=== PATIENT | female | born 1985 | race Caucasian/White ===

== ENCOUNTER 2017-10-10 14:59 | Emergency (ER) | payer MEDICARE, MEDICAID, SELFPAY ==
[2017-10-10 15:00] VITALS: BP 161/121; PULSE 105; RESP 16; TEMP 36.9; O2SAT 93; BMI 62.8
--- NOTE | 2017-10-10 15:32 | RAD_ITS ---
STUDY: X-RAY - UNILATERAL RIBS ( RIGHT ) WITH CHEST REASON FOR EXAM: Female, 32 years old. Right-sided pain TECHNIQUE - RIBS: 2 view(s) of the ribs. TECHNIQUE - CHEST: 1 frontal view COMPARISON: 04/12/2017 FINDINGS - RIBS: There are no displaced rib fractures identified. FINDINGS - CHEST: The lungs are clear. There are no pleural effusions. There is no pneumothorax. The heart is normal in size. RAD/Ribs Uni Min 3V w/PA Chest IMPRESSION: RIBS: No displaced rib fracture identified. CHEST: Clear lungs. Electronically Signed: Travis Valenzuela, at 16:53 EDT Tel , Service support ,
--- NOTE | 2017-10-10 15:32 | RAD_ITS ---
STUDY: X-RAY - RIGHT SHOULDER REASON FOR EXAM: Female, 32 years old. Trauma TECHNIQUE: 4 view(s) of the shoulder. COMPARISON: None. FINDINGS: There is no evidence of fracture or dislocation. There are no significant degenerative changes. There are no radiodense foreign bodies. RAD/Shoulder min 2 Views IMPRESSION: No fracture or dislocation. Electronically Signed: Travis Valenzuela, at 16:39 EDT Tel , Service support ,
--- NOTE | 2017-10-10 16:06 | ED.VISSUMM ---
- ER Visit Summary Date of Service: 10/10/17 Chief Complaint: Right shoulder pain History of Present Illness: The patient is a 32 F presenting with right shoulder pain. Patient states yesterday she was playing ball with her son. She was tackled by another player. She fell to her right side. She did not hit her head or lose consciousness. She complains of right shoulder pain. Denies other complaints. She has tried ibuprofen and Tylenol at home. Physical Examination: Vitals are stable. Patient is afebrile. Alert no acute distress. HEENT exam is unremarkable. Neck is nontender. Lungs are clear and equal bilaterally. Heart is regular rate and rhythm. Abdomen is soft nontender nondistended. Extremities right posterior shoulder tenderness, painful range of motion, neurovascularly intact distally Skin is warm and dry. No focal neurologic deficit. Remainder of exam is unremarkable. Emergency Department Course and Treatment: X-ray of the right shoulder and right ribs show no acute process. Patient is advised to continue ibuprofen at home. She is given a prescription for Flexeril. Advised to return to the ED for worsening complaints. She is advised to follow-up with Dr Salgado industrial organization manager for no doc. Disposition: Discharge home Impression: Right shoulder injury This note was generated with [employer] dictation software. It may contain incorrect words, spelling, and punctuation that were not noted in review of the chart prior to signing ED Disposition - Plan for ED Patient: Chief Complaint: Upper Extremity Injury Referrals: Care Physician,No Primary [Primary Care Provider] -
--- NOTE | 2017-10-10 17:04 | ED.DEP ---
ED Disposition - Plan for ED Patient: Chief Complaint: Upper Extremity Injury Instructions: ED Contusion Upper Ext Prescriptions: Cyclobenzaprine [Flexeril] 10 mg PO TID PRN #20 tablet PRN Reason: Muscle Spasm Referrals: Care Physician,No Primary [Primary Care Provider] - Juana Salgado DO [STAFF PHYSICIAN] -
== END 2017-10-10 17:14 | disposition home or self-care (01) ==
PROVIDERS: Emergency Provider Emergency Medicine
DX: S49.91XA Unspecified injury of right shoulder and upper arm, initial encounter (principal); Z79.899 Other long term (current) drug therapy; W03.XXXA Other fall on same level due to collision with another person, initial encounter; Y93.61 Activity, american tackle football; Y92.89 Other specified places as the place of occurrence of the external cause; Y99.8 Other external cause status
CPT/HCPCS: 71101; 73030; 99282

== ENCOUNTER 2017-12-28 13:29 | Emergency (ER) | payer MEDICARE, MEDICAID, SELFPAY ==
[2017-12-28 13:30] VITALS: BP 173/103; PULSE 94; RESP 16; TEMP 36.6; O2SAT 97; BMI 63.3
[2017-12-28 14:05] VITALS: BP 156/101; PULSE 84; RESP 16; O2SAT 97
--- NOTE | 2017-12-28 15:13 | ED.DEP ---
ED Disposition - Plan for ED Patient: Chief Complaint: Dental Instructions: ED Tooth Pain Prescriptions: Hydrocodone Bitart/Apap 5-325 [[place] 5MG-325MG] 1 tablet PO Q6H PRN PRN 2 Days #10 tablet PRN Reason: Pain Referrals: Care Physician,No Primary [Primary Care Provider] -
--- NOTE | 2017-12-28 15:15 | DCINST.ED_ITS ---
ED Disposition - Plan for ED Patient: Chief Complaint: Dental Instructions: ED Tooth Pain Prescriptions: Hydrocodone Bitart/Apap 5-325 [[place] 5MG-325MG] 1 tablet PO Q6H PRN PRN 2 Days # 10 tablet PRN Reason: Pain Referrals: Care Physician,No Primary [Primary Care Provider] -
--- NOTE | 2017-12-28 15:17 | ED.VISSUMM ---
- ER Visit Summary Date of Service: 12/28/17 Chief Complaint: Dental pain History of Present Illness: The patient is a 32 F presenting with dental pain. Patient states that she broke her tooth last week. She has had pain since that time. She has been taking ibuprofen, naproxen, Motrin at home. She states this is not improving her pain. She has an appointment with her dentist next week. No other complaints. Physical Examination: Vitals are stable. Patient is afebrile. Alert no acute distress. HEENT exam left upper molar tenderness with fracture, no fluctuance Neck is supple. Lungs are clear and equal bilaterally. Heart is regular rate and rhythm. Abdomen is soft nontender nondistended. Extremities are unremarkable. Skin is warm and dry. Remainder of exam is unremarkable. Emergency Department Course and Treatment: She is given one [place] in the emergency department. She is advised to follow up with her dentist. Advised return ED if worsening complaints. Disposition: Discharge home Impression: Odontalgia This note was generated with [employer] dictation software. It may contain incorrect words, spelling, and punctuation that were not noted in review of the chart prior to signing ED Disposition - Plan for ED Patient: Chief Complaint: Dental Instructions: ED Tooth Pain Prescriptions: Hydrocodone Bitart/Apap 5-325 [[place] 5MG-325MG] 1 tablet PO Q6H PRN PRN 2 Days #10 tablet PRN Reason: Pain Referrals: Care Physician,No Primary [Primary Care Provider] -
[2017-12-28] MEDS: HYDROcodone Bitartrate/Apap 5/325 Tablet PO (15:25)
--- NOTE | 2017-12-28 15:25 | ED.DCSUM_ITS ---
- ER Visit Summary Date of Service: 12/28/17 Chief Complaint: Dental pain History of Present Illness: The patient is a 32 F presenting with dental pain. Patient states that she broke her tooth last week. She has had pain since that time. She has been taking ibuprofen, naproxen, Motrin at home. She states this is not improving her pain. She has an appointment with her dentist next week. No other complaints. Physical Examination: Vitals are stable. Patient is afebrile. Alert no acute distress. HEENT exam left upper molar tenderness with fracture, no fluctuance Neck is supple. Lungs are clear and equal bilaterally. Heart is regular rate and rhythm. Abdomen is soft nontender nondistended. Extremities are unremarkable. Skin is warm and dry. Remainder of exam is unremarkable. Emergency Department Course and Treatment: She is given one [place] in the emergency department. She is advised to follow up with her dentist. Advised return ED if worsening complaints. Disposition: Discharge home Impression: Odontalgia This note was generated with [employer] dictation software. It may contain incorrect words, spelling, and punctuation that were not noted in review of the chart prior to signing ED Disposition - Plan for ED Patient: Chief Complaint: Dental Instructions: ED Tooth Pain Prescriptions: Hydrocodone Bitart/Apap 5-325 [[place] 5MG-325MG] 1 tablet PO Q6H PRN PRN 2 Days # 10 tablet PRN Reason: Pain Referrals: Care Physician,No Primary [Primary Care Provider] -
[2017-12-28 15:27] VITALS: BP 142/88; PULSE 85; RESP 18
== END 2017-12-28 15:28 | disposition home or self-care (01) ==
LOC: ED 15:16
PROVIDERS: Emergency Provider Emergency Medicine
DX: K08.89 Other specified disorders of teeth and supporting structures (principal)
CPT/HCPCS: 99283

== ENCOUNTER 2018-01-12 23:12 | Emergency (ER) | payer MEDICARE, MEDICAID, SELFPAY ==
[2018-01-12 23:13] VITALS: BP 166/91; PULSE 96; RESP 18; TEMP 37.1; O2SAT 96; BMI 63.5
--- NOTE | 2018-01-12 23:50 | ED.VISSUMM ---
- ER Visit Summary Date of Service: 01/12/18 Chief Complaint: [Dental pain] History of Present Illness: The patient is a 32 F [presents the emergency department with complaint of dental pain that started 3 weeks ago. Patient states that she had an appointment scheduled with the dentist within they would not take her insurance. Patient spent 3 hours on the phone with her insurance company today as initially she was not offered dental coverage but the apparently now will offer it to her but she will have to wait 72 hours to get in and see a dentist. Patient denies any trauma to her teeth or fever. Patient describes pain in her left upper molars.] Physical Examination: [HEENT-PERRLA, EOMI. Cranial nerves II through XII grossly intact. TMs clear. Mucous membranes moist. No adenopathy. Dentition-patient has tenderness to palpation over the left upper second and third molars. No gingival erythema or abscess noted. No trismus on exam. No facial cellulitis. No adenopathy. Cardiovascular-regular rate and rhythm without murmur or ectopy Lungs-clear to auscultation, chest wall stable without crepitus or subcu emphysema Abdomen-normoactive bowel sounds, soft, nontender, no rebound or rigidity, no peritoneal signs. Extremities-intact ?4, normal range of motion, normal pulses, atraumatic] Test Results: [None indicated] Emergency Department Course and Treatment: [Patient was treated with amoxicillin and will be given a prescription for 10 [place] for pain] Treatment Plan: [Patient advised to follow-up with the dentist.] Disposition: [Discharged home in stable condition] Impression: [Dental pain] This note was generated with [employer] dictation software. It may contain incorrect words, spelling, and punctuation that were not noted in review of the chart prior to signing ED Disposition - Plan for ED Patient: Chief Complaint: Dental Referrals: Care Physician,No Primary [Primary Care Provider] -
--- NOTE | 2018-01-12 23:54 | DCINST.ED_ITS ---
ED Disposition - Plan for ED Patient: Chief Complaint: Dental Instructions: ED Tooth Pain Prescriptions: Hydrocodone Bitart/Apap 5-325 [[place] 5MG-325MG] 1 tab PO Q6H PRN PRN 3 Days #10 tab PRN Reason: Pain Referrals: Care Physician,No Primary [Primary Care Provider] - Additional Instructions: see a dentist
--- NOTE | 2018-01-12 23:55 | DCINST.ED_ITS ---
ED Disposition - Plan for ED Patient: Chief Complaint: Dental Instructions: ED Tooth Pain Prescriptions: Hydrocodone Bitart/Apap 5-325 [[place] 5MG-325MG] 1 tab PO Q6H PRN PRN 3 Days #10 tab PRN Reason: Pain Amoxicillin 500 mg PO TID #30 tab Referrals: Care Physician,No Primary [Primary Care Provider] - Additional Instructions: see a dentist
[2018-01-13] MEDS: AMOXICILLIN 500 MG CAPSULE PO (00:07)
[2018-01-13] MEDS: HYDROcodone Bitartrate/Apap 5/325 Tablet PO (00:07)
[2018-01-13 00:10] VITALS: PULSE 89; RESP 14; O2SAT 98
== END 2018-01-13 00:10 | disposition home or self-care (01) ==
LOC: ED 23:57
PROVIDERS: Emergency Provider Emergency Medicine
DX: K08.89 Other specified disorders of teeth and supporting structures (principal)
CPT/HCPCS: 99283

== ENCOUNTER 2018-03-30 16:29 | Emergency (ER) | payer MEDICARE, MEDICAID, SELFPAY ==
[2018-03-30 16:29] VITALS: BP 183/100; PULSE 92; RESP 16; TEMP 36.6; O2SAT 99; BMI 61.5
--- NOTE | 2018-03-30 16:45 | ED.VISSUMM ---
- ER Visit Summary Date of Service: 03/30/18 Chief Complaint: [Dental pain] History of Present Illness: The patient is a 33 F [presents to the emergency department with complaint of right lower gingival swelling and pain. Patient states that she noticed some discomfort to the gingiva couple days ago and noticed the swelling today. Patient denies any fever. She denies any trauma to the area. Patient states that she has some poor dentition and is having a hard time with her insurance and getting coverage through Medicaid at this time therefore has not seen a dentist.] Physical Examination: [HEENT-PERRLA, EOMI. Cranial nerves II through XII grossly intact. TMs clear. Mucous membranes moist. No adenopathy. Dentition-patient right lower jaw is edentulous from prior extractions. Patient does have a small soft tissue swelling that is slightly erythematous noted to the gingiva. This area is not fluctuant and not typical of an abscess. It measures approximately 8 mm in diameter. Cardiovascular-regular rate and rhythm without murmur or ectopy Lungs-clear to auscultation, chest wall stable without crepitus or subcu emphysema Abdomen-normoactive bowel sounds, soft, nontender, no rebound or rigidity, no peritoneal signs. Extremities-intact ?4, normal range of motion, normal pulses, atraumatic] Test Results: [None indicated] Emergency Department Course and Treatment: Patient will be given clindamycin and 10 [place] for pain] Treatment Plan: [Clindamycin and [place] for discomfort. Patient advised to follow-up with a dentist within the next 3-5 days.] Patient understands that it is unclear the etiology of this soft tissue swelling but may be related to trauma or just inflammation. Patient does not use chewing tobacco. Disposition: [Discharged home in stable condition] Impression: [Dental pain Gingivitis.] This note was generated with [employer] dictation software. It may contain incorrect words, spelling, and punctuation that were not noted in review of the chart prior to signing ED Disposition - Plan for ED Patient: Chief Complaint: Dental Referrals: Care Physician,No Primary [Primary Care Provider] -
--- NOTE | 2018-03-30 16:48 | ED.DCSUM_ITS ---
- ER Visit Summary Date of Service: 03/30/18 Chief Complaint: [Dental pain] History of Present Illness: The patient is a 33 F [presents to the emergency department with complaint of right lower gingival swelling and pain. Patient states that she noticed some discomfort to the gingiva couple days ago and no ticed the swelling today. Patient denies any fever. She denies any trauma to the area. Patient states that she has some poor dentition and is having a hard time with her insurance and getting coverage through Medicaid at this time therefore has not seen a dentist.] Physical Examination: [HEENT-PERRLA, EOMI. Cranial nerves II through XII grossly intact. TMs clear. Mucous membranes moist. No adenopathy. Dentition- patient right lower jaw is edentulous from prior extractions. Patient does have a small soft tissue swelling that is slightly erythematous noted to the gi ngiva. This area is not fluctuant and not typical of an abscess. It measures approximately 8 mm in diameter. Cardiovascular-regular rate and rhythm without murmur or ectopy Lungs-clear to auscultation, chest wall stable without crepitus or subcu emphysema Abdomen-normoactive bowel sounds, soft, nontender, no rebound or rigidity, no peritoneal signs. Extremities-intact ?4, normal range of motion, normal pulses, atraumatic] Test Results: [None indicated] Emergency Department Course and Treatment: Patient will be given clindamycin and 10 [place] for pain] Treatment Plan: [Clindamycin and [place] for discomfort. Patient advised to follow-up with a dentist within the next 3-5 days.] Patient understands that it is unclear the etiology of this soft tissue swelling but may be related to trauma or just inflammation. Patient does not use chewing tobacco. Disposition: [Discharged home in stable condition] Impression: [Dental pain Gingivitis.] This note was generated with [employer] dictation software. It may contain incorrect words, spelling, and punctuation that were not noted in review of the chart prior to signing ED Disposition - Plan for ED Patient: Chief Complaint: Dental Referrals: Care Physician,No Primary [Primary Care Provider] -
--- NOTE | 2018-03-30 16:50 | DCINST.ED_ITS ---
ED Disposition - Plan for ED Patient: Chief Complaint: Dental Instructions: ED Tooth Pain, Understanding Gingivitis Prescriptions: Hydrocodone Bitart/Apap 5-325 [[place] 5MG-325MG] 1 tab PO Q4H PRN PRN 2 Days #10 tab PRN Reason: Pain Clindamycin HCl [Cleocin] 300 mg PO Q6H #40 cap Referrals: Care Physician,No Primary [Primary Care Provider] - Additional Instructions: see a dentist in 3-5 days
== END 2018-03-30 17:01 | disposition home or self-care (01) ==
LOC: ED 16:54
PROVIDERS: Emergency Provider Emergency Medicine
DX: K08.89 Other specified disorders of teeth and supporting structures (principal); K05.10 Chronic gingivitis, plaque induced
CPT/HCPCS: 99282

== ENCOUNTER 2018-05-02 13:46 | Emergency (ER) | payer MEDICARE, SELFPAY ==
[2018-05-02 13:47] VITALS: BP 191/101; PULSE 111; RESP 18; TEMP 36.1; O2SAT 99; BMI 41.6
--- NOTE | 2018-05-02 14:18 | ED.DCSUM_ITS ---
- ER Visit Summary Date of Service: 05/02/18 Chief Complaint: Back pain History of Present Illness: The patient is a 33 F with prior back pain is complaining of worsening pain for 3 days after she sat up the wrong way. Pain is not radiating into her legs, she has no bowel or bladder compromise no urinary retention. No fever or chills no other trauma and no other pain. Physical Examination: Otherwise normal exam she has lumbosacral spine tenderness no abdominal tenderness or fullness. She has normal plantar flexion of both feet normal dorsiflexion of both great toes. 1+ reflexes throughout the legs and equal. And she has LS-spine tenderness both spinal and paraspinal region. Emergency Department Course and Treatment: Patient will be treated with muscle relaxants and analgesia she has no red flags no reason for any further imaging emergency. Disposition: Discharge stable condition Impression: Lumbar strain This note was generated with [employer] dictation software. It may contain incorrect words, spelling, and punctuation that were not noted in review of the chart prior to signing ED Disposition - Plan for ED Patient: Disposition: Home or Assisted Living Chief Complaint: Back Instructions: ED Low Back Pain Injury Prescriptions: Naproxen [Naprosyn] 500 mg PO BID PRN #20 tab Tizanidine HCl 4 mg PO TID PRN #20 tab PRN Reason: Muscle Spasm Referrals: Care Physician,No Primary [Primary Care Provider] - 3-5 Days
[2018-05-02] MEDS: HYDROcodone Bitartrate/Apap 5/325 Tablet PO (14:27)
[2018-05-02] MEDS: Triamcinolone Acetonide 40 MG/ML Vial IM (14:27)
[2018-05-02] MEDS: diazePAM 2 MG Tablet 4 MG PO (14:27)
== END 2018-05-02 15:20 | disposition home or self-care (01) ==
PROVIDERS: Emergency Provider Emergency Medicine
DX: S39.012A Strain of muscle, fascia and tendon of lower back, initial encounter (principal); M54.5 Low back pain; G89.29 Other chronic pain; Z87.891 Personal history of nicotine dependence; Z79.899 Other long term (current) drug therapy; X50.0XXA Overexertion from strenuous movement or load, initial encounter; Y93.89 Activity, other specified; Y92.89 Other specified places as the place of occurrence of the external cause; Y99.8 Other external cause status
CPT/HCPCS: 96372; 99283

== ENCOUNTER 2018-07-14 20:28 | Emergency (ER) | payer MEDICARE, SELFPAY ==
[2018-07-14 20:29] VITALS: BP 161/102; PULSE 104; RESP 18; TEMP 36.7; O2SAT 96; BMI 56.7
--- NOTE | 2018-07-14 20:48 | EKG12_ITS ---
Test Reason : CP Blood Pressure : / mmHG Vent. Rate : 082 BPM Atrial Rate : 082 BPM P-R Int : 160 ms QRS Dur : 092 ms QT Int : 368 ms P-R-T Axes : 048 002 024 degrees QTc Int : 429 ms Normal sinus rhythm Minimal voltage criteria for LVH, may be normal variant Borderline ECG Confirmed by CAROLANN PRADHAN, DINESH ([id number]), graphic editor BARBER CAMPUZANO ([id number]) on 07/19/2018 10:05:45 AM Referred By: GORDON CABRAL Confirmed By:DINESH VUONG MD
--- NOTE | 2018-07-14 20:55 | RAD_ITS ---
STUDY: X-RAY CHEST REASON FOR EXAM: Female, 33 years old. Chest pain TECHNIQUE: 1 view COMPARISON: Prior chest radiograph from April 12, 2017 FINDINGS: Limited chest expansion with crowding of normal vascular structures. Negative for new consolidation, focal atelectasis or a substantial pleural effusion. Normal size heart. Normal mediastinum and myles. Normal visualized pulmonary arteries. Normal visualized aortic arch and descending thoracic aorta. Normal visualized thoracic spine. Normal visualized ribs, clavicles, and shoulders. There is no demonstrated abnormality of the visualized soft tissue structures of the upper abdomen. RAD/Chest 1 View (Portable) IMPRESSION: Shallow inspiration without other acute cardiopulmonary findings. Electronically Signed: Christina Magana MD at 21:19 EST , Service support ,
[2018-07-14 21:07] VITALS: BP 143/108; PULSE 88; RESP 16; O2SAT 94
[2018-07-14] MEDS: Aspirin 81 MG TAB.CHEW 324 MG PO (21:11)
[2018-07-14] MEDS: 0.9% Normal Saline 1,000 ML 150 ML IV (21:19)
[2018-07-14] MEDS: Ondansetron 4 MG/2 ML Vial IV (21:19)
[2018-07-14] MEDS: fentaNYL 100 MCG/2 ML Ampul 50 MCG IV (21:19)
[2018-07-14 21:44] LABS: Absolute Lymphocyte Count 1.14 X10^3/ul (0.83-4.51); Absolute Neutrophil Count 5.3 X10^3/uL (2.0-7.7); Basophil# 0.03 X10^3/uL; Basophil% 0.4 % (0-1); Eosinophil# 0.05 X10^3/uL; Eosinophils% 0.7 % (0-5); Hematocrit 46.8 % (37-47); Hemoglobin 15.1 g/dl (12.0-15.0); Lymphocyte # 1.14 X10^3/ul (4.0); Lymphocyte % 16.5 % (19-41); Mean Corp Hgb Conc 32.3 g/gl (32-36); Mean Corpuscular Hgb 28.5 pg (27.0-32.0); Mean Corpuscular Volume 88.3 fL (81-99); Mean Platelet Vol. 11.8 fl (6.2-12.0); Monocyte# 0.43 X10^3/uL; Monocyte% 6.2 % (0-10); Neutrophil # 5.26 X10^3/uL (2.7-7.7); Neutrophil % 75.9 % (47-70); Platelet Count 234 K/mm3 (150-450); RBC Distribution Width CV 14.6 % (11.6-14.6); RBC Distribution Width SD 46.1 fl (35.1-43.9); White Blood Count 6.9 K/mm3 (4.4-11.0)
[2018-07-14 21:51] LABS: POSITIVE COUNT NO; POSITIVE DIFFERENTIAL NO; POSITIVE MORPHOLOGY NO
[2018-07-14 22:00] VITALS: BP 133/90; PULSE 86; RESP 24; O2SAT 95
[2018-07-14 22:46] LABS: Anion Gap 9 (5-15); BUN 7 mg/dL (7-18); Calcium,Total 9.4 mg/dL (8.5-10.1); Chloride 106 mmol/L (98-107); EST Glomerular Filtration Rate 101 mL/min (>60); Est Glom Filt Rate - Afr Amer 123 mL/min (>60); Estimated Creatinine Clearance 92.79 ml/min; Glucose 125 mg/dL (74-106); Potassium 4.4 mmol/L (3.5-5.1); Sodium Level 140 mmol/L (136-145)
[2018-07-14] MEDS: HYDROmorphone 1 MG/ML Syringe IV (22:52)
[2018-07-14 22:54] LABS: D-Dimer Quantitative (DVT/PE) < 0.27 FEU/ug/m (0.27-0.49)
--- NOTE | 2018-07-14 23:16 | ED.VISSUMM ---
- ER Visit Summary Date of Service: 07/14/18 Chief Complaint: Chest pain History of Present Illness: The patient is a 33 F who complains of left upper chest pain for the past several days. Pain worsened over the last couple of hours. Nothing really makes the pain better or worse. She has had mild shortness of breath. No cough or URI symptoms. Patient denies any known injury. History significant for borderline diabetes, hypertension, anxiety, depression. Physical Examination: Vital signs significant for blood pressure 161/102, heart rate 104. Patient sitting upright in bed. She is in no acute distress. Head and neck examination unremarkable. Heart is regular rate and rhythm. Lung sounds are clear. She does have tenderness in the left upper sternal border that re-creates her pain. There is no crepitus. Abdomen is soft and nontender. Lower extreme examination is unremarkable. Test Results: EKG is sinus 82 with no sign of acute ischemia. Portable chest x-ray shows shallow Inspra Tory effort, but no other acute findings. CBC was a hemoglobin of 15.1. Chemistry studies significant for glucose of 125. Troponin and d-dimer are both negative. Emergency Department Course and Treatment: Patient was given aspirin along with initial dose of fentanyl and Zofran. Due to continued pain she did receive Dilaudid. On repeat examination patient states the pain meds helps for a short period, then the pain will spike again. She continues to have significant tenderness along the chest wall. She will be given a dose of Solu-Medrol and discharged with [place] and prednisone. She was advised that this will make her blood sugars increase for the next several days. Treatment Plan: [] Disposition: Discharge Impression: Chest wall pain This note was generated with [employer] dictation software. It may contain incorrect words, spelling, and punctuation that were not noted in review of the chart prior to signing ED Disposition - Plan for ED Patient: Chief Complaint: Chest Pain Referrals: Care Physician,No Primary [Primary Care Provider] -
--- NOTE | 2018-07-14 23:19 | ED.DCSUM_ITS ---
- ER Visit Summary Date of Service: 07/14/18 Chief Complaint: Chest pain History of Present Illness: The patient is a 33 F who complains of left upper chest pain for the past several days. Pain worsened over the last couple of hours. Nothing really makes the pain better or worse. She has had mild shortne ss of breath. No cough or URI symptoms. Patient denies any known injury. History significant for borderline diabetes, hypertension, anxiety, depression. Physical Examination: Vital signs significant for blood pressure 161/102, heart rate 104. Patient sitting upright in bed. She is in no acute distress. Head and neck examination unremarkable. Heart is regular rate and rhythm. Lung sounds are clear. She does have tenderness in the left upper sternal border that re-creates her pain. There is no crepitus. Abdomen is soft and nontender. Lower extreme examination is unremarkable. Test Results: EKG is sinus 82 with no sign of acute ischemia. Portable chest x- ray shows shallow Inspra Tory effort, but no other acute findings. CBC was a hemoglobin of 15.1. Chemistry studies significant for glucose of 125. Troponin and d-dimer are both negative. Emergency Department Course and Treatment: Patient was given aspirin along with initial dose of fentanyl and Zofran. Due to continued pain she did receive Dilaudid. On repeat examination patient states the pain meds helps for a short period, then the pain will spike again. She continues to have significant tenderness along the chest wall. She will be given a dose of Solu-Medrol and discharged with [place] and prednisone. She was advised that this will make her blood sugars increase for the next several days. Treatment Plan: [] Disposition: Discharge Impression: Chest wall pain This note was generated with [employer] dictation software. It may contain incorrect words, spelling, and punctuation that were not noted in review of the chart prior to signing ED Disposition - Plan for ED Patient: Chief Complaint: Chest Pain Referrals: Care Physician,No Primary [Primary Care Provider] -
--- NOTE | 2018-07-14 23:20 | DCINST.ED_ITS ---
ED Disposition - Plan for ED Patient: Disposition: Home or Assisted Living Chief Complaint: Chest Pain Instructions: ED Strain Chest Wall Prescriptions: Hydrocodone Bitart/Apap 5-325 [[place] 5MG-325MG] 1 tablet PO Q4H PRN PRN 2 Days #10 tablet PRN Reason: Pain Prednisone 10 mg PO UD #33 tablet Referrals: Saw Turner MD [STAFF PHYSICIAN] - As soon as possible
[2018-07-14] MEDS: HYDROcodone Bitartrate/Apap 5/325 Tablet PO (23:28)
[2018-07-14] MEDS: MethylPREDNISolone 125 MG/2 ML Vial IV (23:28)
[2018-07-14 23:33] VITALS: BP 143/98; PULSE 87; RESP 16; O2SAT 95
--- NOTE | 2018-07-14 23:34 | ED.RN ---
REVIEWED D/C INSTRUCTIONS, FOLLOW UP CARE, PRESCRIPTIONS, AND S/S THAT WOULD WARRANT A RETURN TO THE ED WITH PT. PT VERBALIZED AN UNDERSTANDING AND DENIES FURTHER QUESTIONS FOR THIS RN. PT SKIN P/W/D, RESP EVEN AND UNLABORED, PT A&O X 3, NO DISTRESS NOTED. PT AMBULATED OUT OF ED, GAIT STEADY.
== END 2018-07-14 23:35 | disposition home or self-care (01) ==
PROVIDERS: Emergency Provider Emergency Medicine
DX: R07.89 Other chest pain (principal); F41.9 Anxiety disorder, unspecified; F32.9 Major depressive disorder, single episode, unspecified; Z79.899 Other long term (current) drug therapy; Z87.891 Personal history of nicotine dependence
CPT/HCPCS: 71045; 80048; 84484; 85025; 85379; 93005; 96361; 96374; 96375; 99285; J7030; A4216; J2405

== ENCOUNTER 2018-08-17 23:14 | Emergency (ER) | payer MEDICARE, SELFPAY ==
[2018-08-17 23:16] VITALS: BP 154/99; PULSE 113; RESP 18; TEMP 36.6; O2SAT 94; BMI 126.9
[2018-08-17 23:24] VITALS: BP 150/100; PULSE 106; RESP 27; O2SAT 96
--- NOTE | 2018-08-17 23:40 | EKG12_ITS ---
Test Reason : CP Blood Pressure : / mmHG Vent. Rate : 103 BPM Atrial Rate : 103 BPM P-R Int : 168 ms QRS Dur : 086 ms QT Int : 334 ms P-R-T Axes : 039 001 010 degrees QTc Int : 437 ms Sinus tachycardia Possible Left atrial enlargement Left ventricular hypertrophy Abnormal ECG Confirmed by CAROLANN PRADHAN, DINESH ([id number]), telegraph editor BARBER CAMPUZANO ([id number]) on 08/20/2018 8:22:55 AM Referred By: SAHIL Confirmed By:DINESH VUONG MD
--- NOTE | 2018-08-17 23:40 | RAD_ITS ---
STUDY: X-RAY CHEST REASON FOR EXAM: Female, 33 years old. Chest pain TECHNIQUE: PA and lateral views of the chest. COMPARISON: 07/14/2018 FINDINGS: The lungs are clear and expanded. There is no demonstrated pleural abnormality. Normal size heart. Normal mediastinum and myles. Normal visualized pulmonary arteries. Normal visualized aortic arch and descending thoracic aorta. Normal visualized thoracic spine. Normal visualized ribs, clavicles, and shoulders. There is no demonstrated abnormality of the visualized soft tissue structures of the upper abdomen. RAD/Chest PA and Lateral IMPRESSION: Normal x-ray examination of the chest. Electronically Signed: Emilio Ruffin MD at 1:47 EST Tel , Service support ,
[2018-08-17 23:54] LABS: Absolute Neutrophil Count 3.1 X10^3/uL (2.0-7.7); Basophil# 0.03 X10^3/uL; Basophil% 0.7 % (0-1); Eosinophil# 0.05 X10^3/uL; Eosinophils% 1.2 % (0-5); Hematocrit 45.8 % (37-47); Lymphocyte % 16.4 % (19-41); Mean Corp Hgb Conc 32.8 g/gl (32-36); Mean Corpuscular Hgb 29.4 pg (27.0-32.0); Mean Corpuscular Volume 89.8 fL (81-99); Mean Platelet Vol. 11.9 fl (6.2-12.0); Monocyte# 0.34 X10^3/uL; Neutrophil # 3.12 X10^3/uL (2.7-7.7); Neutrophil % 73.2 % (47-70); POSITIVE COUNT NO; POSITIVE DIFFERENTIAL NO; POSITIVE MORPHOLOGY NO; Platelet Count 200 K/mm3 (150-450); RBC Distribution Width CV 14.8 % (11.6-14.6); RBC Distribution Width SD 47.9 fl (35.1-43.9); White Blood Count 4.3 K/mm3 (4.4-11.0)
[2018-08-18 00:15] VITALS: BP 129/99; PULSE 99; RESP 28; O2SAT 96
[2018-08-18 00:23] LABS: Anion Gap 7 (5-15); BUN 8 mg/dL (7-18); Calcium,Total 9.1 mg/dL (8.5-10.1); Chloride 103 mmol/L (98-107); Creatinine, Serum 0.89 mg/dL (0.55-1.02); EST Glomerular Filtration Rate 77 mL/min (>60); Est Glom Filt Rate - Afr Amer 93 mL/min (>60); Estimated Creatinine Clearance 72.98 ml/min; Glucose 155 mg/dL (74-106); Potassium 3.7 mmol/L (3.5-5.1); Sodium Level 137 mmol/L (136-145)
[2018-08-18 01:15] VITALS: BP 135/94; PULSE 100; RESP 25; O2SAT 97
--- NOTE | 2018-08-18 02:26 | ED.DEP ---
ED Disposition - Plan for ED Patient: Instructions: ED Chest Pain NonCardiac Referrals: Care Physician,No Primary [Primary Care Provider] - Becky Boyle MD [COURTESY STAFF PHYSICIAN] -
[2018-08-18 02:35] VITALS: BP 143/92; PULSE 92; RESP 15; O2SAT 98
--- NOTE | 2018-08-18 07:12 | ED.DCSUM_ITS ---
- ER Visit Summary Date of Service: 08/18/18 Chief Complaint: Chest pain History of Present Illness: The patient is a 33 F who presents with chest pain. It is been present intermittently for 2 months. She describes a sharp and stabbing. She currently rates it as 9 out of 10. The current episode is been present for greater than 12 hours. She denies recent travel recent surgery prior DVT or pulmonary embolism or known coagulopathies. She was seen 3 weeks ago for similar symptoms. She has not followed up as an outpatient. No shortness of breath. No cough. No vomiting or diarrhea. No fever. Physical Examination: Blood pressure 150/100 heart rate 106 respiratory rate 27 pulse ox 96% Resting comfortably no distress Moist mucous membranes Heart regular rhythm slightly tachycardic Lungs are clear Abdomen soft Extremities nontender Alert Test Results: EKG shows sinus rhythm rate of 103. Labs notable for white count 4.3. Troponin negative. D-dimer negative. Chest x-ray normal. Emergency Department Course and Treatment: Workup as above is normal. Patient has had symptoms for months with negative workup here. I do not believe any further emergent workup or intervention necessary and advised that she follow-up as an outpatient. Treatment Plan: [] Disposition: Discharge Impression: Chronic chest pain This note was generated with [employer] dictation software. It may contain incorrect words, spelling, and punctuation that were not noted in review of the chart prior to signing ED Disposition - Plan for ED Patient: Disposition: Home or Assisted Living Instructions: ED Chest Pain NonCardiac Referrals: Becky Boyle MD [COURTESY STAFF PHYSICIAN] - Care Physician,No Primary [Primary Care Provider] -
== END 2018-08-18 02:36 | disposition home or self-care (01) ==
PROVIDERS: Emergency Provider Emergency Medicine
DX: R07.9 Chest pain, unspecified (principal); G89.29 Other chronic pain
CPT/HCPCS: 71046; 80048; 84484; 85025; 85379; 93005; 99284; A4216

== ENCOUNTER 2018-12-07 08:57 | Emergency (ER) | payer MEDICARE, SELFPAY ==
[2018-12-07 08:58] VITALS: BP 161/111; PULSE 131; RESP 18; TEMP 36.3; O2SAT 95; BMI 56.7
--- NOTE | 2018-12-07 09:13 | ED.VISSUMM ---
- ER Visit Summary Date of Service: 12/07/18 Chief Complaint: [Sore throat] History of Present Illness: The patient is a 33 F [presents to the emergency department with a sore throat that she noticed this morning when she awoke. Patient states that when she sat up she felt like there was something hanging in the back of her throat and she could not breathe. Patient states that she then had her anxiety go way up. Patient states she was fine before going to bed. She denies any new medications. She denies any fever or cough. She denies any sick contacts.] Physical Examination: [HEENT-PERRLA, EOMI. Cranial nerves II through XII grossly intact. TMs clear. Mucous membranes moist. No adenopathy. Patient has some faint pharyngeal erythema noted. Patient does have edema and erythema of the uvula. There are no tonsillar exudates. No trismus on exam. Cardiovascular-regular rate and rhythm without murmur or ectopy Lungs-clear to auscultation, chest wall stable without crepitus or subcu emphysema Abdomen-normoactive bowel sounds, soft, nontender, no rebound or rigidity, no peritoneal signs. Extremities-intact ?4, normal range of motion, normal pulses, atraumatic] Test Results: [Rapid strep screen was negative] Emergency Department Course and Treatment: [Patient was given 10 mg of Decadron and 500 mg of amoxicillin] Treatment Plan: [We will treat with amoxicillin for to treat other possible bacterial causes. Patient will also be given prednisone for 3 more days. Patient understands that this may be allergic versus trauma versus bacterial versus viral etiology. Patient advised to return if difficulty swallowing on secretions, high fevers, or condition should worsen anyway.] Disposition: [Discharged home in stable condition.] Impression: [Uvulitis] This note was generated with [employer] dictation software. It may contain incorrect words, spelling, and punctuation that were not noted in review of the chart prior to signing ED Disposition - Plan for ED Patient: Referrals: Care Physician,No Primary [Primary Care Provider] -
[2018-12-07] MEDS: AMOXICILLIN 500 MG CAPSULE PO (09:14)
[2018-12-07] MEDS: dexAMETHasone 4 MG Tablet 10 MG PO (09:14)
--- NOTE | 2018-12-07 09:39 | ED.DEP ---
ED Disposition - Plan for ED Patient: Instructions: ED Uvulitis Prescriptions: Prednisone [Deltasone] 20 mg PO BID #10 tab Amoxicillin 500 mg PO TID #30 tab Referrals: Care Physician,No Primary [Primary Care Provider] - Chet Davis MD [STAFF PHYSICIAN] - 5-7 Days
[2018-12-07 09:49] VITALS: BP 152/108; PULSE 121; RESP 20; O2SAT 100
== END 2018-12-07 09:50 | disposition home or self-care (01) ==
PROVIDERS: Emergency Provider Emergency Medicine
DX: K12.2 Cellulitis and abscess of mouth (principal)
CPT/HCPCS: 87880; 99283

== ENCOUNTER 2019-01-15 05:15 | Emergency (ER) | payer MEDICARE, SELFPAY ==
[2019-01-15 05:16] VITALS: BP 175/116; PULSE 84; RESP 20; TEMP 36.5; O2SAT 97; BMI 40.7
--- NOTE | 2019-01-15 05:27 | ED.VISSUMM ---
- ER Visit Summary Date of Service: 01/15/19 Chief Complaint: Toothache History of Present Illness: The patient is a 33 F who presents with dental pain. She states that she had a chipped tooth which broke more about a week ago. She complains of increased pain particularly over the last few days. No fevers or facial swelling. Physical Examination: Afebrile blood pressure 175/116 vitals otherwise normal Patient does have focal decay of the left maxillary first molar no dental abscess amenable to incision and drainage No trismus Heart regular Test Results: Not indicated Emergency Department Course and Treatment: Patient was given prescriptions for naproxen and penicillin and first doses of each here. She does have an appointment with a dentist on February 17 and she was also given a list of other local dental clinics to see if she can get in any sooner. Treatment Plan: [] Disposition: Discharge Impression: Odontalgia This note was generated with [employer] dictation software. It may contain incorrect words, spelling, and punctuation that were not noted in review of the chart prior to signing ED Disposition - Plan for ED Patient: Referrals: Care Physician,No Primary [Primary Care Provider] -
--- NOTE | 2019-01-15 05:28 | ED.DEP ---
ED Disposition - Plan for ED Patient: Instructions: Dental Pain Prescriptions: Naproxen [Naprosyn] 500 mg PO BID #14 tab Prescription Printed Penicillin V Potassium 500 mg PO 4X/DAY #40 tab Prescription Printed Referrals: Care Physician,No Primary [Primary Care Provider] -
[2019-01-15] MEDS: Penicillin Vk 250 MG Tablet 500 MG PO (05:32)
[2019-01-15] MEDS: Naproxen 500 MG Tablet PO (05:32)
[2019-01-15 05:33] VITALS: BP 168/99; PULSE 80; RESP 15; O2SAT 97
== END 2019-01-15 05:36 | disposition home or self-care (01) ==
LOC: ED 05:33
PROVIDERS: Emergency Provider Emergency Medicine
DX: K08.89 Other specified disorders of teeth and supporting structures (principal)
CPT/HCPCS: 99283

== ENCOUNTER 2019-02-16 18:12 | Emergency (ER) | payer MEDICARE, SELFPAY ==
[2019-02-16 18:13] VITALS: BP 172/107; PULSE 103; RESP 16; TEMP 36.5; O2SAT 95; BMI 53.1
--- NOTE | 2019-02-16 19:31 | ED.VIS.BACK ---
History of Present Illness Chief Complaint: Back Informant: Patient Onset: Weeks - 1 Context: Gradual Onset - woke up w/ this pain Timing: Continuous Quality: Aching Location: Lumbar - right. no radiation. Current Severity: Severe Maximum Severity: Severe Worsened by: improves with: Movement Relieved by: Remaining Still Associated Symptoms: - - No radiation to lower extremities, abdominal pain, numbness, tingling, weakness, fevers, bowel or bladder dysfunction. Narrative: Patient denies any obvious injury or overuse. She woke up with this pain and it has been relatively persistent, today when she got up from lying down she felt spasms and like her back suddenly locked up on her with significant exacerbation of the pain she has been having for the past week without any new symptoms otherwise. Past Medical History - Allergies and Home Meds Allergies/Adverse Reactions: Allergies sulfamethoxazole [From Bactrim] Allergy (Verified 02/16/19 18:15) Hives trimethoprim [From Bactrim] Allergy (Verified 02/16/19 18:15) Hives ketorolac tromethamine [From Toradol] Adverse Reaction (Verified 02/16/19 18:15) Other I GET REALLY SICK ON THOSE morphine Adverse Reaction (Verified 02/16/19 18:15) Upset Stomach I GET SEVERE ABDOMINAL CRAMPAGE tramadol Adverse Reaction (Verified 02/16/19 18:15) Other I GET REALLY SICK ON THOSE Primary Care Physician: Care Physician,No Primary [Primary Care Provider] - Past Medical History: None Lives: Spouse/ Significant Other Smoking Status: Former smoker Drugs: None - no IVDU Review of Systems General: Denies: Chills, Fever Gastrointestinal: Denies: Abdominal pain, Nausea, Vomiting Genitourinary: Reports: - - No bowel or bladder dysfunction. See HPI. Musculoskeletal: Reports: Back pain. Denies: Swelling, Extremity Pain Skin: Denies: Rash, Wounds Neurological: Denies: Headache, Weakness, Parasthesia, Numbness Physical Exam Vital Signs/Narrative: Vital Signs Temp Pulse Resp BP Pulse Ox 02/16/19 18:13 97.7 F L 103 H 16 172/107 H 95 Inital Vital Signs reviewed: Yes General: Well nourished, Well developed, Obese, - - No acute distress Head: Normocephalic, Atraumatic Abdomen: Soft, Nontender, Nondistended, Normal bowel sounds Back: Normal Inspection, Paraspinal Tenderness - Mild, pain is at right SI joint, the area is mildly tender. No tenderness at sciatic notch., Negative SLR - Right, Negative SLR - Left. Negative for: Spinal tenderness, CVA tenderness Extremeties: Nontender, No edema, Strong Pulses Skin: Normal color, No rash Neuro: Alert, Oriented, Normal Strength, Normal Sensation, Normal DTR, Normal Gait, Normal Reflexes Psychological: Normal affect, Normal Mood Diagnostic/Tx/Re-eval - Medical Decision Making No radiography indicated. Straight leg raises are negative and reflexes are normal. Likely musculoskeletal etiology, I suspect sacroiliac dysfunction. She has allergies to multiple analgesics. She states Tylenol and ibuprofen were helping earlier in week so I advised she continue those, gave her a shot of Norflex here and a prescription for some Flexeril to use as needed, I advised follow-up with chiropractic or her PCP for physical therapy referral for persistent symptoms. ED Disposition - Plan for ED Patient: Disposition: Home or Assisted Living Diagnosis: Sacroiliac joint dysfunction of right side, Spasm of muscle of lower back Instructions: BACK SPASM, No Trauma, Sacroiliitis Prescriptions: cycloBENZAPRine HCl [Flexeril] 10 mg PO TID PRN PRN #15 tab PRN Reason: Muscle Spasm Transmission Status: Pending to [facility] Referrals: Care Physician,No Primary [Primary Care Provider] - Kamryn Cordova [NON-STAFF] - 1 Week if not improving (or your PCP listed on insurance card)
[2019-02-16] MEDS: Orphenadrine 60 MG/2 ML Ampul IM (19:36)
== END 2019-02-16 20:40 | disposition home or self-care (01) ==
LOC: ED 19:56
PROVIDERS: Emergency Provider Emergency Medicine
DX: M62.830 Muscle spasm of back (principal); M53.3 Sacrococcygeal disorders, not elsewhere classified; Z87.891 Personal history of nicotine dependence; E66.9 Obesity, unspecified
CPT/HCPCS: 96372; 99282

== ENCOUNTER 2019-09-17 11:17 | Emergency (ER) | payer MEDICARE, MEDICAID, SELFPAY ==
[2019-09-17 11:20] VITALS: BP 161/80; PULSE 87; RESP 17; TEMP 36.8; O2SAT 96; BMI 55.2
--- NOTE | 2019-09-17 11:58 | ED.VIS.DENTA ---
History of Present Illness Informant: Patient Onset: Month(s) Context: Gradual Onset Timing: Continuous Quality: sharp Location: left mouth Current Severity: Severe Maximum Severity: Severe Worsened by: food Relieved by: NSAIDs Associated Symptoms: Facial Swellling, Hot, Cold, Sensitivity Narrative: 34-year-old female presents with dental pain. Worsening over the last 1 month. Mostly left lower. History of poor dentition. Has not seen a dentist. No fevers or difficulty breathing or difficulty swallowing or difficulty opening and closing mouth Prior similar symptoms: Yes Recent Illness/Hospitalization: No <Jese La - Last Filed: 09/17/19 11:58> <Ruby Good - Last Filed: 09/17/19 12:07> Chief Complaint: Dental Past Medical History Prior records reviewed: Yes Past Medical History: None Surgical History: no surgical history Lives: With Family Smoking Status: Never smoker Alcohol: Occasional Drugs: None <Jese La - Last Filed: 09/17/19 11:58> <Ruby Good - Last Filed: 09/17/19 12:07> - Allergies and Home Meds Allergies/Adverse Reactions: Allergies sulfamethoxazole [From Bactrim] Allergy (Verified 09/17/19 11:19) Hives trimethoprim [From Bactrim] Allergy (Verified 09/17/19 11:19) Hives ketorolac tromethamine [From Toradol] Adverse Reaction (Verified 09/17/19 11:19) Upset Stomach I GET REALLY SICK ON THOSE morphine Adverse Reaction (Verified 09/17/19 11:19) Upset Stomach I GET SEVERE ABDOMINAL CRAMPAGE tramadol Adverse Reaction (Verified 09/17/19 11:19) Upset Stomach I GET REALLY SICK ON THOSE Primary Care Physician: Care Physician,No Primary [Primary Care Provider] - Dentist,Your [STAFF PHYSICIAN] - Review of Systems All systems negative except as indicated General: Denies: Chills, Fever Eyes: Denies: Visual changes - bilaterally, Blurred Vision - bilaterally, Diplopia ENT: Denies: Rhinorrhea, Sore throat Cardiovascular: Denies: Chest pain, Palpitations Respiratory: Denies: Dyspnea, Cough Gastrointestinal: Denies: Abdominal pain, Nausea, Vomiting, Diarrhea Genitourinary: Denies: Dysuria, Hematuria, Frequency Musculoskeletal: Denies: Myalgias, Neck pain, Back pain Skin: Denies: Rash, Abscess, Abrasions, Wounds Neurological: Denies: Headache, Weakness, Parasthesia, Numbness <Jese La - Last Filed: 09/17/19 11:58> Physical Exam Vital Signs/Narrative: Vital Signs Temp Pulse Resp BP Pulse Ox 09/17/19 11:20 98.2 F 87 17 161/80 H 96 Inital Vital Signs reviewed: Yes General: Well nourished, Well developed, Obese Head: Normocephalic, Atraumatic ENT: Moist mucous membranes, No nasal trauma, No rhinorrhea Mouth/Throat: No focal abscess, Normal posterior oropharynx, No sublingual edema, Normal Stensen's duct, Focal dental decay, Focal gum swelling, Widespread dental decay. Negative for: Apthous ulcer, Dental trauma, Dental abscess, Dental avulsion, Dentral fracture, Gingivitis, Tenderness on tooth percussion, Trismus Neck: Supple, No lymphadenopathy, Nontender, No JVD Cardiovascular: Regular rate, Regular rhythm, No murmurs Respiratory: No distress, CTA bilaterally, Chest nontender Abdomen: Soft, Nontender, Nondistended, Normal bowel sounds, No masses Back: Nontender, Normal Inspection Extremities: Nontender, No edema Skin: Normal color, No rash Neurological: Alert, Oriented x3 Psychological: Normal affect, Normal Mood <Jese La - Last Filed: 09/17/19 11:58> Vital Signs/Narrative: Vital Signs Temp Pulse Resp BP Pulse Ox 09/17/19 11:20 98.2 F 87 17 161/80 H 96 <Ruby Good - Last Filed: 09/17/19 12:07> Diagnostic/Tx/Re-eval - Medical Decision Making Patient has no focal abscess. No sublingual edema or trismus. Voice normal. Will prescribe Naprosyn, penicillin will give referral to dental. Return precautions given. Discharged home. <Jese La - Last Filed: 09/17/19 11:58> - Medical Decision Making Patient was seen with Jese guerra PA agree with the above, complaint is dental pain, there is some vague discomfort to the left lower mandibular area the airways intact for the mouth is unremarkable discussed with the patient the potential infection pain management antibiotics and follow-up with dental services see chart for full details <Ruby Good - Last Filed: 09/17/19 12:07> ED Disposition <Jese La - Last Filed: 09/17/19 11:58> <Ruby Good - Last Filed: 09/17/19 12:07> - Plan for ED Patient: Disposition: Home or Assisted Living Diagnosis: Odontalgia, Dental caries Instructions: Dental Pain Prescriptions: Naproxen [Naprosyn] 500 mg PO BID PRN #20 tab Prescription Printed Penicillin V Potassium 500 mg PO 4X/DAY #40 tab Prescription Printed Referrals: Care Physician,No Primary [Primary Care Provider] - Dentist,Your [STAFF PHYSICIAN] -
[2019-09-17] MEDS: Penicillin Vk 250 MG Tablet 500 MG PO (12:10)
[2019-09-17] MEDS: Naproxen 500 MG Tablet PO (12:10)
== END 2019-09-17 12:11 | disposition home or self-care (01) ==
PROVIDERS: Emergency Provider Physician Assistant Medical
DX: K02.9 Dental caries, unspecified (principal)
CPT/HCPCS: 99283

== ENCOUNTER 2019-10-28 10:42 | Emergency (ER) | payer MEDICARE, MEDICAID, SELFPAY ==
[2019-10-28 10:44] VITALS: BP 156/105; PULSE 86; RESP 15; RESP 17; TEMP 36.1; O2SAT 97; BMI 56.2
[2019-10-28] MEDS: Penicillin Vk 250 MG Tablet 500 MG PO (11:25)
[2019-10-28] MEDS: oxyCODONE 5 MG Tablet PO (11:25)
[2019-10-28] MEDS: Naproxen 250 MG Tablet 500 MG PO (11:25)
--- NOTE | 2019-10-28 11:49 | ED.DCSUM_ITS ---
- ER Visit Summary Date of Service: 10/28/19 Chief Complaint: Dental pain History of Present Illness: The patient is a 34 F with no primary care physician or dentist. She reports she has pain in her left mandibular first molar that began 2 days ago. States is 10 of 10 at worst 9-10 currently. Is worsened by talking or eating. Has not taken anything for pain. She does report that is sensitive hot and cold temperatures. She also had facial swelling. Patient reports nausea without vomiting. No fever, chills, or other constitutional symptoms. Physical Examination: Vitals: Stable. Afebrile. Mouth: No trismus. No edema of the floor of the mouth. Pain with percussion of left mandibular second premolar and first molar. There is an abscess on the lateral portion of the gum at the level of the first molar. This area is severely tender to palpation. She does have mild facial swelling. General: A&O x 3. NAD. Cardiovascular exam: Regular rate and rhythm, no murmur, rub or gallop. Respiratory exam: Clear to auscultation bilaterally. No wheezes or stridor. Abdominal exam: Soft, nontender, nondistended, normal bowel sounds. No peritoneal signs. Extremity: No clubbing, cyanosis, or edema. Emergency Department Course and Treatment: Patient had the area anesthetized with Cetacaine. A stab incision was made with drainage of a significant amount of purulent material. She was given penicillin, naproxen, and Percocet here. She is resting more comfortably. Treatment Plan: Patient be discharged instructed to follow-up the dentist soon as possible. Return to the emergency department for any worsening symptoms. Disposition: To home in improved and stable condition. Impression: 1. Dental abscess. 2. Incision and drainage. Procedure Note: Anesthetized with cetacaine. An incision was made with an 11 scalpel blade. A moderate amount of pus was drained. The patient tolerated it well. This note was generated with [employer] dictation software. It may contain incorrect words, spelling, and punctuation that were not noted in review of the chart prior to signing ED Disposition - Plan for ED Patient: Disposition: Home or Assisted Living Instructions: ED ABSCESS DENTAL Prescriptions: Naproxen [Naprosyn] 500 mg PO BID #14 tab Prescription Printed Penicillin V Potassium 500 mg PO 4X/DAY #40 tab Prescription Printed Oxycodone HCl/Acetaminophen [Percocet 5/325] 1 tab PO Q6H PRN PRN 3 Days #12 tab PRN Reason: Pain Prescription Printed Referrals: Dentist,Your [STAFF PHYSICIAN] - As soon as possible
[2019-10-28 12:08] VITALS: BP 154/95; RESP 18
== END 2019-10-28 12:08 | disposition home or self-care (01) ==
LOC: ED 11:14
PROVIDERS: Emergency Provider Emergency Medicine
DX: K04.7 Periapical abscess without sinus (principal)
CPT/HCPCS: 41800; 99283

== ENCOUNTER 2019-11-14 08:28 | Emergency (ER) | payer MEDICARE, MEDICAID, SELFPAY ==
[2019-11-14 08:29] VITALS: BP 160/103; PULSE 95; RESP 17; TEMP 36.4; O2SAT 96; BMI 41.8
--- NOTE | 2019-11-14 08:39 | RAD_ITS ---
STUDY: X-RAY - LEFT ANKLE REASON FOR EXAM: Female, 34 years old. Fell down stairs last night -- medial pain TECHNIQUE: 3 view(s) of the ankle. COMPARISON: None. FINDINGS: Normal visualized distal tibia and fibula. Normal medial and lateral malleoli. Normal tibiotalar articulation and ankle mortise. Normal visualized talus and calcaneus. The visualized subtalar, talonavicular, calcaneocuboid and tarsal articulations are normal. Soft tissue swelling. RAD/Ankle min 3 Views IMPRESSION: Soft tissue swelling. Electronically Signed: Jewel Victor, at 9:22 EDT , Service support ,
--- NOTE | 2019-11-14 08:39 | ED.VIS.GEN ---
History of Present Illness Chief Complaint: Lower Extremity Injury Informant: Patient Onset: Yesterday Narrative: Patient states that last night at approximately 2200 hrs. she was going down and external flight of stairs when she slipped due to the rain. She states that as she went down the stairs her left foot got stuck in between 2 pieces of concrete. She notes some abrasions. She reports that she went home put some ice on it but when she woke today she is having pain when she bears weight. She denies any other injuries. Past Medical History - Allergies and Home Meds Allergies/Adverse Reactions: Allergies sulfamethoxazole [From Bactrim] Allergy (Verified 11/14/19 08:29) Hives trimethoprim [From Bactrim] Allergy (Verified 11/14/19 08:29) Hives ketorolac tromethamine [From Toradol] Adverse Reaction (Verified 11/14/19 08:29) Upset Stomach I GET REALLY SICK ON THOSE morphine Adverse Reaction (Verified 11/14/19 08:29) Upset Stomach I GET SEVERE ABDOMINAL CRAMPAGE tramadol Adverse Reaction (Verified 11/14/19 08:29) Upset Stomach I GET REALLY SICK ON THOSE Primary Care Physician: Care Physician,No Primary [Primary Care Provider] - Surgical History: no surgical history Smoking Status: Unknown if ever smoked Review of Systems General: Denies: Chills, Fever, Sweats Eyes: Denies: Visual changes - bilaterally, Diplopia ENT: Denies: Rhinorrhea, Sore throat Cardiovascular: Denies: Chest pain, Palpitations Respiratory: Denies: Dyspnea, Cough, Dyspnea on exertion Gastrointestinal: Denies: Abdominal pain, Nausea, Vomiting, Diarrhea, Melena, Hematochezia Genitourinary: Denies: Dysuria, Hematuria, Frequency Musculoskeletal: Reports: Extremity Pain. Denies: Back pain Skin: Denies: Rash, Wounds Neurological: Denies: Headache, Weakness, Numbness Physical Exam Vital Signs/Narrative: Vital Signs Temp Pulse Resp BP Pulse Ox 11/14/19 08:29 97.5 F L 95 17 160/103 H 96 Inital Vital Signs reviewed: Yes General: Well nourished, Well developed, No Acute Distress Head: Normocephalic, Atraumatic Eyes: Perrl, EOMI ENT: Moist mucous membranes, No rhinorrhea Neck: Supple, Nontender Cardiovascular: Regular rate, Regular rhythm, No murmurs Respiratory: No distress, CTA bilaterally, Chest nontender Abdomen: Soft, Nontender, Nondistended, Normal bowel sounds Back: Nontender, Normal Inspection Extremities: No edema, - - She reports tenderness over the medial malleolus distal medial leg. Laterally there are some superficial abrasions without blood. Skin: Normal color, No rash Neurological: Alert, Oriented x3, Cranial nerves II-XII grossly intact, Normal Strength, Normal Sensation Psychological: Normal affect, Normal Mood Diagnostic/Tx/Re-eval - Medical Decision Making X-rays were obtained and were negative for fracture. Patiently placed in Marc wrap. Would recommend Tylenol Motrin and icing. Follow-up with podiatry in 10 to 14 days if not improved. ED Disposition - Plan for ED Patient: Disposition: Home or Assisted Living Diagnosis: Fall down stairs, Left ankle sprain Instructions: ED Sprain Ankle Referrals: Hollis Davis DPM [STAFF PHYSICIAN] - 10-14 Days if not better (i)
== END 2019-11-14 09:03 | disposition home or self-care (01) ==
LOC: ED 08:55
PROVIDERS: Emergency Provider Emergency Medicine
DX: S93.402A Sprain of unspecified ligament of left ankle, initial encounter (principal); W10.9XXA Fall (on) (from) unspecified stairs and steps, initial encounter
CPT/HCPCS: 73610; 99282

== ENCOUNTER 2020-01-17 12:18 | Emergency (ER) | payer MEDICARE, MEDICAID, SELFPAY ==
[2020-01-17 12:19] VITALS: BP 140/90; PULSE 95; RESP 16; TEMP 37; BMI 56.8
--- NOTE | 2020-01-17 14:47 | ED.VISSUMM ---
- ER Visit Summary Date of Service: 01/17/20 Chief Complaint: Dental pain History of Present Illness: The patient is a 34 F who presents with dental pain that has been getting worse over the past 2 weeks. Patient states she was supposed to have a dentist appointment yesterday but her insurance was not taken by her dentist. Patient states she rescheduled with a different dentist for 2 weeks from now. Patient describes the pain as aching and stabbing. Patient states the pain is over the left upper and lower molars. Patient states the pain is worse with eating and drinking. Patient admits to hot and cold sensitivity. Patient denies any fevers or chills. Patient denies any facial or jaw swelling. Physical Examination: Vital signs are stable. Patient is afebrile. Patient is in no acute distress. Oral mucosa is pink and moist. There are large dental caries noted over the left upper first molar and left lower third molar. There is some mild gingival edema around these teeth. There is no discharge or drainage. There is no fluctuance. There is no evidence of any abscess. There is no sublingual edema or evidence of Dalton angina. Neck is supple. Trachea is midline. There is no JVD or lymphadenopathy. Heart was regular rate and rhythm. Lungs are clear and equal bilaterally. Emergency Department Course and Treatment: Patient was given a dose of Pen-Vee K and was given a prescription for the same. Patient was instructed to take Tylenol or ibuprofen as needed for pain. Patient was instructed to follow-up with her dentist as scheduled. Patient understood and was agreeable with the plan. All questions were answered. Disposition: Discharge home Impression: Infected dental caries This note was generated with [employer] dictation software. It may contain incorrect words, spelling, and punctuation that were not noted in review of the chart prior to signing ED Disposition - Plan for ED Patient: Disposition: Home or Assisted Living Diagnosis: Infected dental caries Instructions: ED [facility] Dental, ED Tooth Pain Prescriptions: Penicillin V Potassium 500 mg PO 4X/DAY #40 tab Prescription Printed Referrals: Care Physician,No Primary [Primary Care Provider] - Dentist,Your [STAFF PHYSICIAN] - Keep [facility] appointment
== END 2020-01-17 15:22 | disposition home or self-care (01) ==
PROVIDERS: Emergency Provider Emergency Medicine
DX: K02.9 Dental caries, unspecified (principal); F32.9 Major depressive disorder, single episode, unspecified
CPT/HCPCS: 99281

== ENCOUNTER 2020-03-21 22:14 | Emergency (ER) | payer MEDICARE, MEDICAID, SELFPAY ==
[2020-03-21 22:14] VITALS: BP 153/95; PULSE 104; RESP 26; TEMP 36.3; O2SAT 97; BMI 59.4
--- NOTE | 2020-03-21 22:51 | RAD_ITS ---
STUDY: X-RAY CHEST REASON FOR EXAM: Female, 35 years old. COUGH, SOB, AND CONGESTION. TECHNIQUE: 2 views COMPARISON: Prior chest radiograph of 08/18/2018 FINDINGS: The lungs are clear and expanded. There is no demonstrated pleural abnormality. Normal size heart. Normal mediastinum and myles. Normal visualized pulmonary arteries. Normal visualized aortic arch and descending thoracic aorta. Normal visualized thoracic spine. Normal visualized ribs, clavicles, and shoulders. There is no demonstrated abnormality of the visualized soft tissue structures of the upper abdomen. RAD/Chest PA and Lateral IMPRESSION: Normal x-ray examination of the chest. Electronically Signed: Christina Magana MD at 23:35 EDT , Service support ,
--- NOTE | 2020-03-21 22:52 | ED.DCSUM_ITS ---
History of Present Illness Chief Complaint: Shortness of Breath Narrative: Patient is a 35-year-old female who presents with sore throat and cough. She states she woke up not feeling well this morning she had sore throat generalized malaise and cough. She complains of shortness of breath with exertion. No fevers. No nausea vomiting or diarrhea. No sick contacts. She denies history of underlying lung disease. Past Medical History - Allergies and Home Meds Allergies/Adverse Reactions: Allergies sulfamethoxazole [From Bactrim] Allergy (Verified 01/17/20 12:22) Hives trimethoprim [From Bactrim] Allergy (Verified 01/17/20 12:22) Hives ketorolac tromethamine [From Toradol] Adverse Reaction (Verified 01/17/20 12:22) Upset Stomach I GET REALLY SICK ON THOSE morphine Adverse Reaction (Verified 01/17/20 12:22) Upset Stomach I GET SEVERE ABDOMINAL CRAMPAGE tramadol Adverse Reaction (Verified 01/17/20 12:22) Upset Stomach I GET REALLY SICK ON THOSE Primary Care Physician: Care Physician,No Primary [Primary Care Provider] - Past Medical History: - - Bipolar Surgical History: no surgical history Smoking Status: Current every day smoker Review of Systems All systems negative except as indicated General: Reports: Malaise. Denies: Fever Eyes: Denies: Visual changes - bilaterally ENT: Reports: Sore throat Cardiovascular: Denies: Chest pain Respiratory: Reports: Dyspnea, Cough Gastrointestinal: Denies: Abdominal pain, Nausea, Vomiting, Diarrhea Musculoskeletal: Denies: Myalgias Skin: Denies: Rash Neurological: Denies: Headache Physical Exam Vital Signs/Narrative: Vital Signs Temp Pulse Resp BP Pulse Ox 03/21/20 22:14 97.4 F L 104 H 26 H 153/95 H 97 Inital Vital Signs reviewed: Yes General: Well nourished Head: Normocephalic Eyes: EOMI ENT: Moist mucous membranes Neck: Supple Cardiovascular: Regular rhythm, Tachycardia Respiratory: CTA bilaterally, - - Tachypnea but no distress able speak in full sentences. Negative for: Rales, Rhonchi, Wheezing Abdomen: Soft, Nontender Skin: Normal color Neurological: Alert Psychological: Normal affect Diagnostic/Tx/Re-eval Impressions Chest X-Ray 03/21/20 22:51 IMPRESSION: Normal x-ray examination of the chest. Electronically Signed: Christina Magana MD at 23:35 EDT , Service support , 03/21/20 22:51 Chest PA and Lateral [RAD] Stat Laboratory Results 03/21/20 03/21/20 03/21/20 23:06 23:06 23:06 WBC 8.4 RBC 4.57 Hgb 12.4 Hct 38.8 MCV 84.9 MCH 27.1 MCHC 32.0 RDW Std Deviation 39.3 RDW Coeff of Nirmala 12.8 Plt Count 245 MPV 10.7 Immature Gran % (Auto) 0.600 Neut % (Auto) 71.9 H Lymph % (Auto) 21.4 [place] % (Auto) 5.0 Eos % (Auto) 0.7 Baso % (Auto) 0.4 Absolute Neuts (auto) 6.0 Absolute Lymphs (auto) 1.79 Nucleated RBC % 0 Sodium 137 Potassium 4.3 Chloride 104 Carbon Dioxide 27.0 Anion Gap 6 BUN 8 Creatinine 0.76 Estim Creat Clear Calc 83.84 Est GFR (MDRD) Af Amer 110 Est GFR (MDRD) Non-Af 91 BUN/Creatinine Ratio 10.5 Glucose 287 H Lactic Acid 2.1 H* Calcium 8.8 - Medical Decision Making Patient was treated with IV fluids. Chest x-ray is unremarkable. Labs notable for lactic acid minimally elevated at 2.1. Given the remainder of her normal work-up I do not believe this to be clinically significant. Patient was advised that this is most likely related to a viral syndrome. A COVID swab was sent. She was advised on quarantining as well as supportive care. She understands return for new or worsening symptoms. The patient was discharged. ED Disposition - Plan for ED Patient: Disposition: Home or Assisted Living Diagnosis: Viral syndrome Instructions: ED Viral Syndrome Referrals: Care Physician,No Primary [Primary Care Provider] -
[2020-03-21] MEDS: 0.9% Normal Saline 1,000 ML 999 ML IV (23:14)
[2020-03-21 23:18] LABS: Absolute Lymphocyte Count 1.79 X10^3/uL (0.83-4.51); Basophil# 0.03 X10^3/uL; Basophil% 0.4 % (0-1); Eosinophil# 0.06 X10^3/uL; Eosinophils% 0.7 % (0-5); Hematocrit 38.8 % (37-47); Hemoglobin 12.4 g/dL (12.0-15.0); Lymphocyte # 1.79 X10^3/ul (4.0); Lymphocyte % 21.4 % (19-41); Mean Corpuscular Hgb 27.1 pg (27.0-32.0); Mean Corpuscular Volume 84.9 fL (81-99); Mean Platelet Vol. 10.7 fl (6.2-12.0); Monocyte# 0.42 X10^3/uL; NRBC Flagged by Analyzer 0 % (0-5); Neutrophil # 6.03 X10^3/uL (2.7-7.7); Neutrophil % 71.9 % (47-70); Platelet Count 245 K/mm3 (150-450); RBC Distribution Width CV 12.8 % (11.6-14.6); RBC Distribution Width SD 39.3 fl (35.1-43.9); Red Blood Count 4.57 M/mm3 (4.2-5.4); White Blood Count 8.4 K/mm3 (4.4-11.0)
[2020-03-21 23:32] LABS: Anion Gap 6 (5-15); BUN 8 mg/dL (7-18); BUN/Creat Ratio 10.5 RATIO (10-20); Calcium,Total 8.8 mg/dL (8.5-10.1); Chloride 104 mmol/L (98-107); Creatinine, Serum 0.76 mg/dL (0.55-1.02); EST Glomerular Filtration Rate 91 mL/min (>60); Est Glom Filt Rate - Afr Amer 110 mL/min (>60); Estimated Creatinine Clearance 83.84 ml/min; Glucose 287 mg/dL (74-106); Potassium 4.3 mmol/L (3.5-5.1); Sodium Level 137 mmol/L (136-145)
[2020-03-21 23:49] LABS: Lactic Acid 2.1 mmol/L (0.4-1.9)
[2020-03-21 23:54] VITALS: BP 109/82; PULSE 90; RESP 18; TEMP 36.9; O2SAT 96
[2020-03-22 03:20] LABS: Reflex Lactate? Y
== END 2020-03-22 00:04 | disposition home or self-care (01) ==
PROVIDERS: Emergency Provider Emergency Medicine
DX: B34.9 Viral infection, unspecified (principal); F17.200 Nicotine dependence, unspecified, uncomplicated; F31.9 Bipolar disorder, unspecified
CPT/HCPCS: 71046; 80048; 83605; 85025; 87635; 99283; C9803; J7030; U0003

== ENCOUNTER → 2020-04-13 11:42 | Outpatient (CLI) | payer MEDICARE, MEDICAID, SELFPAY ==
[2020-03-21 22:14] VITALS: BMI 59.4
== END ==
PROVIDERS: PCP Family Medicine; Referring Provider Family Medicine; Visit Provider Family Medicine
DX: R60.0 Localized edema (principal); R06.00 Dyspnea, unspecified

== ENCOUNTER 2020-09-17 17:58 | Emergency (ER) | payer MEDICARE, MEDICAID, SELFPAY ==
[2020-06-11 15:29] VITALS: BMI 59.4
[2020-09-17 17:58] VITALS: BP 146/86; PULSE 95; RESP 15; TEMP 36.6; O2SAT 98; BMI 64.1
--- NOTE | 2020-09-17 18:12 | EKG12_ITS ---
Test Reason : DYSRHYTHMIA Blood Pressure : / mmHG Vent. Rate : 084 BPM Atrial Rate : 084 BPM P-R Int : 182 ms QRS Dur : 104 ms QT Int : 376 ms P-R-T Axes : 024 003 030 degrees QTc Int : 444 ms Normal sinus rhythm Minimal voltage criteria for LVH, may be normal variant Borderline ECG Confirmed by CAROLANN PRADHAN, DINESH ([id number]), film or videotape editor GIAN ALICEA ([id number]) on 09/19/2020 9:33:56 AM Referred By: MARIE Confirmed By:DINESH VUONG MD
--- NOTE | 2020-09-17 18:25 | RAD_ITS ---
STUDY: X-RAY CHEST REASON FOR EXAM: Female, 35 years old. chest pain TECHNIQUE: Single AP portable view of the chest. COMPARISON: 03/21/2020 FINDINGS: The lungs are clear and expanded. There is no demonstrated pleural abnormality. Normal size heart. Normal mediastinum and myles. Normal visualized pulmonary arteries. Normal visualized aortic arch and descending thoracic aorta. Normal visualized thoracic spine. Normal visualized ribs, clavicles, and shoulders. There is no demonstrated abnormality of the visualized soft tissue structures of the upper abdomen. RAD/Chest 1 View (Portable) IMPRESSION: Normal x-ray examination of the chest. Electronically Signed: Jules Ribeiro MD at 18:44 EDT Tel , Service support ,
--- NOTE | 2020-09-17 18:28 | ED.DCSUM_ITS ---
History of Present Illness Chief Complaint: General Illness Informant: Patient Narrative: Patient is a 35-year-old female with a past medical history of anxiety who presents to the emergency department for generally not feeling well. She states she feels like there is a pressure on her chest. She believes that this is related to stress. She denies any palpitations or shortness of breath related to this. She is never felt like this before in the past. She denies any history of DVT/PE. No leg swelling. She does have a lot of stressors going on right now that she does not want to delve into. She denies any recent illness including any cough, fever/chills. No nausea/vomiting or diarrhea. No urinary symptoms. She has not tried anything for her chest pressure. No known aggravating factors. It is not related to exertion. It is not pleuritic. Past Medical History - Allergies and Home Meds Allergies/Adverse Reactions: Allergies sulfamethoxazole [From Bactrim] Allergy (Verified 09/17/20 18:03) Hives trimethoprim [From Bactrim] Allergy (Verified 09/17/20 18:03) Hives ketorolac tromethamine [From Toradol] Adverse Reaction (Verified 09/17/20 18:03) Upset Stomach I GET REALLY SICK ON THOSE morphine Adverse Reaction (Verified 09/17/20 18:03) Upset Stomach I GET SEVERE ABDOMINAL CRAMPAGE tramadol Adverse Reaction (Verified 09/17/20 18:03) Upset Stomach I GET REALLY SICK ON THOSE Primary Care Physician: Hollis Pierson MD [NON-STAFF] - 2 Days Prior records reviewed: Yes Surgical History: no surgical history Smoking Status: Former smoker Review of Systems All systems negative except as indicated General: Denies: Chills, Fever, Sweats Eyes: Denies: Visual changes - bilaterally, Diplopia ENT: Denies: Rhinorrhea, Sore throat Cardiovascular: Reports: Chest pain - Pressure. Denies: Palpitations Respiratory: Denies: Dyspnea, Cough, Dyspnea on exertion Gastrointestinal: Denies: Abdominal pain, Nausea, Vomiting, Diarrhea Genitourinary: Denies: Dysuria, Hematuria, Frequency Musculoskeletal: Denies: Back pain, Extremity Pain Skin: Denies: Rash, Wounds Neurological: Denies: Headache, Weakness, Numbness Physical Exam Vital Signs/Narrative: Vital Signs Temp Pulse Resp BP Pulse Ox 09/17/20 17:58 97.8 F 95 15 146/86 H 98 Inital Vital Signs reviewed: Yes General: Well nourished, Well developed, No Acute Distress Head: Normocephalic, Atraumatic Eyes: Perrl, EOMI ENT: Moist mucous membranes, No rhinorrhea Neck: Supple, Nontender Cardiovascular: Regular rate, Regular rhythm, No murmurs Respiratory: No distress, CTA bilaterally, Chest nontender Abdomen: Soft, Nontender, Nondistended, Normal bowel sounds Back: Nontender, Normal Inspection Extremities: Nontender, No edema. Negative for: Calf Tenderness Skin: Normal color, No rash Neurological: Alert, Oriented x3, Cranial nerves II-XII grossly intact, Normal Strength, Normal Sensation Psychological: Normal affect, Normal Mood Diagnostic/Tx/Re-eval Chest X-Ray - ED: 1 View - Single view portable x-ray interpreted by myself. Clear lung powell bilaterally. No pleural effusions. Normal cardiac silhouette. - EKG Initial EKG Interpretation: - - Rate of 84 bpm and normal sinus rhythm. Normal intervals. Normal axis. No significant ST elevations or depressions. No T wave abnormalities. - Medical Decision Making Patient presents to the emergency department for chest pressure and generally not feeling well. She believes that this is all anxiety related. Upon arrival to the emergency department her vital signs are within normal limits. She is satting 98% on room air and nontachycardic. Physical exam is benign. Will check EKG, basic lab work and chest x-ray. Patient's troponin within normal limits. EKG did not show any signs of ischemia or arrhythmia. Chest x-ray did not show any acute cardiopulmonary abnormality. She is PERC negative. Low concern for PE. I feel patient is stable for d ischarge at this time. She is going to follow-up with her PCP. If she develops any worsening chest pressure or develop shortness of breath with this she needs to return to the emergency department to be reevaluated. The patient and her mother who was at bedside are agreeable with this plan. Discharged home in stable condition. All questions answered. ED Disposition - Plan for ED Patient: Disposition: Home or Assisted Living Diagnosis: Chest pressure Instructions: ED Chest Pain, Noncardiac Referrals: Hollis Pierson MD [NON-STAFF] - 2 Days
[2020-09-17 18:29] VITALS: PULSE 90; RESP 20; O2SAT 96
[2020-09-17 18:48] LABS: Absolute Lymphocyte Count 1.71 X10^3/uL (0.83-4.51); Absolute Neutrophil Count 6.5 X10^3/uL (2.0-7.7); Basophil# 0.04 X10^3/uL; Basophil% 0.5 % (0-1); Eosinophil# 0.08 X10^3/uL; Eosinophils% 0.9 % (0-5); Hematocrit 44.6 % (37-47); Hemoglobin 14.2 g/dL (12.0-15.0); Lymphocyte # 1.71 X10^3/ul (4.0); Lymphocyte % 19.3 % (19-41); Mean Corp Hgb Conc 31.8 g/dL (32-36); Mean Corpuscular Hgb 27.7 pg (27.0-32.0); Mean Corpuscular Volume 86.9 fL (81-99); Mean Platelet Vol. 11.1 fl (6.2-12.0); Monocyte% 5.6 % (0-10); NRBC Flagged by Analyzer 0 % (0-5); Neutrophil # 6.51 X10^3/uL (2.7-7.7); Neutrophil % 73.2 % (47-70); Platelet Count 243 K/mm3 (150-450); RBC Distribution Width CV 12.5 % (11.6-14.6); RBC Distribution Width SD 39.8 fl (35.1-43.9); Red Blood Count 5.13 M/mm3 (4.2-5.4); White Blood Count 8.9 K/mm3 (4.4-11.0)
[2020-09-17 18:59] LABS: Internal QC Validated? YES +Cl - CLEAR BKGD; Pregnancy, Serum, hCG Quali. NEGATIVE Negative
[2020-09-17 19:05] LABS: Anion Gap 4 (5-15); BUN 12 mg/dL (7-18); BUN/Creat Ratio 16.4 RATIO (10-20); Calcium,Total 9.2 mg/dL (8.5-10.1); Chloride 104 mmol/L (98-107); Creatinine, Serum 0.73 mg/dL (0.55-1.02); EST Glomerular Filtration Rate 95 mL/min (>60); Est Glom Filt Rate - Afr Amer 115 mL/min (>60); Estimated Creatinine Clearance 75.79 ml/min; Glucose 196 mg/dL (74-106); Sodium Level 136 mmol/L (136-145)
[2020-09-17 19:13] VITALS: BP 111/74; PULSE 87; RESP 20; O2SAT 96
== END 2020-09-17 19:16 | disposition home or self-care (01) ==
PROVIDERS: Emergency Provider Emergency Medicine
DX: R07.89 Other chest pain (principal); Z87.891 Personal history of nicotine dependence
CPT/HCPCS: 71045; 80048; 84484; 84703; 85025; 93005; 99284; A4216

== ENCOUNTER 2020-10-05 06:59 | Emergency (ER) | payer MEDICARE, MEDICAID, SELFPAY ==
[2020-10-05 07:00] VITALS: BP 133/63; PULSE 105; RESP 22; TEMP 35.5; O2SAT 97; BMI 58.3
--- NOTE | 2020-10-05 07:16 | EKG12_ITS ---
Test Reason : Blood Pressure : / mmHG Vent. Rate : 098 BPM Atrial Rate : 098 BPM P-R Int : 192 ms QRS Dur : 094 ms QT Int : 360 ms P-R-T Axes : 016 -04 036 degrees QTc Int : 459 ms Normal sinus rhythm Minimal voltage criteria for LVH, may be normal variant Cannot rule out Anterior infarct , age undetermined Abnormal ECG Confirmed by THOMAS PRADHAN, JUANY ([id number]), news editor BARBER CAMPUZANO ([id number]) on 10/10/2020 8:08:25 AM Referred By: NIKI Confirmed By:JUANY GUZMAN MD
--- NOTE | 2020-10-05 07:16 | CT_ITS ---
STUDY: CTA CHEST REASON FOR EXAM: Female, 35 years old. Pulmonary embolism. One week history of chest pain with congestion and cough. RADIATION DOSAGE (If Supplied By Facility): CTDIvol = ( 18.05 ) mGy, DLP = ( 648.79 ) mGycm TECHNIQUE: The examination was performed with the intravenous administration of IV 100mL Isovue-370. Post-processing of the angiographic images was performed, with multiplanar reformation and 3D reconstruction. Individualized dose optimization techniques were used for this CT. COMPARISON: None. FINDINGS: There are multiple scattered intraluminal filling defects in branches of the right and left upper lobe pulmonary arteries in keeping with a pulmonary embolism. Normal thoracic aorta and visualized great vessels. There is no demonstrated aortic dissection. Normal heart and pericardium. Normal mediastinum. Normal hilar regions. Normal visualized trachea and bronchi. The lungs are well expanded. Normal pulmonary parenchyma. Normal pleura. Normal chest wall structures. Normal osseous structures. Normal visualized upper abdomen. CT/CTA Chest W/WO Contrast IMPRESSION: Pulmonary emboli are seen in branches of the right upper and left upper lobe pulmonary arterial branches. Electronically Signed: Jewel Victor MD at 9:06 EDT , Service support ,
[2020-10-05 07:22] VITALS: O2SAT 100
[2020-10-05] MEDS: LORazepam 0.5 MG Tablet PO (07:25)
[2020-10-05] MEDS: Aspirin 81 MG TAB.CHEW 324 MG PO (07:25)
[2020-10-05 07:32] LABS: Absolute Lymphocyte Count 1.77 X10^3/uL (0.83-4.51); Absolute Neutrophil Count 5.2 X10^3/uL (2.0-7.7); Basophil# 0.06 X10^3/uL; Basophil% 0.8 % (0-1); Eosinophil# 0.08 X10^3/uL; Eosinophils% 1.1 % (0-5); Lymphocyte # 1.77 X10^3/ul (4.0); Lymphocyte % 23.4 % (19-41); Mean Corp Hgb Conc 31.3 g/dL (32-36); Mean Corpuscular Hgb 27.4 pg (27.0-32.0); Mean Corpuscular Volume 87.8 fL (81-99); Mean Platelet Vol. 11.3 fl (6.2-12.0); Monocyte# 0.47 X10^3/uL; Monocyte% 6.2 % (0-10); NRBC Flagged by Analyzer 0 % (0-5); Neutrophil # 5.16 X10^3/uL (2.7-7.7); Platelet Count 251 K/mm3 (150-450); RBC Distribution Width CV 12.4 % (11.6-14.6); RBC Distribution Width SD 40.1 fl (35.1-43.9); Red Blood Count 5.47 M/mm3 (4.2-5.4); White Blood Count 7.6 K/mm3 (4.4-11.0)
[2020-10-05 07:35] LABS: Prothrombin Time (Protime)PT. 12.8 SECONDS (11.7-14.9)
[2020-10-05 07:36] LABS: Partial Thromboplast Time 25.9 Seconds (24.1-36.2)
--- NOTE | 2020-10-05 07:39 | ED.DCSUM_ITS ---
- ER Visit Summary Date of Service: 10/05/20 Chief Complaint: Chest pain History of Present Illness: The patient is a 35 F who presents with chest pain that has been waxing and waning over the past week. Patient states it began gradually. Patient states pain is localized to the left upper chest towards the left axilla. Patient states nothing makes it better and nothing makes it worse. Patient denies any nausea or vomiting. Patient states he feels lightheaded and like she might pass out. Patient states that her pain feels sharp at times, dull at times, tight at times, and aching at times. Patient admits to a cough but denies any sputum production. Patient denies any fevers or chills. Patient denies any shortness of breath. Patient denies any diaphoresis. Patient does admit to some palpitations. Physical Examination: Vital signs are stable except for mild tachycardia of 105 and a mild tachypnea of 22. Patient is afebrile. Patient is in no acute distress. Oral mucosa is pink and moist. Neck is supple. Trachea is midline. There is no JVD. Heart was regular and slightly tachycardic. Lungs are clear and equal bilaterally. There is reproducible tenderness over the left upper chest wall. There is no bony crepitance or step-off. Abdomen is soft. Bowel sounds are normal. There is no tenderness. Extremities are intact. There is no calf tenderness or edema. Cranial nerves II through XII are intact. There are no focal motor or sensory deficits. Test Results: EKG was obtained. On my interpretation, it showed a normal sinus rhythm with a rate of 98. WA interval, QRS interval, and QTc intervals were all normal. Vista was normal. There are no acute ST or T wave changes. CBC and basic metabolic profile were obtained and were essentially within normal limits with the exception of an elevated glucose of 209. Troponin was normal. COVID- 19 rapid antigen was obtained and was negative. CTA of the chest was obtained. There are multiple scattered filling defect in the branches of the left and right upper lobes. These were interpreted by the radiologist and reviewed by myself. Emergency Department Course and Treatment: Patient was given a dose of aspirin initially. Patient was also given a dose of Ativan orally. Patient was unable to lay still for the CT scan initially. Patient was given a repeat dose of Ativan. Patient felt better after this and was able to get the CTA done. Patient was advised of her findings. Patient was given her first dose of Eliquis here. Patient was given a prescription for Eliquis. Patient was instructed to follow-up with her primary care physician in 3 to 5 days. Patient understood and was agreeable with the plan. All questions were answered. Disposition: Discharge home Impression: 1. Bilateral pulmonary emboli This note was generated with [employer] dictation software. It may contain incorrect words, spelling, and punctuation that were not noted in review of the chart prior to signing ED Disposition - Plan for ED Patient: Disposition: Home or Assisted Living Diagnosis: Pulmonary embolism Instructions: Pulmonary Embolism Prescriptions: Apixaban [Eliquis] 5 mg PO BID #74 tablet Transmission Status: Pending to [facility] #30 Referrals: Becky Boyle MD [STAFF PHYSICIAN] - 3-5 Days
[2020-10-05 07:40] LABS: Anion Gap 7 (5-15); BUN 17 mg/dL (7-18); BUN/Creat Ratio 24.7 RATIO (10-20); Calcium,Total 9.3 mg/dL (8.5-10.1); Chloride 104 mmol/L (98-107); Creatinine, Serum 0.69 mg/dL (0.55-1.02); EST Glomerular Filtration Rate 102 mL/min (>60); Est Glom Filt Rate - Afr Amer 123 mL/min (>60); Estimated Creatinine Clearance 92.34 ml/min; Glucose 209 mg/dL (74-106); Potassium 3.9 mmol/L (3.5-5.1); Sodium Level 139 mmol/L (136-145)
[2020-10-05] MEDS: LORazepam 2 MG/ML Syringe 0.5 MG IV (08:06)
[2020-10-05 09:12] VITALS: BP 142/83; PULSE 79; RESP 20; O2SAT 93
[2020-10-05] MEDS: APIXABAN 5 MG TABLET PO (09:25)
[2020-10-05 09:43] VITALS: BP 136/64; PULSE 97; RESP 18; O2SAT 100
== END 2020-10-05 09:44 | disposition home or self-care (01) ==
PROVIDERS: Emergency Provider Emergency Medicine; PCP Family Medicine
DX: I26.99 Other pulmonary embolism without acute cor pulmonale (principal); R05 Cough; Z79.02 Long term (current) use of antithrombotics/antiplatelets
CPT/HCPCS: 71275; 80048; 84484; 85025; 85610; 85730; 87426; 93005; 96374; 99285; Q9967; A4216

== ENCOUNTER 2020-10-08 14:09 | Emergency (ER) | payer MEDICARE, MEDICAID, SELFPAY ==
[2020-10-08 14:10] VITALS: BP 141/96; PULSE 109; RESP 15; TEMP 37; O2SAT 96; BMI 53.0
--- NOTE | 2020-10-08 14:32 | ED.DCSUM_ITS ---
History of Present Illness Chief Complaint: Anxiety Informant: Patient Narrative: 5-year-old female with history of anxiety and recently diagnosed with bilateral pulmonary emboli presents with anxiety. She states she has an appoint with her primary care doctor and her psychiatric doctor tomorrow but feels like her anxiety is worsened since she has been diagnosed with bilateral pulmonary emboli. She does not complain of shortness of breath. She states that when her diagnosis was made she was given Ativan which eased her symptoms. She is not on Ativan chronically. She states she is not taking her anxiety medication because it gives her the jitters. She states she will take this up with her physician tomorrow. She does not know why she has pulmonary emboli. She has no history of blood clots, she is not on estrogens, she has no recent travel. She states that she was told it was because she was obese. Past Medical History - Allergies and Home Meds Allergies/Adverse Reactions: Allergies sulfamethoxazole [From Bactrim] Allergy (Verified 10/08/20 14:10) Hives trimethoprim [From Bactrim] Allergy (Verified 10/08/20 14:10) Hives ketorolac tromethamine [From Toradol] Adverse Reaction (Verified 10/08/20 14:10) Upset Stomach I GET REALLY SICK ON THOSE morphine Adverse Reaction (Verified 10/08/20 14:10) Upset Stomach I GET SEVERE ABDOMINAL CRAMPAGE tramadol Adverse Reaction (Verified 10/08/20 14:10) Upset Stomach I GET REALLY SICK ON THOSE Primary Care Physician: Hollis Pierson MD [Primary Care Provider] - Prior records reviewed: Yes Past Medical History: - - Anxiety, depression, pulmonary emboli Surgical History: no surgical history Lives: Spouse/ Significant Other Smoking Status: Former smoker Alcohol: None Drugs: None Review of Systems General: Denies: Chills, Fever, Sweats Eyes: Denies: Visual changes - bilaterally, Diplopia ENT: Denies: Rhinorrhea, Sore throat Cardiovascular: Reports: Palpitations, Heart racing Respiratory: Denies: Dyspnea, Cough, Dyspnea on exertion Gastrointestinal: Denies: Abdominal pain, Nausea, Vomiting, Diarrhea, Melena, Hematochezia Genitourinary: Denies: Dysuria, Hematuria, Frequency Musculoskeletal: Denies: Back pain, Extremity Pain Skin: Denies: Rash, Wounds Neurological: Denies: Headache, Weakness, Numbness Psych: Reports: Anxiety. Denies: Depression, Suicidal thoughts, Suicidal ideations Physical Exam Vital Signs/Narrative: Vital Signs Temp Pulse Resp BP Pulse Ox 10/08/20 14:10 98.6 F 109 H 15 141/96 H 96 Inital Vital Signs reviewed: Yes General: Well nourished, Obese Head: Normocephalic, Atraumatic Eyes: Perrl, EOMI ENT: Moist mucous membranes, No rhinorrhea. Negative for: Nasal congestion Cardiovascular: Regular rhythm, Tachycardia Respiratory: No distress, CTA bilaterally, Chest nontender Extremities: Nontender, No edema Skin: Normal color, No rash. Negative for: Cyanosis, Diaphoresis Neurological: Alert, Oriented x3, Cranial nerves II-XII grossly intact Psychological: Normal affect, Normal Mood Diagnostic/Tx/Re-eval - Medical Decision Making Patient recently diagnosed with bilateral pulmonary on 10/05/2020. Patient states that she has had worsening anxiety since that time. She has appointments to see both her primary care physician her psychiatric doctor tomorrow. She feels like she needs something to help her anxiety. She states that Ativan helped her. She was given 0.5 mg in the ED. She was given 4 0.5 mg tablets to get her to appointments tomorrow. Patient was counseled that I could not give her a long- term prescription for this. She acknowledges understanding. Patient will get her anxiety medication adjusted at her psychiatric visit. Patient stable for discharge at this time and I do not believe she needs more blood work and imaging. Impression: 1. Anxiety ED Disposition - Plan for ED Patient: Disposition: Home or Assisted Living Instructions: ED Anxiety Reaction Prescriptions: Lorazepam [Ativan] 0.5 mg PO TID 2 Days #4 tablet Prescription Printed Referrals: Hollis Pierson MD [Primary Care Provider] -
[2020-10-08] MEDS: LORazepam 0.5 MG Tablet PO (14:41)
[2020-10-08 14:44] VITALS: RESP 16
== END 2020-10-08 14:45 | disposition home or self-care (01) ==
LOC: ED 14:41
PROVIDERS: Emergency Provider Student in an Organized Health Care Education/Training Program; PCP Family Medicine
DX: F41.9 Anxiety disorder, unspecified (principal); E66.9 Obesity, unspecified; Z87.891 Personal history of nicotine dependence
CPT/HCPCS: 99283; A4216

== ENCOUNTER 2020-10-13 09:27 | Emergency (ER) | payer MEDICARE, MEDICAID, SELFPAY ==
[2020-10-13 09:27] VITALS: BP 159/105; PULSE 107; RESP 18; TEMP 35.9; O2SAT 96; BMI 57.5
--- NOTE | 2020-10-13 10:01 | ED.DCSUM_ITS ---
History of Present Illness Chief Complaint: General Illness Informant: Patient Narrative: 35-year-old female presenting with feeling of generally feeling rundown. Patient does not have a cough or cold symptoms. No stuffy or runny nose. No fever or chills. Patient does not have chest pain or shortness of breath. Her only real complaint is some mild nausea but she is able to eat and drink normally. She is making normal urine and stool. Patient recently diagnosed with PEs and is on Eliquis. She is also been started on Ativan 0.5 mg by her psychiatrist for anxiety. Past Medical History - Allergies and Home Meds Allergies/Adverse Reactions: Allergies sulfamethoxazole [From Bactrim] Allergy (Verified 10/13/20 09:27) Hives trimethoprim [From Bactrim] Allergy (Verified 10/13/20 09:27) Hives ketorolac tromethamine [From Toradol] Adverse Reaction (Verified 10/13/20 09:27) Upset Stomach I GET REALLY SICK ON THOSE morphine Adverse Reaction (Verified 10/13/20 09:27) Upset Stomach I GET SEVERE ABDOMINAL CRAMPAGE tramadol Adverse Reaction (Verified 10/13/20 09:27) Upset Stomach I GET REALLY SICK ON THOSE Primary Care Physician: Hollis Pierson MD [Primary Care Provider] - Past Medical History: - - Anxiety, depression, pulmonary emboli Surgical History: no surgical history Lives: Spouse/ Significant Other Smoking Status: Current every day smoker Alcohol: None Drugs: None Review of Systems General: Denies: Chills, Fever, Sweats ENT: Denies: Rhinorrhea, Sore throat Cardiovascular: Denies: Chest pain, Palpitations Respiratory: Denies: Dyspnea, Cough, Dyspnea on exertion Gastrointestinal: Reports: Nausea. Denies: Abdominal pain, Vomiting, Diarrhea, Constipation Genitourinary: Denies: Dysuria, Hematuria, Frequency Musculoskeletal: Denies: Back pain, Extremity Pain Skin: Denies: Rash, Wounds Neurological: Denies: Headache, Weakness, Numbness Psych: Reports: Anxiety. Denies: Depression Endocrine: Denies: Polyuria, Polydipsia, Heat intolerance, Cold intolerance, -, - Physical Exam Vital Signs/Narrative: Vital Signs Temp Pulse Resp BP Pulse Ox 10/13/20 09:27 96.7 F L 107 H 18 159/105 H 96 General: Well nourished, No Acute Distress Head: Normocephalic, Atraumatic Eyes: Perrl, EOMI ENT: Moist mucous membranes, No rhinorrhea Cardiovascular: Regular rate, Regular rhythm Respiratory: No distress, CTA bilaterally Abdomen: Soft, Nontender, Nondistended Extremities: Nontender, No edema Skin: Normal color, No rash. Negative for: Cyanosis, Diaphoresis Neurological: Alert, Oriented x3, Cranial nerves II-XII grossly intact Psychological: Normal affect, Normal Mood Diagnostic/Tx/Re-eval - Medical Decision Making 35-year-old female presenting with feeling of generally being run down. She states she has been started on Ativan for her anxiety and she is not sure if this is causing her symptoms. She is also been started on Eliquis and is not sure if this is a side effect. She has no signs of allergic reaction or kavita phylaxis. Patient was offered blood work and testing of her urine and a chest x-ray to make sure that she does not have an organic reason to be ill. She declines this work-up. She states she just wants something for nausea. This was provided to her in the ED and she was given a short-term supply for home. She is going to follow-up with her psychiatrist as well as her primary care provider. She is given return precautions. States stable discharge at this time. Impression: 1. Nausea ED Disposition - Plan for ED Patient: Disposition: Home or Assisted Living Instructions: ED Vomiting (Adult) Prescriptions: Ondansetron [Zofran Odt] 4 mg PO Q8H PRN PRN #14 tablet PRN Reason: Nausea Transmission Status: Received by [facility] #30 Referrals: Hollis Pierson MD [Primary Care Provider] -
[2020-10-13] MEDS: Ondansetron ODT 4 MG Tablet PO (10:19)
== END 2020-10-13 10:24 | disposition home or self-care (01) ==
LOC: ED 10:11
PROVIDERS: Emergency Provider Student in an Organized Health Care Education/Training Program; PCP Family Medicine
DX: R11.0 Nausea (principal); F17.200 Nicotine dependence, unspecified, uncomplicated; F41.9 Anxiety disorder, unspecified; Z79.02 Long term (current) use of antithrombotics/antiplatelets; Z86.711 Personal history of pulmonary embolism
CPT/HCPCS: 99281; 99283

== ENCOUNTER 2020-12-16 12:47 | Emergency (ER) | payer MEDICARE, MEDICAID, SELFPAY ==
[2020-12-16 12:49] VITALS: BP 160/118; PULSE 111; RESP 18; TEMP 36.9; O2SAT 96; BMI 56.9
--- NOTE | 2020-12-16 13:14 | EX.ED.DYSGE1 ---
HPI History of Present Illness Chief Complaint: Hyperglycemia Detail of Chief Complaint: Blood sugar greater than 400 Informant: patient Onset/Context/Timing Onset: Today Context: Sudden Onset Quality: Blood sugar greater than 400, blurred vision, polydipsia and polyuria Current Severity: Moderate Maximum Severity: Moderate Worsened by: Unknown Relieved by: Nothing Associated Symptoms Associated Symptoms: Previously documented Narrative Narrative: Patient is a 35-year-old woman with history of type 2 diabetes. She states her blood sugar was greater than 400. She just went camping. She was not compliant with diet. She states she did take her medicine. She does report mild blurred vision, polyuria, polydipsia. She states she is also on a water pill. She denies fever, chills night sweats. She denies auditory symptoms. She denies sore throat. She denies rhinorrhea, congestion postnasal drainage. She denies cough or sputum production. She denies chest pain. She denies vomiting or diarrhea. She denies dysuria or hematuria. She denies rash. She denies neurologic symptoms. Prior similar symptoms: No Recent Illness/Hospitalization: No [facility] Medical History (Updated 12/16/20 @ 16:[address] Vishal Israel MD) Diabetes Home Medications aripiprazole 10 mg PO DAILY 09/17/20 [History Last Taken Unknown] dapagliflozin 5 mg PO DAILY 09/17/20 [History Last Taken Unknown] furosemide 40 mg PO DAILY 09/17/20 [History Last Taken Unknown] hydroxyzine pamoate 25 mg PO DAILY PRN 09/17/20 [History Last Taken Unknown] apixaban 5 mg PO BID #74 tablet 10/05/20 [Rx Last Taken Unknown] ondansetron 4 mg PO Q8H PRN PRN #14 tablet 10/13/20 [Rx Last Taken Unknown] Allergy/AdvReac Type Severity Reaction Status Date / Time sulfamethoxazole Allergy Hives Verified 12/16/20 12:48 [From Bactrim] trimethoprim [From Bactrim] Allergy Hives Verified 12/16/20 12:48 ketorolac tromethamine AdvReac Upset Verified 12/16/20 12:48 [From Toradol] Stomach morphine AdvReac Upset Verified 12/16/20 12:48 Stomach tramadol AdvReac Upset Verified 12/16/20 12:48 Stomach Social History Smoking Status: Never smoker ROS ROS ED Constitutional Constitutional ED: Denies chills, fever(s), subjective, sweats or weight loss Eyes Eyes: Reports blurry vision; Denies change in vision or diplopia ENT ENT ED: Denies ear pain, rhinorrhea or sore throat Cardiovascular Cardiovascular: Denies chest pain, orthopnea, palpitations, paroxysmal nocturnal dyspnea or racing heartbeat Respiratory/Chest Respiratory/Chest: Denies cough, dyspnea, dyspnea on exertion, orthopnea or paroxysmal nocturnal dyspnea Gastrointestinal Gastrointestinal: Denies abdominal pain, constipation, diarrhea, nausea or vomiting Genitourinary Genitourinary ED: Denies dysuria, hematuria or urinary frequency Musculoskeletal Musculoskeletal: Denies arthralgias, back pain, myalgias or neck pain Integumentary Denies Abrasions or rash Neurologic Neurologic: Denies headache(s), paresthesias or weakness Psychiatric Psychiatric: Denies depression Endocrine Endocrinology: Reports polydipsia and polyuria; Denies polyphagia Allergic/Immunologic Allergic/Immunologic ED: Denies urticaria EXAM Physical Exam Const Vital Signs: 12/16/20 12:49 12/16/20 13:31 Temperature 98.4 F Temperature Source Temporal Pulse Rate 111 H 105 H Respiratory Rate 18 14 Blood Pressure 160/118 H Blood Pressure Mean 132 Pulse Ox 96 99 Oxygen Delivery Method Room Air Room Air Positive well nourished, well developed and obese General Appearance ED: well developed Nutritional Appearance: obese HEENT Reports TM's clear and dry mucous membranes HEENT Narrative: Posterior pharynx erythema or exudate. Nares patent. Ears normal. Tympanic Membrane ED: Yes TM's clear Mouth ED: Yes dry mucous membranes Mouth: dry mucous membranes Eyes PERRL and EOMs intact bilaterally General Eye ED: Negative for pale conjunctiva or scleral icterus Neck no lymphadenopathy, supple and no JVD Chest Wall inspection of chest normal and palpation of chest normal Resp normal respiratory effort and clear to auscultation bilaterally Cardio regular rate, regular rhythm, S1 normal heart sound, S2 normal heart sound and no murmurs GI normal to inspection, nondistended, normoactive bowel sounds and non-tender Palpation: soft Back/Spine no CVA tenderness Extremity normal to inspection General Extremety ED: Negative for edema or tenderness General Extremity: Negative for edema Neuro oriented x3, CN's II-XII intact bilaterally and no sensory deficits noted Sensorium / Orientation: alert Motor Exam: strength 5/5 throughout Psych mental status grossly normal Skin no rashes or lesions noted, no wounds and skin turgor normal MDM MDM MDM Narrative Medical decision making narrative: Since patient reports blood sugar greater than 400. 1 L of normal saline was ordered. GGT was ordered. Basic metabolic panel was ordered to assess renal function, CO2 anion gap and glucose. UA was ordered to evaluate for ketones and rule out infection. CBC to rule out leukocytosis which may indicate occult infection. Lab Data Attestation: I reviewed the patient's lab results. Lab results narrative: Blood sugar is less than 200. No treatment was initiated. She was discharged to home. Labs: Laboratory Results - last 24 hr 12/16/20 12/16/20 12/16/20 13:24 13:24 13:36 WBC 9.8 RBC 5.37 Hgb 14.5 Hct 44.8 MCV 83.4 MCH 27.0 MCHC 32.4 RDW Std Deviation 40.6 RDW Coeff of Nirmala 13.5 Plt Count 274 MPV 11.2 Immature Gran % (Auto) 0.400 Neut % (Auto) 76.8 H Lymph % (Auto) 16.6 L [place] % (Auto) 5.0 Eos % (Auto) 0.7 Baso % (Auto) 0.5 Absolute Neuts (auto) 7.5 Absolute Lymphs (auto) 1.63 Nucleated RBC % 0 Sodium 136 Potassium 4.0 Chloride 104 Carbon Dioxide 25.0 Anion Gap 7 BUN 11 Creatinine 0.66 Estim Creat Clear Calc 96.54 Est GFR (MDRD) Af Amer 129 Est GFR (MDRD) Non-Af 107 BUN/Creatinine Ratio 16.7 Glucose 183 H Calcium 9.2 Urine Color Urine Clarity Urine pH Ur Specific [place] Urine Protein Urine Glucose (UA) Urine Ketones Urine Occult Blood Urine Nitrite Urine Bilirubin Urine Urobilinogen Ur Leukocyte Esterase Urine RBC Urine WBC Ur Squamous Epith Cells Urine Bacteria Urine Mucus POC Glucose 176 H 12/16/20 14:51 WBC RBC Hgb Hct MCV MCH MCHC RDW Std Deviation RDW Coeff of Nirmala Plt Count MPV Immature Gran % (Auto) Neut % (Auto) Lymph % (Auto) [place] % (Auto) Eos % (Auto) Baso % (Auto) Absolute Neuts (auto) Absolute Lymphs (auto) Nucleated RBC % Sodium Potassium Chloride Carbon Dioxide Anion Gap BUN Creatinine Estim Creat Clear Calc Est GFR (MDRD) Af Amer Est GFR (MDRD) Non-Af BUN/Creatinine Ratio Glucose Calcium Urine Color Yellow Urine Clarity Clear Urine pH 6.0 Ur Specific [place] 1.010 Urine Protein Negative Urine Glucose (UA) 1000 H Urine Ketones Negative Urine Occult Blood Negative Urine Nitrite Negative Urine Bilirubin Negative Urine Urobilinogen Normal Ur Leukocyte Esterase Negative Urine RBC 0 SEEN Urine WBC 0 SEEN Ur Squamous Epith Cells 0-5 SEEN Urine Bacteria 0 SEEN Urine Mucus 0 SEEN POC Glucose Discharge Plan Triage Chief Complaint: Hyperglycemia ED Provider: Vishal Israel Dx/Rx/DC Orders Clinical Impression: Controlled type 2 diabetes mellitus with hyperglycemia Prescriptions: No Action furosemide 40 MG tablet 40 mg PO DAILY RF: 0 hydroxyzine pamoate 25 MG capsule 25 mg PO DAILY PRN (Reason: Anxiety) RF: 0 aripiprazole 5 MG tablet 10 mg PO DAILY RF: 0 dapagliflozin 5 MG tablet 5 mg PO DAILY RF: 0 apixaban 5 MG tablet 5 mg PO BID Qty: 74 RF: 0 ondansetron 4 MG tablet 4 mg PO Q8H PRN PRN (Reason: Nausea) Qty: 14 RF: 0 Primary Care Provider: Marivel Matute NP Referrals: Marivel Matute [employer] ERECTOR, [employer] [Primary Care Provider] - As Needed Disposition Disposition: Home, self care
[2020-12-16 13:31] VITALS: PULSE 105; RESP 14; O2SAT 99
[2020-12-16] MEDS: 0.9% Normal Saline 1,000 ML 1000 ML IV (13:37)
[2020-12-16 13:39] LABS: Absolute Lymphocyte Count 1.63 X10^3/uL (0.83-4.51); Absolute Neutrophil Count 7.5 X10^3/uL (2.0-7.7); Basophil# 0.05 X10^3/uL; Basophil% 0.5 % (0-1); Eosinophil# 0.07 X10^3/uL; Eosinophils% 0.7 % (0-5); Hematocrit 44.8 % (37-47); Hemoglobin 14.5 g/dL (12.0-15.0); Lymphocyte # 1.63 X10^3/ul (0.83-4.51); Lymphocyte % 16.6 % (19-41); Mean Corp Hgb Conc 32.4 g/dL (32-36); Mean Corpuscular Volume 83.4 fL (81-99); Mean Platelet Vol. 11.2 fl (6.2-12.0); Monocyte# 0.49 X10^3/uL; NRBC Flagged by Analyzer 0 % (0-5); Neutrophil # 7.54 X10^3/uL (2.7-7.7); Neutrophil % 76.8 % (47-70); Platelet Count 274 K/mm3 (150-450); RBC Distribution Width CV 13.5 % (11.6-14.6); RBC Distribution Width SD 40.6 fl (35.1-43.9); Red Blood Count 5.37 M/mm3 (4.2-5.4); White Blood Count 9.8 K/mm3 (4.4-11.0)
[2020-12-16 13:44] LABS: Anion Gap 7 (5-15); BUN 11 mg/dL (7-18); BUN/Creat Ratio 16.7 RATIO (10-20); Calcium,Total 9.2 mg/dL (8.5-10.1); Chloride 104 mmol/L (98-107); Creatinine, Serum 0.66 mg/dL (0.55-1.02); EST Glomerular Filtration Rate 107 mL/min (>60); Est Glom Filt Rate - Afr Amer 129 mL/min (>60); Estimated Creatinine Clearance 96.54 ml/min; Glucose 183 mg/dL (74-106); Sodium Level 136 mmol/L (136-145)
[2020-12-16 13:46] LABS: Bedside Glucose 176 mg/dL (70-110)
[2020-12-16 14:58] LABS: Bacteria 0 SEEN /hpf (None Seen); Mucous, Urine 0 SEEN /hpf (<or=2+); Red Blood Cells-Urine 0 SEEN /hpf (0-5); White Blood Cells 0 SEEN /hpf (0-5)
[2020-12-16 14:59] LABS: Color, Urine Yellow (Yellow); Glucose, Dipstick 1000 mg/dl (Normal); Ketone-Dipstick Negative (Negative); Leukocyte Esterase-Dipstick Negative /ul (Negative); Nitrite-Dipstick Negative (Negative); Occult Blood-Urine Negative /ul (Negative); Protein-Dipstick Negative (Negative); Urine Bilirubin Dipstick Negative (Negative); Urine Clarity Clear (Clear); Urine Urobilinogen Normal (Normal)
[2020-12-16 15:04] LABS: Squamous Epithelial Cells - UA 0-5 SEEN /hpf (5-10)
== END 2020-12-16 16:16 | disposition home or self-care (01) ==
PROVIDERS: Emergency Provider Emergency Medicine; PCP Nurse Practitioner
DX: E11.65 Type 2 diabetes mellitus with hyperglycemia (principal); E66.9 Obesity, unspecified
CPT/HCPCS: 80048; 81001; 82962; 85025; 96360; 96361; 99284; A4216

== ENCOUNTER → 2021-04-29 15:30 | Outpatient (CLI) | payer MEDICARE, MEDICAID, SELFPAY ==
[2021-04-29 17:56] LABS: D-Dimer Quantitative (DVT/PE) <= 0.27 FEU/ug/m (0.27-0.49)
[2021-04-29 18:19] LABS: Troponin-I HS 5 pg/mL (3.0-54.0)
== END ==
PROVIDERS: PCP Nurse Practitioner; Referring Provider Nurse Practitioner; Visit Provider Nurse Practitioner
DX: R07.9 Chest pain, unspecified (principal); R11.0 Nausea; Z86.711 Personal history of pulmonary embolism
CPT/HCPCS: 36415; 84484; 85379

== ENCOUNTER 2021-05-16 12:31 | Emergency (ER) | payer MEDICARE, MEDICAID, SELFPAY ==
[2021-05-16 12:31] VITALS: BP 165/108; PULSE 109; RESP 16; TEMP 36.9; O2SAT 98; BMI 54.0
--- NOTE | 2021-05-16 14:00 | EKG12_ITS ---
Test Reason : Blood Pressure : / mmHG Vent. Rate : 091 BPM Atrial Rate : 091 BPM P-R Int : 184 ms QRS Dur : 090 ms QT Int : 358 ms P-R-T Axes : 029 -02 012 degrees QTc Int : 440 ms Normal sinus rhythm Poor R wave progression Confirmed by THOMAS PRADHAN, JUANY ([id number]), health editor GIAN ALICEA ([id number]) on 05/20/2021 10:24:32 AM Referred By: SURINDER Confirmed By:JUANY GUZMAN MD
--- NOTE | 2021-05-16 14:01 | EDS_ITS ---
HPI History of Present Illness Chief Complaint: Shortness of Breath Narrative Narrative: Patient presenting for evaluation secondary to concerns for shortness of breath. Patient reports that in the spring she was diagnosed as having pulmonary emboli. That was associated with feelings of shortness of breath and chills. She completed a course of Eliquis, has been off of that for about 1 week. Patient states that today she started to develop symptoms once again associated with feelings of chills shortness of breath and chest pain. States currently the symptoms have resolved. She denies any preceding episodes, she denies any recent infectious signs or symptoms such as fever cough nausea vomiting or diarrhea. Patient states that she may just be anxious because she is off of her blood thinners. She denies any hemoptysis. Patient is on medications for diabetes. Review of systems otherwise negative. [facility] Medical History Diabetes History of pulmonary embolism Home Medications dapagliflozin 5 mg PO DAILY 09/17/20 [History Last Taken Unknown] furosemide 40 mg PO DAILY 09/17/20 [History Last Taken Unknown] gabapentin 300 mg PO BID 05/16/21 [History Last Taken Unknown] semaglutide [Ozempic] mg SUBCUT QWEEK 05/16/21 [History Last Taken Unknown] Allergy/AdvReac Type Severity Reaction Status Date / Time sulfamethoxazole Allergy Hives Verified 05/16/21 12:33 [From Bactrim] trimethoprim [From Bactrim] Allergy Hives Verified 05/16/21 12:33 ketorolac tromethamine AdvReac Upset Verified 05/16/21 12:33 [From Toradol] Stomach morphine AdvReac Upset Verified 05/16/21 12:33 Stomach tramadol AdvReac Upset Verified 05/16/21 12:33 Stomach Social History Smoking Status: Never smoker ROS ROS ED Constitutional Constitutional ED: Reports chills ENT ENT ED: Denies rhinorrhea Cardiovascular Cardiovascular: Reports chest pain Respiratory/Chest Respiratory/Chest: Reports dyspnea Gastrointestinal Gastrointestinal: Denies abdominal pain, diarrhea, nausea or vomiting Genitourinary Genitourinary ED: Denies dysuria or hematuria Musculoskeletal Musculoskeletal: Denies back pain Integumentary Denies rash Neurologic Neurologic: Denies paresthesias or weakness Psychiatric Psychiatric: Denies depression Endocrine Endocrinology: Denies fatigue Allergic/Immunologic Allergic/Immunologic ED: Denies urticaria EXAM Physical Exam Const Vital Signs: 05/16/21 12:31 05/16/21 13:58 05/16/21 14:13 Temperature 98.5 F Temperature Source Temporal Pulse Rate 109 H Respiratory Rate 16 Respiratory Effort Normal Non-Labored Respiratory Depth Normal Respiratory Pattern Normal Blood Pressure 165/108 H Blood Pressure Mean 127 Pulse Ox 98 Oxygen Delivery Method Room Air Room Air Room Air Positive well nourished and well developed General Appearance ED: well developed and NAD HEENT Reports moist mucous membranes Negative for trauma or tenderness Eyes EOMs intact bilaterally Neck no lymphadenopathy, supple and no JVD Chest Wall inspection of chest normal Resp normal respiratory effort and clear to auscultation bilaterally Cardio regular rate, regular rhythm, no murmurs and peripheral pulses 2+ throughout GI normal to inspection, nondistended, normoactive bowel sounds, non-tender and no masses Palpation: soft Back/Spine normal to inspection Extremity normal to inspection General Extremety ED: Negative for tenderness Neuro oriented x3 and no sensory deficits noted Sensorium / Orientation: alert Motor Exam: strength 5/5 throughout Psych mental status grossly normal Skin no rashes or lesions noted MDM MDM MDM Narrative Medical decision making narrative: Patient presented with shortness of breath in the setting of a history of pulmonary embolism recently off of anticoagulation. Patient was modestly tachycardic but did not have any hypoxia. Had normal lung sounds I do not believe that imaging is indicated. CBC chemistry troponin and D-dimer were obtained were found to be unremarkable. EKG was also found to be unremarkable. This point I believe that the patient likely had element of same anxiety given her otherwise normal physical exam and normal vital signs. Patient was given reassurance and the patient will be discharged in stable condition. Lab Data Labs: Laboratory Results - last 24 hr 05/16/21 05/16/21 05/16/21 14:10 14:10 14:10 WBC 8.7 RBC 5.38 Hgb 14.6 Hct 45.6 MCV 84.8 MCH 27.1 MCHC 32.0 RDW Std Deviation 39.9 RDW Coeff of Nirmala 13.0 Plt Count 153 MPV 12.3 H Immature Gran % (Auto) 0.500 Neut % (Auto) 80.2 H Lymph % (Auto) 12.6 L [place] % (Auto) 5.4 Eos % (Auto) 0.7 Baso % (Auto) 0.6 Absolute Neuts (auto) 6.9 Absolute Lymphs (auto) 1.09 Nucleated RBC % 0 D-Dimer Quant (PE/DVT) <= 0.27 Sodium 136 Potassium 3.9 Chloride 105 Carbon Dioxide 25.0 Anion Gap 6 BUN 14 Creatinine 0.62 Estim Creat Clear Calc 101.77 Est GFR (MDRD) Af Amer 137 Est GFR (MDRD) Non-Af 113 BUN/Creatinine Ratio 22.4 H Glucose 147 H Calcium 9.7 Troponin I High Sens 6 EKG Initial EKG: Attestation: I personally reviewed and interpreted this EKG as follows: (Normal sinus rhythm [address] segments normal T waves normal OR and QTC intervals no evidence of acute ischemia or arrhythmia.) Discharge Plan Triage Chief Complaint: Shortness of Breath ED Provider: Wade Glez Dx/Rx/DC Orders Clinical Impression: Feared condition not demonstrated Instructions: ED Dyspnea Prescriptions: No Action furosemide 40 MG tablet 40 mg PO DAILY RF: 0 dapagliflozin 5 MG tablet 5 mg PO DAILY RF: 0 gabapentin 300 mg capsule 300 mg PO BID RF: 0 Ozempic 0.25 mg or 0.5 mg(2 mg/1.5 mL) pen injector SUBCUT QWEEK RF: 0 Primary Care Provider: Marivel Matute NP Referrals: Marivel Matute FRAME COVERER, FRAME COVERER-C [Primary Care Provider] - As Needed Disposition Disposition: Home, Self Care
[2021-05-16 14:19] LABS: Absolute Lymphocyte Count 1.09 X10^3/uL (0.83-4.51); Absolute Neutrophil Count 6.9 X10^3/uL (2.0-7.7); Basophil# 0.05 X10^3/uL; Basophil% 0.6 % (0-1); Eosinophil# 0.06 X10^3/uL; Eosinophils% 0.7 % (0-5); Hematocrit 45.6 % (37-47); Hemoglobin 14.6 g/dL (12.0-15.0); Lymphocyte # 1.09 X10^3/ul (0.83-4.51); Lymphocyte % 12.6 % (19-41); Mean Corpuscular Hgb 27.1 pg (27.0-32.0); Mean Corpuscular Volume 84.8 fL (81-99); Mean Platelet Vol. 12.3 fl (6.2-12.0); Monocyte# 0.47 X10^3/uL; Monocyte% 5.4 % (0-10); NRBC Flagged by Analyzer 0 % (0-5); Neutrophil # 6.94 X10^3/uL (2.7-7.7); Neutrophil % 80.2 % (47-70); POSITIVE COUNT YES; Platelet Count 153 K/mm3 (150-450); RBC Distribution Width SD 39.9 fl (35.1-43.9); Red Blood Count 5.38 M/mm3 (4.2-5.4); White Blood Count 8.7 K/mm3 (4.4-11.0)
[2021-05-16 14:34] LABS: Anion Gap 6 (5-15); BUN 14 mg/dL (7-18); BUN/Creat Ratio 22.4 RATIO (10-20); Calcium,Total 9.7 mg/dL (8.5-10.1); Chloride 105 mmol/L (98-107); Creatinine, Serum 0.62 mg/dL (0.55-1.02); EST Glomerular Filtration Rate 113 mL/min (>60); Est Glom Filt Rate - Afr Amer 137 mL/min (>60); Estimated Creatinine Clearance 101.77 ml/min; Glucose 147 mg/dL (74-106); Potassium 3.9 mmol/L (3.5-5.1); Sodium Level 136 mmol/L (136-145); Troponin-I HS 6 pg/mL (3.0-54.0)
[2021-05-16 14:35] LABS: D-Dimer Quantitative (DVT/PE) <= 0.27 FEU/ug/m (0.27-0.49)
[2021-05-16 14:37] LABS: Differential Indicated SCAN CRITERIA MET
[2021-05-16 15:00] VITALS: O2SAT 97
== END 2021-05-16 15:00 | disposition home or self-care (01) ==
PROVIDERS: Emergency Provider Emergency Medicine; PCP Nurse Practitioner
DX: Z71.1 Person with feared health complaint in whom no diagnosis is made (principal); E11.9 Type 2 diabetes mellitus without complications; Z79.84 Long term (current) use of oral hypoglycemic drugs; Z79.899 Other long term (current) drug therapy; Z86.711 Personal history of pulmonary embolism
CPT/HCPCS: 80048; 84484; 85025; 85379; 93005; 99284; A4216

== ENCOUNTER 2021-05-28 14:09 | Outpatient (RCR) | payer MEDICARE, MEDICAID, SELFPAY | END 2021-06-04 23:59 | LOC: DC 14:09 | PROVIDERS: PCP Nurse Practitioner; Visit Provider Nurse Practitioner | DX: E11.9 Type 2 diabetes mellitus without complications (principal); E66.9 Obesity, unspecified; Z68.43 Body mass index [BMI] 50.0-59.9, adult ==

== ENCOUNTER 2022-02-12 14:49 | Emergency (ER) | payer MEDICARE, MEDICAID, SELFPAY ==
[2022-02-12 14:50] VITALS: BP 154/100; PULSE 95; RESP 16; TEMP 36.7; O2SAT 100; BMI 51.3
--- NOTE | 2022-02-12 15:07 | EDS_ITS ---
HPI History of Present Illness Chief Complaint: Abscess Detail of Chief Complaint: Left facial abscess Informant: patient Onset/Context/Timing Onset: Days Context: Gradual Onset Timing: Continuous Current Severity: Mild Maximum Severity: Mild Narrative Narrative: 37-year-old diabetic female history of prior pulmonary emboli no longer on any further anticoagulation. 1 week ago developed a pimple on the left side of her face along her cheek. She tried aches breast pus from it and just made it swell up more and cause her more pain. She comes in today to have it evaluated. She denies any fever. No drainage. No prior history. Prior similar symptoms: No Recent Illness/Hospitalization: No [facility] Medical History Diabetes History of pulmonary embolism Home Medications dapagliflozin 5 mg tablet 5 mg PO DAILY 09/17/20 [History Last Taken Unknown] furosemide 40 mg tablet 40 mg PO DAILY 09/17/20 [History Last Taken Unknown] gabapentin 300 mg capsule 300 mg PO BID 05/16/21 [History Last Taken Unknown] semaglutide 0.25 mg or 0.5 mg (2 mg/1.5 mL) subcutaneous pen injector (Ozempic) mg subcut QWEEK 05/16/21 [History Last Taken Unknown] cephalexin 500 mg capsule 500 mg PO Q6 #40 caps 02/12/22 [Rx Last Taken Unknown] Allergy/AdvReac Type Severity Reaction Status Date / Time sulfamethoxazole Allergy Hives Verified 02/12/22 14:51 [From Bactrim] trimethoprim [From Bactrim] Allergy Hives Verified 02/12/22 14:51 ketorolac tromethamine AdvReac Upset Verified 02/12/22 14:51 [From Toradol] Stomach morphine AdvReac Upset Verified 02/12/22 14:51 Stomach tramadol AdvReac Upset Verified 02/12/22 14:51 Stomach Social History Smoking Status: Never smoker ROS ROS ED ROS Narrative Denies recent illness. States her blood sugars have been running well. Review of Systems ROS Unobtainable: Denies due to encephalopathy Constitutional Constitutional ED: Denies chills or fever(s) Eyes Eyes: Denies blurry vision ENT ENT ED: Denies ear pain Cardiovascular Cardiovascular: Denies chest pain Respiratory/Chest Respiratory/Chest: Denies cough or dyspnea Gastrointestinal Gastrointestinal: Denies abdominal pain Genitourinary Genitourinary ED: Denies dysuria Integumentary Reports abscess Neurologic Neurologic: Denies headache(s) Psychiatric Psychiatric: Denies anxiety Endocrine Endocrinology: Denies cold intolerance Hematologic/Lymphatic Hematologic/Lymphatic: Reports none Allergic/Immunologic Allergic/Immunologic ED: Denies mouth swelling EXAM Physical Exam Narrative Exam Narrative: 37-year-old female. Vital signs are stable afebrile. H EENT exam she small abscess about the size of a dime left cheekbone. No surrounding cellulitis. Tender to touch. No real fluctuance. Firm. Eye is not involved. Neck nontender no lymphadenopathy. Lungs are clear. Heart regular rhythm no murmur. Abdomen soft nontender. Moving all 4 extremities. Const Vital Signs: 02/12/22 14:50 Temperature 98.1 F Temperature Source Temporal Pulse Rate 95 Respiratory Rate 16 Blood Pressure 154/100 H Blood Pressure Mean 118 Pulse Ox 100 Oxygen Delivery Method Room Air Positive well nourished, well developed and obese; Negative for cachectic, contractures or unkempt General Appearance ED: well developed and NAD; Negative for unkempt, cachectic, contractures, cyanotic or diaphoretic Nutritional Appearance: obese; Negative for cachectic HEENT Reports moist mucous membranes Negative for trauma Eyes PERRL and EOMs intact bilaterally General Eye ED: Negative for pale conjunctiva or scleral icterus Neck no lymphadenopathy, supple and no JVD General: Negative for tenderness Lymph Lymphatic: Negative for other Chest Wall inspection of chest normal and palpation of chest normal Resp normal respiratory effort and clear to auscultation bilaterally Effort and Inspection: Negative for retractions Auscultation: Negative for rales, rhonchi or wheezes Cardio regular rate, regular rhythm, S1 normal heart sound and S2 normal heart sound GI normal to inspection, nondistended, normoactive bowel sounds, non-tender, non- distended and no masses Auscultation: normoactive bowel sounds Palpation: soft; Negative for tender or guarding Back/Spine no CVA tenderness Extremity normal to inspection General Extremety ED: Negative for edema or tenderness General Extremity: Negative for edema Neuro oriented x3 and CN's II-XII intact bilaterally Sensorium / Orientation: alert; Negative for orientation impaired, lethargic or stuporous Motor Exam: strength 5/5 throughout Psych mental status grossly normal Appearance: Negative for unkempt Attitude: No agitated Mood & Affect: Negative for depressed, anxious or tearful Skin no rashes or lesions noted Skin Narrative: Left facial abscess along the left lateral cheekbone. No cellulitis. Tender and firm to touch no fluctuance. Rashes: No rashes noted Trauma: Negative for abrasion MDM MDM MDM Narrative Medical decision making narrative: 37 abetting female with a small left facial abscess. She and I discussed options. She really wants me to attempt to drain this. I told her I am happy to do so but it is really not fluctuant we may not get any significant pus out of it. She still wants me to attempt incision and drainage. Procedures Other Procedures Procedure(s): Left facial abscess. No cellulitis. Local anesthetized initially with LAT and then with subcu lidocaine. Small less than a centimeter incision was made. Express blood. No pus. Discussed with patient. Discharged home. On Keflex. Warm compresses. Follow-up if not improving. Return if worse. Discharge Plan Triage Chief Complaint: Abscess ED Provider: Dwain Lunsford Dx/Rx/DC Orders Clinical Impression: Abscess of face, History of diabetes mellitus Instructions: ED Abscess Incision And Drainage Prescriptions: New cephalexin 500 mg capsule 500 mg PO Q6 Qty: 40 0RF No Action furosemide 40 MG tablet 40 mg PO DAILY dapagliflozin 5 MG tablet 5 mg PO DAILY Label Comments: Take 1 tablet by mouth daily with breakfast. gabapentin 300 mg capsule 300 mg PO BID Label Comments: TAKE 1 CAPSULE BY MOUTH TWICE DAILY Ozempic 0.25 mg or 0.5 mg(2 mg/1.5 mL) pen injector SUBCUT QWEEK Label Comments: inject 1 (ONE) (one) Solution Pen-injector EVERY week Primary Care Provider: Joanne Brown Referrals: Joanne Brown, KELLI-C [Primary Care Provider] - 1 Week if not improving Activity Restrictions/Additional Instructions: Motrin and Tylenol for pain. Warm compresses to the abscess on your face. The antibiotic Keflex 1 pill 4 times a day till gone. Follow-up with your primary care provider if not improving return to the emergency department if worse. Disposition Disposition: Home, Self Care
[2022-02-12] MEDS: Lidocaine/Epi/Tetracaine 50 ML 1 APPLIC TOPICAL (15:13)
[2022-02-12] MEDS: Cephalexin 250 MG Capsule 500 MG PO (15:13)
[2022-02-12] MEDS: Lidocaine 1% (20 ml mdv) 20 ML Vial 6 ML INFILT (15:13)
[2022-02-12] MEDS: HYDROcodone Bitartrate/Apap 5/325 Tablet PO (15:53)
== END 2022-02-12 15:59 | disposition home or self-care (01) ==
LOC: ED 15:15
PROVIDERS: Emergency Provider Emergency Medicine; PCP Nurse Practitioner Family; Visit Provider Emergency Medicine
DX: L02.01 Cutaneous abscess of face (principal); E66.9 Obesity, unspecified; Z86.711 Personal history of pulmonary embolism
CPT/HCPCS: 99283

== ENCOUNTER 2022-07-25 19:07 | Emergency (ER) | payer MEDICARE, MEDICAID, SELFPAY ==
[2022-07-25 19:08] VITALS: BP 168/91; PULSE 86; RESP 16; TEMP 35.9; O2SAT 98; BMI 53.4
[2022-07-25 19:10] VITALS: BP 168/91; PULSE 86; RESP 16; TEMP 35.9; O2SAT 98
--- NOTE | 2022-07-25 19:33 | EDS_ITS ---
HPI <KRISTOPHER Franco - Last Filed: 07/25/22 20:48> History of Present Illness Chief Complaint: Bite Narrative Narrative: Patient presents today with what she thinks is a bug bite to her right anterior thigh and on her abdomen. Patient first noticed these 2 days ago while she was taking a shower. She states the wound on her thigh is painful and the redness around it has spread. She denies fever, chills, abdominal pain, nausea, vomiting, and diarrhea. ROS <KRISTOPHER Franco - Last Filed: 07/25/22 20:48> ROS ED Constitutional Constitutional ED: Denies chills, fever(s) or sweats Eyes Eyes: Denies blurry vision or change in vision ENT ENT ED: Denies rhinorrhea or sore throat Cardiovascular Cardiovascular: Denies chest pain, palpitations or racing heartbeat Respiratory/Chest Respiratory/Chest: Denies cough, dyspnea or dyspnea on exertion Gastrointestinal Gastrointestinal: Denies abdominal pain, nausea or vomiting Genitourinary Genitourinary ED: Denies dysuria, hematuria or urinary frequency Musculoskeletal Musculoskeletal: Denies back pain or neck pain Integumentary Reports changing lesions; Denies abscess or rash Neurologic Neurologic: Denies headache(s), paresthesias or weakness Psychiatric Psychiatric: Denies anxiety, depression or suicidal ideation [facility] <KRISTOPHER Franco - Last Filed: 07/25/22 20:48> [facility] Medical History Diabetes History of pulmonary embolism Home Medications dapagliflozin 5 mg tablet 5 mg PO DAILY 09/17/20 [History Last Taken Unknown] furosemide 40 mg tablet 40 mg PO DAILY 09/17/20 [History Last Taken Unknown] gabapentin 300 mg capsule 300 mg PO BID 05/16/21 [History Last Taken Unknown] semaglutide 0.25 mg or 0.5 mg (2 mg/1.5 mL) subcutaneous pen injector (Ozempic) mg subcut QWEEK 05/16/21 [History Last Taken Unknown] cephalexin 500 mg capsule 500 mg PO Q6 #40 caps 02/12/22 [Rx Last Taken Unknown] doxycycline hyclate 100 mg capsule 100 mg PO BID 5 days #10 caps 07/25/22 [Rx Last Taken Unknown] Allergy/AdvReac Type Severity Reaction Status Date / Time sulfamethoxazole Allergy Hives Verified 02/12/22 14:51 [From Bactrim] trimethoprim [From Bactrim] Allergy Hives Verified 02/12/22 14:51 ketorolac tromethamine AdvReac Upset Verified 02/12/22 14:51 [From Toradol] Stomach morphine AdvReac Upset Verified 02/12/22 14:51 Stomach tramadol AdvReac Upset Verified 02/12/22 14:51 Stomach Social History Smoking Status: Never smoker EXAM <KRISTOPHER Franco - Last Filed: 07/25/22 20:48> Physical Exam Const Vital Signs: 07/25/22 19:08 07/25/22 19:10 Temperature 96.6 F L 96.6 F L Temperature Source Temporal Temporal Pulse Rate 86 86 Respiratory Rate 16 16 Blood Pressure 168/91 H 168/91 H Blood Pressure Mean 116 116 Pulse Ox 98 98 Oxygen Delivery Method Room Air Room Air Positive obese General Appearance ED: NAD Nutritional Appearance: obese HEENT Reports moist mucous membranes normocephalic and atraumatic Eyes PERRL and EOMs intact bilaterally Neck full ROM and no lymphadenopathy Resp normal respiratory effort and clear to auscultation bilaterally Cardio regular rate, regular rhythm and no murmurs GI non-tender, non-distended and no masses Palpation: soft Extremity full ROM Neuro oriented x3, CN's II-XII intact bilaterally and no sensory deficits noted Sensorium / Orientation: alert Motor Exam: strength 5/5 throughout Psych mental status grossly normal and thought process normal Skin skin turgor normal Skin Narrative: Small round erythemic lesion to the right anterior thigh and right lower abdomen. Lesion on her thigh does have a small tender area of swelling beneath it along with erythema that is spreading around the lesion. No purulent discharge. <Dr. Costa Sanderson MD - Last Filed: 07/25/22 22:44> Physical Exam Const Vital Signs: 07/25/22 19:08 07/25/22 19:10 Temperature 96.6 F L 96.6 F L Temperature Source Temporal Temporal Pulse Rate 86 86 Respiratory Rate 16 16 Blood Pressure 168/91 H 168/91 H Blood Pressure Mean 116 116 Pulse Ox 98 98 Oxygen Delivery Method Room Air Room Air MDM <KRISTOPHER Franco - Last Filed: 07/25/22 20:48> [facility] Narrative Medical decision making narrative: Patient presenting today with what she thinks is a spider bite to her right anterior thigh and right lower abdomen. She is in no acute distress and nontoxic-appearing. I have talked to patient's friend in the room who states that she first noticed this on the patient yesterday and she david a cheesh-na around the redness and states that it has since spread. The scab on the punctum of the wound on the thigh was removed using an 18-gauge needle and a small amount of purulent discharge was expelled from the wound. There is no fluctuance. There is nothing to expel from the wound on the abdomen. Patient has been put on doxycycline and was given a dose here in the ED. She has been given return instructions and she will be discharged home in stable condition. Patient is comfortable with plan. <Dr. Costa Sanderson MD - Last Filed: 07/25/22 22:44> [facility] Narrative Medical decision making narrative: Patient presenting today with what she thinks is a spider bite to her right anterior thigh and right lower abdomen. She is in no acute distress and nontoxic-appearing. I have talked to patient's friend in the room who states that she first noticed this on the patient yesterday and she david a cheesh-na around the redness and states that it has since spread. The scab on the punctum of the wound on the thigh was removed using an 18-gauge needle and a small amount of purulent discharge was expelled from the wound. There is no fluctuance. There is nothing to expel from the wound on the abdomen. Patient has been put on doxycycline and was given a dose here in the ED. She has been given return instructions and she will be discharged home in stable condition. Patient is comfortable with plan. Treatment and Re-Evaluation Narrative: I have personally performed a face to face assessment of the patient and have reviewed the LEBRON Note. I performed a substantive portion of the visit including all aspects of the following. My leung findings include: Patient is here with a postural on her thigh. There is a small pustule that is scabbed. This was uncapped and pus was released. Patient will be placed on antibiotics and have prompt follow-up. She also has slight cellulitis. <Dr. Costa Sanderson MD - Last Filed: 07/25/22 22:44> Other Procedures Procedure(s): Incision and drainage Verbal consent An 18-gauge needle was used to and The pustule small amount of pus was expectorated. No lidocaine Patient tolerated procedure well. Discharge Plan Triage Chief Complaint: Bite ED Midlevel Provider: Mary Daniels ED Provider: Costa Sanderson Dx/Rx/DC Orders Clinical Impression: Bug bite, Cellulitis, Pustule Instructions: Cellulitis Dc Prescriptions: New doxycycline hyclate 100 mg capsule 100 mg PO BID 5 Days Qty: 10 0RF No Action furosemide 40 MG tablet 40 mg PO DAILY dapagliflozin 5 MG tablet 5 mg PO DAILY Label Comments: Take 1 tablet by mouth daily with breakfast. gabapentin 300 mg capsule 300 mg PO BID Label Comments: TAKE 1 CAPSULE BY MOUTH TWICE DAILY Ozempic 0.25 mg or 0.5 mg(2 mg/1.5 mL) pen injector SUBCUT QWEEK Label Comments: inject 1 (ONE) (one) Solution Pen-injector EVERY week cephalexin 500 mg capsule 500 mg PO Q6 Qty: 40 0RF Primary Care Provider: Joanne Brown Referrals: Joanne Brown, DIRECTOR PERIOPERATIVE-C [Primary Care Provider] - 3-5 Days Activity Restrictions/Additional Instructions: Take antibiotics as directed. Please follow-up with PCP and return if symptoms worsen. Disposition Disposition: Home, Self Care Discharge Date/Time: 07/25/22 19:40
[2022-07-25] MEDS: Doxycycline 100 MG CAPSULE PO (19:38)
== END 2022-07-25 19:40 | disposition home or self-care (01) ==
LOC: ED 19:32
PROVIDERS: Emergency Provider Emergency Medicine; PCP Nurse Practitioner Family; Visit Provider Emergency Medicine
DX: L03.115 Cellulitis of right lower limb (principal)
CPT/HCPCS: 99282

== ENCOUNTER 2023-02-19 11:11 | Emergency (ER) | payer MEDICARE, MEDICAID, SELFPAY ==
[2023-02-19 11:13] VITALS: BP 173/100; PULSE 89; RESP 16; TEMP 36.1; O2SAT 98; BMI 55.8
--- NOTE | 2023-02-19 11:47 | ED.VIS.DENTA ---
HPI History of Present Illness Chief Complaint: Dental Informant: patient and friend Narrative Narrative: 38-year-old female presenting to the emergency room with left lower molar pain. Patient states that she believes she fractured her tooth several weeks ago. She does not recall the actual event. She has developed increasing pain and air sensitivity. She states she has had poor sleep resulting in irritability because of pain. She has not been able to secure a dental appointment until March 05. She has tried Tylenol and Motrin with no pain. Friend notes facial swelling. She denies smoking. She has tried some temporary fillings but they do not adhere. She denies any trismus. No known heart issues. No breathing or swallowing difficulties [facility] Medical History Diabetes History of pulmonary embolism Pain, dental Home Medications dapagliflozin propanediol 5 mg tablet 5 mg PO DAILY 09/17/20 [History Last Taken Unknown] furosemide 40 mg tablet 40 mg PO DAILY 09/17/20 [History Last Taken Unknown] gabapentin 300 mg capsule 300 mg PO BID 05/16/21 [History Last Taken Unknown] semaglutide 0.25 mg or 0.5 mg (2 mg/1.5 mL) subcutaneous pen injector (Ozempic) mg subcut QWEEK 05/16/21 [History Last Taken Unknown] cephalexin 500 mg capsule 500 mg PO Q6 #40 caps 02/12/22 [Rx Last Taken Unknown] doxycycline hyclate 100 mg capsule 100 mg PO BID 5 days #10 caps 07/25/22 [Rx Last Taken Unknown] hydrocodone-acetaminophen 5-325mg 5mg-325mg 1 tab PO Q6H PRN PRN Pain 3 days #12 TABLETS 02/19/23 [Rx Last Taken Unknown] penicillin V potassium 500 mg tablet 500 mg PO 4X/DAY #40 tabs 02/19/23 [Rx Last Taken Unknown] Allergy/AdvReac Type Severity Reaction Status Date / Time sulfamethoxazole Allergy Hives Verified 02/12/22 14:51 [From Bactrim] trimethoprim [From Bactrim] Allergy Hives Verified 02/12/22 14:51 ketorolac tromethamine AdvReac Upset Verified 02/12/22 14:51 [From Toradol] Stomach morphine AdvReac Upset Verified 02/12/22 14:51 Stomach tramadol AdvReac Upset Verified 02/12/22 14:51 Stomach Social History (Updated 02/19/23 @ 11:[address] Rocky Barrera, DO) Smoking Status: Never smoker substance use type: does not use ROS ROS ED Constitutional Constitutional ED: Denies chills, fever(s) or weight loss Eyes Eyes: Denies change in vision or diplopia ENT ENT ED: Reports other Details: Dental pain ; Denies ear pain, rhinorrhea or sore throat Cardiovascular Cardiovascular: Denies chest pain, orthopnea, palpitations or racing heartbeat Respiratory/Chest Respiratory/Chest: Denies cough, dyspnea or orthopnea Gastrointestinal Gastrointestinal: Denies abdominal pain, diarrhea, nausea or vomiting Genitourinary Genitourinary ED: Denies dysuria, hematuria or urinary frequency Musculoskeletal Musculoskeletal: Denies arthralgias or myalgias Integumentary Denies abscess or rash Neurologic Neurologic: Denies headache(s) or weakness Psychiatric Psychiatric: Denies anxiety, depression, suicidal ideation or suicidal thoughts Endocrine Endocrinology: Denies polydipsia, polyphagia or polyuria Allergic/Immunologic Allergic/Immunologic ED: Denies mouth swelling, tongue swelling or urticaria EXAM Physical Exam Const Vital Signs: 02/19/23 11:13 Temperature 97 F L Temperature Source Temporal Pulse Rate 89 Respiratory Rate 16 Blood Pressure 173/100 H Blood Pressure Mean 124 Pulse Ox 98 Oxygen Delivery Method Room Air Positive well nourished, well developed and obese General Appearance ED: well developed Nutritional Appearance: obese HEENT Reports normocephalic, head/scalp atraumatic and moist mucous membranes HEENT Narrative: The posterior aspect of the second lower left molar demonstrates decay and missing the posterior 1/8 of the tooth. There is no focal gum swelling. Floor the mouth is soft. There is no trismus. There is no significant overlying swelling or erythema. Voice is normal. Handling secretions normal. No lymphadenopathy. Mouth ED: Yes tongue normal and Yes salivary gland normal Mouth: tongue normal and salivary gland normal Eyes PERRL and EOMs intact bilaterally Neck no lymphadenopathy, supple and no JVD Resp normal respiratory effort and clear to auscultation bilaterally Cardio regular rate, regular rhythm and no murmurs GI normal to inspection, nondistended, normoactive bowel sounds and non-tender Palpation: soft Back/Spine no CVA tenderness and normal ROM Extremity normal to inspection General Extremety ED: Negative for edema General Extremity: Negative for edema Neuro oriented x3 and CN's II-XII intact bilaterally Sensorium / Orientation: alert Motor Exam: strength 5/5 throughout Psych mental status grossly normal Mood & Affect: Negative for depressed or tearful Skin no rashes or lesions noted and no wounds MDM MDM MDM Narrative Medical decision making narrative: Patient most likely has pain due to dental caries/dental decay. I do not see any evidence of abscess or airway issues. No evidence of gingivitis. Patient was started on penicillin as well as a few [place]. She was given dental resources. We discussed ways to try to make the temporary filling at here. Patient and friend note understanding. Discharge Plan Triage Chief Complaint: Dental ED Provider: Rocky Barrera Dx/Rx/DC Orders Clinical Impression: Dental caries, Pain, dental Instructions: ED Dental Pain Prescriptions: New hydrocodone-acetaminophen [hydrocodone-acetaminophen] 5-325 mg tablet 1 tab PO Q6H PRN PRN (Reason: Pain) 3 Days Qty: 12 0RF penicillin V potassium 500 mg tablet 500 mg PO 4X/DAY Qty: 40 0RF No Action furosemide 40 MG tablet 40 mg PO DAILY dapagliflozin propanediol 5 MG tablet 5 mg PO DAILY Patient Comments: Take 1 tablet by mouth daily with breakfast. gabapentin 300 mg capsule 300 mg PO BID Patient Comments: TAKE 1 CAPSULE BY MOUTH TWICE DAILY Ozempic 0.25 mg or 0.5 mg(2 mg/1.5 mL) pen injector SUBCUT QWEEK Patient Comments: inject 1 (ONE) (one) Solution Pen-injector EVERY week cephalexin 500 mg capsule 500 mg PO Q6 Qty: 40 0RF doxycycline hyclate 100 mg capsule 100 mg PO BID 5 Days Qty: 10 0RF Primary Care Provider: Joanne Brown Referrals: Joanne Brown, PRODUCT DEVELOPMENT ASSISTANT-C [Primary Care Provider] - As Needed Activity Restrictions/Additional Instructions: Please see dentistry as soon as possible. As discussed you may try [facility] dental clinic. Immediate dents are also available. Disposition Disposition: Home, Self Care
== END 2023-02-19 11:58 | disposition home or self-care (01) ==
PROVIDERS: Emergency Provider Emergency Medicine; PCP Nurse Practitioner Family; Visit Provider Emergency Medicine
DX: K02.9 Dental caries, unspecified (principal); K08.89 Other specified disorders of teeth and supporting structures; E66.9 Obesity, unspecified; Z86.711 Personal history of pulmonary embolism
CPT/HCPCS: 99282

== ENCOUNTER 2023-02-24 15:47 | Emergency (ER) | payer MEDICARE, MEDICAID, SELFPAY ==
[2023-02-24 15:48] VITALS: BP 153/108; PULSE 83; RESP 18; TEMP 36.6; O2SAT 98; BMI 55.7
--- NOTE | 2023-02-24 16:12 | EDS_ITS ---
HPI History of Present Illness Chief Complaint: Dental Narrative Narrative: Patient presents with left lower dental pain, she was recently seen in placed on antibiotics. She is try to get an appointment with dentistry has not been able to yet. No fevers or chills. No difficulty swallowing. PFSH [facility] Medical History Diabetes History of pulmonary embolism Pain, dental Home Medications dapagliflozin propanediol 5 mg tablet 5 mg PO DAILY 09/17/20 [History Last Taken Unknown] furosemide 40 mg tablet 40 mg PO DAILY 09/17/20 [History Last Taken Unknown] gabapentin 300 mg capsule 300 mg PO BID 05/16/21 [History Last Taken Unknown] semaglutide 0.25 mg or 0.5 mg (2 mg/1.5 mL) subcutaneous pen injector (Ozempic) mg subcut QWEEK 05/16/21 [History Last Taken Unknown] cephalexin 500 mg capsule 500 mg PO Q6 #40 caps 02/12/22 [Rx Last Taken Unknown] doxycycline hyclate 100 mg capsule 100 mg PO BID 5 days #10 caps 07/25/22 [Rx Last Taken Unknown] hydrocodone-acetaminophen 5-325mg 5mg-325mg 1 tab PO Q6H PRN PRN Pain 3 days #12 TABLETS 02/19/23 [Rx Last Taken Unknown] penicillin V potassium 500 mg tablet 500 mg PO 4X/DAY #40 tabs 02/19/23 [Rx Last Taken Unknown] clindamycin HCl 300 mg capsule 300 mg PO TID #15 caps 02/24/23 [Rx Last Taken Unknown] naproxen 500 mg tablet (Naprosyn) 500 mg PO BID PRN pain #20 tabs 02/24/23 [Rx Last Taken Unknown] Allergy/AdvReac Type Severity Reaction Status Date / Time sulfamethoxazole Allergy Hives Verified 02/24/23 15:49 [From Bactrim] trimethoprim [From Bactrim] Allergy Hives Verified 02/24/23 15:49 ketorolac tromethamine AdvReac Upset Verified 02/24/23 15:49 [From Toradol] Stomach morphine AdvReac Upset Verified 02/24/23 15:49 Stomach tramadol AdvReac Upset Verified 02/24/23 15:49 Stomach Social History (Updated 02/19/23 @ 11:[address] Rocky Barrera, DO) Smoking Status: Never smoker substance use type: does not use ROS ROS ED ROS Narrative Past medical history: Reviewed Medications: Reviewed Social history: Noncontributory Review of systems: All systems negative except as indicated General: No fever Eyes: No visual changes ENT: Dental pain as in HPI Neck: No neck pain EXAM Physical Exam Narrative Exam Narrative: Physical exam General: Well nourished, Well developed, No Acute Distress Head: Normocephalic, Atraumatic Eyes: Conjunctiva not pale ENT: Moist mucous membranes. Slight tenderness over the second molar distally. No periapical abscess normal soft palate. Normal uvula Neck: Supple, Nontender, No lymphadenopathy Const Vital Signs: 02/24/23 15:48 Temperature 97.8 F Temperature Source Temporal Pulse Rate 83 Respiratory Rate 18 Blood Pressure 153/108 H Blood Pressure Mean 123 Pulse Ox 98 Oxygen Delivery Method Room Air MDM MDM MDM Narrative Medical decision making narrative: I do not believe emergent imaging is needed at the jaw. Patient does not have any fever chills or any kind of abscess. No blood work is needed. She continues to have pain and I gave her analgesia. Her friend will try to get her into a dentist. Otherwise I believe it is reasonable to change antibiotics. If anything changes she is to return. I will give her Naprosyn for home. Discharge Plan Triage Chief Complaint: Dental ED Provider: Costa Sanderson Dx/Rx/DC Orders Clinical Impression: Dental caries, Pain, dental Instructions: ED Dental Pain Prescriptions: New naproxen [Naprosyn] 500 mg tablet 500 mg PO BID PRN (Reason: pain) Qty: 20 0RF clindamycin HCl 300 mg capsule 300 mg PO TID Qty: 15 0RF No Action furosemide 40 MG tablet 40 mg PO DAILY dapagliflozin propanediol 5 MG tablet 5 mg PO DAILY Patient Comments: Take 1 tablet by mouth daily with breakfast. gabapentin 300 mg capsule 300 mg PO BID Patient Comments: TAKE 1 CAPSULE BY MOUTH TWICE DAILY Ozempic 0.25 mg or 0.5 mg(2 mg/1.5 mL) pen injector SUBCUT QWEEK Patient Comments: inject 1 (ONE) (one) Solution Pen-injector EVERY week cephalexin 500 mg capsule 500 mg PO Q6 Qty: 40 0RF doxycycline hyclate 100 mg capsule 100 mg PO BID 5 Days Qty: 10 0RF hydrocodone-acetaminophen [hydrocodone-acetaminophen] 5-325 mg tablet 1 tab PO Q6H PRN PRN (Reason: Pain) 3 Days Qty: 12 0RF penicillin V potassium 500 mg tablet 500 mg PO 4X/DAY Qty: 40 0RF Primary Care Provider: Joanne Brown Referrals: Joanne Brown, [employer] MIXER-C [Primary Care Provider] - 3-5 Days
[2023-02-24] MEDS: Oxycodone/Apap 5/325 Tablet PO (16:20)
[2023-02-24] MEDS: Ketorolac 30 MG/ML Syringe IM (16:20)
== END 2023-02-24 16:44 | disposition home or self-care (01) ==
PROVIDERS: Emergency Provider Emergency Medicine; PCP Nurse Practitioner Family; Visit Provider Emergency Medicine
DX: K02.9 Dental caries, unspecified (principal); K08.89 Other specified disorders of teeth and supporting structures; Z86.711 Personal history of pulmonary embolism
CPT/HCPCS: 96372; 99283

== ENCOUNTER 2023-05-29 10:33 | Emergency (ER) | payer MEDICARE, MEDICAID, SELFPAY ==
[2023-05-29 10:33] VITALS: BP 182/94; PULSE 101; RESP 18; TEMP 35.5; O2SAT 98; BMI 56.5
--- NOTE | 2023-05-29 10:45 | EX.ED.DYSGE1 ---
HPI History of Present Illness Chief Complaint: Abscess Detail of Chief Complaint: Pain and swelling entrance of left naris with facial swelling Informant: patient Onset/Context/Timing Onset: Yesterday Context: Sudden Onset Timing: Continuous Quality: Pain Location: Left side of nose and maxillary region Current Severity: Mild Maximum Severity: Severe Worsened by: Touch Relieved by: Nothing Associated Symptoms Associated Symptoms: No fever or chills. Narrative Narrative: Patient is a 38-year-old woman with history of type 2 diabetes who presents with lesion that is painful and swollen entrance of the left nose. The area is warm. She states she put ointment on. She did not attempt to squeeze it because it is painful. She states this morning when she awoke the left side of the face was swollen. She denies fever or chills. She denies history medic fever, heart murmur or mitral valve prolapse. She denies history of cellulitis or MRSA. She denies polyuria, polydipsia or nocturia. Prior similar symptoms: No Recent Illness/Hospitalization: No PFSH PFSH Medical History Diabetes History of pulmonary embolism Pain, dental Home Medications dapagliflozin propanediol 5 mg tablet 5 mg PO DAILY 09/17/20 [History Last Taken Unknown] furosemide 40 mg tablet 40 mg PO DAILY 09/17/20 [History Last Taken Unknown] gabapentin 300 mg capsule 300 mg PO BID 05/16/21 [History Last Taken Unknown] semaglutide 0.25 mg or 0.5 mg (2 mg/1.5 mL) subcutaneous pen injector (Ozempic) mg subcut QWEEK 05/16/21 [History Last Taken Unknown] cephalexin 500 mg capsule 500 mg PO Q6 #40 caps 02/12/22 [Rx Last Taken Unknown] doxycycline hyclate 100 mg capsule 100 mg PO BID 5 days #10 caps 07/25/22 [Rx Last Taken Unknown] hydrocodone-acetaminophen 5-325mg 5mg-325mg 1 tab PO Q6H PRN PRN Pain 3 days #12 TABLETS 02/19/23 [Rx Last Taken Unknown] penicillin V potassium 500 mg tablet 500 mg PO 4X/DAY #40 tabs 02/19/23 [Rx Last Taken Unknown] clindamycin HCl 300 mg capsule 300 mg PO TID #15 caps 02/24/23 [Rx Last Taken Unknown] naproxen 500 mg tablet (Naprosyn) 500 mg PO BID PRN pain #20 tabs 02/24/23 [Rx Last Taken Unknown] doxycycline monohydrate 100 mg capsule 100 mg PO BID #14 CAPSULES 05/29/23 [Rx Last Taken Unknown] hydrocodone-acetaminophen 5-325mg 5mg-325mg 1 tab PO Q6H PRN PRN Pain 2 days #6 TABLETS 05/29/23 [Rx Last Taken Unknown] Allergy/AdvReac Type Severity Reaction Status Date / Time sulfamethoxazole Allergy Hives Verified 05/29/23 10:35 [From Bactrim] trimethoprim [From Bactrim] Allergy Hives Verified 05/29/23 10:35 ketorolac tromethamine AdvReac Upset Verified 05/29/23 10:35 [From Toradol] Stomach morphine AdvReac Upset Verified 05/29/23 10:35 Stomach tramadol AdvReac Upset Verified 05/29/23 10:35 Stomach Social History Smoking Status: Never smoker substance use type: does not use ROS ROS ED Constitutional Constitutional ED: Denies chills, fever(s), subjective, sweats or weight loss Eyes Eyes: Denies blurry vision, change in vision or diplopia ENT ENT ED: Denies ear pain, rhinorrhea or sore throat Cardiovascular Cardiovascular: Denies chest pain or palpitations Respiratory/Chest Respiratory/Chest: Denies cough or dyspnea Gastrointestinal Gastrointestinal: Denies nausea or vomiting Integumentary Reports rash Hematologic/Lymphatic Hematologic/Lymphatic: Reports systems reviewed and no addt'l complaints, except as documented EXAM Physical Exam Const Vital Signs: 05/29/23 10:33 Temperature 96 F L Temperature Source Temporal Pulse Rate 101 H Respiratory Rate 18 Blood Pressure 182/94 H Blood Pressure Mean 123 Pulse Ox 98 Oxygen Delivery Method Room Air Positive well nourished, well developed and obese Constitutional Narrative: Appears uncomfortable. Vital signs are noted. General Appearance ED: well developed; Negative for pallor Nutritional Appearance: obese HEENT Reports moist mucous membranes HEENT Narrative: Patient has poor dentition with numerous caries. There is no evidence of periodontal abscess or fistula formation. There is no tenderness over the maxillary sinuses. There is erythema and fluctuance entrance of the left naris. Eyes PERRL and EOMs intact bilaterally Eyes Narrative: There is no hyperesthesia the febrile nerve. General Eye ED: Negative for pale conjunctiva or scleral icterus Neck no lymphadenopathy, supple and no JVD Neck Narrative: There is no preauricular lymphadenopathy. Resp normal respiratory effort and clear to auscultation bilaterally Cardio regular rhythm, S1 normal heart sound, S2 normal heart sound and no murmurs Rate: tachycardic Neuro oriented x3 and CN's II-XII intact bilaterally Sensorium / Orientation: alert Psych mental status grossly normal Skin skin turgor normal Skin Narrative: Has what appears to be a small subcutaneous abscess and cellulitis involving the left side of the face and nose. General Skin Exam: Negative for jaundice or pallor MDM MDM MDM Narrative Medical decision making narrative: Abscess with cellulitis. Patient was consented for I&D. Since she is diabetic we will obtain BGT. If markedly elevated will obtain appropriate blood work. She was treated with doxycycline for both streptococcal and staphylococcal coverage. Procedures Other Procedures Procedure(s): 1. Patient was consented for I&D. She gave verbal consent after explaining risk benefits. 2. Infraorbital nerve block was placed. Patient reported no discomfort prior to making incision. 3. Incision was made with 11 blade. Length of incision is 4 mm. There was purulent drainage noted. Blunt dissection was undertaken with more purulent drainage. Total amount of purulent drainage was 0.5 to 1 cc. Discharge Plan Triage Chief Complaint: Abscess ED Provider: Vishal Israel Dx/Rx/DC Orders Clinical Impression: Dental caries extending into dentine, Cellulitis and abscess of face, Controlled type 2 diabetes mellitus with hyperglycemia, Gingivitis due to dental plaque, Periodontal disease Instructions: Cellulitis Dc, ED Abscess Incision And Drainage Prescriptions: New hydrocodone-acetaminophen [hydrocodone-acetaminophen] 5-325 mg tablet 1 tab PO Q6H PRN PRN (Reason: Pain) 2 Days Qty: 6 0RF doxycycline monohydrate 100 mg capsule 100 mg PO BID Qty: 14 0RF No Action furosemide 40 MG tablet 40 mg PO DAILY dapagliflozin propanediol 5 MG tablet 5 mg PO DAILY Patient Comments: Take 1 tablet by mouth daily with breakfast. gabapentin 300 mg capsule 300 mg PO BID Patient Comments: TAKE 1 CAPSULE BY MOUTH TWICE DAILY Ozempic 0.25 mg or 0.5 mg(2 mg/1.5 mL) pen injector SUBCUT QWEEK Patient Comments: inject 1 (ONE) (one) Solution Pen-injector EVERY week cephalexin 500 mg capsule 500 mg PO Q6 Qty: 40 0RF doxycycline hyclate 100 mg capsule 100 mg PO BID 5 Days Qty: 10 0RF hydrocodone-acetaminophen [hydrocodone-acetaminophen] 5-325 mg tablet 1 tab PO Q6H PRN PRN (Reason: Pain) 3 Days Qty: 12 0RF penicillin V potassium 500 mg tablet 500 mg PO 4X/DAY Qty: 40 0RF naproxen [Naprosyn] 500 mg tablet 500 mg PO BID PRN (Reason: pain) Qty: 20 0RF clindamycin HCl 300 mg capsule 300 mg PO TID Qty: 15 0RF Primary Care Provider: Joanne Brown Referrals: Joanne Brown, AUTOMOBILE LEASING SUPERVISOR-C [Primary Care Provider] - Disposition Disposition: Home, Self Care
[2023-05-29] MEDS: Doxycycline 100 MG CAPSULE PO (10:50)
== END 2023-05-29 11:30 | disposition home or self-care (01) ==
PROVIDERS: Emergency Provider Emergency Medicine; PCP Nurse Practitioner Family; Visit Provider Emergency Medicine
DX: E11.638 Type 2 diabetes mellitus with other oral complications (principal); E11.65 Type 2 diabetes mellitus with hyperglycemia; L02.01 Cutaneous abscess of face; L03.211 Cellulitis of face; E66.9 Obesity, unspecified; Z86.711 Personal history of pulmonary embolism
CPT/HCPCS: 99282

== ENCOUNTER 2023-06-28 12:49 | Emergency (ER) | payer MEDICARE, MEDICAID, SELFPAY ==
[2023-06-28 12:50] VITALS: BP 175/98; PULSE 87; RESP 18; TEMP 36.1; O2SAT 97; BMI 57.4
--- NOTE | 2023-06-28 13:49 | EX.ED.DYSGE1 ---
HPI History of Present Illness Chief Complaint: Other, Pain/Inj Informant: patient Narrative Narrative: 38-year-old female presenting to the emergency room with right upper lip swelling. Patient states that 2 days ago she had a pimple near the right upper lip that she popped. Today the upper lip is swollen and red. She recently had an incision and drainage of it. Cutaneous abscess near the left nare. She was on doxycycline for that. She is previously been on Keflex for facial abscess. Patient denies any fevers. She notes a sulfa allergy. She went to urgent care but states they were busy so she came here. [facility] Medical History Diabetes History of pulmonary embolism Pain, dental Home Medications dapagliflozin propanediol 5 mg tablet 5 mg PO DAILY 09/17/20 [History Last Taken Unknown] furosemide 40 mg tablet 40 mg PO DAILY 09/17/20 [History Last Taken Unknown] gabapentin 300 mg capsule 300 mg PO BID 05/16/21 [History Last Taken Unknown] semaglutide 0.25 mg or 0.5 mg (2 mg/1.5 mL) subcutaneous pen injector (Ozempic) mg subcut QWEEK 05/16/21 [History Last Taken Unknown] cephalexin 500 mg capsule 500 mg PO Q6 #40 caps 02/12/22 [Rx Last Taken Unknown] doxycycline hyclate 100 mg capsule 100 mg PO BID 5 days #10 caps 07/25/22 [Rx Last Taken Unknown] hydrocodone-acetaminophen 5-325mg 5mg-325mg 1 tab PO Q6H PRN PRN Pain 3 days #12 TABLETS 02/19/23 [Rx Last Taken Unknown] penicillin V potassium 500 mg tablet 500 mg PO 4X/DAY #40 tabs 02/19/23 [Rx Last Taken Unknown] clindamycin HCl 300 mg capsule 300 mg PO TID #15 caps 02/24/23 [Rx Last Taken Unknown] naproxen 500 mg tablet (Naprosyn) 500 mg PO BID PRN pain #20 tabs 02/24/23 [Rx Last Taken Unknown] doxycycline monohydrate 100 mg capsule 100 mg PO BID #14 CAPSULES 05/29/23 [Rx Last Taken Unknown] hydrocodone-acetaminophen 5-325mg 5mg-325mg 1 tab PO Q6H PRN PRN Pain 2 days #6 TABLETS 05/29/23 [Rx Last Taken Unknown] clindamycin HCl 300 mg capsule (Cleocin HCl) 300 mg PO Q6H #28 CAPSULES 06/28/23 [Rx Last Taken Unknown] Allergy/AdvReac Type Severity Reaction Status Date / Time sulfamethoxazole Allergy Hives Verified 06/28/23 12:52 [From Bactrim] trimethoprim [From Bactrim] Allergy Hives Verified 06/28/23 12:52 ketorolac tromethamine AdvReac Upset Verified 06/28/23 12:52 [From Toradol] Stomach morphine AdvReac Upset Verified 06/28/23 12:52 Stomach tramadol AdvReac Upset Verified 06/28/23 12:52 Stomach Social History Smoking Status: Never smoker substance use type: does not use ROS ROS ED Constitutional Constitutional ED: Denies chills, fever(s) or weight loss Eyes Eyes: Denies change in vision or diplopia ENT ENT ED: Reports other Details: See history of present illness ; Denies ear pain, rhinorrhea or sore throat Cardiovascular Cardiovascular: Denies chest pain, orthopnea, palpitations or racing heartbeat Respiratory/Chest Respiratory/Chest: Denies cough, dyspnea or orthopnea Gastrointestinal Gastrointestinal: Denies abdominal pain, diarrhea, nausea or vomiting Genitourinary Genitourinary ED: Denies dysuria, hematuria or urinary frequency Musculoskeletal Musculoskeletal: Denies arthralgias or myalgias Integumentary Reports abscess; Denies rash Neurologic Neurologic: Denies headache(s) or weakness Psychiatric Psychiatric: Denies anxiety, depression, suicidal ideation or suicidal thoughts Endocrine Endocrinology: Denies polydipsia, polyphagia or polyuria Allergic/Immunologic Allergic/Immunologic ED: Denies mouth swelling, tongue swelling or urticaria EXAM Physical Exam Const Vital Signs: 06/28/23 12:50 06/28/23 13:01 Temperature 97 F L Temperature Source Temporal Pulse Rate 87 Respiratory Rate 18 Respiratory Effort Normal Non-Labored Respiratory Pattern Normal Blood Pressure 175/98 H Blood Pressure Mean 123 Pulse Ox 97 Oxygen Delivery Method Room Air Positive well nourished, well developed and obese General Appearance ED: well developed Nutritional Appearance: obese HEENT Reports normocephalic, head/scalp atraumatic and moist mucous membranes HEENT Narrative: Left upper philtrum is erythematous indurated with swelling. There is no intraoral extension. No fluctuance. There is a scabbed over area that appears to be the source of where the patient squeezed and Expressed pus. X Eyes PERRL and EOMs intact bilaterally Neck no lymphadenopathy, supple and no JVD Resp normal respiratory effort and clear to auscultation bilaterally Cardio regular rate, regular rhythm and no murmurs GI normal to inspection, nondistended, normoactive bowel sounds and non-tender Palpation: soft Back/Spine no CVA tenderness and normal ROM Extremity normal to inspection General Extremety ED: Negative for edema General Extremity: Negative for edema Neuro oriented x3 and CN's II-XII intact bilaterally Sensorium / Orientation: alert Motor Exam: strength 5/5 throughout Psych mental status grossly normal Mood & Affect: Negative for depressed or tearful Skin no rashes or lesions noted and no wounds MDM MDM MDM Narrative Medical decision making narrative: Patient has no history of MRSA. She was recently on doxycycline. With a sulfa allergy him and write for clindamycin. I did a bedside ultrasound does not demonstrate any obvious fluid collection. Patient wishes to refrain from any incision and drainage if possible. Based on the ultrasound and the physical exam of induration and no fluctuance I do not feel strongly that we need to perform an I&D. She will use warm compresses complete the clindamycin course return if worsening or concerns Discharge Plan Triage Chief Complaint: Other, Pain/Inj ED Provider: Rocky Barrera Dx/Rx/DC Orders Clinical Impression: Abscess of face, Cellulitis of face Instructions: ED Cellulitis, Facial Prescriptions: New clindamycin HCl [Cleocin HCl] 300 mg capsule 300 mg PO Q6H Qty: 28 0RF No Action furosemide 40 MG tablet 40 mg PO DAILY dapagliflozin propanediol 5 MG tablet 5 mg PO DAILY Patient Comments: Take 1 tablet by mouth daily with breakfast. gabapentin 300 mg capsule 300 mg PO BID Patient Comments: TAKE 1 CAPSULE BY MOUTH TWICE DAILY Ozempic 0.25 mg or 0.5 mg(2 mg/1.5 mL) pen injector SUBCUT QWEEK Patient Comments: inject 1 (ONE) (one) Solution Pen-injector EVERY week cephalexin 500 mg capsule 500 mg PO Q6 Qty: 40 0RF doxycycline hyclate 100 mg capsule 100 mg PO BID 5 Days Qty: 10 0RF hydrocodone-acetaminophen [hydrocodone-acetaminophen] 5-325 mg tablet 1 tab PO Q6H PRN PRN (Reason: Pain) 3 Days Qty: 12 0RF penicillin V potassium 500 mg tablet 500 mg PO 4X/DAY Qty: 40 0RF naproxen [Naprosyn] 500 mg tablet 500 mg PO BID PRN (Reason: pain) Qty: 20 0RF clindamycin HCl 300 mg capsule 300 mg PO TID Qty: 15 0RF hydrocodone-acetaminophen [hydrocodone-acetaminophen] 5-325 mg tablet 1 tab PO Q6H PRN PRN (Reason: Pain) 2 Days Qty: 6 0RF doxycycline monohydrate 100 mg capsule 100 mg PO BID Qty: 14 0RF Primary Care Provider: Joanne Brown Referrals: Joanne Brown, OFFAL SEPARATOR-C [Primary Care Provider] - 3-5 Days if not improving Disposition Disposition: Home, Self Care Discharge Date/Time: 06/28/23 13:27
== END 2023-06-28 13:27 | disposition home or self-care (01) ==
LOC: ED 13:24
PROVIDERS: Emergency Provider Emergency Medicine; PCP Nurse Practitioner Family; Visit Provider Emergency Medicine
DX: L02.01 Cutaneous abscess of face (principal); E11.9 Type 2 diabetes mellitus without complications; L03.211 Cellulitis of face; E66.9 Obesity, unspecified; Z86.711 Personal history of pulmonary embolism
CPT/HCPCS: 99283

== ENCOUNTER 2023-09-08 10:57 | Emergency (ER) | payer MEDICARE, MEDICAID, SELFPAY ==
[2023-09-08 10:58] VITALS: BP 171/109; PULSE 109; RESP 16; TEMP 36.8; O2SAT 99; BMI 57.2
--- NOTE | 2023-09-08 11:55 | EX.ED.DYSGE1 ---
HPI History of Present Illness Chief Complaint: Abscess Informant: patient Onset/Context/Timing Onset: Days (5 days) Context: Gradual Onset Narrative Narrative: Patient presents with 5-day history of boil to the left buttock. She has not noted any drainage from the area. No fever or chills. Patient was on antibiotics in June for a facial abscess. [facility] Medical History Diabetes History of pulmonary embolism Pain, dental Home Medications dapagliflozin propanediol 5 mg tablet 5 mg PO DAILY 09/17/20 [History Last Taken Unknown] furosemide 40 mg tablet 40 mg PO DAILY 09/17/20 [History Last Taken Unknown] gabapentin 300 mg capsule 300 mg PO BID 05/16/21 [History Last Taken Unknown] semaglutide 0.25 mg or 0.5 mg (2 mg/1.5 mL) subcutaneous pen injector (Ozempic) mg subcut QWEEK 05/16/21 [History Last Taken Unknown] cephalexin 500 mg capsule 500 mg PO Q6 #40 caps 02/12/22 [Rx Last Taken Unknown] doxycycline hyclate 100 mg capsule 100 mg PO BID 5 days #10 caps 07/25/22 [Rx Last Taken Unknown] hydrocodone-acetaminophen 5-325mg 5mg-325mg 1 tab PO Q6H PRN PRN Pain 3 days #12 TABLETS 02/19/23 [Rx Last Taken Unknown] penicillin V potassium 500 mg tablet 500 mg PO 4X/DAY #40 tabs 02/19/23 [Rx Last Taken Unknown] clindamycin HCl 300 mg capsule 300 mg PO TID #15 caps 02/24/23 [Rx Last Taken Unknown] naproxen 500 mg tablet (Naprosyn) 500 mg PO BID PRN pain #20 tabs 02/24/23 [Rx Last Taken Unknown] doxycycline monohydrate 100 mg capsule 100 mg PO BID #14 CAPSULES 05/29/23 [Rx Last Taken Unknown] hydrocodone-acetaminophen 5-325mg 5mg-325mg 1 tab PO Q6H PRN PRN Pain 2 days #6 TABLETS 05/29/23 [Rx Last Taken Unknown] clindamycin HCl 300 mg capsule (Cleocin HCl) 300 mg PO Q6H #28 CAPSULES 06/28/23 [Rx Last Taken Unknown] doxycycline monohydrate 100 mg capsule 100 mg PO BID #20 CAPSULES 09/08/23 [Rx Last Taken Unknown] hydrocodone-acetaminophen 5-325mg 5mg-325mg 1 tab PO Q6H PRN PRN Pain 3 days #10 TABLETS 09/08/23 [Rx Last Taken Unknown] Allergy/AdvReac Type Severity Reaction Status Date / Time sulfamethoxazole Allergy Hives Verified 09/08/23 10:58 [From Bactrim] trimethoprim [From Bactrim] Allergy Hives Verified 09/08/23 10:58 ketorolac tromethamine AdvReac Upset Verified 09/08/23 10:58 [From Toradol] Stomach morphine AdvReac Upset Verified 09/08/23 10:58 Stomach tramadol AdvReac Upset Verified 09/08/23 10:58 Stomach Social History Smoking Status: Never smoker substance use type: does not use ROS ROS ED Constitutional Constitutional ED: Denies chills or fever(s) Eyes Eyes: Denies discharge from eye(s) ENT ENT ED: Denies discharge from eye(s), rhinorrhea or sore throat Cardiovascular Cardiovascular: Denies chest pain or palpitations Respiratory/Chest Respiratory/Chest: Denies cough or dyspnea Gastrointestinal Gastrointestinal: Denies abdominal pain, nausea or vomiting Genitourinary Genitourinary ED: Reports other Details: Left buttock pain ; Denies dysuria Musculoskeletal Musculoskeletal: Denies back pain or extremity pain Integumentary Reports abscess and rash; Denies Abrasions Neurologic Neurologic: Denies headache(s) or weakness Psychiatric Psychiatric: Denies anxiety or depression Allergic/Immunologic Allergic/Immunologic ED: Denies lip swelling or urticaria EXAM Physical Exam Const Vital Signs: 09/08/23 10:58 Temperature 98.3 F Temperature Source Temporal Pulse Rate 109 H Respiratory Rate 16 Blood Pressure 171/109 H Blood Pressure Mean 129 Pulse Ox 99 Oxygen Delivery Method Room Air Positive well nourished and well developed General Appearance ED: well developed HEENT Reports moist mucous membranes Eyes EOMs intact bilaterally Chest Wall inspection of chest normal and palpation of chest normal Resp normal respiratory effort and clear to auscultation bilaterally Cardio regular rate and regular rhythm GI non-tender Narrative: 3 cm round cutaneous abscess in the left buttock with surrounding area of cellulitis measuring 14 cm in diameter. No spontaneous drainage at this time. Extremity normal to inspection Neuro oriented x3 and no sensory deficits noted Motor Exam: strength 5/5 throughout Psych mental status grossly normal Skin Skin Narrative: Cutaneous abscess as noted above. MDM MDM MDM Narrative Medical decision making narrative: Patient is given doxycycline as well as hydrocodone. Let will be applied to the wound and we will plan for I&D. Treatment and Re-Evaluation :: Let is applied to the wound. 20 minutes later 1 cc 1% lidocaine is infused locally. Stab incision is made with a #11 blade. Loculations were broken up with curved hemostats. Some blood and pus were drained. Patient still has a lot of induration. Wound is cleansed and dressing applied. She will be given a prescription for doxycycline as well as [place]. She is referred to surgery for follow-up if not improving. Discharge Plan Triage Chief Complaint: Abscess ED Provider: Grace Rooney Dx/Rx/DC Orders Clinical Impression: Cutaneous abscess Instructions: ED Abscess Incision And Drainage Prescriptions: New doxycycline monohydrate 100 mg capsule 100 mg PO BID Qty: 20 0RF hydrocodone-acetaminophen 5-325 mg tablet 1 tab PO Q6H PRN PRN (Reason: Pain) 3 Days Qty: 10 0RF No Action furosemide 40 MG tablet 40 mg PO DAILY dapagliflozin propanediol 5 MG tablet 5 mg PO DAILY Patient Comments: Take 1 tablet by mouth daily with breakfast. gabapentin 300 mg capsule 300 mg PO BID Patient Comments: TAKE 1 CAPSULE BY MOUTH TWICE DAILY Ozempic 0.25 mg or 0.5 mg(2 mg/1.5 mL) pen injector SUBCUT QWEEK Patient Comments: inject 1 (ONE) (one) Solution Pen-injector EVERY week cephalexin 500 mg capsule 500 mg PO Q6 Qty: 40 0RF doxycycline hyclate 100 mg capsule 100 mg PO BID 5 Days Qty: 10 0RF hydrocodone-acetaminophen [hydrocodone-acetaminophen] 5-325 mg tablet 1 tab PO Q6H PRN PRN (Reason: Pain) 3 Days Qty: 12 0RF penicillin V potassium 500 mg tablet 500 mg PO 4X/DAY Qty: 40 0RF naproxen [Naprosyn] 500 mg tablet 500 mg PO BID PRN (Reason: pain) Qty: 20 0RF clindamycin HCl 300 mg capsule 300 mg PO TID Qty: 15 0RF hydrocodone-acetaminophen [hydrocodone-acetaminophen] 5-325 mg tablet 1 tab PO Q6H PRN PRN (Reason: Pain) 2 Days Qty: 6 0RF doxycycline monohydrate 100 mg capsule 100 mg PO BID Qty: 14 0RF clindamycin HCl [Cleocin HCl] 300 mg capsule 300 mg PO Q6H Qty: 28 0RF Primary Care Provider: Joanne Brown Referrals: Wade Mancilla MD [Med Staff - Active Staff] - As Needed Joanne Brown, TILTING SAW OPERATOR-C [Primary Care Provider] - Disposition Disposition: Home, Self Care
[2023-09-08] MEDS: Lidocaine 1% (20 ml mdv) 20 ML Vial INFILT (12:06)
[2023-09-08] MEDS: Lidocaine/Epi/Tetracaine 50 ML 1 APPLIC TOPICAL (12:06)
[2023-09-08] MEDS: HYDROcodone Bitartrate/Apap 5/325 Tablet PO (12:06)
[2023-09-08] MEDS: Doxycycline 100 MG CAPSULE PO (12:06)
[2023-09-08 12:59] VITALS: BP 137/79; PULSE 81; RESP 18; TEMP 36.8; O2SAT 98
== END 2023-09-08 13:00 | disposition home or self-care (01) ==
LOC: ED 12:55
PROVIDERS: Emergency Provider Emergency Medicine; PCP Nurse Practitioner Family; Visit Provider Emergency Medicine
DX: L02.31 Cutaneous abscess of buttock (principal)
CPT/HCPCS: 10060; 99283

== ENCOUNTER 2023-09-14 00:03 | Emergency (ER) | payer MEDICARE, MEDICAID, SELFPAY ==
--- NOTE | 2023-09-14 00:04 | EDS_ITS ---
HPI History of Present Illness Chief Complaint: ETOH Intox [facility] Medical History Diabetes History of pulmonary embolism Pain, dental Home Medications dapagliflozin propanediol 5 mg tablet 5 mg PO DAILY 09/17/20 [History Last Taken Unknown] furosemide 40 mg tablet 40 mg PO DAILY 09/17/20 [History Last Taken Unknown] gabapentin 300 mg capsule 300 mg PO BID 05/16/21 [History Last Taken Unknown] semaglutide 0.25 mg or 0.5 mg (2 mg/1.5 mL) subcutaneous pen injector (Ozempic) mg subcut QWEEK 05/16/21 [History Last Taken Unknown] cephalexin 500 mg capsule 500 mg PO Q6 #40 caps 02/12/22 [Rx Last Taken Unknown] doxycycline hyclate 100 mg capsule 100 mg PO BID 5 days #10 caps 07/25/22 [Rx Last Taken Unknown] hydrocodone-acetaminophen 5-325mg 5mg-325mg 1 tab PO Q6H PRN PRN Pain 3 days #12 TABLETS 02/19/23 [Rx Last Taken Unknown] penicillin V potassium 500 mg tablet 500 mg PO 4X/DAY #40 tabs 02/19/23 [Rx Last Taken Unknown] clindamycin HCl 300 mg capsule 300 mg PO TID #15 caps 02/24/23 [Rx Last Taken Unknown] naproxen 500 mg tablet (Naprosyn) 500 mg PO BID PRN pain #20 tabs 02/24/23 [Rx Last Taken Unknown] doxycycline monohydrate 100 mg capsule 100 mg PO BID #14 CAPSULES 05/29/23 [Rx Last Taken Unknown] hydrocodone-acetaminophen 5-325mg 5mg-325mg 1 tab PO Q6H PRN PRN Pain 2 days #6 TABLETS 05/29/23 [Rx Last Taken Unknown] clindamycin HCl 300 mg capsule (Cleocin HCl) 300 mg PO Q6H #28 CAPSULES 06/28/23 [Rx Last Taken Unknown] doxycycline monohydrate 100 mg capsule 100 mg PO BID #20 CAPSULES 09/08/23 [Rx Last Taken Unknown] hydrocodone-acetaminophen 5-325mg 5mg-325mg 1 tab PO Q6H PRN PRN Pain 3 days #10 TABLETS 09/08/23 [Rx Last Taken Unknown] Allergy/AdvReac Type Severity Reaction Status Date / Time sulfamethoxazole Allergy Hives Verified 09/14/23 00:04 [From Bactrim] trimethoprim [From Bactrim] Allergy Hives Verified 09/14/23 00:04 ketorolac tromethamine AdvReac Upset Verified 09/14/23 00:04 [From Toradol] Stomach morphine AdvReac Upset Verified 09/14/23 00:04 Stomach tramadol AdvReac Upset Verified 09/14/23 00:04 Stomach Social History Smoking Status: Never smoker substance use type: does not use MDM MDM MDM Narrative Medical decision making narrative: HISTORY OF PRESENT ILLNESS: 38-year-old female presents with concern for abdominal pain. Patient is companied by her nephew. The patient states she drank alcohol today and noted abdominal pain. She does have she said her drinking should have nausea and vomited x 1. No hematemesis. No melena or hematochezia noted. No history abdominal surgeries. REVIEW OF SYSTEMS: Pertinent positives: abdominal pain, nausea vomiting Pertinent negatives: Diarrhea, constipation, urinary complaints PHYSICAL EXAM: Nursing triage notes reviewed, Vital signs reviewed Constitutional: please see mdm HENT: MMM Eyes: Pupils equal round and reactive to light, Extraocular muscles intact Neck: No stridor, no JVD, full neck ROM Lungs: Clear to auscultation, No wheezing or rales. No increased work of breathing, no conversational dyspnea, no accessory muscle use, no nasal flaring. No respiratory distress noted Heart: Regular rate and rhythm, No murmurs, No rubs and No gallops, 2+ distal pulses (radial, femoral, posterior tibial) in all extremities Abdomen: Obese but soft, there is no tenderness, rigidity, rebound or guarding, no obvious peritoneal signs, no palpable pulsatile abdominal masses, no auscultated abdominal bruit : No CVAT Extremities: No edema Neuro: No focal neurological deficits, cranial nerves II through XII intact, 5/5 strength in all extremities. Intact sensation to light touch in all extremities, 2+ reflexes bilateral patella tendons. Normal gait. No ataxia. Skin: No rash or lesions noted MEDICAL DECISION MAKING: Chief Complaint: Alcohol abuse External records reviewed: No recent advanced imaging of the abdomen pelvis noted in the chart. Factors affecting care: Type 2 diabetes, PE Social determinants of health: alcohol abuse History obtained from others: EMS, nephew Consults: none MDM Narrative: Patient was hemodynamically stable, afebrile and nontoxic-appearing. Abdominal exam is benign. I considered the following differential diagnosis: Alcohol induced gastritis, pancreatitis, gallbladder etiology, acute appendicitis, perforation or obstruction Patient's abdominal exam was not consistent with an acute surgical process. She had no right lower quadrant tenderness, no Johnson sign, she had no peritoneal signs to suggest a more concerning etiology. Her vitals are stable. Her history and physical exam is most consistent with likely get alcohol-induced gastritis. Provided p.o. medicine. Patient able to tolerate p.o. No indication for labs or imaging at this time. Patient has a sober ride home. Prior to reassessment, p.o. challenge, repeat abdominal exam patient eloped from the emergency department with her sober ride. The patient and/or family, caregivers express understanding. The patient and/or family, caregivers agrees with the plan. Shared decision making: I will have a discussion with the patient and or visitors regarding risk/benefits of further testing or admission. They will be made aware of of the risk/benefits inherent in this decision they will be given the opportunity to voice understanding. Total critical care time today provided was at least 0 minutes. This excludes separately billable procedures. Critical care time (if documented) is secondary to the patient having high probability of clinically significant/life threatening deterioration in the patient's condition which required my urgent intervention. Impression: 1. Abdominal pain 2. Alcohol use gastritis 3. Nausea vomiting 4. Eloped from the emergency department Dispo: Discharge home This note was generated with [employer] dictation software. It may contain incorrect words, spelling, and punctuation that were not noted in review of the chart prior to signing. Discharge Plan Triage Chief Complaint: ETOH Intox ED Provider: Yosvany Clark Dx/Rx/DC Orders Prescriptions: No Action furosemide 40 MG tablet 40 mg PO DAILY dapagliflozin propanediol 5 MG tablet 5 mg PO DAILY Patient Comments: Take 1 tablet by mouth daily with breakfast. gabapentin 300 mg capsule 300 mg PO BID Patient Comments: TAKE 1 CAPSULE BY MOUTH TWICE DAILY Ozempic 0.25 mg or 0.5 mg(2 mg/1.5 mL) pen injector SUBCUT QWEEK Patient Comments: inject 1 (ONE) (one) Solution Pen-injector EVERY week cephalexin 500 mg capsule 500 mg PO Q6 Qty: 40 0RF doxycycline hyclate 100 mg capsule 100 mg PO BID 5 Days Qty: 10 0RF hydrocodone-acetaminophen [hydrocodone-acetaminophen] 5-325 mg tablet 1 tab PO Q6H PRN PRN (Reason: Pain) 3 Days Qty: 12 0RF penicillin V potassium 500 mg tablet 500 mg PO 4X/DAY Qty: 40 0RF naproxen [Naprosyn] 500 mg tablet 500 mg PO BID PRN (Reason: pain) Qty: 20 0RF clindamycin HCl 300 mg capsule 300 mg PO TID Qty: 15 0RF hydrocodone-acetaminophen [hydrocodone-acetaminophen] 5-325 mg tablet 1 tab PO Q6H PRN PRN (Reason: Pain) 2 Days Qty: 6 0RF doxycycline monohydrate 100 mg capsule 100 mg PO BID Qty: 14 0RF clindamycin HCl [Cleocin HCl] 300 mg capsule 300 mg PO Q6H Qty: 28 0RF doxycycline monohydrate 100 mg capsule 100 mg PO BID Qty: 20 0RF hydrocodone-acetaminophen 5-325 mg tablet 1 tab PO Q6H PRN PRN (Reason: Pain) 3 Days Qty: 10 0RF Primary Care Provider: Joanne Brown Referrals: Joanne Brown, TOILET ATTENDANT-C [Primary Care Provider] - Disposition Disposition: Home, Self Care Discharge Date/Time: 09/14/23 00:42
[2023-09-14 00:05] VITALS: BP 128/97; PULSE 86; RESP 18; TEMP 35.9; O2SAT 97; BMI 56.2
--- OUTSIDE RECORDS SUMMARY | 2023-09-14 00:29 | XMS RPT_ITS | CCD ---
Author Name Unknown Address [address] [place] [address] Organization [facility] Care Team Providers Care Contracting Manager Name Role Phone Kailey Doherty Unavailable Unavailable Ortega MODULAR SET CREW MEMBER, Deirdre Ovalle Unavailable Cihardik Loida Unavailable Johnnie Juárez Unavailable Unavailable Unavailable Unavailable Cidonaldoa MARTHA Loida Unavailable Johnnie Juárez LPN Unavailable Unavailable Unavailable Unavailable Melanie Castro LPN Unavailable Unavailable Claudia Johnson MA Unavailable Unavailable Juana Salgado DO Unavailable Juju Marivel Unavailable Naomi DO, Juana Unavailable Juju Marivel Unavailable Unavailable Joanne Brown CNP Unavailable Joanne Brown CNP Unavailable Janina Pride MD Primary Care Provider [phone] Colby Jc RPh Unavailable Chase TOMAS, Kayela Unavailable Unavailable Joanne Brown CNP Attending Unavailable Joanne Brown CNP Referring Unavailable Joanne Brown CNP Consulting Unavailable Jojo Azevedo MA Unavailable Unavailable JANINA PRIDE Primary Care Unavailable Allergies Allergy Classification Reported Allergen(s) Allergy Type Date of Onset Reaction(s) Facility Opioid Agonists (5 sources) Morphine; Translations: [Morphine Sulfate (Concentrate) *ANALGESICS - OPIOID*] Drug Allergy [facility] Work Phone: Sulfamethoxazole / Trimethoprim (5 sources) Sulfamethoxazole / Trimethoprim; Translations: [Bactrim DS *ANTI-INFECTIVE AGENTS - MISC.*] Drug Allergy [facility] Work Phone: (2 sources) ketorolac Drug Allergy 05-20-20 17 [facility] (2 sources) morphine Drug Allergy 05-20-20 17 [facility] (2 sources) traMADol Drug Allergy 05-20-20 17 [facility] (4 sources) NKDA drug allergy 04-17-20 15 [facility] (20 sources) Morphine; Translations: [Morphine Sulfate (Concentrate) *ANALGESICS - OPIOID*] Drug Allergy 09-04-19 16 GI Upset [facility] Work Phone: (20 sources) Sulfamethoxazole / Trimethoprim; Translations: [Bactrim DS *ANTI-INFECTIVE AGENTS - MISC.*] Drug Allergy [facility] Work Phone: (3 sources) Ketorolac; Translations: [KETOROLAC] Drug Allergy 10-26-19 21 GI Ups[address] [facility] Work Phone: (3 sources) metFORMIN; Translations: [METFORMIN] Drug Allergy 07-04-20 20 Diarrhea, GI Upset [facility] Work Phone: (3 sources) Sulfamethoxazole; Translations: [SULFAMETHOXAZOLE] Drug Allergy 12-11-[address] [facility] (3 sources) traMADol; Translations: [TRAMADOL] Drug Allergy 10-26-19 [address] [facility] Work Phone: (1 source) Morphine; Translations: [MORPHINE] Drug Allergy 09-04-19 16 [facility] Repository Medications Current Medications Medication Drug Class(es) Dates Sig (Normalized) Sig (Original) amoxicillin 500 mg oral capsule (1 source) Penicillin-class Antibacterial Start: 06-17-2022 End: 06-27-2022 take 1 capsule by mouth twice daily amoxicillin (POLYMOX, AMOXIL) 500 mg capsule Take 1 capsule by mouth twice daily for 10 days. 20 capsule 0 06/17/2022 06/27/2022 Active Completed/Discontinued Medications Medication Drug Class(es) Dates Sig (Normalized) Sig (Original) acetaminophen 325 mg / oxyCODONE hydrochloride 10 mg oral tablet (12 sources) Opioid Agonist Start: 03-13-2015 PERCOCET 10-325 MG TABS one every six hours as needed for pain OXYCODONE-ACETAMINO PHEN [id number] Patrick Bedoya DO Problems Active Problems Problem Classification Problem Date Documented Da te Episodic/Chronic Administrative/social admission (20 sources) Patient encounter status; Translations: [Nutritional counseling] 07-11-2021 Episodic Anxiety disorders (20 sources) Mixed anxiety and depressive disorder; Translations: [Anxiety and depression] Onset: 10-25-2020 10-09-2020 Chronic Past or Other Problems Problem Classification Problem Date Documented Da te Episodic/Chronic Abdominal pain (2 sources) Pain in female pelvis; Translations: [Pelvic and perineal pain] Onset: 05-20-2017 05-20-2017 Episodic Gastritis and duodenitis (2 sources) Gastritis; Translations: [Other specified gastritis] Onset: 07-24-2006 07-24-2006 Episodic Other circulatory disease (2 sources) Elevated blood-pressure reading without diagnosis of hypertension; Translations: [Elevated blood-pressure reading, without diagnosis of hypertension] Onset: 02-28-2015 02-28-2015 Episodic Other non-traumatic joint disorders (6 sources) Knee pain; Translations: [Pain in left knee] Onset: 07-21-2014 07-21-2014 Episodic Other screening for suspected conditions (not mental disorders or infectious disease) (2 sources) Screening due; Translations: [Encounter for screening for lipoid disorders] Onset: 09-04-2015 09-04-2015 Episodic Residual codes; unclassified (2 sources) Bilateral lower limb edema; Translations: [Localized edema] Onset: 09-04-2015 04-06-2020 Episodic Spondylosis; intervertebral disc disorders; other back problems (8 sources) Neck pain; Translations: [Thoracic back pain] Onset: 07-21-2014 07-21-2014 Episodic Unclassified (2 sources) Edema; Translations: [Localized edema] Onset: 07-21-2014 07-21-2014 Episodic Unclassified (19 sources) Numbness of left hand Unclassified (18 sources) DDD (degenerative disc disease), lumbar Unclassified (20 sources) Nutritional counseling Unclassified (16 sources) Therapeutic drug monitoring NEGATED: Highlighted row has been ruled out!Unclassified (20 sources) Problem Onset: 10-09-2020 10-09-2020 Results Test Name Value Interpretation Reference Range Facil ity Vital Signs Date Time Vital Sign Value Performing Clinician Facility 01-20-2023 08:40-0400 Body height 160.66 cm Jojo Azevedo MA [facility] Work Phone: 01-20-2023 08:40-0400 Body mass index (BMI) [Ratio] 52.9 kg/m2 Jojo Azevedo MA [facility] Work Phone: 01-20-2023 08:40-0400 Body surface area Derived from formula 2.31 m2 Jojo Azevedo MA [facility] Work Phone: 01-20-2023 08:40-0400 Body temperature 95.9 [degF] Jojo Azevedo MA [facility] Work Phone: 01-20-2023 08:40-0400 Body weight 136.53 kg Jojo Azevedo MA [facility] Work Phone: 01-20-2023 08:40-0400 Diastolic blood pressure 70 mm[Hg] Jojo Azevedo MA [facility] Work Phone: Encounters Encounter Date Encounter Type Care Provider Facility Start: 03-26-2023 End: [facility] Start: 01-20-2023 End: 01-20-2023 Office outpatient visit 15 minutes Joanne Brown CNP Work Phone: [facility] Start: 12-11-2022 End: 12-11-2022 ambulatory JANINA PRIDE Facility:[facility] Start: 11-05-2022 End: 11-07-2022 Patient encounter procedure Joanne Brown CNP Work Phone: [facility] Start: 10-20-2022 ambulatory Joanne Brown CNP [facility] Start: 10-20-2022 End: 10-20-2022 Office outpatient visit 15 minutes Joanne Brown CNP Work Phone: [facility] Start: 08-06-2022 Telephone encounter Janina Prdie MD Work Phone: [facility] Procedures Date Procedure Procedure Detail Performing Clinician Start: 02-19-2023 End: 02-19-2023 Emergency Department Summary Procedure Note: See Note; NOTES: [facility] Medical Records Department [address] [place] [address] Emergency Department Summary 02/19/23 MR#: [id number] Acct: [id number] Name: GRACE AUSTIN Rep #: [id number] : 1985 38 From: Rocky Barrera DO PCP: Joanne Brown MODULAR [employer] CREW MEMBER-C Status:DEP ER Location: ED HPI History of Present Illness Chief Complaint: Dental Informant: patient and friend Narrative Narrative: 38-year-old female presenting to the emergency room with left lower molar pain. Patient states that she believes she fractured her tooth several weeks ago. She does not recall the actual event. She has developed increasing pain and air sensitivity. She states she has had poor sleep resulting in irritability because of pain. She has not been able to secure a dental appointment until March 05. She has tried Tylenol and Motrin with no pain. Friend notes facial swelling. She denies smoking. She has tried some temporary fillings but they do not adhere. She denies any trismus. No known heart issues. No breathing or swallowing difficulties [facility] Medical History Diabetes History of pulmonary embolism Pain, dental Home Medications dapagliflozin propanediol 5 mg tablet 5 mg PO DAILY 09/17/20 [History Last Taken Unknown] furosemide 40 mg tablet 40 mg PO DAILY 09/17/20 [History Last Taken Unknown] gabapentin 300 mg capsule 300 mg PO BID 05/16/21 [History Last Taken Unknown] semaglutide 0.25 mg or 0.5 mg (2 mg/1.5 mL) subcutaneous pen injector (Ozempic) mg subcut QWEEK 05/16/21 [History Last Taken Unknown] cephalexin 500 mg capsule 500 mg PO Q6 #40 caps 02/12/22 [Rx Last Taken Unknown] doxycycline hyclate 100 mg capsule 100 mg PO BID 5 days #10 caps 07/25/22 [Rx Last Taken Unknown] hydrocodone-acetaminophen 5-325mg 5mg-325mg 1 tab PO Q6H PRN PRN Pain 3 days #12 TABLETS 02/19/23 [Rx Last Taken Unknown] penicillin V potassium 500 mg tablet 500 mg PO 4X/DAY #40 tabs 02/19/23 [Rx Last Taken Unknown] Allergy/AdvReac Type Severity Reaction Status Date / Time sulfamethoxazole Allergy Hives Verified 02/12/22 14:51 [From Bactrim] trimethoprim [From Bactrim] Allergy Hives Verified 02/12/22 14:51 ketorolac tromethamine AdvReac Upset Verified 02/12/22 14:51 [From Toradol] Stomach morphine AdvReac Upset Verified 02/12/22 14:51 Stomach tramadol AdvReac Upset Verified 02/12/22 14:51 Stomach Social History (Updated 02/19/23 @ 11:[address] Rocky Barrera, DO) Smoking Status: Never smoker substance use type: does not use ROS ROS ED Constitutional Constitutional ED: Denies chills, fever(s) or weight loss Eyes Eyes: Denies change in vision or diplopia ENT ENT ED: Reports other Details: Dental pain ; Denies ear pain, rhinorrhea or sore throat Cardiovascular Cardiovascular: Denies chest pain, orthopnea, palpitations or racing heartbeat Respiratory/Chest Respiratory/Chest: Denies cough, dyspnea or orthopnea Gastrointestinal Gastrointestinal: Denies abdominal pain, diarrhea, nausea or vomiting Genitourinary Genitourinary ED: Denies dysuria, hematuria or urinary frequency Musculoskeletal Musculoskeletal: Denies arthralgias or myalgias Integumentary Denies abscess or rash Neurologic Neurologic: Denies headache(s) or weakness Psychiatric Psychiatric: Denies anxiety, depression, suicidal ideation or suicidal thoughts Endocrine Endocrinology: Denies polydipsia, polyphagia or polyuria Allergic/Immunologic Allergic/Immunologic ED: Denies mouth swelling, tongue swelling or urticaria EXAM Physical Exam Const Vital Signs: 02/19/23 11:13 Temperature 97 F L Temperature Source Temporal Pulse Rate 89 Respiratory Rate 16 Blood Pressure 173/100 H Blood Pressure Mean 124 Pulse Ox 98 Oxygen Delivery Method Room Air Positive well nourished, well developed and obese General Appearance ED: well developed Nutritional Appearance: obese HEENT Reports normocephalic, head/scalp atraumatic and moist mucous membranes HEENT Narrative: The posterior aspect of the second lower left molar demonstrates decay and missing the posterior 1/8 of the tooth. There is no focal gum swelling. Floor the mouth is soft. There is no trismus. There is no significant overlying swelling or erythema. Voice is normal. Handling secretions normal. No lymphadenopathy. Mouth ED: Yes tongue normal and Yes salivary gland normal Mouth: tongue normal and salivary gland normal Eyes PERRL and EOMs intact bilaterally Neck no lymphadenopathy, supple and no JVD Resp normal respiratory effort and clear to auscultation bilaterally Cardio regular rate, regular rhythm and no murmurs GI normal to inspection, nondistended, normoactive bowel sounds and non-tender Palpation: soft Back/Spine no CVA tenderness and normal ROM Extremity normal to inspection General Extremety ED: Negative for edema General Extremity: Negative for edema Neuro oriented x3 and CN's II-XII intact bilaterally Sensorium / Orientation: alert Motor Exam: strength 5/5 throughout Psych mental status grossly normal Mood Affect: Negative for depressed or tearful Skin no rashes or lesions noted and no wounds MDM MDM MDM Narrative Medical decision making narrative: Patient most likely has pain due to dental caries/dental decay. I do not see any evidence of abscess or airway issues. No evidence of gingivitis. Patient was started on penicillin as well as a few Harrold. She was given dental resources. We discussed ways to try to make the temporary filling at here. Patient and friend note understanding. Discharge Plan Triage Chief Complaint: Dental ED Provider: Rocky Barrera Dx/Rx/DC Orders Clinical Impression: Dental caries, Pain, dental Instructions: ED Dental Pain Prescriptions: New hydrocodone-acetaminophen [hydrocodone-acetaminophen ] 5-325 mg tablet 1 tab PO Q6H PRN PRN (Reason: Pain) 3 Days Qty: 12 0RF penicillin V potassium 500 mg tablet 500 mg PO 4X/DAY Qty: 40 0RF No Action furosemide 40 MG tablet 40 mg PO DAILY dapagliflozin propanediol 5 MG tablet 5 mg PO DAILY Patient Comments: Take 1 tablet by mouth daily with breakfast. gabapentin 300 mg capsule 300 mg PO BID Patient Comments: TAKE 1 CAPSULE BY MOUTH TWICE DAILY Ozempic 0.25 mg or 0.5 mg(2 mg/1.5 mL) pen injector SUBCUT QWEEK Patient Comments: inject 1 (ONE) (one) Solution Pen-injector EVERY week cephalexin 500 mg capsule 500 mg PO Q6 Qty: 40 0RF doxycycline hyclate 100 mg capsule 100 mg PO BID 5 Days Qty: 10 0RF Primary Care Provider: Joanne Brown Referrals: Joanne Brown NP-C [Primary Care Provider] - As Needed Activity Restrictions/Additional Instructions: Please see dentistry as soon as possible. As discussed you may try [facility]. Immediate dents are also available. Disposition Disposition: Home, Self Care What to do if you have Problems For any increased pain, shortness of breath, bleeding, nausea or vomiting, chest pain, or any unexpected problems, contact your Primary Care Provider. Call [facility] ([phone]) or report to the closest Emergency Room. Call 911 if necessary. 02/19/232236 <Electronically signed by Rocky Barrera DO> Cosigner Signature (if applicable): CC: EVELINA Brown Signed Joanne Brown [facility] Work Phone: Start: 07-25-2022 End: 07-25-2022 Emergency Department Summary Procedure Note: See Note; NOTES: [facility] Medical Records Department [address] [place] [address] Emergency Department Summary 07/25/22 MR#: [id number] Acct: [id number] Name: GRACE AUSTIN Rep #: [id number] : 1985 37 From: Mary SUMMERS PCP: EVELINA Ac Status:DEP ER Location: ED HPI <KRISTOPHER Franco - Last Filed: 07/25/22 20:48> History of Present Illness Chief Complaint: Bite Narrative Narrative: Patient presents today with what she thinks is a bug bite to her right anterior thigh and on her abdomen. Patient first noticed these 2 days ago while she was taking a shower. She states the wound on her thigh is painful and the redness around it has spread. She denies fever, chills, abdominal pain, nausea, vomiting, and diarrhea. ROS <KRISTOPHER Franco - Last Filed: 07/25/22 20:48> ROS ED Constitutional Constitutional ED: Denies chills, fever(s) or sweats Eyes Eyes: Denies blurry vision or change in vision ENT ENT ED: Denies rhinorrhea or sore throat Cardiovascular Cardiovascular: Denies chest pain, palpitations or racing heartbeat Respiratory/Chest Respiratory/Chest: Denies cough, dyspnea or dyspnea on exertion Gastrointestinal Gastrointestinal: Denies abdominal pain, nausea or vomiting Genitourinary Genitourinary ED: Denies dysuria, hematuria or urinary frequency Musculoskeletal Musculoskeletal: Denies back pain or neck pain Integumentary Reports changing lesions; Denies abscess or rash Neurologic Neurologic: Denies headache(s), paresthesias or weakness Psychiatric Psychiatric: Denies anxiety, depression or suicidal ideation [facility] <KRISTOPHER Franco - Last Filed: 07/25/22 20:48> [facility] Medical History Diabetes History of pulmonary embolism Home Medications dapagliflozin 5 mg tablet 5 mg PO DAILY 09/17/20 [History Last Taken Unknown] furosemide 40 mg tablet 40 mg PO DAILY 09/17/20 [History Last Taken Unknown] gabapentin 300 mg capsule 300 mg PO BID 05/16/21 [History Last Taken Unknown] semaglutide 0.25 mg or 0.5 mg (2 mg/1.5 mL) subcutaneous pen injector (Ozempic) mg subcut QWEEK 05/16/21 [History Last Taken Unknown] cephalexin 500 mg capsule 500 mg PO Q6 #40 caps 02/12/22 [Rx Last Taken Unknown] doxycycline hyclate 100 mg capsule 100 mg PO BID 5 days #10 caps 07/25/22 [Rx Last Taken Unknown] Allergy/AdvReac Type Severity Reaction Status Date / Time sulfamethoxazole Allergy Hives Verified 02/12/22 14:51 [From Bactrim] trimethoprim [From Bactrim] Allergy Hives Verified 02/12/22 14:51 ketorolac tromethamine AdvReac Upset Verified 02/12/22 14:51 [From Toradol] Stomach morphine AdvReac Upset Verified 02/12/22 14:51 Stomach tramadol AdvReac Upset Verified 02/12/22 14:51 Stomach Social History Smoking Status: Never smoker EXAM <KRISTOPHER Franco - Last Filed: 07/25/22 20:48> Physical Exam Const Vital Signs: 07/25/22 19:08 07/25/22 19:10 Temperature 96.6 F L 96.6 F L Temperature Source Temporal Temporal Pulse Rate 86 86 Respiratory Rate 16 16 Blood Pressure 168/91 H 168/91 H Blood Pressure Mean 116 116 Pulse Ox 98 98 Oxygen Delivery Method Room Air Room Air Positive obese General Appearance ED: NAD Nutritional Appearance: obese HEENT Reports moist mucous membranes normocephalic and atraumatic Eyes PERRL and EOMs intact bilaterally Neck full ROM and no lymphadenopathy Resp normal respiratory effort and clear to auscultation bilaterally Cardio regular rate, regular rhythm and no murmurs GI non-tender, non-distended and no masses Palpation: soft Extremity full ROM Neuro oriented x3, CN's II-XII intact bilaterally and no sensory deficits noted Sensorium / Orientation: alert Motor Exam: strength 5/5 throughout Psych mental status grossly normal and thought process normal Skin skin turgor normal Skin Narrative: Small round erythemic lesion to the right anterior thigh and right lower abdomen. Lesion on her thigh does have a small tender area of swelling beneath it along with erythema that is spreading around the lesion. No purulent discharge. <Dr. Costa Sanderson MD - Last Filed: 07/25/22 22:44> Physical Exam Const Vital Signs: 07/25/22 19:08 07/25/22 19:10 Temperature 96.6 F L 96.6 F L Temperature Source Temporal Temporal Pulse Rate 86 86 Respiratory Rate 16 16 Blood Pressure 168/91 H 168/91 H Blood Pressure Mean 116 116 Pulse Ox 98 98 Oxygen Delivery Method Room Air Room Air MDM <KRISTOPHER Franco - Last Filed: 07/25/22 20:48> [facility] MDM Narrative Medical decision making narrative: Patient presenting today with what she thinks is a spider bite to her right anterior thigh and right lower abdomen. She is in no acute distress and nontoxic-appearing. I have talked to patient's friend in the room who states that she first noticed this on the patient yesterday and she david a port lions around the redness and states that it has since spread. The scab on the punctum of the wound on the thigh was removed using an 18-gauge needle and a small amount of purulent discharge was expelled from the wound. There is no fluctuance. There is nothing to expel from the wound on the abdomen. Patient has been put on doxycycline and was given a dose here in the ED. She has been given return instructions and she will be discharged home in stable condition. Patient is comfortable with plan. <Dr. Costa Sanderson MD - Last Filed: 07/25/22 22:44> [facility] MDM Narrative Medical decision making narrative: Patient presenting today with what she thinks is a spider bite to her right anterior thigh and right lower abdomen. She is in no acute distress and nontoxic-appearing. I have talked to patient's friend in the room who states that she first noticed this on the patient yesterday and she david a port lions around the redness and states that it has since spread. The scab on the punctum of the wound on the thigh was removed using an 18-gauge needle and a small amount of purulent discharge was expelled from the wound. There is no fluctuance. There is nothing to expel from the wound on the abdomen. Patient has been put on doxycycline and was given a dose here in the ED. She has been given return instructions and she will be discharged home in stable condition. Patient is comfortable with plan. Treatment and Re-Evaluation Narrative: I have personally performed a face to face assessment of the patient and have reviewed the LEBRON Note. I performed a substantive portion of the visit including all aspects of the following. My leung findings include: Patient is here with a postural on her thigh. There is a small pustule that is scabbed. This was uncapped and pus was released. Patient will be placed on antibiotics and have prompt follow-up. She also has slight cellulitis. <Dr. Costa Sanderson MD - Last Filed: 07/25/22 22:44> Other Procedures Procedure(s): Incision and drainage Verbal consent An 18-gauge needle was used to and The pustule small amount of pus was expectorated. No lidocaine Patient tolerated procedure well. Discharge Plan Triage Chief Complaint: Bite ED Midlevel Provider: Mary Daniels ED Provider: Costa Sanderson Dx/Rx/DC Orders Clinical Impression: Bug bite, Cellulitis, Pustule Instructions: Cellulitis Dc Prescriptions: New doxycycline hyclate 100 mg capsule 100 mg PO BID 5 Days Qty: 10 0RF No Action furosemide 40 MG tablet 40 mg PO DAILY dapagliflozin 5 MG tablet 5 mg PO DAILY Label Comments: Take 1 tablet by mouth daily with breakfast. gabapentin 300 mg capsule 300 mg PO BID Label Comments: TAKE 1 CAPSULE BY MOUTH TWICE DAILY Ozempic 0.25 mg or 0.5 mg(2 mg/1.5 mL) pen injector SUBCUT QWEEK Label Comments: inject 1 (ONE) (one) Solution Pen-injector EVERY week cephalexin 500 mg capsule 500 mg PO Q6 Qty: 40 0RF Primary Care Provider: Joanne Brown Referrals: Joanne Brown NP-C [Primary Care Provider] - 3-5 Days Activity Restrictions/Additional Instructions: Take antibiotics as directed. Please follow-up with PCP and return if symptoms worsen. Disposition Disposition: Home, Self Care Discharge Date/Time: 07/25/22 19:40 What to do if you have Problems For any increased pain, shortness of breath, bleeding, nausea or vomiting, chest pain, or any unexpected problems, contact your Primary Care Provider. Call [facility] ([phone]) or report to the closest Emergency Room. Call 911 if necessary. 07/25/222047 <Electronically signed by Mary SUMMERS> Cosigner Signature (if applicable): 07/25/22 2244 <Electronically signed by Costa Sanderson MD> CC: EVELINA Brown Signed Joanne Brown SVP GROUP DIRECTOR Work Phone: Start: 06-17-2022 STREP A MOLECULAR (POC) Jessica Zuleta APRN.SVP GROUP DIRECTOR Work Phone: Start: 02-12-2022 End: 02-12-2022 Emergency Department Summary Procedure Note: See Note; NOTES: [facility] Medical Records Department [address] [place] [address] Emergency Department Summary 02/12/22 MR#: [id number] Acct: [id number] Name: GRACE AUSTIN Rep #: [id number] : 1985 37 From: Dwain Lunsford MD PCP: Joanne Brown NP-C Status:REG ER Location: ED HPI History of Present Illness Chief Complaint: Abscess Detail of Chief Complaint: Left facial abscess Informant: patient Onset/Context/Timing Onset: Days Context: Gradual Onset Timing: Continuous Current Severity: Mild Maximum Severity: Mild Narrative Narrative: 37-year-old diabetic female history of prior pulmonary emboli no longer on any further anticoagulation. 1 week ago developed a pimple on the left side of her face along her cheek. She tried aches breast pus from it and just made it swell up more and cause her more pain. She comes in today to have it evaluated. She denies any fever. No drainage. No prior history. Prior similar symptoms: No Recent Illness/Hospitalization: No PFSH PFSH Medical History Diabetes History of pulmonary embolism Home Medications dapagliflozin 5 mg tablet 5 mg PO DAILY 09/17/20 [History Last Taken Unknown] furosemide 40 mg tablet 40 mg PO DAILY 09/17/20 [History Last Taken Unknown] gabapentin 300 mg capsule 300 mg PO BID 05/16/21 [History Last Taken Unknown] semaglutide 0.25 mg or 0.5 mg (2 mg/1.5 mL) subcutaneous pen injector (Ozempic) mg subcut QWEEK 05/16/21 [History Last Taken Unknown] cephalexin 500 mg capsule 500 mg PO Q6 #40 caps 02/12/22 [Rx Last Taken Unknown] Allergy/AdvReac Type Severity Reaction Status Date / Time sulfamethoxazole Allergy Hives Verified 02/12/22 14:51 [From Bactrim] trimethoprim [From Bactrim] Allergy Hives Verified 02/12/22 14:51 ketorolac tromethamine AdvReac Upset Verified 02/12/22 14:51 [From Toradol] Stomach morphine AdvReac Upset Verified 02/12/22 14:51 Stomach tramadol AdvReac Upset Verified 02/12/22 14:51 Stomach Social History Smoking Status: Never smoker ROS ROS ED ROS Narrative Denies recent illness. States her blood sugars have been running well. Review of Systems ROS Unobtainable: Denies due to encephalopathy Constitutional Constitutional ED: Denies chills or fever(s) Eyes Eyes: Denies blurry vision ENT ENT ED: Denies ear pain Cardiovascular Cardiovascular: Denies chest pain Respiratory/Chest Respiratory/Chest: Denies cough or dyspnea Gastrointestinal Gastrointestinal: Denies abdominal pain Genitourinary Genitourinary ED: Denies dysuria Integumentary Reports abscess Neurologic Neurologic: Denies headache(s) Psychiatric Psychiatric: Denies anxiety Endocrine Endocrinology: Denies cold intolerance Hematologic/Lymphatic Hematologic/Lymphatic: Reports none Allergic/Immunologic Allergic/Immunologic ED: Denies mouth swelling EXAM Physical Exam Narrative Exam Narrative: 37-year-old female. Vital signs are stable afebrile. H EENT exam she small abscess about the size of a dime left cheekbone. No surrounding cellulitis. Tender to touch. No real fluctuance. Firm. Eye is not involved. Neck nontender no lymphadenopathy. Lungs are clear. Heart regular rhythm no murmur. Abdomen soft nontender. Moving all 4 extremities. Const Vital Signs: 02/12/22 14:50 Temperature 98.1 F Temperature Source Temporal Pulse Rate 95 Respiratory Rate 16 Blood Pressure 154/100 H Blood Pressure Mean 118 Pulse Ox 100 Oxygen Delivery Method Room Air Positive well nourished, well developed and obese; Negative for cachectic, contractures or unkempt General Appearance ED: well developed and NAD; Negative for unkempt, cachectic, contractures, cyanotic or diaphoretic Nutritional Appearance: obese; Negative for cachectic HEENT Reports moist mucous membranes Negative for trauma Eyes PERRL and EOMs intact bilaterally General Eye ED: Negative for pale conjunctiva or scleral icterus Neck no lymphadenopathy, supple and no JVD General: Negative for tenderness Lymph Lymphatic: Negative for other Chest Wall inspection of chest normal and palpation of chest normal Resp normal respiratory effort and clear to auscultation bilaterally Effort and Inspection: Negative for retractions Auscultation: Negative for rales, rhonchi or wheezes Cardio regular rate, regular rhythm, S1 normal heart sound and S2 normal heart sound GI normal to inspection, nondistended, normoactive bowel sounds, non-tender, non-distended and no masses Auscultation: normoactive bowel sounds Palpation: soft; Negative for tender or guarding Back/Spine no CVA tenderness Extremity normal to inspection General Extremety ED: Negative for edema or tenderness General Extremity: Negative for edema Neuro oriented x3 and CN's II-XII intact bilaterally Sensorium / Orientation: alert; Negative for orientation impaired, lethargic or stuporous Motor Exam: strength 5/5 throughout Psych mental status grossly normal Appearance: Negative for unkempt Attitude: No agitated Mood Affect: Negative for depressed, anxious or tearful Skin no rashes or lesions noted Skin Narrative: Left facial abscess along the left lateral cheekbone. No cellulitis. Tender and firm to touch no fluctuance. Rashes: No rashes noted Trauma: Negative for abrasion MDM MDM MDM Narrative Medical decision making narrative: 37 abetting female with a small left facial abscess. She and I discussed options. She really wants me to attempt to drain this. I told her I am happy to do so but it is really not fluctuant we may not get any significant pus out of it. She still wants me to attempt incision and drainage. Procedures Other Procedures Procedure(s): Left facial abscess. No cellulitis. Local anesthetized initially with LAT and then with subcu lidocaine. Small less than a centimeter incision was made. Express blood. No pus. Discussed with patient. Discharged home. On Keflex. Warm compresses. Follow-up if not improving. Return if worse. Discharge Plan Triage Chief Complaint: Abscess ED Provider: Dwain Lunsford Dx/Rx/DC Orders Clinical Impression: Abscess of face, History of diabetes mellitus Instructions: ED Abscess Incision And Drainage Prescriptions: New cephalexin 500 mg capsule 500 mg PO Q6 Qty: 40 0RF No Action furosemide 40 MG tablet 40 mg PO DAILY dapagliflozin 5 MG tablet 5 mg PO DAILY Label Comments: Take 1 tablet by mouth daily with breakfast. gabapentin 300 mg capsule 300 mg PO BID Label Comments: TAKE 1 CAPSULE BY MOUTH TWICE DAILY Ozempic 0.25 mg or 0.5 mg(2 mg/1.5 mL) pen injector SUBCUT QWEEK Label Comments: inject 1 (ONE) (one) Solution Pen-injector EVERY week Primary Care Provider: Joanne Brown Referrals: Joanne Brown, KELLI-C [Primary Care Provider] - 1 Week if not improving Activity Restrictions/Additional Instructions: Motrin and Tylenol for pain. Warm compresses to the abscess on your face. The antibiotic Keflex 1 pill 4 times a day till gone. Follow-up with your primary care provider if not improving return to the emergency department if worse. Disposition Disposition: Home, Self Care What to do if you have Problems For any increased pain, shortness of breath, bleeding, nausea or vomiting, chest pain, or any unexpected problems, contact your Primary Care Provider. Call [facility] ([phone]) or report to the closest Emergency Room. Call 911 if necessary. 02/12/22 1539 <Electronically signed by Dwain Lunsford MD> Cosigner Signature (if applicable): CC: [employer] Joanne Brown Signed Joanne Brown [employer]P [employer] DIRECT[employer] Work Phone: Start: 05-16-2021 End: 05-16-2021 Emergency Department Summary Comments: See Note; NOTES: [facility] Medical Records Department [address] [place] [address] Emergency Department Summary 05/16/21 MR#: [id number] Acct: [id number] Name: GRACE AUSTIN Rep #: [id number] : 1985 36 From: Wade Glez MD PCP: EVELINA Mayers Status:REG ER Location: ED HPI History of Present Illness Chief Complaint: Shortness of Breath Narrative Narrative: Patient presenting for evaluation secondary to concerns for shortness of breath. Patient reports that in the spring she was diagnosed as having pulmonary emboli. That was associated with feelings of shortness of breath and chills. She completed a course of Eliquis, has been off of that for about 1 week. Patient states that today she started to develop symptoms once again associated with feelings of chills shortness of breath and chest pain. States currently the symptoms have resolved. She denies any preceding episodes, she denies any recent infectious signs or symptoms such as fever cough nausea vomiting or diarrhea. Patient states that she may just be anxious because she is off of her blood thinners. She denies any hemoptysis. Patient is on medications for diabetes. Review of systems otherwise negative. [facility] Medical History Diabetes History of pulmonary embolism Home Medications dapagliflozin 5 mg PO DAILY 09/17/20 [History Last Taken Unknown] furosemide 40 mg PO DAILY 09/17/20 [History Last Taken Unknown] gabapentin 300 mg PO BID 05/16/21 [History Last Taken Unknown] semaglutide [Ozempic] mg SUBCUT QWEEK 05/16/21 [History Last Taken Unknown] Allergy/AdvReac Type Severity Reaction Status Date / Time sulfamethoxazole Allergy Hives Verified 05/16/21 12:33 [From Bactrim] trimethoprim [From Bactrim] Allergy Hives Verified 05/16/21 12:33 ketorolac tromethamine AdvReac Upset Verified 05/16/21 12:33 [From Toradol] Stomach morphine AdvReac Upset Verified 05/16/21 12:33 Stomach tramadol AdvReac Upset Verified 05/16/21 12:33 Stomach Social History Smoking Status: Never smoker ROS ROS ED Constitutional Constitutional ED: Reports chills ENT ENT ED: Denies rhinorrhea Cardiovascular Cardiovascular: Reports chest pain Respiratory/Chest Respiratory/Chest: Reports dyspnea Gastrointestinal Gastrointestinal: Denies abdominal pain, diarrhea, nausea or vomiting Genitourinary Genitourinary ED: Denies dysuria or hematuria Musculoskeletal Musculoskeletal: Denies back pain Integumentary Denies rash Neurologic Neurologic: Denies paresthesias or weakness Psychiatric Psychiatric: Denies depression Endocrine Endocrinology: Denies fatigue Allergic/Immunologic Allergic/Immunologic ED: Denies urticaria EXAM Physical Exam Const Vital Signs: 05/16/21 12:31 05/16/21 13:58 05/16/21 14:13 Temperature 98.5 F Temperature Source Temporal Pulse Rate 109 H Respiratory Rate 16 Respiratory Effort Normal Non-Labored Respiratory Depth Normal Respiratory Pattern Normal Blood Pressure 165/108 H Blood Pressure Mean 127 Pulse Ox 98 Oxygen Delivery Method Room Air Room Air Room Air Positive well nourished and well developed General Appearance ED: well developed and NAD HEENT Reports moist mucous membranes Negative for trauma or tenderness Eyes EOMs intact bilaterally Neck no lymphadenopathy, supple and no JVD Chest Wall inspection of chest normal Resp normal respiratory effort and clear to auscultation bilaterally Cardio regular rate, regular rhythm, no murmurs and peripheral pulses 2+ throughout GI normal to inspection, nondistended, normoactive bowel sounds, non-tender and no masses Palpation: soft Back/Spine normal to inspection Extremity normal to inspection General Extremety ED: Negative for tenderness Neuro oriented x3 and no sensory deficits noted Sensorium / Orientation: alert Motor Exam: strength 5/5 throughout Psych mental status grossly normal Skin no rashes or lesions noted MDM MDM MDM Narrative Medical decision making narrative: Patient presented with shortness of breath in the setting of a history of pulmonary embolism recently off of anticoagulation. Patient was modestly tachycardic but did not have any hypoxia. Had normal lung sounds I do not believe that imaging is indicated. CBC chemistry troponin and D-dimer were obtained were found to be unremarkable. EKG was also found to be unremarkable. This point I believe that the patient likely had element of same anxiety given her otherwise normal physical exam and normal vital signs. Patient was given reassurance and the patient will be discharged in stable condition. Lab Data Labs: Laboratory Results - last 24 hr 05/16/21 05/16/21 05/16/21 14:10 14:10 14:10 WBC 8.7 RBC 5.38 Hgb 14.6 Hct 45.6 MCV 84.8 MCH 27.1 MCHC 32.0 RDW Std Deviation 39.9 RDW Coeff of Nirmala 13.0 Plt Count 153 MPV 12.3 H Immature Gran % (Auto) 0.500 Neut % (Auto) 80.2 H Lymph % (Auto) 12.6 L [place] % (Auto) 5.4 Eos % (Auto) 0.7 Baso % (Auto) 0.6 Absolute Neuts (auto) 6.9 Absolute Lymphs (auto) 1.09 Nucleated RBC % 0 D-Dimer Quant (PE/DVT) <= 0.27 Sodium 136 Potassium 3.9 Chloride 105 Carbon Dioxide 25.0 Anion Gap 6 BUN 14 Creatinine 0.62 Estim Creat Clear Calc 101.77 Est GFR (MDRD) Af Amer 137 Est GFR (MDRD) Non-Af 113 BUN/Creatinine Ratio 22.4 H Glucose 147 H Calcium 9.7 Troponin I High Sens 6 EKG Initial EKG: Attestation: I personally reviewed and interpreted this EKG as follows: (Normal sinus rhythm [address] segments normal T waves normal AR and QTC intervals no evidence of acute ischemia or arrhythmia.) Discharge Plan Triage Chief Complaint: Shortness of Breath ED Provider: Wade Glez Dx/Rx/DC Orders Clinical Impression: Feared condition not demonstrated Instructions: ED Dyspnea Prescriptions: No Action furosemide 40 MG tablet 40 mg PO DAILY RF: 0 dapagliflozin 5 MG tablet 5 mg PO DAILY RF: 0 gabapentin 300 mg capsule 300 mg PO BID RF: 0 Ozempic 0.25 mg or 0.5 mg(2 mg/1.5 mL) pen injector SUBCUT QWEEK RF: 0 Primary Care Provider: Marivel Matute NP Referrals: Marivel Matute NP, [employer] [Primary Care Provider] - As Needed Disposition Disposition: Home, Self Care What to do if you have Problems For any increased pain, shortness of breath, bleeding, nausea or vomiting, chest pain, or any unexpected problems, contact your Primary Care Provider. Call [facility] ([phone]) or report to the closest Emergency Room. Call 911 if necessary. 05/16/21 1445 <Electronically signed by Wade Glez MD> Cosigner Signature (if applicable): CC: [employer] Marivel Matute Signed Marivel Matute [employer] Work Phone: Start: 05-16-2021 End: 05-20-2021 12 Lead EKG Comments: See Note; NOTES: [facility] Cardiovascular Services [address] [place] [address] 12 Lead EKG 05/16/21 1415 MR#: [id number] Acct: [id number] Name: GRACE AUSTIN Rep #: [id number] : 1985 36 From: Costa Guzman MD Attending Dr: Status: DEP ER Ordering Dr: Wade Glez MD Date: 05/16/21 Location: ED Sex: F C Admitted: Test Reason : Blood Pressure : / mmHG Vent. Rate : 091 BPM Atrial Rate : 091 BPM P-R Int : 184 ms QRS Dur : 090 ms QT Int : 358 ms P-R-T Axes : 029 -02 012 degrees QTc Int : 440 ms Normal sinus rhythm Poor R wave progression Confirmed by THOMAS PRADHAN, COSTA ([id number]), script editor GIAN ALICEA ([id number]) on 05/20/2021 10:24:32 AM Referred By: SURINDER Confirmed By:COSTA GUZMAN MD 05/20/21 1024 Date Costa Guzman MD CC: [employer] Marivel Matute; Dr. Wade Glez MD Signed Marivel Matute [employer] Work Phone: Start: 12-16-2020 End: 12-17-2020 Emergency Department Summary Comments: See Note; NOTES: [facility] Medical Records Department [address] [facility] [place] [address] Emergency Department Summary 12/16/20 MR#: [id number] Acct: [id number] Name: GRACE AUSTIN Rep #: [id number] : 1985 35 From: Vishal Israel MD PCP: EVELINA Mayers Status:REG ER Location: ED HPI History of Present Illness Chief Complaint: Hyperglycemia Detail of Chief Complaint: Blood sugar greater than 400 Informant: patient Onset/Context/Timing Onset: Today Context: Sudden Onset Quality: Blood sugar greater than 400, blurred vision, polydipsia and polyuria Current Severity: Moderate Maximum Severity: Moderate Worsened by: Unknown Relieved by: Nothing Associated Symptoms Associated Symptoms: Previously documented Narrative Narrative: Patient is a 35-year-old woman with history of type 2 diabetes. She states her blood sugar was greater than 400. She just went camping. She was not compliant with diet. She states she did take her medicine. She does report mild blurred vision, polyuria, polydipsia. She states she is also on a water pill. She denies fever, chills night sweats. She denies auditory symptoms. She denies sore throat. She denies rhinorrhea, congestion postnasal drainage. She denies cough or sputum production. She denies chest pain. She denies vomiting or diarrhea. She denies dysuria or hematuria. She denies rash. She denies neurologic symptoms. Prior similar symptoms: No Recent Illness/Hospitalization: No PFSH PFSH Medical History (Updated 12/16/20 @ 16:[address] Vishal Israel MD) Diabetes Home Medications aripiprazole 10 mg PO DAILY 09/17/20 [History Last Taken Unknown] dapagliflozin 5 mg PO DAILY 09/17/20 [History Last Taken Unknown] furosemide 40 mg PO DAILY 09/17/20 [History Last Taken Unknown] hydroxyzine pamoate 25 mg PO DAILY PRN 09/17/20 [History Last Taken Unknown] apixaban 5 mg PO BID #74 tablet 10/05/20 [Rx Last Taken Unknown] ondansetron 4 mg PO Q8H PRN PRN #14 tablet 10/13/20 [Rx Last Taken Unknown] Allergy/AdvReac Type Severity Reaction Status Date / Time sulfamethoxazole Allergy Hives Verified 12/16/20 12:48 [From Bactrim] trimethoprim [From Bactrim] Allergy Hives Verified 12/16/20 12:48 ketorolac tromethamine AdvReac Upset Verified 12/16/20 12:48 [From Toradol] Stomach morphine AdvReac Upset Verified 12/16/20 12:48 Stomach tramadol AdvReac Upset Verified 12/16/20 12:48 Stomach Social History Smoking Status: Never smoker ROS ROS ED Constitutional Constitutional ED: Denies chills, fever(s), subjective, sweats or weight loss Eyes Eyes: Reports blurry vision; Denies change in vision or diplopia ENT ENT ED: Denies ear pain, rhinorrhea or sore throat Cardiovascular Cardiovascular: Denies chest pain, orthopnea, palpitations, paroxysmal nocturnal dyspnea or racing heartbeat Respiratory/Chest Respiratory/Chest: Denies cough, dyspnea, dyspnea on exertion, orthopnea or paroxysmal nocturnal dyspnea Gastrointestinal Gastrointestinal: Denies abdominal pain, constipation, diarrhea, nausea or vomiting Genitourinary Genitourinary ED: Denies dysuria, hematuria or urinary frequency Musculoskeletal Musculoskeletal: Denies arthralgias, back pain, myalgias or neck pain Integumentary Denies Abrasions or rash Neurologic Neurologic: Denies headache(s), paresthesias or weakness Psychiatric Psychiatric: Denies depression Endocrine Endocrinology: Reports polydipsia and polyuria; Denies polyphagia Allergic/Immunologic Allergic/Immunologic ED: Denies urticaria EXAM Physical Exam Const Vital Signs: 12/16/20 12:49 12/16/20 13:31 Temperature 98.4 F Temperature Source Temporal Pulse Rate 111 H 105 H Respiratory Rate 18 14 Blood Pressure 160/118 H Blood Pressure Mean 132 Pulse Ox 96 99 Oxygen Delivery Method Room Air Room Air Positive well nourished, well developed and obese General Appearance ED: well developed Nutritional Appearance: obese HEENT Reports TM's clear and dry mucous membranes HEENT Narrative: Posterior pharynx erythema or exudate. Nares patent. Ears normal. Tympanic Membrane ED: Yes TM's clear Mouth ED: Yes dry mucous membranes Mouth: dry mucous membranes Eyes PERRL and EOMs intact bilaterally General Eye ED: Negative for pale conjunctiva or scleral icterus Neck no lymphadenopathy, supple and no JVD Chest Wall inspection of chest normal and palpation of chest normal Resp normal respiratory effort and clear to auscultation bilaterally Cardio regular rate, regular rhythm, S1 normal heart sound, S2 normal heart sound and no murmurs GI normal to inspection, nondistended, normoactive bowel sounds and non-tender Palpation: soft Back/Spine no CVA tenderness Extremity normal to inspection General Extremety ED: Negative for edema or tenderness General Extremity: Negative for edema Neuro oriented x3, CN's II-XII intact bilaterally and no sensory deficits noted Sensorium / Orientation: alert Motor Exam: strength 5/5 throughout Psych mental status grossly normal Skin no rashes or lesions noted, no wounds and skin turgor normal MDM MDM MDM Narrative Medical decision making narrative: Since patient reports blood sugar greater than 400. 1 L of normal saline was ordered. GGT was ordered. Basic metabolic panel was ordered to assess renal function, CO2 anion gap and glucose. UA was ordered to evaluate for ketones and rule out infection. CBC to rule out leukocytosis which may indicate occult infection. Lab Data Attestation: I reviewed the patient's lab results. Lab results narrative: Blood sugar is less than 200. No treatment was initiated. She was discharged to home. Labs: Laboratory Results - last 24 hr 12/16/20 12/16/20 12/16/20 13:24 13:24 13:36 WBC 9.8 RBC 5.37 Hgb 14.5 Hct 44.8 MCV 83.4 MCH 27.0 MCHC 32.4 RDW Std Deviation 40.6 RDW Coeff of Nirmala 13.5 Plt Count 274 MPV 11.2 Immature Gran % (Auto) 0.400 Neut % (Auto) 76.8 H Lymph % (Auto) 16.6 L [place] % (Auto) 5.0 Eos % (Auto) 0.7 Baso % (Auto) 0.5 Absolute Neuts (auto) 7.5 Absolute Lymphs (auto) 1.63 Nucleated RBC % 0 Sodium 136 Potassium 4.0 Chloride 104 Carbon Dioxide 25.0 Anion Gap 7 BUN 11 Creatinine 0.66 Estim Creat Clear Calc 96.54 Est GFR (MDRD) Af Amer 129 Est GFR (MDRD) Non-Af 107 BUN/Creatinine Ratio 16.7 Glucose 183 H Calcium 9.2 Urine Color Urine Clarity Urine pH Ur Specific Ida Urine Protein Urine Glucose (UA) Urine Ketones Urine Occult Blood Urine Nitrite Urine Bilirubin Urine Urobilinogen Ur Leukocyte Esterase Urine RBC Urine WBC Ur Squamous Epith Cells Urine Bacteria Urine Mucus POC Glucose 176 H 12/16/20 14:51 WBC RBC Hgb Hct MCV MCH MCHC RDW Std Deviation RDW Coeff of Nirmala Plt Count MPV Immature Gran % (Auto) Neut % (Auto) Lymph % (Auto) [place] % (Auto) Eos % (Auto) Baso % (Auto) Absolute Neuts (auto) Absolute Lymphs (auto) Nucleated RBC % Sodium Potassium Chloride Carbon Dioxide Anion Gap BUN Creatinine Estim Creat Clear Calc Est GFR (MDRD) Af Amer Est GFR (MDRD) Non-Af BUN/Creatinine Ratio Glucose Calcium Urine Color Yellow Urine Clarity Clear Urine pH 6.0 Ur Specific Ida 1.010 Urine Protein Negative Urine Glucose (UA) 1000 H Urine Ketones Negative Urine Occult Blood Negative Urine Nitrite Negative Urine Bilirubin Negative Urine Urobilinogen Normal Ur Leukocyte Esterase Negative Urine RBC 0 SEEN Urine WBC 0 SEEN Ur Squamous Epith Cells 0-5 SEEN Urine Bacteria 0 SEEN Urine Mucus 0 SEEN POC Glucose Discharge Plan Triage Chief Complaint: Hyperglycemia ED Provider: Vishal Israel Dx/Rx/DC Orders Clinical Impression: Controlled type 2 diabetes mellitus with hyperglycemia Prescriptions: No Action furosemide 40 MG tablet 40 mg PO DAILY RF: 0 hydroxyzine pamoate 25 MG capsule 25 mg PO DAILY PRN (Reason: Anxiety) RF: 0 aripiprazole 5 MG tablet 10 mg PO DAILY RF: 0 dapagliflozin 5 MG tablet 5 mg PO DAILY RF: 0 apixaban 5 MG tablet 5 mg PO BID Qty: 74 RF: 0 ondansetron 4 MG tablet 4 mg PO Q8H PRN PRN (Reason: Nausea) Qty: 14 RF: 0 Primary Care Provider: Marivel Matute NP Referrals: Marivel Matute [employer], [employer] [Primary Care Provider] - As Needed Disposition Disposition: Home, self care What to do if you have Problems For any increased pain, shortness of breath, bleeding, nausea or vomiting, chest pain, or any unexpected problems, contact your Primary Care Provider. Call [facility] ([phone]) or report to the closest Emergency Room. Call 911 if necessary. 12/16/20 1604 <Electronically signed by Vishal Israel MD> Cosigner Signature (if applicable): CC: EVELINA Marivel Matute Signed Marivel Matute [employer] DIRECT[employer] Work Phone: Start: 10-09-2020 End: 10-09-2020 No Known Past Surgical History Johnnie Juárez Start: 05-16-2015 End: 05-16-2015 Documentation of current medications Arslan Coelho Start: 05-16-2015 End: 05-16-2015 Smoking cessation education Arslan Coelho Plan of Treatment Date Care Activity Detail Author Start: 04-06-2030 Urine microalbumin profile DTAP,TDAP,TD (3 - Td or Tdap) [facility] Start: 06-17-2023 BP CONTROLLED (<130/80) BP CONTROLLED (<130/80) [facility] in Start: 01-20-2023 25 hydroxy includes fractions if performed CALCIFEDIOL (21603) [facility]; [facility] Work Phone: Start: 01-20-2023 Assay of thyroid stimulating hormone tsh TSH (THYROID STIMULATING HORMONE) (88222) [facility]; [facility] Work Phone: Start: 01-20-2023 Blood count complete auto&auto difrntl wbc CBC, PLATELETS & AUT DIFF ([id number]) [facility]; [facility] Work Phone: Start: 01-20-2023 Comprehensive metabolic panel METABOLIC PANEL, COMPREHENSIVE ([id number]) [facility]; [facility] Work Phone: Start: 01-20-2023 Creatinine other source MICROALB;CREAT RATION, RAND UR ([id number]) [facility] Work Phone: Start: 01-20-2023 Cyanocobalamin vitamin b-12 VITAMIN B12 AND FOLATES ([id number]) [facility] Work Phone: Start: 01-20-2023 Hemoglobin glycosylated a1c HGB A1C ([id number]) [facility] Work Phone: Start: 01-20-2023 Lipid panel LIPID PANEL ([id number]) [facility]; [facility] Work Phone: Start: 01-20-2023 Procedure Education Eprescribed prescriptions ([id number]) [facility] Work Phone: Start: 01-20-2023 Provider Instructions for Treatment Follow up after lab work completed [facility] Work Phone: Start: 01-20-2023 Urinalysis qual/semiquant except immunoassays URINALYSIS ([id number]) [facility]; [facility] Work Phone: Start: 11-05-2022 Provider Instructions for Treatment Diet, Exercise, and Wt loss [facility]; [facility] Work Phone: Start: 10-20-2022 Provider Instructions for Treatment Follow up in 2 weeks [facility]; [facility] Work Phone: Start: 06-17-2022 End: 07-01-2022 Influenza virus A and B RNA and SARS-CoV-2 (COVID-19) N gene panel - Respiratory specimen by MINA with probe detection COVID WITH FLUA+B, ROUTINE Microbiology Routine Sore throat Strep throat Flu-like symptoms Exposure to the flu Expected: 06/17/2022, Expires: 07/01/2022 [facility] Work Phone: Immunizations Immunization Date Immunization Notes Care Provider Sheryl padron 04-06-2020 tetanus toxoid, redu bryan diphtheria toxoid, and acellular pertussis vaccine, adsorbed Sushma Deja [employer]MONIA REFRIGERATION WORKER.SVP GROUP DIRECTOR Work Phone: [facility] 09-04-2015 tetanus toxoid, redu bryan diphtheria toxoid, and acellular pertussis vaccine, adsorbed Sushma Deja AMMONIA REFRIGERATION WORKER.SVP GROUP DIRECTOR Work Phone: 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 Work Phone: Payers Date Payer Category Payer Medicaid [employer] [id number] 2019-Present [phone] [address] [place] [address] Medicaid [id number] 2019 Medicare [employer] [id number] 2019-Present [phone] [address] [place] [address] Medicare [id number] 2019 Unknown [id number] 1983 Unknown [id number] Unknown [employer] Date Type Detail Facility Caffeine Use Caffeine Use [facility]; [facility] Work Phone: Medical Equipment Procedure Code Equipment Code Equipment Origin al Text Equipment Identifier Dates Start: 05-23-2020 Clinical Notes 09-04-2015 to 03-26-2023 Telephone Encounter - Janina Pride MD - 08/06/2022 11:37 AM ESTTelephone Encounter - Arpita Mondragon RN - 08/06/2022 10:19 AM ESTAddendum Note - Sushma Short APRN.CNP - 06/17/2022 11:44 AM EST Note Date & Type Note Facility 03-26-2023 Note HNO ID: [id number] Author: Daniel Becker APRN.MARTHA Service: ? Author Type: Nurse Practitioner Type: Progress Notes Filed: 03/26/2023 12:45 PM Note Text: Subjective HPI HPI Grace Austin is a 38 year old female who presents today for CC of infection. This started 4 days ago. Has tried popping the area, pus came out. Symptoms are worsened by nothing. Denies fever. Denies possibility of being . .Patient presents with: Derm Problem: Spot on Left side of stomach x 4 days PAST MEDICAL HISTORY Diagnosis Date Bilateral leg edema 09/04/2015 Claustrophobia 10/25/2020 DDD (degenerative disc disease), lumbar 10/25/2020 Essential hypertension 10/25/2020 Per ol records Midline low back pain without sciatica 09/04/2015 Morbid obesity due to excess calories ([facility]) 09/04/2015 Multiple subsegmental pulmonary emboli without acute cor pulmonale (HCC) 10/05/2020 Started Eliquis by ER10/05/2020 PCOS (polycystic ovarian syndrome) 11/28/2015 Recurrent major depression in partial remission (HCC) 10/26/2015 Smoker Quit 10-19-15 Type 2 diabetes mellitus without complication, without long-term current use of insulin ([facility]) 05/23/2020 Well adult exam 09/04/2015 last done: 09/04/2015 PAST SURGICAL HISTORY Procedure Laterality Date HYSTEROSCOPY BX W/WO DANDC DANDC, hysteroscopy, IUD insertion UNSPECIFIED ORAL SURGERY PROCEDURE, BY REPORT ALLERGIES Tramadol, Sulfamethoxazole, Metformin, Morphine, and Toradol [Ketorolac] MEDICATIONS OZEMPIC 0.25 mg or 0.5 mg (2 mg/3 mL) pen Inject 0.5 mg subcutaneously one time a week. LORazepam (ATIVAN) 1 mg tablet Take 1 mg by mouth as needed. gabapentin (NEURONTIN) 800 mg tablet Take 600 mg by mouth. furosemide (LASIX) 20 mg tablet Take 1 tablet by mouth once daily. blood sugar diagnostic (BLOOD GLUCOSE TEST) test strip Test blood sugar(s) 1 times daily. Dx: Type 2 DM - Controlled E11.9 Insulin: No doxycycline monohydrate 100 mg tablet Take 1 tablet by mouth twice daily for 7 days. May transfer to [facility] if less expensive. mupirocin (BACTROBAN) 2 % ointment Apply to affected area three times daily for 10 days. ARIPiprazole (ABILIFY) 10 mg tablet Take 1 Tablet By Oral Route 1 time per day (Patient not taking: Reported on 06/17/2022) DULoxetine (CYMBALTA) 30 mg capsule Take 1 Capsule By Oral Route 1 time per day (Patient not taking: Reported on 06/17/2022) Lancets lancets Test blood sugar(s) 1 times daily. Dx: Type 2 DM - Controlled E11.9 Insulin: No (Patient taking differently: Test blood sugar(s) 1 times daily. Dx: Type 2 DM - Controlled E11.9 Insulin: No) dapagliflozin (FARXIGA) 5 mg tablet Take 1 tablet by mouth daily with breakfast. (Patient not taking: Reported on 06/17/2022) risperiDONE (RISPERDAL) 1 mg tablet Take 1 mg by mouth once daily. (Patient not taking: Reported on 06/17/2022) OXcarbazepine (TRILEPTAL) 150 mg tablet Take 150 mg by mouth twice daily. (Patient not taking: Reported on 06/17/2022) FAMILY HISTORY Problem Relation Age of Onset Hypertension Mother Thyroid Mother Alcohol abuse Mother Anxiety disorder Mother Alcohol/Drug Father Alcohol/Drug Sister Depression Sister Anxiety disorder Sister Thyroid Sister Hypertension Maternal Grandmother Diabetes Maternal Grandfather Hypertension Maternal Grandfather Diabetes Maternal Uncle Social History Tobacco Use Smoking status: Former Smokeless tobacco: Former Types: Chew Tobacco comments: Occasionally Substance Use Topics Alcohol use: Yes Comment: Occasionally Drug use: No ROS Objective Blood pressure 130/86, pulse 93, temperature 36.9 ?C (98.5 ?F), resp. rate 18, weight (!) 145.4 kg (320 lb 9.6 oz), SpO2 96 %. Physical Exam Constitutional: General: She is not in acute distress. Appearance: She is not toxic-appearing or diaphoretic. HENT: Head: Normocephalic and atraumatic. Pulmonary: Effort: Pulmonary effort is normal. No accessory muscle usage or respiratory distress. Abdominal: Neurological: Mental Status: She is alert and oriented to person, place, and time. ASSESSMENT/PLAN: 1. Skin infection - ICD9: 686.9, ICD10: L08.9 - Begin treatment with bactrim - No lymphangetic streaking, this was defined for patient to watch for and to seek medical care immediately if appears - Follow up for recheck in three days with pcp if s/s persist Urgent f/u for worsening s/s. - DOXYCYCLINE MONOHYDRATE 100 MG TABLET - MUPIROCIN 2 % TOPICAL OINTMENT Daniel Becker APRN.[facility] 12-11-2022 Note HNO ID: [id number] Author: America Quioñnes LPN Service: ? Author Type: ? Type: Progress Notes Filed: 12/11/2022 4:33 PM Note Text: Phone call placed to Alexandra at [facility] 4:00 PM, patient scheduled follow up 12/12/2022 at 1:10 PM. Patient's visit records faxed to [facility] [phone] at 4:15 PM on 12/11/2022. America Quiñones LPN [facility] 12-11-2022 Note HNO ID: [id number] Author: Janina Ro APRN.SVP GROUP DIRECTOR Service: ? Author Type: Nurse Practitioner Type: Progress Notes Filed: 12/11/2022 3:52 PM Note Text: Subjective HPI Nontoxic-appearing female presents urgent care chief complaint left eye irritation. Duration of symptoms 4 days. Associated symptoms left eye irritation and drainage. Patient states this started after she was swimming over the weekend. Was in contact with somebody with pinkeye. Next day she realized that she did have some eye irritation and drainage. Most bothersome symptom today is eye discharge and redness. Has not used any OTC medication. No eye trauma. No visual acuity changes. No flashes light floaters. Does not wear contacts. Denies any fever body aches chills productive cough chest pain shortness of breath pleuritic pain hemoptysis nausea vomiting abdominal pain change in bowel or bladder habits. Past medical history prescription medication use and allergies reviewed. .Patient presents with: Eye Problem: Pt reported (LT) eye irritation, x4 days, denied injury. PAST MEDICAL HISTORY Diagnosis Date Bilateral leg edema 09/04/2015 Claustrophobia 10/25/2020 DDD (degenerative disc disease), lumbar 10/25/2020 Essential hypertension 10/25/2020 Per ol records Midline low back pain without sciatica 09/04/2015 Morbid obesity due to excess calories (HCC) 09/04/2015 Multiple subsegmental pulmonary emboli without acute cor pulmonale (HCC) 10/05/2020 Started Eliquis by ER10/05/2020 PCOS (polycystic ovarian syndrome) 11/28/2015 Recurrent major depression in partial remission (HCC) 10/26/2015 Smoker Quit 10-19-15 Type 2 diabetes mellitus without complication, without long-term current use of insulin (HCC) 05/23/2020 Well adult exam 09/04/2015 last done: 09/04/2015 PAST SURGICAL HISTORY Procedure Laterality Date HYSTEROSCOPY BX W/WO DANDC DANDC, hysteroscopy, IUD insertion UNSPECIFIED ORAL SURGERY PROCEDURE, BY REPORT ALLERGIES Tramadol, Sulfamethoxazole, Metformin, Morphine, and Toradol [Ketorolac] MEDICATIONS Lancets lancets Test blood sugar(s) 1 times daily. Dx: Type 2 DM - Controlled E11.9 Insulin: No (Patient taking differently: Test blood sugar(s) 1 times daily. Dx: Type 2 DM - Controlled E11.9 Insulin: No) furosemide (LASIX) 20 mg tablet Take 1 tablet by mouth once daily. blood sugar diagnostic (BLOOD GLUCOSE TEST) test strip Test blood sugar(s) 1 times daily. Dx: Type 2 DM - Controlled E11.9 Insulin: No gabapentin (NEURONTIN) 800 mg tablet Take 600 mg by mouth. ARIPiprazole (ABILIFY) 10 mg tablet Take 1 Tablet By Oral Route 1 time per day (Patient not taking: Reported on 06/17/2022) DULoxetine (CYMBALTA) 30 mg capsule Take 1 Capsule By Oral Route 1 time per day (Patient not taking: Reported on 06/17/2022) dapagliflozin (FARXIGA) 5 mg tablet Take 1 tablet by mouth daily with breakfast. (Patient not taking: Reported on 06/17/2022) risperiDONE (RISPERDAL) 1 mg tablet Take 1 mg by mouth once daily. (Patient not taking: Reported on 06/17/2022) OXcarbazepine (TRILEPTAL) 150 mg tablet Take 150 mg by mouth twice daily. (Patient not taking: Reported on 06/17/2022) FAMILY HISTORY Problem Relation Age of Onset Hypertension Mother Thyroid Mother Alcohol abuse Mother Anxiety disorder Mother Alcohol/Drug Father Alcohol/Drug Sister Depression Sister Anxiety disorder Sister Thyroid Sister Hypertension Maternal Grandmother Diabetes Maternal Grandfather Hypertension Maternal Grandfather Diabetes Maternal Uncle Social History Tobacco Use Smoking status: Former Smokeless tobacco: Former Types: Chew Tobacco comments: Occasionally Substance Use Topics Alcohol use: Yes Comment: Occasionally Drug use: No BP 118/70 Pulse 87 Temp 36.1 ?C (97 ?F) (Tympanic) Resp 18 Wt (!) 137.4 kg (303 lb) LMP (LMP Unknown) SpO2 97% BMI 53.67 kg/m? Review of Systems Constitutional: Negative for chills, fever and malaise/fatigue. HENT: Negative for congestion, ear discharge, ear pain, sinus pain and sore throat. Eyes: Positive for discharge and redness. Negative for blurred vision, double vision, photophobia and pain. Respiratory: Negative for cough, hemoptysis, sputum production, shortness of breath, wheezing and stridor. Cardiovascular: Negative for chest pain. Gastrointestinal: Negative for abdominal pain, diarrhea, nausea and vomiting. Musculoskeletal: Negative for myalgias. Skin: Negative for itching and rash. Neurological: Negative for dizziness and headaches. Objective Physical Exam Constitutional: General: She is not in acute distress. Appearance: She is not diaphoretic. HENT: Head: Normocephalic. Mouth/Throat: Mouth: Mucous membranes are moist. Pharynx: Oropharynx is clear. No oropharyngeal exudate or posterior oropharyngeal erythema. Eyes: General: Lids are everted, no foreign bodies appreciated. Vision grossly intact. Right eye: No foreign (more content not included)... [facility] 08-06-2022 Miscellaneous Notes Noted and chart updated. Spoke to pt for DM outreach. States she is no longer a patient of Dr. Pride, she is following with [facility]. States she is currently on Ozempic and has lost 40lbs. Arpita Mondragon RN documented in this encounter [facility] 06-17-2022 Influenza virus A and B RNA and SARS-CoV-2 (COVID-19) N gene panel MINA+probe (Resp) COVID 19 RESULT: SARS-CoV-2 (Agent of COVID-19) Not Detected by RT-PCR or equivalent method. jose angel [id number] (MARGO)_EUA This test was developed and its performance characteristics determined by [facility] [place]. This test has been authorized by FDA under an Emergency Use Authorization (EUA). This test has been validated in accordance with the FDA's Guidance Document Policy for Diagnostics Testing in Laboratories Certified to Perform High Complexity Testing under CLIA prior to Emergency use Authorization for Coronavirus Disease 2019 during the Public Health Emergency issued on September 03, 2019. Test performed by [facility], [facility] [place], [address], [place] [address]. INFLUENZA A PCR: Negative for Influenza A by RT-PCR INFLUENZA B PCR: Negative for Influenza B by RT-PCR [facility] documented as of this encounter (statuses as of 06/17/2022) [facility] History of Past illness Narrative* Problem Noted Date Resolved Date Screening for diabetes mellitus (DM) 09/04/2015 05/23/2020 documented as of this encounter (statuses as of 08/06/2022) [facility] Diagnosis Sore throat- Primary Acute pharyngitis Strep throat Streptococcal sore throat Flu-like symptoms Other general symptoms Exposure to the flu Contact with or exposure to other viral diseases [facility] Name Dates Details Patient Instructions Indication:Patient uses snuff Start:30-Oct-2020 Instruction Type:Provider Instructions for Treatment How to Access Health Informa tion Online using Patient Portal and [employer] Apps Indication:Patient uses snuff Start:30-Oct-2020 Instruction Type:Patient Education Patient Instructions Indication:Diabetes type 2, uncontrolled Start:09-Oct-2020 Instruction Type:Provider Instructions for Treatment How to Access Health Informa tion Online using Patient Portal and [employer] Apps Indication:Diabetes type 2, uncontrolled Start:09-Oct-2020 Instruction Type:Patient Education [facility]; [facility] Work Phone: Instructions* Name Dates Details Patient Instructions Indication:Patient uses snuff Start:30-Oct-2020 Instruction Type:Provider Instructions for Treatment How to Access Health Informa tion Online using Patient Portal and [employer] Apps Indication:Patient uses snuff Start:30-Oct-2020 Instruction Type:Patient Education Patient Instructions Indication:Diabetes type 2, uncontrolled Start:09-Oct-2020 Instruction Type:Provider Instructions for Treatment How to Access Health Informa tion Online using Patient Portal and [employer] Apps Indication:Diabetes type 2, uncontrolled Start:09-Oct-2020 Instruction Type:Patient Education [facility]; [facility] Work Phone: instructions* Name Dates Details Patient Instructions Indication:BMI 50.0-59.9, adult Start:11-Dec-2020 Instruction Type:Provider Instructions for Treatment How to Access Health Informa tion Online using Patient Portal and [employer] Apps Indication:BMI 50.0-59.9, adult Start:11-Dec-2020 Instruction Type:Patient Education Patient Instructions Indication:Patient uses snuff Start:30-Oct-2020 Instruction Type:Provider Instructions for Treatment How to Access Health Informa tion Online using Patient Portal and [employer] Apps Indication:Patient uses snuff Start:30-Oct-2020 Instruction Type:Patient Education Patient Instructions Indication:Diabetes type 2, uncontrolled Start:09-Oct-2020 Instruction Type:Provider Instructions for Treatment How to Access Health Informa tion Online using Patient Portal and [employer] Apps Indication:Diabetes type 2, uncontrolled Start:09-Oct-2020 Instruction Type:Patient Education [facility]; [facility] Work Phone: [email or web address]* Name Dates Details Patient Instructions Indication:BMI 50.0-59.9, adult Start:11-Dec-2020 Instruction Type:Provider Instructions for Treatment How to Access Health Informa tion Online using Patient Portal and [employer] Apps Indication:BMI 50.0-59.9, adult Start:11-Dec-2020 Instruction Type:Patient Education Patient Instructions Indication:Patient uses snuff Start:30-Oct-2020 Instruction Type:Provider Instructions for Treatment How to Access Health Informa tion Online using Patient Portal and [employer] Apps Indication:Patient uses snuff Start:30-Oct-2020 Instruction Type:Patient Education Patient Instructions Indication:Diabetes type 2, uncontrolled Start:09-Oct-2020 Instruction Type:Provider Instructions for Treatment How to Access Health Informa tion Online using Patient Portal and [employer] Apps Indication:Diabetes type 2, uncontrolled Start:09-Oct-2020 Instruction Type:Patient Education [facility]; [facility] Work Phone: instructions* Name Dates Details Patient Instructions Indication:BMI 50.0-59.9, adult Start:11-Dec-2020 Instruction Type:Provider Instructions for Treatment How to Access Health Informa tion Online using Patient Portal and [employer] Apps Indication:BMI 50.0-59.9, adult Start:11-Dec-2020 Instruction Type:Patient Education Patient Instructions Indication:Patient uses snuff Start:30-Oct-2020 Instruction Type:Provider Instructions for Treatment How to Access Health Informa tion Online using Patient Portal and [employer] Apps Indication:Patient uses snuff Start:30-Oct-2020 Instruction Type:Patient Education Patient Instructions Indication:Diabetes type 2, uncontrolled Start:09-Oct-2020 Instruction Type:Provider Instructions for Treatment How to Access Health Informa tion Online using Patient Portal and [employer] Apps Indication:Diabetes type 2, uncontrolled Start:09-Oct-2020 Instruction Type:Patient Education [facility]; [facility] Work Phone: Instructions* Name Dates Details Patient Instructions Indication:BMI 50.0-59.9, adult Start:01-Jul-2021 Instruction Type:Provider Instructions for Treatment How to Access Health Informa tion Online using Patient Portal and [employer] Apps Indication:BMI 50.0-59.9, adult Start:01-Jul-2021 Instruction Type:Patient Education Patient Instructions Indication:BMI 50.0-59.9, adult Start:13-May-2021 Instruction Type:Provider Instructions for Treatment How to Access Health Informa tion Online using Patient Portal and [employer] Apps Indication:BMI 50.0-59.9, adult Start:13-May-2021 Instruction Type:Patient Education Patient Instructions Indication:BMI 50.0-59.9, adult Start:29-Apr-2021 Instruction Type:Provider Instructions for Treatment How to Access Health Informa tion Online using Patient Portal and [employer] Apps Indication:Diabetes type 2, uncontrolled Start:29-Apr-2021 Instruction Type:Patient Education Patient Instructions Indication:Patient uses snuff Start:25-Jan-2021 Instruction Type:Provider Instructions for Treatment How to Access Health Informa tion Online using Patient Portal and [employer] Apps Indication:Patient uses snuff Start:25-Jan-2021 Instruction Type:Patient Education Patient Instructions Indication:BMI 50.0-59.9, adult Start:11-Dec-2020 Instruction Type:Provider Instructions for Treatment How to Access Health Informa tion Online using Patient Portal and [employer] Apps Indication:BMI 50.0-59.9, adult Start:11-Dec-2020 Instruction Type:Patient Education Patient Instructions Indication:Patient uses snuff Start:30-Oct-2020 Instruction Type:Provider Instructions for Treatment How to Access Health Informa tion Online using Patient Portal and [employer] Apps Indication:Patient uses snuff Start:30-Oct-2020 Instruction Type:Patient Education Patient Instructions Indication:Diabetes type 2, uncontrolled Start:09-Oct-2020 Instruction Type:Provider Instructions for Treatment How to Access Health Informa tion Online using Patient Portal and [employer] Apps Indication:Diabetes type 2, uncontrolled Start:09-Oct-2020 Instruction Type:Patient Education [facility]; [facility] Work Phone: Instructions* Name Dates Details Patient Instructions Indication:Nonsmoker Start:11-Jul-2021 Instruction Type:Provider Instructions for Treatment How to Access Health Informa tion Online using Patient Portal and [employer] Apps Indication:Nonsmoker Start:11-Jul-2021 Instruction Type:Patient Education Patient Instructions Indication:BMI 50.0-59.9, adult Start:01-Jul-2021 Instruction Type:Provider Instructions for Treatment How to Access Health Informa tion Online using Patient Portal and [employer] Apps Indication:BMI 50.0-59.9, adult Start:01-Jul-2021 Instruction Type:Patient Education Patient Instructions Indication:BMI 50.0-59.9, adult Start:13-May-2021 Instruction Type:Provider Instructions for Treatment How to Access Health Informa tion Online using Patient Portal and [employer] Apps Indication:BMI 50.0-59.9, adult Start:13-May-2021 Instruction Type:Patient Education Patient Instructions Indication:BMI 50.0-59.9, adult Start:29-Apr-2021 Instruction Type:Provider Instructions for Treatment How to Access Health Informa tion Online using Patient Portal and [employer] Apps Indication:Diabetes type 2, uncontrolled Start:29-Apr-2021 Instruction Type:Patient Education Patient Instructions Indication:Patient uses snuff Start:25-Jan-2021 Instruction Type:Provider Instructions for Treatment How to Access Health Informa tion Online using Patient Portal and [employer] Apps Indication:Patient uses snuff Start:25-Jan-2021 Instruction Type:Patient Education Patient Instructions Indication:BMI 50.0-59.9, adult Start:11-Dec-2020 Instruction Type:Provider Instructions for Treatment How to Access Health Informa tion Online using Patient Portal and [employer] Apps Indication:BMI 50.0-59.9, adult Start:11-Dec-2020 Instruction Type:Patient Education Patient Instructions Indication:Patient uses snuff Start:30-Oct-2020 Instruction Type:Provider Instructions for Treatment How to Access Health Informa tion Online using Patient Portal and [employer] Apps Indication:Patient uses snuff Start:30-Oct-2020 Instruction Type:Patient Education Patient Instructions Indication:Diabetes type 2, uncontrolled Start:09-Oct-2020 Instruction Type:Provider Instructions for Treatment How to Access Health Informa tion Online using Patient Portal and [employer]rd [employer] Indication:Diabetes type 2, uncontrolled Start:09-Oct-2020 Instruction Type:Patient Education [facility]; [facility] Work Phone: Instructions* Name Dates Details Patient Instructions Indication:Nonsmoker Start:11-Jul-2021 Instruction Type:Provider Instructions for Treatment How to Access Health Informa tion Online using Patient Portal and [employer]rd [employer] Apps Indication:Nonsmoker Start:11-Jul-2021 Instruction Type:Patient Education Patient Instructions Indication:BMI 50.0-59.9, adult Start:01-Jul-2021 Instruction Type:Provider Instructions for Treatment How to Access Health Informa tion Online using Patient Portal and [employer]rd [employer] Apps Indication:BMI 50.0-59.9, adult Start:01-Jul-2021 Instruction Type:Patient Education Patient Instructions Indication:BMI 50.0-59.9, adult Start:13-May-2021 Instruction Type:Provider Instructions for Treatment How to Access Health Informa tion Online using Patient Portal and [employer]rd [employer] Apps Indication:BMI 50.0-59.9, adult Start:13-May-2021 Instruction Type:Patient Education Patient Instructions Indication:BMI 50.0-59.9, adult Start:29-Apr-2021 Instruction Type:Provider Instructions for Treatment How to Access Health Informa tion Online using Patient Portal and [employer]rd [employer] Apps Indication:Diabetes type 2, uncontrolled Start:29-Apr-2021 Instruction Type:Patient Education Patient Instructions Indication:Patient uses snuff Start:25-Jan-2021 Instruction Type:Provider Instructions for Treatment How to Access Health Informa tion Online using Patient Portal and [employer]rd [employer] Apps Indication:Patient uses snuff Start:25-Jan-2021 Instruction Type:Patient Education Patient Instructions Indication:BMI 50.0-59.9, adult Start:11-Dec-2020 Instruction Type:Provider Instructions for Treatment How to Access Health Informa tion Online using Patient Portal and [employer]rd [employer] Apps Indication:BMI 50.0-59.9, adult Start:11-Dec-2020 Instruction Type:Patient Education Patient Instructions Indication:Patient uses snuff Start:30-Oct-2020 Instruction Type:Provider Instructions for Treatment How to Access Health Informa tion Online using Patient Portal and [employer]rd [employer] Apps Indication:Patient uses snuff Start:30-Oct-2020 Instruction Type:Patient Education Patient Instructions Indication:Diabetes type 2, uncontrolled Start:09-Oct-2020 Instruction Type:Provider Instructions for Treatment How to Access Health Informa tion Online using Patient Portal and [employer]rd [employer] Apps Indication:Diabetes type 2, uncontrolled Start:09-Oct-2020 Instruction Type:Patient Education [facility]; [facility] Work Phone: Instructions* Name Dates Details Patient Instructions Indication:BMI 50.0-59.9, adult Start:25-Jul-2021 Instruction Type:Provider Instructions for Treatment How to Access Health Informa tion Online using Patient Portal and [employer]rd [employer] Apps Indication:BMI 50.0-59.9, adult Start:25-Jul-2021 Instruction Type:Patient Education Patient Instructions Indication:Nonsmoker Start:11-Jul-2021 Instruction Type:Provider Instructions for Treatment How to Access Health Informa tion Online using Patient Portal and [employer]rd [employer] Apps Indication:Nonsmoker Start:11-Jul-2021 Instruction Type:Patient Education Patient Instructions Indication:BMI 50.0-59.9, adult Start:01-Jul-2021 Instruction Type:Provider Instructions for Treatment How to Access Health Informa tion Online using Patient Portal and [employer]rd [employer] Apps Indication:BMI 50.0-59.9, adult Start:01-Jul-2021 Instruction Type:Patient Education Patient Instructions Indication:BMI 50.0-59.9, adult Start:13-May-2021 Instruction Type:Provider Instructions for Treatment How to Access Health Informa tion Online using Patient Portal and [employer]rd [employer] Apps Indication:BMI 50.0-59.9, adult Start:13-May-2021 Instruction Type:Patient Education Patient Instructions Indication:BMI 50.0-59.9, adult Start:29-Apr-2021 Instruction Type:Provider Instructions for Treatment How to Access Health Informa tion Online using Patient Portal and [employer]rd [employer] Apps Indication:Diabetes type 2, uncontrolled Start:29-Apr-2021 Instruction Type:Patient Education Patient Instructions Indication:Patient uses snuff Start:25-Jan-2021 Instruction Type:Provider Instructions for Treatment How to Access Health Informa tion Online using Patient Portal and [employer]rd [employer] Apps Indication:Patient uses snuff Start:25-Jan-2021 Instruction Type:Patient Education Patient Instructions Indication:BMI 50.0-59.9, adult Start:11-Dec-2020 Instruction Type:Provider Instructions for Treatment How to Access Health Informa tion Online using Patient Portal and [employer]rd [employer] Apps Indication:BMI 50.0-59.9, adult Start:11-Dec-2020 Instruction Type:Patient Education Patient Instructions Indication:Patient uses snuff Start:30-Oct-2020 Instruction Type:Provider Instructions for Treatment How to Access Health Informa tion Online using Patient Portal and [employer]rd [employer] Apps Indication:Patient uses snuff Start:30-Oct-2020 Instruction Type:Patient Education Patient Instructions Indication:Diabetes type 2, uncontrolled Start:09-Oct-2020 Instruction Type:Provider Instructions for Treatment How to Access Health Informa tion Online using Patient Portal and [employer]rd [employer] Apps Indication:Diabetes type 2, uncontrolled Start:09-Oct-2020 Instruction Type:Patient Education [facility]; [facility] Work Phone: Instructions* Name Dates Details Patient Instructions Indication:BMI 50.0-59.9, adult Start:25-Jul-2021 Instruction Type:Provider Instructions for Treatment How to Access Health Informa tion Online using Patient Portal and [employer]rd [employer] Apps Indication:BMI 50.0-59.9, adult Start:25-Jul-2021 Instruction Type:Patient Education Patient Instructions Indication:Nonsmoker Start:11-Jul-2021 Instruction Type:Provider Instructions for Treatment How to Access Health Informa tion Online using Patient Portal and [employer]rd [employer] Apps Indication:Nonsmoker Start:11-Jul-2021 Instruction Type:Patient Education Patient Instructions Indication:BMI 50.0-59.9, adult Start:01-Jul-2021 Instruction Type:Provider Instructions for Treatment How to Access Health Informa tion Online using Patient Portal and [employer]rd [employer] Apps Indication:BMI 50.0-59.9, adult Start:01-Jul-2021 Instruction Type:Patient Education Patient Instructions Indication:BMI 50.0-59.9, adult Start:13-May-2021 Instruction Type:Provider Instructions for Treatment How to Access Health Informa tion Online using Patient Portal and [employer]rd [employer] Apps Indication:BMI 50.0-59.9, adult Start:13-May-2021 Instruction Type:Patient Education Patient Instructions Indication:BMI 50.0-59.9, adult Start:29-Apr-2021 Instruction Type:Provider Instructions for Treatment How to Access Health Informa tion Online using Patient Portal and [employer]rd [employer] Apps Indication:Diabetes type 2, uncontrolled Start:29-Apr-2021 Instruction Type:Patient Education Patient Instructions Indication:Patient uses snuff Start:25-Jan-2021 Instruction Type:Provider Instructions for Treatment How to Access Health Informa tion Online using Patient Portal and [employer]rd [employer] Apps Indication:Patient uses snuff Start:25-Jan-2021 Instruction Type:Patient Education Patient Instructions Indication:BMI 50.0-59.9, adult Start:11-Dec-2020 Instruction Type:Provider Instructions for Treatment How to Access Health Informa tion Online using Patient Portal and [employer]rd [employer] Apps Indication:BMI 50.0-59.9, adult Start:11-Dec-2020 Instruction Type:Patient Education Patient Instructions Indication:Patient uses snuff Start:30-Oct-2020 Instruction Type:Provider Instructions for Treatment How to Access Health Informa tion Online using Patient Portal and [employer]rd [employer] Apps Indication:Patient uses snuff Start:30-Oct-2020 Instruction Type:Patient Education Patient Instructions Indication:Diabetes type 2, uncontrolled Start:09-Oct-2020 Instruction Type:Provider Instructions for Treatment How to Access Health Informa tion Online using Patient Portal and [employer] Apps Indication:Diabetes type 2, uncontrolled Start:09-Oct-2020 Instruction Type:Patient Education [facility]; [facility] Work Phone: Instructions* Name Dates Details Patient Instructions Indication:Type II diabetes mellitus, well controlled Start:07-Aug-2021 Instruction Type:Provider Instructions for Treatment How to Access Health Informa tion Online using Patient Portal and [employer]rd [employer] Apps Indication:Type II diabetes mellitus, well controlled Start:07-Aug-2021 Instruction Type:Patient Education Patient Instructions Indication:BMI 50.0-59.9, adult Start:25-Jul-2021 Instruction Type:Provider Instructions for Treatment How to Access Health Informa tion Online using Patient Portal and [employer]rd [employer] Apps Indication:BMI 50.0-59.9, adult Start:25-Jul-2021 Instruction Type:Patient Education Patient Instructions Indication:Nonsmoker Start:11-Jul-2021 Instruction Type:Provider Instructions for Treatment How to Access Health Informa tion Online using Patient Portal and [employer]rd [employer] Apps Indication:Nonsmoker Start:11-Jul-2021 Instruction Type:Patient Education Patient Instructions Indication:BMI 50.0-59.9, adult Start:01-Jul-2021 Instruction Type:Provider Instructions for Treatment How to Access Health Informa tion Online using Patient Portal and [employer]rd [employer] Apps Indication:BMI 50.0-59.9, adult Start:01-Jul-2021 Instruction Type:Patient Education Patient Instructions Indication:BMI 50.0-59.9, adult Start:13-May-2021 Instruction Type:Provider Instructions for Treatment How to Access Health Informa tion Online using Patient Portal and [employer]rd [employer] Apps Indication:BMI 50.0-59.9, adult Start:13-May-2021 Instruction Type:Patient Education Patient Instructions Indication:BMI 50.0-59.9, adult Start:29-Apr-2021 Instruction Type:Provider Instructions for Treatment How to Access Health Informa tion Online using Patient Portal and [employer] Apps Indication:Diabetes type 2, uncontrolled Start:29-Apr-2021 Instruction Type:Patient Education Patient Instructions Indication:Patient uses snuff Start:25-Jan-2021 Instruction Type:Provider Instructions for Treatment How to Access Health Informa tion Online using Patient Portal and [employer]rd [employer] Apps Indication:Patient uses snuff Start:25-Jan-2021 Instruction Type:Patient Education Patient Instructions Indication:BMI 50.0-59.9, adult Start:11-Dec-2020 Instruction Type:Provider Instructions for Treatment How to Access Health Informa tion Online using Patient Portal and [employer]rd [employer] Apps Indication:BMI 50.0-59.9, adult Start:11-Dec-2020 Instruction Type:Patient Education Patient Instructions Indication:Patient uses snuff Start:30-Oct-2020 Instruction Type:Provider Instructions for Treatment How to Access Health Informa tion Online using Patient Portal and [employer]rd [employer] Apps Indication:Patient uses snuff Start:30-Oct-2020 Instruction Type:Patient Education Patient Instructions Indication:Diabetes type 2, uncontrolled Start:09-Oct-2020 Instruction Type:Provider Instructions for Treatment How to Access Health Informa tion Online using Patient Portal and [employer]rd [employer] Apps Indication:Diabetes type 2, uncontrolled Start:09-Oct-2020 Instruction Type:Patient Education [facility]; [facility] Work Phone: Instructions* Name Dates Details Patient Instructions Indication:Type II diabetes mellitus, well controlled Start:07-Aug-2021 Instruction Type:Provider Instructions for Treatment How to Access Health Informa tion Online using Patient Portal and [employer]rd [employer] Apps Indication:Type II diabetes mellitus, well controlled Start:07-Aug-2021 Instruction Type:Patient Education Patient Instructions Indication:BMI 50.0-59.9, adult Start:25-Jul-2021 Instruction Type:Provider Instructions for Treatment How to Access Health Informa tion Online using Patient Portal and [employer]rd [employer] Apps Indication:BMI 50.0-59.9, adult Start:25-Jul-2021 Instruction Type:Patient Education Patient Instructions Indication:Nonsmoker Start:11-Jul-2021 Instruction Type:Provider Instructions for Treatment How to Access Health Informa tion Online using Patient Portal and [employer]rd [employer] Apps Indication:Nonsmoker Start:11-Jul-2021 Instruction Type:Patient Education Patient Instructions Indication:BMI 50.0-59.9, adult Start:01-Jul-2021 Instruction Type:Provider Instructions for Treatment How to Access Health Informa tion Online using Patient Portal and [employer]rd [employer] Apps Indication:BMI 50.0-59.9, adult Start:01-Jul-2021 Instruction Type:Patient Education Patient Instructions Indication:BMI 50.0-59.9, adult Start:13-May-2021 Instruction Type:Provider Instructions for Treatment How to Access Health Informa tion Online using Patient Portal and [employer]rd [employer] Apps Indication:BMI 50.0-59.9, adult Start:13-May-2021 Instruction Type:Patient Education Patient Instructions Indication:BMI 50.0-59.9, adult Start:29-Apr-2021 Instruction Type:Provider Instructions for Treatment How to Access Health Informa tion Online using Patient Portal and [employer]rd [employer] Apps Indication:Diabetes type 2, uncontrolled Start:29-Apr-2021 Instruction Type:Patient Education Patient Instructions Indication:Patient uses snuff Start:25-Jan-2021 Instruction Type:Provider Instructions for Treatment How to Access Health Informa tion Online using Patient Portal and [employer]rd [employer] Apps Indication:Patient uses snuff Start:25-Jan-2021 Instruction Type:Patient Education Patient Instructions Indication:BMI 50.0-59.9, adult Start:11-Dec-2020 Instruction Type:Provider Instructions for Treatment How to Access Health Informa tion Online using Patient Portal and [employer]rd [employer] Apps Indication:BMI 50.0-59.9, adult Start:11-Dec-2020 Instruction Type:Patient Education Patient Instructions Indication:Patient uses snuff Start:30-Oct-2020 Instruction Type:Provider Instructions for Treatment How to Access Health Informa tion Online using Patient Portal and [employer]rd [employer] Apps Indication:Patient uses snuff Start:30-Oct-2020 Instruction Type:Patient Education Patient Instructions Indication:Diabetes type 2, uncontrolled Start:09-Oct-2020 Instruction Type:Provider Instructions for Treatment How to Access Health Informa tion Online using Patient Portal and [employer]rd [employer] Apps Indication:Diabetes type 2, uncontrolled Start:09-Oct-2020 Instruction Type:Patient Education [facility]; [facility] Work Phone: Instructions* Name Dates Details Patient Instructions Indication:Nonsmoker Start:22-Aug-2021 Instruction Type:Provider Instructions for Treatment How to Access Health Informa tion Online using Patient Portal and [employer]rd [employer] Apps Indication:Nonsmoker Start:22-Aug-2021 Instruction Type:Patient Education Patient Instructions Indication:Type II diabetes mellitus, well controlled Start:07-Aug-2021 Instruction Type:Provider Instructions for Treatment How to Access Health Informa tion Online using Patient Portal and [employer]rd [employer] Apps Indication:Type II diabetes mellitus, well controlled Start:07-Aug-2021 Instruction Type:Patient Education Patient Instructions Indication:BMI 50.0-59.9, adult Start:25-Jul-2021 Instruction Type:Provider Instructions for Treatment How to Access Health Informa tion Online using Patient Portal and [employer]rd [employer] Apps Indication:BMI 50.0-59.9, adult Start:25-Jul-2021 Instruction Type:Patient Education Patient Instructions Indication:Nonsmoker Start:11-Jul-2021 Instruction Type:Provider Instructions for Treatment How to Access Health Informa tion Online using Patient Portal and [employer]rd [employer] Apps Indication:Nonsmoker Start:11-Jul-2021 Instruction Type:Patient Education Patient Instructions Indication:BMI 50.0-59.9, adult Start:01-Jul-2021 Instruction Type:Provider Instructions for Treatment How to Access Health Informa tion Online using Patient Portal and [employer]rd [employer] Apps Indication:BMI 50.0-59.9, adult Start:01-Jul-2021 Instruction Type:Patient Education Patient Instructions Indication:BMI 50.0-59.9, adult Start:13-May-2021 Instruction Type:Provider Instructions for Treatment How to Access Health Informa tion Online using Patient Portal and [employer]rd [employer] Apps Indication:BMI 50.0-59.9, adult Start:13-May-2021 Instruction Type:Patient Education Patient Instructions Indication:BMI 50.0-59.9, adult Start:29-Apr-2021 Instruction Type:Provider Instructions for Treatment How to Access Health Informa tion Online using Patient Portal and 3rd [employer] Apps Indication:Diabetes type 2, uncontrolled Start:29-Apr-2021 Instruction Type:Patient Education Patient Instructions Indication:Patient uses snuff Start:25-Jan-2021 Instruction Type:Provider Instructions for Treatment How to Access Health Informa tion Online using Patient Portal and [employer]rd [employer] Apps Indication:Patient uses snuff Start:25-Jan-2021 Instruction Type:Patient Education Patient Instructions Indication:BMI 50.0-59.9, adult Start:11-Dec-2020 Instruction Type:Provider Instructions for Treatment How to Access Health Informa tion Online using Patient Portal and [employer]rd [employer] Apps Indication:BMI 50.0-59.9, adult Start:11-Dec-2020 Instruction Type:Patient Education Patient Instructions Indication:Patient uses snuff Start:30-Oct-2020 Instruction Type:Provider Instructions for Treatment How to Access Health Informa tion Online using Patient Portal and [employer]rd [employer] Apps Indication:Patient uses snuff Start:30-Oct-2020 Instruction Type:Patient Education Patient Instructions Indication:Diabetes type 2, uncontrolled Start:09-Oct-2020 Instruction Type:Provider Instructions for Treatment How to Access Health Informa tion Online using Patient Portal and [employer]rd [employer] Apps Indication:Diabetes type 2, uncontrolled Start:09-Oct-2020 Instruction Type:Patient Education [facility]; [facility] Work Phone: Instructions* Name Dates Details Patient Instructions Indication:Nonsmoker Start:22-Aug-2021 Instruction Type:Provider Instructions for Treatment How to Access Health Informa tion Online using Patient Portal and [employer]rd [employer] Apps Indication:Nonsmoker Start:22-Aug-2021 Instruction Type:Patient Education Patient Instructions Indication:Type II diabetes mellitus, well controlled Start:07-Aug-2021 Instruction Type:Provider Instructions for Treatment How to Access Health Informa tion Online using Patient Portal and [employer]rd [employer] Apps Indication:Type II diabetes mellitus, well controlled Start:07-Aug-2021 Instruction Type:Patient Education Patient Instructions Indication:BMI 50.0-59.9, adult Start:25-Jul-2021 Instruction Type:Provider Instructions for Treatment How to Access Health Informa tion Online using Patient Portal and 3rd [employer] Apps Indication:BMI 50.0-59.9, adult Start:25-Jul-2021 Instruction Type:Patient Education Patient Instructions Indication:Nonsmoker Start:11-Jul-2021 Instruction Type:Provider Instructions for Treatment How to Access Health Informa tion Online using Patient Portal and [employer]rd [employer] Apps Indication:Nonsmoker Start:11-Jul-2021 Instruction Type:Patient Education Patient Instructions Indication:BMI 50.0-59.9, adult Start:01-Jul-2021 Instruction Type:Provider Instructions for Treatment How to Access Health Informa tion Online using Patient Portal and [employer]rd [employer] Apps Indication:BMI 50.0-59.9, adult Start:01-Jul-2021 Instruction Type:Patient Education Patient Instructions Indication:BMI 50.0-59.9, adult Start:13-May-2021 Instruction Type:Provider Instructions for Treatment How to Access Health Informa tion Online using Patient Portal and [employer]rd [employer] Apps Indication:BMI 50.0-59.9, adult Start:13-May-2021 Instruction Type:Patient Education Patient Instructions Indication:BMI 50.0-59.9, adult Start:29-Apr-2021 Instruction Type:Provider Instructions for Treatment How to Access Health Informa tion Online using Patient Portal and 3rd [employer] Apps Indication:Diabetes type 2, uncontrolled Start:29-Apr-2021 Instruction Type:Patient Education Patient Instructions Indication:Patient uses snuff Start:25-Jan-2021 Instruction Type:Provider Instructions for Treatment How to Access Health Informa tion Online using Patient Portal and [employer]rd [employer] Apps Indication:Patient uses snuff Start:25-Jan-2021 Instruction Type:Patient Education Patient Instructions Indication:BMI 50.0-59.9, adult Start:11-Dec-2020 Instruction Type:Provider Instructions for Treatment How to Access Health Informa tion Online using Patient Portal and 3rd [employer] Apps Indication:BMI 50.0-59.9, adult Start:11-Dec-2020 Instruction Type:Patient Education Patient Instructions Indication:Patient uses snuff Start:30-Oct-2020 Instruction Type:Provider Instructions for Treatment How to Access Health Informa tion Online using Patient Portal and [employer]rd [employer] Apps Indication:Patient uses snuff Start:30-Oct-2020 Instruction Type:Patient Education Patient Instructions Indication:Diabetes type 2, uncontrolled Start:09-Oct-2020 Instruction Type:Provider Instructions for Treatment How to Access Health Informa tion Online using Patient Portal and 3rd [employer] Apps Indication:Diabetes type 2, uncontrolled Start:09-Oct-2020 Instruction Type:Patient Education [facility]; [facility] Work Phone: Instructions* Name Dates Details Patient Instructions Indication:Nonsmoker Start:12-Sep-2021 Instruction Type:Provider Instructions for Treatment How to Access Health Informa tion Online using Patient Portal and 3rd [employer] Apps Indication:Nonsmoker Start:12-Sep-2021 Instruction Type:Patient Education Patient Instructions Indication:Nonsmoker Start:22-Aug-2021 Instruction Type:Provider Instructions for Treatment How to Access Health Informa tion Online using Patient Portal and [employer]rd [employer] Apps Indication:Nonsmoker Start:22-Aug-2021 Instruction Type:Patient Education Patient Instructions Indication:Type II diabetes mellitus, well controlled Start:07-Aug-2021 Instruction Type:Provider Instructions for Treatment How to Access Health Informa tion Online using Patient Portal and [employer]rd [employer] Apps Indication:Type II diabetes mellitus, well controlled Start:07-Aug-2021 Instruction Type:Patient Education Patient Instructions Indication:BMI 50.0-59.9, adult Start:25-Jul-2021 Instruction Type:Provider Instructions for Treatment How to Access Health Informa tion Online using Patient Portal and 3rd [employer] Apps Indication:BMI 50.0-59.9, adult Start:25-Jul-2021 Instruction Type:Patient Education Patient Instructions Indication:Nonsmoker Start:11-Jul-2021 Instruction Type:Provider Instructions for Treatment How to Access Health Informa tion Online using Patient Portal and [employer] Apps Indication:Nonsmoker Start:11-Jul-2021 Instruction Type:Patient Education Patient Instructions Indication:BMI 50.0-59.9, adult Start:01-Jul-2021 Instruction Type:Provider Instructions for Treatment How to Access Health Informa tion Online using Patient Portal and [employer] Apps Indication:BMI 50.0-59.9, adult Start:01-Jul-2021 Instruction Type:Patient Education Patient Instructions Indication:BMI 50.0-59.9, adult Start:13-May-2021 Instruction Type:Provider Instructions for Treatment How to Access Health Informa tion Online using Patient Portal and [employer]rd [employer] Apps Indication:BMI 50.0-59.9, adult Start:13-May-2021 Instruction Type:Patient Education Patient Instructions Indication:BMI 50.0-59.9, adult Start:29-Apr-2021 Instruction Type:Provider Instructions for Treatment How to Access Health Informa tion Online using Patient Portal and [employer]rd [employer] Apps Indication:Diabetes type 2, uncontrolled Start:29-Apr-2021 Instruction Type:Patient Education Patient Instructions Indication:Patient uses snuff Start:25-Jan-2021 Instruction Type:Provider Instructions for Treatment How to Access Health Informa tion Online using Patient Portal and [employer] Indication:Patient uses snuff Start:25-Jan-2021 Instruction Type:Patient Education Patient Instructions Indication:BMI 50.0-59.9, adult Start:11-Dec-2020 Instruction Type:Provider Instructions for Treatment How to Access Health Informa tion Online using Patient Portal and [employer] Indication:BMI 50.0-59.9, adult Start:11-Dec-2020 Instruction Type:Patient Education Patient Instructions Indication:Patient uses snuff Start:30-Oct-2020 Instruction Type:Provider Instructions for Treatment How to Access Health Informa tion Online using Patient Portal and [employer] Indication:Patient uses snuff Start:30-Oct-2020 Instruction Type:Patient Education Patient Instructions Indication:Diabetes type 2, uncontrolled Start:09-Oct-2020 Instruction Type:Provider Instructions for Treatment How to Access Health Informa tion Online using Patient Portal and [employer] Indication:Diabetes type 2, uncontrolled Start:09-Oct-2020 Instruction Type:Patient Education [facility]; [facility] Work Phone: Instructions* Name Dates Details Patient Instructions Indication:Nonsmoker Start:12-Sep-2021 Instruction Type:Provider Instructions for Treatment How to Access Health Informa tion Online using Patient Portal and [employer] Indication:Nonsmoker Start:12-Sep-2021 Instruction Type:Patient Education Patient Instructions Indication:Nonsmoker Start:22-Aug-2021 Instruction Type:Provider Instructions for Treatment How to Access Health Informa tion Online using Patient Portal and [employer] Indication:Nonsmoker Start:22-Aug-2021 Instruction Type:Patient Education Patient Instructions Indication:Type II diabetes mellitus, well controlled Start:07-Aug-2021 Instruction Type:Provider Instructions for Treatment How to Access Health Informa tion Online using Patient Portal and [employer] Indication:Type II diabetes mellitus, well controlled Start:07-Aug-2021 Instruction Type:Patient Education Patient Instructions Indication:BMI 50.0-59.9, adult Start:25-Jul-2021 Instruction Type:Provider Instructions for Treatment How to Access Health Informa tion Online using Patient Portal and [employer] Indication:BMI 50.0-59.9, adult Start:25-Jul-2021 Instruction Type:Patient Education Patient Instructions Indication:Nonsmoker Start:11-Jul-2021 Instruction Type:Provider Instructions for Treatment How to Access Health Informa tion Online using Patient Portal and [employer] Indication:Nonsmoker Start:11-Jul-2021 Instruction Type:Patient Education Patient Instructions Indication:BMI 50.0-59.9, adult Start:01-Jul-2021 Instruction Type:Provider Instructions for Treatment How to Access Health Informa tion Online using Patient Portal and [employer] Indication:BMI 50.0-59.9, adult Start:01-Jul-2021 Instruction Type:Patient Education Patient Instructions Indication:BMI 50.0-59.9, adult Start:13-May-2021 Instruction Type:Provider Instructions for Treatment How to Access Health Informa tion Online using Patient Portal and [employer] Indication:BMI 50.0-59.9, adult Start:13-May-2021 Instruction Type:Patient Education Patient Instructions Indication:BMI 50.0-59.9, adult Start:29-Apr-2021 Instruction Type:Provider Instructions for Treatment How to Access Health Informa tion Online using Patient Portal and [employer] Indication:Diabetes type 2, uncontrolled Start:29-Apr-2021 Instruction Type:Patient Education Patient Instructions Indication:Patient uses snuff Start:25-Jan-2021 Instruction Type:Provider Instructions for Treatment How to Access Health Informa tion Online using Patient Portal and [employer] Indication:Patient uses snuff Start:25-Jan-2021 Instruction Type:Patient Education Patient Instructions Indication:BMI 50.0-59.9, adult Start:11-Dec-2020 Instruction Type:Provider Instructions for Treatment How to Access Health Informa tion Online using Patient Portal and [employer] Indication:BMI 50.0-59.9, adult Start:11-Dec-2020 Instruction Type:Patient Education Patient Instructions Indication:Patient uses snuff Start:30-Oct-2020 Instruction Type:Provider Instructions for Treatment How to Access Health Informa tion Online using Patient Portal and [employer] Indication:Patient uses snuff Start:30-Oct-2020 Instruction Type:Patient Education Patient Instructions Indication:Diabetes type 2, uncontrolled Start:09-Oct-2020 Instruction Type:Provider Instructions for Treatment How to Access Health Informa tion Online using Patient Portal and [employer] Indication:Diabetes type 2, uncontrolled Start:09-Oct-2020 Instruction Type:Patient Education [facility]; [facility] Work Phone: Instructions* Name Dates Details Patient Instructions Indication:Type II diabetes mellitus, well controlled Start:07-Jan-2022 Instruction Type:Provider Instructions for Treatment How to Access Health Informa tion Online using Patient Portal and [employer] Indication:Type II diabetes mellitus, well controlled Start:07-Jan-2022 Instruction Type:Patient Education Patient Instructions Indication:Nonsmoker Start:12-Sep-2021 Instruction Type:Provider Instructions for Treatment How to Access Health Informa tion Online using Patient Portal and [employer] Indication:Nonsmoker Start:12-Sep-2021 Instruction Type:Patient Education Patient Instructions Indication:Nonsmoker Start:22-Aug-2021 Instruction Type:Provider Instructions for Treatment How to Access Health Informa tion Online using Patient Portal and [employer] Indication:Nonsmoker Start:22-Aug-2021 Instruction Type:Patient Education Patient Instructions Indication:Type II diabetes mellitus, well controlled Start:07-Aug-2021 Instruction Type:Provider Instructions for Treatment How to Access Health Informa tion Online using Patient Portal and [employer] Indication:Type II diabetes mellitus, well controlled Start:07-Aug-2021 Instruction Type:Patient Education Patient Instructions Indication:BMI 50.0-59.9, adult Start:25-Jul-2021 Instruction Type:Provider Instructions for Treatment How to Access Health Informa tion Online using Patient Portal and [employer] Indication:BMI 50.0-59.9, adult Start:25-Jul-2021 Instruction Type:Patient Education Patient Instructions Indication:Nonsmoker Start:11-Jul-2021 Instruction Type:Provider Instructions for Treatment How to Access Health Informa tion Online using Patient Portal and [employer] Indication:Nonsmoker Start:11-Jul-2021 Instruction Type:Patient Education Patient Instructions Indication:BMI 50.0-59.9, adult Start:01-Jul-2021 Instruction Type:Provider Instructions for Treatment How to Access Health Informa tion Online using Patient Portal and [employer] Indication:BMI 50.0-59.9, adult Start:01-Jul-2021 Instruction Type:Patient Education Patient Instructions Indication:BMI 50.0-59.9, adult Start:13-May-2021 Instruction Type:Provider Instructions for Treatment How to Access Health Informa tion Online using Patient Portal and [employer] Indication:BMI 50.0-59.9, adult Start:13-May-2021 Instruction Type:Patient Education Patient Instructions Indication:BMI 50.0-59.9, adult Start:29-Apr-2021 Instruction Type:Provider Instructions for Treatment How to Access Health Informa tion Online using Patient Portal and [employer] Indication:Diabetes type 2, uncontrolled Start:29-Apr-2021 Instruction Type:Patient Education Patient Instructions Indication:Patient uses snuff Start:25-Jan-2021 Instruction Type:Provider Instructions for Treatment How to Access Health Informa tion Online using Patient Portal and [employer] Indication:Patient uses snuff Start:25-Jan-2021 Instruction Type:Patient Education Patient Instructions Indication:BMI 50.0-59.9, adult Start:11-Dec-2020 Instruction Type:Provider Instructions for Treatment How to Access Health Informa tion Online using Patient Portal and [employer] Indication:BMI 50.0-59.9, adult Start:11-Dec-2020 Instruction Type:Patient Education Patient Instructions Indication:Patient uses snuff Start:30-Oct-2020 Instruction Type:Provider Instructions for Treatment How to Access Health Informa tion Online using Patient Portal and [employer] Indication:Patient uses snuff Start:30-Oct-2020 Instruction Type:Patient Education Patient Instructions Indication:Diabetes type 2, uncontrolled Start:09-Oct-2020 Instruction Type:Provider Instructions for Treatment How to Access Health Informa tion Online using Patient Portal and [employer] Indication:Diabetes type 2, uncontrolled Start:09-Oct-2020 Instruction Type:Patient Education [facility]; [facility] Work Phone: Instructions* Name Dates Details Patient Instructions Indication:Nonsmoker Start:12-Sep-2021 Instruction Type:Provider Instructions for Treatment How to Access Health Informa tion Online using Patient Portal and [employer] Indication:Nonsmoker Start:12-Sep-2021 Instruction Type:Patient Education Patient Instructions Indication:Nonsmoker Start:22-Aug-2021 Instruction Type:Provider Instructions for Treatment How to Access Health Informa tion Online using Patient Portal and [employer] Indication:Nonsmoker Start:22-Aug-2021 Instruction Type:Patient Education Patient Instructions Indication:Type II diabetes mellitus, well controlled Start:07-Aug-2021 Instruction Type:Provider Instructions for Treatment How to Access Health Informa tion Online using Patient Portal and [employer] Indication:Type II diabetes mellitus, well controlled Start:07-Aug-2021 Instruction Type:Patient Education Patient Instructions Indication:BMI 50.0-59.9, adult Start:25-Jul-2021 Instruction Type:Provider Instructions for Treatment How to Access Health Informa tion Online using Patient Portal and [employer] Indication:BMI 50.0-59.9, adult Start:25-Jul-2021 Instruction Type:Patient Education Patient Instructions Indication:Nonsmoker Start:11-Jul-2021 Instruction Type:Provider Instructions for Treatment How to Access Health Informa tion Online using Patient Portal and [employer] Indication:Nonsmoker Start:11-Jul-2021 Instruction Type:Patient Education Patient Instructions Indication:BMI 50.0-59.9, adult Start:01-Jul-2021 Instruction Type:Provider Instructions for Treatment How to Access Health Informa tion Online using Patient Portal and [employer] Indication:BMI 50.0-59.9, adult Start:01-Jul-2021 Instruction Type:Patient Education Patient Instructions Indication:BMI 50.0-59.9, adult Start:13-May-2021 Instruction Type:Provider Instructions for Treatment How to Access Health Informa tion Online using Patient Portal and [employer] Indication:BMI 50.0-59.9, adult Start:13-May-2021 Instruction Type:Patient Education Patient Instructions Indication:BMI 50.0-59.9, adult Start:29-Apr-2021 Instruction Type:Provider Instructions for Treatment How to Access Health Informa tion Online using Patient Portal and [employer] Indication:Diabetes type 2, uncontrolled Start:29-Apr-2021 Instruction Type:Patient Education Patient Instructions Indication:Patient uses snuff Start:25-Jan-2021 Instruction Type:Provider Instructions for Treatment How to Access Health Informa tion Online using Patient Portal and [employer] Indication:Patient uses snuff Start:25-Jan-2021 Instruction Type:Patient Education Patient Instructions Indication:BMI 50.0-59.9, adult Start:11-Dec-2020 Instruction Type:Provider Instructions for Treatment How to Access Health Informa tion Online using Patient Portal and [employer] Indication:BMI 50.0-59.9, adult Start:11-Dec-2020 Instruction Type:Patient Education Patient Instructions Indication:Patient uses snuff Start:30-Oct-2020 Instruction Type:Provider Instructions for Treatment How to Access Health Informa tion Online using Patient Portal and [employer] Indication:Patient uses snuff Start:30-Oct-2020 Instruction Type:Patient Education Patient Instructions Indication:Diabetes type 2, uncontrolled Start:09-Oct-2020 Instruction Type:Provider Instructions for Treatment How to Access Health Informa tion Online using Patient Portal and [employer] Indication:Diabetes type 2, uncontrolled Start:09-Oct-2020 Instruction Type:Patient Education [facility]; [facility] Work Phone: Instructions* Name Dates Details Patient Instructions Indication:Type II diabetes mellitus, well controlled Start:22-Jan-2022 Instruction Type:Provider Instructions for Treatment How to Access Health Informa tion Online using Patient Portal and [employer] Indication:Type II diabetes mellitus, well controlled Start:22-Jan-2022 Instruction Type:Patient Education Patient Instructions Indication:Nonsmoker Start:12-Sep-2021 Instruction Type:Provider Instructions for Treatment How to Access Health Informa tion Online using Patient Portal and [employer] Indication:Nonsmoker Start:12-Sep-2021 Instruction Type:Patient Education Patient Instructions Indication:Nonsmoker Start:22-Aug-2021 Instruction Type:Provider Instructions for Treatment How to Access Health Informa tion Online using Patient Portal and [employer] Indication:Nonsmoker Start:22-Aug-2021 Instruction Type:Patient Education Patient Instructions Indication:Type II diabetes mellitus, well controlled Start:07-Aug-2021 Instruction Type:Provider Instructions for Treatment How to Access Health Informa tion Online using Patient Portal and [employer] Indication:Type II diabetes mellitus, well controlled Start:07-Aug-2021 Instruction Type:Patient Education Patient Instructions Indication:BMI 50.0-59.9, adult Start:25-Jul-2021 Instruction Type:Provider Instructions for Treatment How to Access Health Informa tion Online using Patient Portal and [employer] Indication:BMI 50.0-59.9, adult Start:25-Jul-2021 Instruction Type:Patient Education Patient Instructions Indication:Nonsmoker Start:11-Jul-2021 Instruction Type:Provider Instructions for Treatment How to Access Health Informa tion Online using Patient Portal and [employer] Indication:Nonsmoker Start:11-Jul-2021 Instruction Type:Patient Education Patient Instructions Indication:BMI 50.0-59.9, adult Start:01-Jul-2021 Instruction Type:Provider Instructions for Treatment How to Access Health Informa tion Online using Patient Portal and [employer] Indication:BMI 50.0-59.9, adult Start:01-Jul-2021 Instruction Type:Patient Education Patient Instructions Indication:BMI 50.0-59.9, adult Start:13-May-2021 Instruction Type:Provider Instructions for Treatment How to Access Health Informa tion Online using Patient Portal and [employer] Indication:BMI 50.0-59.9, adult Start:13-May-2021 Instruction Type:Patient Education Patient Instructions Indication:BMI 50.0-59.9, adult Start:29-Apr-2021 Instruction Type:Provider Instructions for Treatment How to Access Health Informa tion Online using Patient Portal and [employer] Indication:Diabetes type 2, uncontrolled Start:29-Apr-2021 Instruction Type:Patient Education Patient Instructions Indication:Patient uses snuff Start:25-Jan-2021 Instruction Type:Provider Instructions for Treatment How to Access Health Informa tion Online using Patient Portal and [employer] Indication:Patient uses snuff Start:25-Jan-2021 Instruction Type:Patient Education Patient Instructions Indication:BMI 50.0-59.9, adult Start:11-Dec-2020 Instruction Type:Provider Instructions for Treatment How to Access Health Informa tion Online using Patient Portal and [employer] Indication:BMI 50.0-59.9, adult Start:11-Dec-2020 Instruction Type:Patient Education Patient Instructions Indication:Patient uses snuff Start:30-Oct-2020 Instruction Type:Provider Instructions for Treatment How to Access Health Informa tion Online using Patient Portal and [employer] Indication:Patient uses snuff Start:30-Oct-2020 Instruction Type:Patient Education Patient Instructions Indication:Diabetes type 2, uncontrolled Start:09-Oct-2020 Instruction Type:Provider Instructions for Treatment How to Access Health Informa tion Online using Patient Portal and [employer] Indication:Diabetes type 2, uncontrolled Start:09-Oct-2020 Instruction Type:Patient Education [facility]; [facility] Work Phone: Instructions* Name Dates Details Patient Instructions Indication:Type II diabetes mellitus, well controlled Start:22-Jan-2022 Instruction Type:Provider Instructions for Treatment How to Access Health Informa tion Online using Patient Portal and [employer] Indication:Type II diabetes mellitus, well controlled Start:22-Jan-2022 Instruction Type:Patient Education Patient Instructions Indication:Nonsmoker Start:12-Sep-2021 Instruction Type:Provider Instructions for Treatment How to Access Health Informa tion Online using Patient Portal and [employer] Indication:Nonsmoker Start:12-Sep-2021 Instruction Type:Patient Education Patient Instructions Indication:Nonsmoker Start:22-Aug-2021 Instruction Type:Provider Instructions for Treatment How to Access Health Informa tion Online using Patient Portal and [employer] Indication:Nonsmoker Start:22-Aug-2021 Instruction Type:Patient Education Patient Instructions Indication:Type II diabetes mellitus, well controlled Start:07-Aug-2021 Instruction Type:Provider Instructions for Treatment How to Access Health Informa tion Online using Patient Portal and [employer] Indication:Type II diabetes mellitus, well controlled Start:07-Aug-2021 Instruction Type:Patient Education Patient Instructions Indication:BMI 50.0-59.9, adult Start:25-Jul-2021 Instruction Type:Provider Instructions for Treatment How to Access Health Informa tion Online using Patient Portal and [employer] Indication:BMI 50.0-59.9, adult Start:25-Jul-2021 Instruction Type:Patient Education Patient Instructions Indication:Nonsmoker Start:11-Jul-2021 Instruction Type:Provider Instructions for Treatment How to Access Health Informa tion Online using Patient Portal and [employer] Indication:Nonsmoker Start:11-Jul-2021 Instruction Type:Patient Education Patient Instructions Indication:BMI 50.0-59.9, adult Start:01-Jul-2021 Instruction Type:Provider Instructions for Treatment How to Access Health Informa tion Online using Patient Portal and [employer] Indication:BMI 50.0-59.9, adult Start:01-Jul-2021 Instruction Type:Patient Education Patient Instructions Indication:BMI 50.0-59.9, adult Start:13-May-2021 Instruction Type:Provider Instructions for Treatment How to Access Health Informa tion Online using Patient Portal and [employer] Indication:BMI 50.0-59.9, adult Start:13-May-2021 Instruction Type:Patient Education Patient Instructions Indication:BMI 50.0-59.9, adult Start:29-Apr-2021 Instruction Type:Provider Instructions for Treatment How to Access Health Informa tion Online using Patient Portal and [employer] Apps Indication:Diabetes type 2, uncontrolled Start:29-Apr-2021 Instruction Type:Patient Education Patient Instructions Indication:Patient uses snuff Start:25-Jan-2021 Instruction Type:Provider Instructions for Treatment How to Access Health Informa tion Online using Patient Portal and [employer] Indication:Patient uses snuff Start:25-Jan-2021 Instruction Type:Patient Education Patient Instructions Indication:BMI 50.0-59.9, adult Start:11-Dec-2020 Instruction Type:Provider Instructions for Treatment How to Access Health Informa tion Online using Patient Portal and [employer] Indication:BMI 50.0-59.9, adult Start:11-Dec-2020 Instruction Type:Patient Education Patient Instructions Indication:Patient uses snuff Start:30-Oct-2020 Instruction Type:Provider Instructions for Treatment How to Access Health Informa tion Online using Patient Portal and [employer] Indication:Patient uses snuff Start:30-Oct-2020 Instruction Type:Patient Education Patient Instructions Indication:Diabetes type 2, uncontrolled Start:09-Oct-2020 Instruction Type:Provider Instructions for Treatment How to Access Health Informa tion Online using Patient Portal and [employer] Indication:Diabetes type 2, uncontrolled Start:09-Oct-2020 Instruction Type:Patient Education [facility]; [facility] Work Phone: Instructions* Name Dates Details Patient Instructions Indication:Type II diabetes mellitus, well controlled Start:22-Jan-2022 Instruction Type:Provider Instructions for Treatment How to Access Health Informa tion Online using Patient Portal and [employer] Indication:Type II diabetes mellitus, well controlled Start:22-Jan-2022 Instruction Type:Patient Education Patient Instructions Indication:Nonsmoker Start:12-Sep-2021 Instruction Type:Provider Instructions for Treatment How to Access Health Informa tion Online using Patient Portal and [employer] Apps Indication:Nonsmoker Start:12-Sep-2021 Instruction Type:Patient Education Patient Instructions Indication:Nonsmoker Start:22-Aug-2021 Instruction Type:Provider Instructions for Treatment How to Access Health Informa tion Online using Patient Portal and [employer] Indication:Nonsmoker Start:22-Aug-2021 Instruction Type:Patient Education Patient Instructions Indication:Type II diabetes mellitus, well controlled Start:07-Aug-2021 Instruction Type:Provider Instructions for Treatment How to Access Health Informa tion Online using Patient Portal and [employer] Apps Indication:Type II diabetes mellitus, well controlled Start:07-Aug-2021 Instruction Type:Patient Education Patient Instructions Indication:BMI 50.0-59.9, adult Start:25-Jul-2021 Instruction Type:Provider Instructions for Treatment How to Access Health Informa tion Online using Patient Portal and [employer] Indication:BMI 50.0-59.9, adult Start:25-Jul-2021 Instruction Type:Patient Education Patient Instructions Indication:Nonsmoker Start:11-Jul-2021 Instruction Type:Provider Instructions for Treatment How to Access Health Informa tion Online using Patient Portal and [employer] Indication:Nonsmoker Start:11-Jul-2021 Instruction Type:Patient Education Patient Instructions Indication:BMI 50.0-59.9, adult Start:01-Jul-2021 Instruction Type:Provider Instructions for Treatment How to Access Health Informa tion Online using Patient Portal and [employer] Indication:BMI 50.0-59.9, adult Start:01-Jul-2021 Instruction Type:Patient Education Patient Instructions Indication:BMI 50.0-59.9, adult Start:13-May-2021 Instruction Type:Provider Instructions for Treatment How to Access Health Informa tion Online using Patient Portal and [employer] Indication:BMI 50.0-59.9, adult Start:13-May-2021 Instruction Type:Patient Education Patient Instructions Indication:BMI 50.0-59.9, adult Start:29-Apr-2021 Instruction Type:Provider Instructions for Treatment How to Access Health Informa tion Online using Patient Portal and [employer] Apps Indication:Diabetes type 2, uncontrolled Start:29-Apr-2021 Instruction Type:Patient Education Patient Instructions Indication:Patient uses snuff Start:25-Jan-2021 Instruction Type:Provider Instructions for Treatment How to Access Health Informa tion Online using Patient Portal and [employer] Indication:Patient uses snuff Start:25-Jan-2021 Instruction Type:Patient Education Patient Instructions Indication:BMI 50.0-59.9, adult Start:11-Dec-2020 Instruction Type:Provider Instructions for Treatment How to Access Health Informa tion Online using Patient Portal and [employer] Apps Indication:BMI 50.0-59.9, adult Start:11-Dec-2020 Instruction Type:Patient Education Patient Instructions Indication:Patient uses snuff Start:30-Oct-2020 Instruction Type:Provider Instructions for Treatment How to Access Health Informa tion Online using Patient Portal and [employer] Apps Indication:Patient uses snuff Start:30-Oct-2020 Instruction Type:Patient Education Patient Instructions Indication:Diabetes type 2, uncontrolled Start:09-Oct-2020 Instruction Type:Provider Instructions for Treatment How to Access Health Informa tion Online using Patient Portal and [employer] Apps Indication:Diabetes type 2, uncontrolled Start:09-Oct-2020 Instruction Type:Patient Education [facility]; [facility] Work Phone: Instructions* Name Dates Details Patient Instructions Indication:Type II diabetes mellitus, well controlled Start:28-Apr-2022 Instruction Type:Provider Instructions for Treatment How to Access Health Informa tion Online using Patient Portal and [employer] Apps Indication:Type II diabetes mellitus, well controlled Start:28-Apr-2022 Instruction Type:Patient Education Patient Instructions Indication:Type II diabetes mellitus, well controlled Start:22-Jan-2022 Instruction Type:Provider Instructions for Treatment How to Access Health Informa tion Online using Patient Portal and [employer] Apps Indication:Type II diabetes mellitus, well controlled Start:22-Jan-2022 Instruction Type:Patient Education Patient Instructions Indication:Nonsmoker Start:12-Sep-2021 Instruction Type:Provider Instructions for Treatment How to Access Health Informa tion Online using Patient Portal and [employer] Indication:Nonsmoker Start:12-Sep-2021 Instruction Type:Patient Education Patient Instructions Indication:Nonsmoker Start:22-Aug-2021 Instruction Type:Provider Instructions for Treatment How to Access Health Informa tion Online using Patient Portal and [employer] Indication:Nonsmoker Start:22-Aug-2021 Instruction Type:Patient Education Patient Instructions Indication:Type II diabetes mellitus, well controlled Start:07-Aug-2021 Instruction Type:Provider Instructions for Treatment How to Access Health Informa tion Online using Patient Portal and [employer] Indication:Type II diabetes mellitus, well controlled Start:07-Aug-2021 Instruction Type:Patient Education Patient Instructions Indication:BMI 50.0-59.9, adult Start:25-Jul-2021 Instruction Type:Provider Instructions for Treatment How to Access Health Informa tion Online using Patient Portal and [employer] Indication:BMI 50.0-59.9, adult Start:25-Jul-2021 Instruction Type:Patient Education Patient Instructions Indication:Nonsmoker Start:11-Jul-2021 Instruction Type:Provider Instructions for Treatment How to Access Health Informa tion Online using Patient Portal and [employer] Indication:Nonsmoker Start:11-Jul-2021 Instruction Type:Patient Education Patient Instructions Indication:BMI 50.0-59.9, adult Start:01-Jul-2021 Instruction Type:Provider Instructions for Treatment How to Access Health Informa tion Online using Patient Portal and [employer] Indication:BMI 50.0-59.9, adult Start:01-Jul-2021 Instruction Type:Patient Education Patient Instructions Indication:BMI 50.0-59.9, adult Start:13-May-2021 Instruction Type:Provider Instructions for Treatment How to Access Health Informa tion Online using Patient Portal and [employer] Indication:BMI 50.0-59.9, adult Start:13-May-2021 Instruction Type:Patient Education Patient Instructions Indication:BMI 50.0-59.9, adult Start:29-Apr-2021 Instruction Type:Provider Instructions for Treatment How to Access Health Informa tion Online using Patient Portal and [employer] Indication:Diabetes type 2, uncontrolled Start:29-Apr-2021 Instruction Type:Patient Education Patient Instructions Indication:Patient uses snuff Start:25-Jan-2021 Instruction Type:Provider Instructions for Treatment How to Access Health Informa tion Online using Patient Portal and [employer] Indication:Patient uses snuff Start:25-Jan-2021 Instruction Type:Patient Education Patient Instructions Indication:BMI 50.0-59.9, adult Start:11-Dec-2020 Instruction Type:Provider Instructions for Treatment How to Access Health Informa tion Online using Patient Portal and [employer] Indication:BMI 50.0-59.9, adult Start:11-Dec-2020 Instruction Type:Patient Education Patient Instructions Indication:Patient uses snuff Start:30-Oct-2020 Instruction Type:Provider Instructions for Treatment How to Access Health Informa tion Online using Patient Portal and [employer] Indication:Patient uses snuff Start:30-Oct-2020 Instruction Type:Patient Education Patient Instructions Indication:Diabetes type 2, uncontrolled Start:09-Oct-2020 Instruction Type:Provider Instructions for Treatment How to Access Health Informa tion Online using Patient Portal and [employer] Indication:Diabetes type 2, uncontrolled Start:09-Oct-2020 Instruction Type:Patient Education [facility]; [facility] Work Phone: Instructions* Name Dates Details Patient Instructions Indication:Type II diabetes mellitus, well controlled Start:28-Apr-2022 Instruction Type:Provider Instructions for Treatment How to Access Health Informa tion Online using Patient Portal and [employer] Indication:Type II diabetes mellitus, well controlled Start:28-Apr-2022 Instruction Type:Patient Education Patient Instructions Indication:Type II diabetes mellitus, well controlled Start:22-Jan-2022 Instruction Type:Provider Instructions for Treatment How to Access Health Informa tion Online using Patient Portal and [employer] Indication:Type II diabetes mellitus, well controlled Start:22-Jan-2022 Instruction Type:Patient Education Patient Instructions Indication:Nonsmoker Start:12-Sep-2021 Instruction Type:Provider Instructions for Treatment How to Access Health Informa tion Online using Patient Portal and [employer] Indication:Nonsmoker Start:12-Sep-2021 Instruction Type:Patient Education Patient Instructions Indication:Nonsmoker Start:22-Aug-2021 Instruction Type:Provider Instructions for Treatment How to Access Health Informa tion Online using Patient Portal and [employer] Indication:Nonsmoker Start:22-Aug-2021 Instruction Type:Patient Education Patient Instructions Indication:Type II diabetes mellitus, well controlled Start:07-Aug-2021 Instruction Type:Provider Instructions for Treatment How to Access Health Informa tion Online using Patient Portal and [employer] Indication:Type II diabetes mellitus, well controlled Start:07-Aug-2021 Instruction Type:Patient Education Patient Instructions Indication:BMI 50.0-59.9, adult Start:25-Jul-2021 Instruction Type:Provider Instructions for Treatment How to Access Health Informa tion Online using Patient Portal and [employer] Indication:BMI 50.0-59.9, adult Start:25-Jul-2021 Instruction Type:Patient Education Patient Instructions Indication:Nonsmoker Start:11-Jul-2021 Instruction Type:Provider Instructions for Treatment How to Access Health Informa tion Online using Patient Portal and [employer] Indication:Nonsmoker Start:11-Jul-2021 Instruction Type:Patient Education Patient Instructions Indication:BMI 50.0-59.9, adult Start:01-Jul-2021 Instruction Type:Provider Instructions for Treatment How to Access Health Informa tion Online using Patient Portal and [employer] Indication:BMI 50.0-59.9, adult Start:01-Jul-2021 Instruction Type:Patient Education Patient Instructions Indication:BMI 50.0-59.9, adult Start:13-May-2021 Instruction Type:Provider Instructions for Treatment How to Access Health Informa tion Online using Patient Portal and [employer] Indication:BMI 50.0-59.9, adult Start:13-May-2021 Instruction Type:Patient Education Patient Instructions Indication:BMI 50.0-59.9, adult Start:29-Apr-2021 Instruction Type:Provider Instructions for Treatment How to Access Health Informa tion Online using Patient Portal and [employer] Indication:Diabetes type 2, uncontrolled Start:29-Apr-2021 Instruction Type:Patient Education Patient Instructions Indication:Patient uses snuff Start:25-Jan-2021 Instruction Type:Provider Instructions for Treatment How to Access Health Informa tion Online using Patient Portal and [employer] Indication:Patient uses snuff Start:25-Jan-2021 Instruction Type:Patient Education Patient Instructions Indication:BMI 50.0-59.9, adult Start:11-Dec-2020 Instruction Type:Provider Instructions for Treatment How to Access Health Informa tion Online using Patient Portal and [employer] Indication:BMI 50.0-59.9, adult Start:11-Dec-2020 Instruction Type:Patient Education Patient Instructions Indication:Patient uses snuff Start:30-Oct-2020 Instruction Type:Provider Instructions for Treatment How to Access Health Informa tion Online using Patient Portal and [employer] Indication:Patient uses snuff Start:30-Oct-2020 Instruction Type:Patient Education Patient Instructions Indication:Diabetes type 2, uncontrolled Start:09-Oct-2020 Instruction Type:Provider Instructions for Treatment How to Access Health Informa tion Online using Patient Portal and [employer] Indication:Diabetes type 2, uncontrolled Start:09-Oct-2020 Instruction Type:Patient Education [facility]; [facility] Work Phone: Instructions* Name Dates Details Patient Instructions Indication:Type II diabetes mellitus, well controlled Start:28-Apr-2022 Instruction Type:Provider Instructions for Treatment How to Access Health Informa tion Online using Patient Portal and [employer] Indication:Type II diabetes mellitus, well controlled Start:28-Apr-2022 Instruction Type:Patient Education Patient Instructions Indication:Type II diabetes mellitus, well controlled Start:22-Jan-2022 Instruction Type:Provider Instructions for Treatment How to Access Health Informa tion Online using Patient Portal and [employer] Indication:Type II diabetes mellitus, well controlled Start:22-Jan-2022 Instruction Type:Patient Education Patient Instructions Indication:Nonsmoker Start:12-Sep-2021 Instruction Type:Provider Instructions for Treatment How to Access Health Informa tion Online using Patient Portal and [employer] Indication:Nonsmoker Start:12-Sep-2021 Instruction Type:Patient Education Patient Instructions Indication:Nonsmoker Start:22-Aug-2021 Instruction Type:Provider Instructions for Treatment How to Access Health Informa tion Online using Patient Portal and [employer] Indication:Nonsmoker Start:22-Aug-2021 Instruction Type:Patient Education Patient Instructions Indication:Type II diabetes mellitus, well controlled Start:07-Aug-2021 Instruction Type:Provider Instructions for Treatment How to Access Health Informa tion Online using Patient Portal and [employer] Indication:Type II diabetes mellitus, well controlled Start:07-Aug-2021 Instruction Type:Patient Education Patient Instructions Indication:BMI 50.0-59.9, adult Start:25-Jul-2021 Instruction Type:Provider Instructions for Treatment How to Access Health Informa tion Online using Patient Portal and [employer] Indication:BMI 50.0-59.9, adult Start:25-Jul-2021 Instruction Type:Patient Education Patient Instructions Indication:Nonsmoker Start:11-Jul-2021 Instruction Type:Provider Instructions for Treatment How to Access Health Informa tion Online using Patient Portal and [employer] Indication:Nonsmoker Start:11-Jul-2021 Instruction Type:Patient Education Patient Instructions Indication:BMI 50.0-59.9, adult Start:01-Jul-2021 Instruction Type:Provider Instructions for Treatment How to Access Health Informa tion Online using Patient Portal and [employer] Indication:BMI 50.0-59.9, adult Start:01-Jul-2021 Instruction Type:Patient Education Patient Instructions Indication:BMI 50.0-59.9, adult Start:13-May-2021 Instruction Type:Provider Instructions for Treatment How to Access Health Informa tion Online using Patient Portal and [employer] Indication:BMI 50.0-59.9, adult Start:13-May-2021 Instruction Type:Patient Education Patient Instructions Indication:BMI 50.0-59.9, adult Start:29-Apr-2021 Instruction Type:Provider Instructions for Treatment How to Access Health Informa tion Online using Patient Portal and [employer] Indication:Diabetes type 2, uncontrolled Start:29-Apr-2021 Instruction Type:Patient Education Patient Instructions Indication:Patient uses snuff Start:25-Jan-2021 Instruction Type:Provider Instructions for Treatment How to Access Health Informa tion Online using Patient Portal and [employer] Indication:Patient uses snuff Start:25-Jan-2021 Instruction Type:Patient Education Patient Instructions Indication:BMI 50.0-59.9, adult Start:11-Dec-2020 Instruction Type:Provider Instructions for Treatment How to Access Health Informa tion Online using Patient Portal and [employer] Indication:BMI 50.0-59.9, adult Start:11-Dec-2020 Instruction Type:Patient Education Patient Instructions Indication:Patient uses snuff Start:30-Oct-2020 Instruction Type:Provider Instructions for Treatment How to Access Health Informa tion Online using Patient Portal and [employer] Indication:Patient uses snuff Start:30-Oct-2020 Instruction Type:Patient Education Patient Instructions Indication:Diabetes type 2, uncontrolled Start:09-Oct-2020 Instruction Type:Provider Instructions for Treatment How to Access Health Informa tion Online using Patient Portal and [employer] Indication:Diabetes type 2, uncontrolled Start:09-Oct-2020 Instruction Type:Patient Education [facility]; [facility] Work Phone: Instructions* Name Dates Details Patient Instructions Indication:Type II diabetes mellitus, well controlled Start:28-Apr-2022 Instruction Type:Provider Instructions for Treatment How to Access Health Informa tion Online using Patient Portal and [employer] Indication:Type II diabetes mellitus, well controlled Start:28-Apr-2022 Instruction Type:Patient Education Patient Instructions Indication:Type II diabetes mellitus, well controlled Start:22-Jan-2022 Instruction Type:Provider Instructions for Treatment How to Access Health Informa tion Online using Patient Portal and [employer] Indication:Type II diabetes mellitus, well controlled Start:22-Jan-2022 Instruction Type:Patient Education Patient Instructions Indication:Nonsmoker Start:12-Sep-2021 Instruction Type:Provider Instructions for Treatment How to Access Health Informa tion Online using Patient Portal and [employer] Indication:Nonsmoker Start:12-Sep-2021 Instruction Type:Patient Education Patient Instructions Indication:Nonsmoker Start:22-Aug-2021 Instruction Type:Provider Instructions for Treatment How to Access Health Informa tion Online using Patient Portal and [employer] Indication:Nonsmoker Start:22-Aug-2021 Instruction Type:Patient Education Patient Instructions Indication:Type II diabetes mellitus, well controlled Start:07-Aug-2021 Instruction Type:Provider Instructions for Treatment How to Access Health Informa tion Online using Patient Portal and [employer] Indication:Type II diabetes mellitus, well controlled Start:07-Aug-2021 Instruction Type:Patient Education Patient Instructions Indication:BMI 50.0-59.9, adult Start:25-Jul-2021 Instruction Type:Provider Instructions for Treatment How to Access Health Informa tion Online using Patient Portal and [employer] Indication:BMI 50.0-59.9, adult Start:25-Jul-2021 Instruction Type:Patient Education Patient Instructions Indication:Nonsmoker Start:11-Jul-2021 Instruction Type:Provider Instructions for Treatment How to Access Health Informa tion Online using Patient Portal and [employer] Indication:Nonsmoker Start:11-Jul-2021 Instruction Type:Patient Education Patient Instructions Indication:BMI 50.0-59.9, adult Start:01-Jul-2021 Instruction Type:Provider Instructions for Treatment How to Access Health Informa tion Online using Patient Portal and [employer] Indication:BMI 50.0-59.9, adult Start:01-Jul-2021 Instruction Type:Patient Education Patient Instructions Indication:BMI 50.0-59.9, adult Start:13-May-2021 Instruction Type:Provider Instructions for Treatment How to Access Health Informa tion Online using Patient Portal and [employer] Indication:BMI 50.0-59.9, adult Start:13-May-2021 Instruction Type:Patient Education Patient Instructions Indication:BMI 50.0-59.9, adult Start:29-Apr-2021 Instruction Type:Provider Instructions for Treatment How to Access Health Informa tion Online using Patient Portal and [employer] Indication:Diabetes type 2, uncontrolled Start:29-Apr-2021 Instruction Type:Patient Education Patient Instructions Indication:Patient uses snuff Start:25-Jan-2021 Instruction Type:Provider Instructions for Treatment How to Access Health Informa tion Online using Patient Portal and [employer] Indication:Patient uses snuff Start:25-Jan-2021 Instruction Type:Patient Education Patient Instructions Indication:BMI 50.0-59.9, adult Start:11-Dec-2020 Instruction Type:Provider Instructions for Treatment How to Access Health Informa tion Online using Patient Portal and [employer] Indication:BMI 50.0-59.9, adult Start:11-Dec-2020 Instruction Type:Patient Education Patient Instructions Indication:Patient uses snuff Start:30-Oct-2020 Instruction Type:Provider Instructions for Treatment How to Access Health Informa tion Online using Patient Portal and [employer] Indication:Patient uses snuff Start:30-Oct-2020 Instruction Type:Patient Education Patient Instructions Indication:Diabetes type 2, uncontrolled Start:09-Oct-2020 Instruction Type:Provider Instructions for Treatment How to Access Health Informa tion Online using Patient Portal and [employer] Indication:Diabetes type 2, uncontrolled Start:09-Oct-2020 Instruction Type:Patient Education [facility]; [facility] Work Phone: Instructions* Name Dates Details Patient Instructions Indication:Type II diabetes mellitus, well controlled Start:28-Apr-2022 Instruction Type:Provider Instructions for Treatment How to Access Health Informa tion Online using Patient Portal and [employer] Indication:Type II diabetes mellitus, well controlled Start:28-Apr-2022 Instruction Type:Patient Education Patient Instructions Indication:Type II diabetes mellitus, well controlled Start:22-Jan-2022 Instruction Type:Provider Instructions for Treatment How to Access Health Informa tion Online using Patient Portal and [employer] Indication:Type II diabetes mellitus, well controlled Start:22-Jan-2022 Instruction Type:Patient Education Patient Instructions Indication:Nonsmoker Start:12-Sep-2021 Instruction Type:Provider Instructions for Treatment How to Access Health Informa tion Online using Patient Portal and [employer] Indication:Nonsmoker Start:12-Sep-2021 Instruction Type:Patient Education Patient Instructions Indication:Nonsmoker Start:22-Aug-2021 Instruction Type:Provider Instructions for Treatment How to Access Health Informa tion Online using Patient Portal and [employer] Indication:Nonsmoker Start:22-Aug-2021 Instruction Type:Patient Education Patient Instructions Indication:Type II diabetes mellitus, well controlled Start:07-Aug-2021 Instruction Type:Provider Instructions for Treatment How to Access Health Informa tion Online using Patient Portal and [employer] Indication:Type II diabetes mellitus, well controlled Start:07-Aug-2021 Instruction Type:Patient Education Patient Instructions Indication:BMI 50.0-59.9, adult Start:25-Jul-2021 Instruction Type:Provider Instructions for Treatment How to Access Health Informa tion Online using Patient Portal and [employer] Indication:BMI 50.0-59.9, adult Start:25-Jul-2021 Instruction Type:Patient Education Patient Instructions Indication:Nonsmoker Start:11-Jul-2021 Instruction Type:Provider Instructions for Treatment How to Access Health Informa tion Online using Patient Portal and [employer] Indication:Nonsmoker Start:11-Jul-2021 Instruction Type:Patient Education Patient Instructions Indication:BMI 50.0-59.9, adult Start:01-Jul-2021 Instruction Type:Provider Instructions for Treatment How to Access Health Informa tion Online using Patient Portal and [employer] Indication:BMI 50.0-59.9, adult Start:01-Jul-2021 Instruction Type:Patient Education Patient Instructions Indication:BMI 50.0-59.9, adult Start:13-May-2021 Instruction Type:Provider Instructions for Treatment How to Access Health Informa tion Online using Patient Portal and [employer] Indication:BMI 50.0-59.9, adult Start:13-May-2021 Instruction Type:Patient Education Patient Instructions Indication:BMI 50.0-59.9, adult Start:29-Apr-2021 Instruction Type:Provider Instructions for Treatment How to Access Health Informa tion Online using Patient Portal and [employer] Indication:Diabetes type 2, uncontrolled Start:29-Apr-2021 Instruction Type:Patient Education Patient Instructions Indication:Patient uses snuff Start:25-Jan-2021 Instruction Type:Provider Instructions for Treatment How to Access Health Informa tion Online using Patient Portal and [employer] Indication:Patient uses snuff Start:25-Jan-2021 Instruction Type:Patient Education Patient Instructions Indication:BMI 50.0-59.9, adult Start:11-Dec-2020 Instruction Type:Provider Instructions for Treatment How to Access Health Informa tion Online using Patient Portal and [employer] Indication:BMI 50.0-59.9, adult Start:11-Dec-2020 Instruction Type:Patient Education Patient Instructions Indication:Patient uses snuff Start:30-Oct-2020 Instruction Type:Provider Instructions for Treatment How to Access Health Informa tion Online using Patient Portal and [employer] Indication:Patient uses snuff Start:30-Oct-2020 Instruction Type:Patient Education Patient Instructions Indication:Diabetes type 2, uncontrolled Start:09-Oct-2020 Instruction Type:Provider Instructions for Treatment How to Access Health Informa tion Online using Patient Portal and [employer] Indication:Diabetes type 2, uncontrolled Start:09-Oct-2020 Instruction Type:Patient Education [facility]; [facility] Work Phone: Instructions* Name Dates Details Patient Instructions Indication:Type II diabetes mellitus, well controlled Start:28-Apr-2022 Instruction Type:Provider Instructions for Treatment How to Access Health Informa tion Online using Patient Portal and [employer] Indication:Type II diabetes mellitus, well controlled Start:28-Apr-2022 Instruction Type:Patient Education Patient Instructions Indication:Type II diabetes mellitus, well controlled Start:22-Jan-2022 Instruction Type:Provider Instructions for Treatment How to Access Health Informa tion Online using Patient Portal and [employer] Indication:Type II diabetes mellitus, well controlled Start:22-Jan-2022 Instruction Type:Patient Education Patient Instructions Indication:Nonsmoker Start:12-Sep-2021 Instruction Type:Provider Instructions for Treatment How to Access Health Informa tion Online using Patient Portal and [employer] Indication:Nonsmoker Start:12-Sep-2021 Instruction Type:Patient Education Patient Instructions Indication:Nonsmoker Start:22-Aug-2021 Instruction Type:Provider Instructions for Treatment How to Access Health Informa tion Online using Patient Portal and [employer] Indication:Nonsmoker Start:22-Aug-2021 Instruction Type:Patient Education Patient Instructions Indication:Type II diabetes mellitus, well controlled Start:07-Aug-2021 Instruction Type:Provider Instructions for Treatment How to Access Health Informa tion Online using Patient Portal and [employer] Indication:Type II diabetes mellitus, well controlled Start:07-Aug-2021 Instruction Type:Patient Education Patient Instructions Indication:BMI 50.0-59.9, adult Start:25-Jul-2021 Instruction Type:Provider Instructions for Treatment How to Access Health Informa tion Online using Patient Portal and [employer] Indication:BMI 50.0-59.9, adult Start:25-Jul-2021 Instruction Type:Patient Education Patient Instructions Indication:Nonsmoker Start:11-Jul-2021 Instruction Type:Provider Instructions for Treatment How to Access Health Informa tion Online using Patient Portal and [employer]rd [employer] Apps Indication:Nonsmoker Start:11-Jul-2021 Instruction Type:Patient Education Patient Instructions Indication:BMI 50.0-59.9, adult Start:01-Jul-2021 Instruction Type:Provider Instructions for Treatment How to Access Health Informa tion Online using Patient Portal and [employer]rd [employer] Apps Indication:BMI 50.0-59.9, adult Start:01-Jul-2021 Instruction Type:Patient Education Patient Instructions Indication:BMI 50.0-59.9, adult Start:13-May-2021 Instruction Type:Provider Instructions for Treatment How to Access Health Informa tion Online using Patient Portal and 3rd [employer] Apps Indication:BMI 50.0-59.9, adult Start:13-May-2021 Instruction Type:Patient Education Patient Instructions Indication:BMI 50.0-59.9, adult Start:29-Apr-2021 Instruction Type:Provider Instructions for Treatment How to Access Health Informa tion Online using Patient Portal and 3rd [employer] Apps Indication:Diabetes type 2, uncontrolled Start:29-Apr-2021 Instruction Type:Patient Education Patient Instructions Indication:Patient uses snuff Start:25-Jan-2021 Instruction Type:Provider Instructions for Treatment How to Access Health Informa tion Online using Patient Portal and 3rd [employer] Apps Indication:Patient uses snuff Start:25-Jan-2021 Instruction Type:Patient Education Patient Instructions Indication:BMI 50.0-59.9, adult Start:11-Dec-2020 Instruction Type:Provider Instructions for Treatment How to Access Health Informa tion Online using Patient Portal and 3rd [employer] Apps Indication:BMI 50.0-59.9, adult Start:11-Dec-2020 Instruction Type:Patient Education Patient Instructions Indication:Patient uses snuff Start:30-Oct-2020 Instruction Type:Provider Instructions for Treatment How to Access Health Informa tion Online using Patient Portal and 3rd [employer] Apps Indication:Patient uses snuff Start:30-Oct-2020 Instruction Type:Patient Education Patient Instructions Indication:Diabetes type 2, uncontrolled Start:09-Oct-2020 Instruction Type:Provider Instructions for Treatment How to Access Health Informa tion Online using Patient Portal and 3rd [employer] Apps Indication:Diabetes type 2, uncontrolled Start:09-Oct-2020 Instruction Type:Patient Education [facility]; [facility] Work Phone: Instructions* Name Dates Details Patient Instructions Indication:Type II diabetes mellitus, well controlled Start:28-Apr-2022 Instruction Type:Provider Instructions for Treatment How to Access Health Informa tion Online using Patient Portal and 3rd [employer] Apps Indication:Type II diabetes mellitus, well controlled Start:28-Apr-2022 Instruction Type:Patient Education Patient Instructions Indication:Type II diabetes mellitus, well controlled Start:22-Jan-2022 Instruction Type:Provider Instructions for Treatment How to Access Health Informa tion Online using Patient Portal and 3rd [employer] Apps Indication:Type II diabetes mellitus, well controlled Start:22-Jan-2022 Instruction Type:Patient Education Patient Instructions Indication:Nonsmoker Start:12-Sep-2021 Instruction Type:Provider Instructions for Treatment How to Access Health Informa tion Online using Patient Portal and 3rd [employer] Apps Indication:Nonsmoker Start:12-Sep-2021 Instruction Type:Patient Education Patient Instructions Indication:Nonsmoker Start:22-Aug-2021 Instruction Type:Provider Instructions for Treatment How to Access Health Informa tion Online using Patient Portal and 3rd [employer] Apps Indication:Nonsmoker Start:22-Aug-2021 Instruction Type:Patient Education Patient Instructions Indication:Type II diabetes mellitus, well controlled Start:07-Aug-2021 Instruction Type:Provider Instructions for Treatment How to Access Health Informa tion Online using Patient Portal and 3rd [employer] Apps Indication:Type II diabetes mellitus, well controlled Start:07-Aug-2021 Instruction Type:Patient Education Patient Instructions Indication:BMI 50.0-59.9, adult Start:25-Jul-2021 Instruction Type:Provider Instructions for Treatment How to Access Health Informa tion Online using Patient Portal and 3rd [employer] Apps Indication:BMI 50.0-59.9, adult Start:25-Jul-2021 Instruction Type:Patient Education Patient Instructions Indication:Nonsmoker Start:11-Jul-2021 Instruction Type:Provider Instructions for Treatment How to Access Health Informa tion Online using Patient Portal and 3rd [employer] Apps Indication:Nonsmoker Start:11-Jul-2021 Instruction Type:Patient Education Patient Instructions Indication:BMI 50.0-59.9, adult Start:01-Jul-2021 Instruction Type:Provider Instructions for Treatment How to Access Health Informa tion Online using Patient Portal and 3rd [employer] Apps Indication:BMI 50.0-59.9, adult Start:01-Jul-2021 Instruction Type:Patient Education Patient Instructions Indication:BMI 50.0-59.9, adult Start:13-May-2021 Instruction Type:Provider Instructions for Treatment How to Access Health Informa tion Online using Patient Portal and 3rd [employer] Apps Indication:BMI 50.0-59.9, adult Start:13-May-2021 Instruction Type:Patient Education Patient Instructions Indication:BMI 50.0-59.9, adult Start:29-Apr-2021 Instruction Type:Provider Instructions for Treatment How to Access Health Informa tion Online using Patient Portal and 3rd [employer] Apps Indication:Diabetes type 2, uncontrolled Start:29-Apr-2021 Instruction Type:Patient Education Patient Instructions Indication:Patient uses snuff Start:25-Jan-2021 Instruction Type:Provider Instructions for Treatment How to Access Health Informa tion Online using Patient Portal and 3rd [employer] Apps Indication:Patient uses snuff Start:25-Jan-2021 Instruction Type:Patient Education Patient Instructions Indication:BMI 50.0-59.9, adult Start:11-Dec-2020 Instruction Type:Provider Instructions for Treatment How to Access Health Informa tion Online using Patient Portal and 3rd [employer] Apps Indication:BMI 50.0-59.9, adult Start:11-Dec-2020 Instruction Type:Patient Education Patient Instructions Indication:Patient uses snuff Start:30-Oct-2020 Instruction Type:Provider Instructions for Treatment How to Access Health Informa tion Online using Patient Portal and 3rd [employer] Apps Indication:Patient uses snuff Start:30-Oct-2020 Instruction Type:Patient Education Patient Instructions Indication:Diabetes type 2, uncontrolled Start:09-Oct-2020 Instruction Type:Provider Instructions for Treatment How to Access Health Informa tion Online using Patient Portal and 3rd [employer] Apps Indication:Diabetes type 2, uncontrolled Start:09-Oct-2020 Instruction Type:Patient Education [facility]; [facility] Work Phone: Instructions* Name Dates Details Patient Instructions Indication:Type II diabetes mellitus, well controlled Start:28-Apr-2022 Instruction Type:Provider Instructions for Treatment How to Access Health Informa tion Online using Patient Portal and 3rd [employer] Apps Indication:Type II diabetes mellitus, well controlled Start:28-Apr-2022 Instruction Type:Patient Education Patient Instructions Indication:Type II diabetes mellitus, well controlled Start:22-Jan-2022 Instruction Type:Provider Instructions for Treatment How to Access Health Informa tion Online using Patient Portal and 3rd [employer] Apps Indication:Type II diabetes mellitus, well controlled Start:22-Jan-2022 Instruction Type:Patient Education Patient Instructions Indication:Nonsmoker Start:12-Sep-2021 Instruction Type:Provider Instructions for Treatment How to Access Health Informa tion Online using Patient Portal and [employer]rd [employer] Apps Indication:Nonsmoker Start:12-Sep-2021 Instruction Type:Patient Education Patient Instructions Indication:Nonsmoker Start:22-Aug-2021 Instruction Type:Provider Instructions for Treatment How to Access Health Informa tion Online using Patient Portal and [employer]rd [employer] Apps Indication:Nonsmoker Start:22-Aug-2021 Instruction Type:Patient Education Patient Instructions Indication:Type II diabetes mellitus, well controlled Start:07-Aug-2021 Instruction Type:Provider Instructions for Treatment How to Access Health Informa tion Online using Patient Portal and [employer]rd [employer] Apps Indication:Type II diabetes mellitus, well controlled Start:07-Aug-2021 Instruction Type:Patient Education Patient Instructions Indication:BMI 50.0-59.9, adult Start:25-Jul-2021 Instruction Type:Provider Instructions for Treatment How to Access Health Informa tion Online using Patient Portal and 3rd [employer] Apps Indication:BMI 50.0-59.9, adult Start:25-Jul-2021 Instruction Type:Patient Education Patient Instructions Indication:Nonsmoker Start:11-Jul-2021 Instruction Type:Provider Instructions for Treatment How to Access Health Informa tion Online using Patient Portal and 3rd [employer] Apps Indication:Nonsmoker Start:11-Jul-2021 Instruction Type:Patient Education Patient Instructions Indication:BMI 50.0-59.9, adult Start:01-Jul-2021 Instruction Type:Provider Instructions for Treatment How to Access Health Informa tion Online using Patient Portal and 3rd [employer] Apps Indication:BMI 50.0-59.9, adult Start:01-Jul-2021 Instruction Type:Patient Education Patient Instructions Indication:BMI 50.0-59.9, adult Start:13-May-2021 Instruction Type:Provider Instructions for Treatment How to Access Health Informa tion Online using Patient Portal and 3rd [employer] Apps Indication:BMI 50.0-59.9, adult Start:13-May-2021 Instruction Type:Patient Education Patient Instructions Indication:BMI 50.0-59.9, adult Start:29-Apr-2021 Instruction Type:Provider Instructions for Treatment How to Access Health Informa tion Online using Patient Portal and 3rd [employer] Apps Indication:Diabetes type 2, uncontrolled Start:29-Apr-2021 Instruction Type:Patient Education Patient Instructions Indication:Patient uses snuff Start:25-Jan-2021 Instruction Type:Provider Instructions for Treatment How to Access Health Informa tion Online using Patient Portal and 3rd [employer] Apps Indication:Patient uses snuff Start:25-Jan-2021 Instruction Type:Patient Education Patient Instructions Indication:BMI 50.0-59.9, adult Start:11-Dec-2020 Instruction Type:Provider Instructions for Treatment How to Access Health Informa tion Online using Patient Portal and 3rd [employer] Apps Indication:BMI 50.0-59.9, adult Start:11-Dec-2020 Instruction Type:Patient Education Patient Instructions Indication:Patient uses snuff Start:30-Oct-2020 Instruction Type:Provider Instructions for Treatment How to Access Health Informa tion Online using Patient Portal and 3rd [employer] Apps Indication:Patient uses snuff Start:30-Oct-2020 Instruction Type:Patient Education Patient Instructions Indication:Diabetes type 2, uncontrolled Start:09-Oct-2020 Instruction Type:Provider Instructions for Treatment How to Access Health Informa tion Online using Patient Portal and 3rd [employer] Apps Indication:Diabetes type 2, uncontrolled Start:09-Oct-2020 Instruction Type:Patient Education [facility]; [facility] Work Phone: Instructions* Name Dates Details Patient Instructions Indication:BMI 50.0-59.9, adult Start:20-Jan-2023 Instruction Type:Provider Instructions for Treatment How to Access Health Informa tion Online using Patient Portal and 3rd [employer] Apps Indication:BMI 50.0-59.9, adult Start:20-Jan-2023 Instruction Type:Patient Education Patient Instructions Indication:Type II diabetes mellitus, well controlled Start:28-Apr-2022 Instruction Type:Provider Instructions for Treatment How to Access Health Informa tion Online using Patient Portal and 3rd [employer] Apps Indication:Type II diabetes mellitus, well controlled Start:28-Apr-2022 Instruction Type:Patient Education Patient Instructions Indication:Type II diabetes mellitus, well controlled Start:22-Jan-2022 Instruction Type:Provider Instructions for Treatment How to Access Health Informa tion Online using Patient Portal and 3rd [employer] Apps Indication:Type II diabetes mellitus, well controlled Start:22-Jan-2022 Instruction Type:Patient Education Patient Instructions Indication:Nonsmoker Start:12-Sep-2021 Instruction Type:Provider Instructions for Treatment How to Access Health Informa tion Online using Patient Portal and 3rd [employer] Apps Indication:Nonsmoker Start:12-Sep-2021 Instruction Type:Patient Education Patient Instructions Indication:Nonsmoker Start:22-Aug-2021 Instruction Type:Provider Instructions for Treatment How to Access Health Informa tion Online using Patient Portal and 3rd [employer] Apps Indication:Nonsmoker Start:22-Aug-2021 Instruction Type:Patient Education Patient Instructions Indication:Type II diabetes mellitus, well controlled Start:07-Aug-2021 Instruction Type:Provider Instructions for Treatment How to Access Health Informa tion Online using Patient Portal and 3rd [employer] Apps Indication:Type II diabetes mellitus, well controlled Start:07-Aug-2021 Instruction Type:Patient Education Patient Instructions Indication:BMI 50.0-59.9, adult Start:25-Jul-2021 Instruction Type:Provider Instructions for Treatment How to Access Health Informa tion Online using Patient Portal and 3rd [employer] Apps Indication:BMI 50.0-59.9, adult Start:25-Jul-2021 Instruction Type:Patient Education Patient Instructions Indication:Nonsmoker Start:11-Jul-2021 Instruction Type:Provider Instructions for Treatment How to Access Health Informa tion Online using Patient Portal and 3rd [employer] Apps Indication:Nonsmoker Start:11-Jul-2021 Instruction Type:Patient Education Patient Instructions Indication:BMI 50.0-59.9, adult Start:01-Jul-2021 Instruction Type:Provider Instructions for Treatment How to Access Health Informa tion Online using Patient Portal and 3rd [employer] Apps Indication:BMI 50.0-59.9, adult Start:01-Jul-2021 Instruction Type:Patient Education Patient Instructions Indication:BMI 50.0-59.9, adult Start:13-May-2021 Instruction Type:Provider Instructions for Treatment How to Access Health Informa tion Online using Patient Portal and 3rd [employer] Apps Indication:BMI 50.0-59.9, adult Start:13-May-2021 Instruction Type:Patient Education Patient Instructions Indication:BMI 50.0-59.9, adult Start:29-Apr-2021 Instruction Type:Provider Instructions for Treatment How to Access Health Informa tion Online using Patient Portal and 3rd [employer] Apps Indication:Diabetes type 2, uncontrolled Start:29-Apr-2021 Instruction Type:Patient Education Patient Instructions Indication:Patient uses snuff Start:25-Jan-2021 Instruction Type:Provider Instructions for Treatment How to Access Health Informa tion Online using Patient Portal and 3rd [employer] Apps Indication:Patient uses snuff Start:25-Jan-2021 Instruction Type:Patient Education Patient Instructions Indication:BMI 50.0-59.9, adult Start:11-Dec-2020 Instruction Type:Provider Instructions for Treatment How to Access Health Informa tion Online using Patient Portal and 3rd [employer] Apps Indication:BMI 50.0-59.9, adult Start:11-Dec-2020 Instruction Type:Patient Education Patient Instructions Indication:Patient uses snuff Start:30-Oct-2020 Instruction Type:Provider Instructions for Treatment How to Access Health Informa tion Online using Patient Portal and 3rd [employer] Apps Indication:Patient uses snuff Start:30-Oct-2020 Instruction Type:Patient Education Patient Instructions Indication:Diabetes type 2, uncontrolled Start:09-Oct-2020 Instruction Type:Provider Instructions for Treatment How to Access Health Informa tion Online using Patient Portal and 3rd [employer] Apps Indication:Diabetes type 2, uncontrolled Start:09-Oct-2020 Instruction Type:Patient Education [facility]; [facility] Work Phone: Instructions* Name Dates Details Patient Instructions Indication:BMI 50.0-59.9, adult Start:20-Jan-2023 Instruction Type:Provider Instructions for Treatment How to Access Health Informa tion Online using Patient Portal and 3rd [employer] Apps Indication:BMI 50.0-59.9, adult Start:20-Jan-2023 Instruction Type:Patient Education Patient Instructions Indication:Type II diabetes mellitus, well controlled Start:28-Apr-2022 Instruction Type:Provider Instructions for Treatment How to Access Health Informa tion Online using Patient Portal and 3rd [employer] Apps Indication:Type II diabetes mellitus, well controlled Start:28-Apr-2022 Instruction Type:Patient Education Patient Instructions Indication:Type II diabetes mellitus, well controlled Start:22-Jan-2022 Instruction Type:Provider Instructions for Treatment How to Access Health Informa tion Online using Patient Portal and 3rd [employer] Apps Indication:Type II diabetes mellitus, well controlled Start:22-Jan-2022 Instruction Type:Patient Education Patient Instructions Indication:Nonsmoker Start:12-Sep-2021 Instruction Type:Provider Instructions for Treatment How to Access Health Informa tion Online using Patient Portal and 3rd [employer] Apps Indication:Nonsmoker Start:12-Sep-2021 Instruction Type:Patient Education Patient Instructions Indication:Nonsmoker Start:22-Aug-2021 Instruction Type:Provider Instructions for Treatment How to Access Health Informa tion Online using Patient Portal and 3rd [employer] Apps Indication:Nonsmoker Start:22-Aug-2021 Instruction Type:Patient Education Patient Instructions Indication:Type II diabetes mellitus, well controlled Start:07-Aug-2021 Instruction Type:Provider Instructions for Treatment How to Access Health Informa tion Online using Patient Portal and 3rd [employer] Apps Indication:Type II diabetes mellitus, well controlled Start:07-Aug-2021 Instruction Type:Patient Education Patient Instructions Indication:BMI 50.0-59.9, adult Start:25-Jul-2021 Instruction Type:Provider Instructions for Treatment How to Access Health Informa tion Online using Patient Portal and 3rd [employer] Apps Indication:BMI 50.0-59.9, adult Start:25-Jul-2021 Instruction Type:Patient Education Patient Instructions Indication:Nonsmoker Start:11-Jul-2021 Instruction Type:Provider Instructions for Treatment How to Access Health Informa tion Online using Patient Portal and 3rd [employer] Apps Indication:Nonsmoker Start:11-Jul-2021 Instruction Type:Patient Education Patient Instructions Indication:BMI 50.0-59.9, adult Start:01-Jul-2021 Instruction Type:Provider Instructions for Treatment How to Access Health Informa tion Online using Patient Portal and 3rd [employer] Apps Indication:BMI 50.0-59.9, adult Start:01-Jul-2021 Instruction Type:Patient Education Patient Instructions Indication:BMI 50.0-59.9, adult Start:13-May-2021 Instruction Type:Provider Instructions for Treatment How to Access Health Informa tion Online using Patient Portal and 3rd [employer] Apps Indication:BMI 50.0-59.9, adult Start:13-May-2021 Instruction Type:Patient Education Patient Instructions Indication:BMI 50.0-59.9, adult Start:29-Apr-2021 Instruction Type:Provider Instructions for Treatment How to Access Health Informa tion Online using Patient Portal and 3rd [employer] Apps Indication:Diabetes type 2, uncontrolled Start:29-Apr-2021 Instruction Type:Patient Education Patient Instructions Indication:Patient uses snuff Start:25-Jan-2021 Instruction Type:Provider Instructions for Treatment How to Access Health Informa tion Online using Patient Portal and 3rd [employer] Apps Indication:Patient uses snuff Start:25-Jan-2021 Instruction Type:Patient Education Patient Instructions Indication:BMI 50.0-59.9, adult Start:11-Dec-2020 Instruction Type:Provider Instructions for Treatment How to Access Health Informa tion Online using Patient Portal and 3rd [employer] Apps Indication:BMI 50.0-59.9, adult Start:11-Dec-2020 Instruction Type:Patient Education Patient Instructions Indication:Patient uses snuff Start:30-Oct-2020 Instruction Type:Provider Instructions for Treatment How to Access Health Informa tion Online using Patient Portal and 3rd [employer] Apps Indication:Patient uses snuff Start:30-Oct-2020 Instruction Type:Patient Education Patient Instructions Indication:Diabetes type 2, uncontrolled Start:09-Oct-2020 Instruction Type:Provider Instructions for Treatment How to Access Health Informa tion Online using Patient Portal and 3rd [employer] Apps Indication:Diabetes type 2, uncontrolled Start:09-Oct-2020 Instruction Type:Patient Education [facility]; [facility] Work Phone: Summary Purpose Family History No Family History Records FoundUnknown Family Member Name Dates Details Father Comments:alcoholism Status:Active Unknown Family Member Name Dates Details Father Comments:alcoholism Status:Active Unknown Family Member Name Dates Details Father Comments:alcoholism Status:Active Unknown Family Member Name Dates Details Father Comments:alcoholism Status:Active Unknown Family Member Name Dates Details Father Comments:alcoholism Status:Active Unknown Family Member Name Dates Details Father Comments:alcoholism Status:Active Unknown Family Member Name Dates Details Father Comments:alcoholism Status:Active Unknown Family Member Name Dates Details Father Comments:alcoholism Status:Active Unknown Family Member Name Dates Details Father Comments:alcoholism Status:Active Unknown Family Member Name Dates Details Father Comments:alcoholism Status:Active Unknown Family Member Name Dates Details Father Comments:alcoholism Status:Active Unknown Family Member Name Dates Details Father Comments:alcoholism Status:Active Unknown Family Member Name Dates Details Father Comments:alcoholism Status:Active Unknown Family Member Name Dates Details Father Comments:alcoholism Status:Active Unknown Family Member Name Dates Details Father Comments:alcoholism Status:Active Unknown Family Member Name Dates Details Father Comments:alcoholism Status:Active Unknown Family Member Name Dates Details Father Comments:alcoholism Status:Active Unknown Family Member Name Dates Details Father Comments:alcoholism Status:Active Unknown Family Member Name Dates Details Father Comments:alcoholism Status:Active Unknown Family Member Name Dates Details Father Comments:alcoholism Status:Active Unknown Family Member Name Dates Details Father Comments:alcoholism Status:Active Unknown Family Member Name Dates Details Father Comments:alcoholism Status:Active Unknown Family Member Name Dates Details Father Comments:alcoholism Status:Active Unknown Family Member Name Dates Details Father Comments:alcoholism Status:Active Unknown Family Member Name Dates Details Father Comments:alcoholism Status:Active Unknown Family Member Name Dates Details Father Comments:alcoholism Status:Active Unknown Family Member Name Dates Details Father Comments:alcoholism Status:Active Unknown Family Member Name Dates Details Father Comments:alcoholism Status:Active Unknown Family Member Name Dates Details Father Comments:alcoholism Status:Active Unknown Family Member Name Dates Details Father Comments:alcoholism Status:Active Unknown Family Member Name Dates Details Father Comments:alcoholism Status:Active Unknown Family Member Name Dates Details Father Comments:alcoholism Status:Active Unknown Family Member Name Dates Details Father Comments:alcoholism Status:Active Unknown Family Member Name Dates Details Father Comments:alcoholism Status:Active Advance Directives No Advanced Directives Records FoundNo Advanced Directives Records FoundNo Advanced Directives Records FoundNo Advanced Directives Records Found Instructions Name Dates Details Patient Instructions Indication:Diabetes type 2, uncontrolled Start:09-Oct-2020 Instruction Type:Provider Instructions for Treatment How to Access Health Informa tion Online using Patient Portal and [employer]rd [employer] Apps Indication:Diabetes type 2, uncontrolled Start:09-Oct-2020 Instruction Type:Patient Edu cation Name Dates Details Patient Instructions Indication:Diabetes type 2, uncontrolled Start:09-Oct-2020 Instruction Type:Provider Instructions for Treatment How to Access Health Informa tion Online using Patient Portal and 3rd [employer] Apps Indication:Diabetes type 2, uncontrolled Start:09-Oct-2020 Instruction Type:Patient Edu cation Health Concerns Infection Onset Date Last Indicated Resolved Time COVID-19 Rule-Out 06/17/2022 06/17/2022 Additional Source Comments INFORMATION SOURCE (unrecogn ized section and content) DATE CREATED AUTHOR AUTHOR'S ORGANIZ ATION 06/12/2020 [facility] DATE CREATED AUTHOR AUTHOR'S ORGANIZ ATION 10/21/2022 [facility] DATE CREATED AUTHOR AUTHOR'S ORGANIZ ATION 03/28/2023 [facility] Source Comments (unrecognize d section and content) In the event this informatio n is protected by the Federal Confidentiality of Alcohol and Drug Abuse Patient Records regulations: The Federal rules restrict any use of the information to criminally investigate or prosecute any alcohol or drug abuse patient.[facility] the event this information is protected by the Federal Confidentiality of Alcohol and Drug Abuse Patient Records regulations: The Federal rules restrict any use of the information to criminally investigate or prosecute any alcohol or drug abuse patient.[facility] Reason for Visit (unrecogniz ed section and content) Reason Comments Patient Update Care Teams (unrecognized sec tion and content) Contracting Manager Relationship Specialty Start Date End Date Colby Jc, [facility] [address] [place] [address] Pharmacist Pharmacy 06/06/20 FOR RECORDS PERTAINING TO PATIENTS WHO ARE OR HAVE BEEN ENROLLED IN A CHEMICAL DEPENDENCY/SUBSTANCEABUSE PROGRAM, SOME INFORMATION MAY BE OMITTED. This clinical summary was aggregated from multiple sources. Caution should be exercised in using it in the provision of clinical care. This summary normalizes information from multiple sources, and as a consequence, information in this document may materially change the coding, format and clinical context of patient data. In addition, data may be omitted in some cases. CLINICAL DECISIONS SHOULD BE BASED ON THE PRIMARY CLINICAL RECORDS. [facility] [employer] provides no warranty or guarantee of the accuracy or completeness of information in this document.
[2023-09-14] MEDS: Ondansetron ODT 4 MG Tablet PO (00:40)
== END 2023-09-14 00:42 | disposition left against medical advice (07) ==
LOC: ED 00:25
PROVIDERS: Emergency Provider Emergency Medicine; PCP Nurse Practitioner Family; Visit Provider Emergency Medicine
DX: R10.9 Unspecified abdominal pain (principal); E11.9 Type 2 diabetes mellitus without complications; K29.20 Alcoholic gastritis without bleeding; R11.2 Nausea with vomiting, unspecified; Z86.711 Personal history of pulmonary embolism
CPT/HCPCS: 99282

== ENCOUNTER 2023-11-06 13:55 | Emergency (ER) | payer MEDICARE, MEDICAID, SELFPAY ==
[2023-11-06 13:55] VITALS: BP 135/87; BP 170/107; PULSE 87; PULSE 96; RESP 14; RESP 17; TEMP 36.2; O2SAT 97; O2SAT 98
--- NOTE | 2023-11-06 14:05 | EX.ED.DYSGE1 ---
HPI History of Present Illness Chief Complaint: Abscess Informant: patient Onset/Context/Timing Onset: Days (3) Context: Gradual Onset Timing: Continuous Quality: Burning Location: Left posterior thigh Worsened by: Nothing Relieved by: Nothing Narrative Narrative: Patient presents with an abscess to her posterior left thigh that has been getting worse over the last 3 days. Patient states the pain is burning. Patient states it is constant. Patient states nothing makes it better and nothing makes it worse. Patient denies any fevers or chills. Patient denies any discharge or drainage. Patient denies any trauma or puncture wound. Patient denies any prior history of abscesses. Patient has a history of diabetes. [facility] Medical History Diabetes History of pulmonary embolism Pain, dental Home Medications dapagliflozin propanediol 5 mg tablet 5 mg PO DAILY 09/17/20 [History Last Taken Unknown] furosemide 40 mg tablet 40 mg PO DAILY 09/17/20 [History Last Taken Unknown] gabapentin 300 mg capsule 300 mg PO BID 05/16/21 [History Last Taken Unknown] semaglutide 0.25 mg or 0.5 mg (2 mg/1.5 mL) subcutaneous pen injector (Ozempic) mg subcut QWEEK 05/16/21 [History Last Taken Unknown] doxycycline hyclate 100 mg capsule 100 mg PO BID 5 days #10 caps 07/25/22 [Rx Last Taken Unknown] hydrocodone-acetaminophen 5-325mg 5mg-325mg 1 tab PO Q6H PRN PRN Pain 3 days #12 TABLETS 02/19/23 [Rx Last Taken Unknown] penicillin V potassium 500 mg tablet 500 mg PO 4X/DAY #40 tabs 02/19/23 [Rx Last Taken Unknown] clindamycin HCl 300 mg capsule 300 mg PO TID #15 caps 02/24/23 [Rx Last Taken Unknown] naproxen 500 mg tablet (Naprosyn) 500 mg PO BID PRN pain #20 tabs 02/24/23 [Rx Last Taken Unknown] doxycycline monohydrate 100 mg capsule 100 mg PO BID #14 CAPSULES 05/29/23 [Rx Last Taken Unknown] hydrocodone-acetaminophen 5-325mg 5mg-325mg 1 tab PO Q6H PRN PRN Pain 2 days #6 TABLETS 05/29/23 [Rx Last Taken Unknown] clindamycin HCl 300 mg capsule (Cleocin HCl) 300 mg PO Q6H #28 CAPSULES 06/28/23 [Rx Last Taken Unknown] doxycycline monohydrate 100 mg capsule 100 mg PO BID #20 CAPSULES 09/08/23 [Rx Last Taken Unknown] hydrocodone-acetaminophen 5-325mg 5mg-325mg 1 tab PO Q6H PRN PRN Pain 3 days #10 TABLETS 09/08/23 [Rx Last Taken Unknown] cephalexin 500 mg capsule 500 mg PO Q6H #40 caps 11/06/23 [Rx Last Taken Unknown] Allergy/AdvReac Type Severity Reaction Status Date / Time sulfamethoxazole Allergy Hives Verified 09/14/23 00:04 [From Bactrim] trimethoprim [From Bactrim] Allergy Hives Verified 09/14/23 00:04 ketorolac tromethamine AdvReac Upset Verified 09/14/23 00:04 [From Toradol] Stomach morphine AdvReac Upset Verified 09/14/23 00:04 Stomach tramadol AdvReac Upset Verified 09/14/23 00:04 Stomach Surgical History no surgical history no surgical history Social History Smoking Status: Never smoker substance use type: does not use ROS ROS ED Constitutional Constitutional ED: Denies chills or fever(s) Eyes Eyes: Denies blurry vision or change in vision ENT ENT ED: Denies rhinorrhea or sore throat Cardiovascular Cardiovascular: Denies chest pain or palpitations Respiratory/Chest Respiratory/Chest: Denies cough or dyspnea Gastrointestinal Gastrointestinal: Denies nausea or vomiting Genitourinary Genitourinary ED: Denies dysuria or hematuria Musculoskeletal Musculoskeletal: Denies back pain or neck pain Integumentary Reports abscess; Denies rash Neurologic Neurologic: Denies headache(s) or weakness Allergic/Immunologic Allergic/Immunologic ED: Denies mouth swelling or urticaria EXAM Physical Exam Const Vital Signs: 11/06/23 13:55 11/06/23 13:55 Temperature 97.2 F L Temperature Source Temporal Pulse Rate 96 87 Respiratory Rate 17 14 Blood Pressure 170/107 H 135/87 H Blood Pressure Mean 128 103 Pulse Ox 97 98 Oxygen Delivery Method Room Air Room Air Positive well nourished, well developed and obese General Appearance ED: well developed and NAD Nutritional Appearance: obese HEENT Reports moist mucous membranes Neck supple and no JVD Extremity normal to inspection Neuro oriented x3, CN's II-XII intact bilaterally and no sensory deficits noted Sensorium / Orientation: alert Motor Exam: strength 5/5 throughout Psych mental status grossly normal Skin Skin Narrative: There is erythema, tenderness, and induration over the posterior aspect of the left distal bronchopleural fluctuance. There is no active discharge or drainage. There is some mild warmth noted. MDM MDM MDM Narrative Medical decision making narrative: Patient was advised of the need for incision drainage. Informed consent was obtained. The area was cleaned with chlorhexidine prep. The area was anesthetized with 1% plain lidocaine locally. A small cruciate incision was made using an 15 blade scalpel. A small amount of purulent drainage was expressed. The wound was left open. Bacitracin dressing was applied. Patient tolerated the procedure well. Patient was instructed to use warm compresses. Patient was given a dose of Keflex here. Patient was given a prescription for Keflex. Patient was instructed to follow-up with her primary care physician in 5 to 7 days. Patient understood and was agreeable with the plan. All questions were answered. Procedures Other Procedures Procedure(s): Informed consent was obtained. The area was cleaned with chlorhexidine prep. The area was anesthetized with 1% plain lidocaine locally. A small cruciate incision was made using an 15 blade scalpel. A small amount of purulent drainage was expressed. The wound was left open. Bacitracin dressing was applied. Patient tolerated the procedure well. Discharge Plan Triage Chief Complaint: Abscess ED Provider: Jose Dexter Dx/Rx/DC Orders Clinical Impression: Abscess of left thigh, Diabetes mellitus Instructions: ED Abscess Incision And Drainage Prescriptions: Changed cephalexin 500 mg capsule 500 mg PO Q6H Qty: 40 0RF No Action furosemide 40 MG tablet 40 mg PO DAILY dapagliflozin propanediol 5 MG tablet 5 mg PO DAILY Patient Comments: Take 1 tablet by mouth daily with breakfast. gabapentin 300 mg capsule 300 mg PO BID Patient Comments: TAKE 1 CAPSULE BY MOUTH TWICE DAILY Ozempic 0.25 mg or 0.5 mg(2 mg/1.5 mL) pen injector SUBCUT QWEEK Patient Comments: inject 1 (ONE) (one) Solution Pen-injector EVERY week doxycycline hyclate 100 mg capsule 100 mg PO BID 5 Days Qty: 10 0RF hydrocodone-acetaminophen [hydrocodone-acetaminophen] 5-325 mg tablet 1 tab PO Q6H PRN PRN (Reason: Pain) 3 Days Qty: 12 0RF penicillin V potassium 500 mg tablet 500 mg PO 4X/DAY Qty: 40 0RF naproxen [Naprosyn] 500 mg tablet 500 mg PO BID PRN (Reason: pain) Qty: 20 0RF clindamycin HCl 300 mg capsule 300 mg PO TID Qty: 15 0RF hydrocodone-acetaminophen [hydrocodone-acetaminophen] 5-325 mg tablet 1 tab PO Q6H PRN PRN (Reason: Pain) 2 Days Qty: 6 0RF doxycycline monohydrate 100 mg capsule 100 mg PO BID Qty: 14 0RF clindamycin HCl [Cleocin HCl] 300 mg capsule 300 mg PO Q6H Qty: 28 0RF doxycycline monohydrate 100 mg capsule 100 mg PO BID Qty: 20 0RF hydrocodone-acetaminophen 5-325 mg tablet 1 tab PO Q6H PRN PRN (Reason: Pain) 3 Days Qty: 10 0RF Primary Care Provider: Joanne Brown Referrals: Joanne Brown, ROTATING FIELD ASSEMBLER-C [Primary Care Provider] - 3-5 Days Disposition Disposition: Home, Self Care
[2023-11-06] MEDS: Lidocaine 1% (20 ml mdv) 20 ML Vial INFILT (14:57)
[2023-11-06] MEDS: Cephalexin 500 MG Capsule PO (14:57)
[2023-11-06 16:01] VITALS: BP 130/78; PULSE 80; RESP 14; TEMP 36.2; O2SAT 99
== END 2023-11-06 16:08 | disposition home or self-care (01) ==
PROVIDERS: Emergency Provider Emergency Medicine; PCP Nurse Practitioner Family; Visit Provider Emergency Medicine
DX: L02.416 Cutaneous abscess of left lower limb (principal); E11.9 Type 2 diabetes mellitus without complications; Z79.899 Other long term (current) drug therapy
CPT/HCPCS: 10060; 99283

== ENCOUNTER 2023-11-07 22:28 | Emergency (ER) | payer MEDICARE, MEDICAID, SELFPAY ==
[2023-11-07 22:29] VITALS: BP 134/91; PULSE 109; RESP 15; TEMP 36.6; O2SAT 96; BMI 52.9
--- NOTE | 2023-11-07 22:44 | EX.ED.DYSGE1 ---
HPI History of Present Illness Chief Complaint: Abscess [facility] Medical History Diabetes History of pulmonary embolism Pain, dental Home Medications furosemide 40 mg tablet 40 mg PO DAILY 09/17/20 [History Last Taken Unknown] semaglutide 0.25 mg or 0.5 mg (2 mg/1.5 mL) subcutaneous pen injector (Ozempic) 0.25 mg subcut QWEEK 05/16/21 [History Last Taken Unknown] cephalexin 500 mg capsule 500 mg PO Q6H #40 caps 11/06/23 [Rx Last Taken Unknown] doxycycline hyclate 100 mg capsule 100 mg PO BID #20 caps 11/07/23 [Rx Last Taken Unknown] gabapentin 800 mg tablet 1,600 mg PO QHS 11/07/23 [History Last Taken Unknown] Allergy/AdvReac Type Severity Reaction Status Date / Time sulfamethoxazole Allergy Hives Verified 11/07/23 22:34 [From Bactrim] trimethoprim [From Bactrim] Allergy Hives Verified 11/07/23 22:34 ketorolac tromethamine AdvReac Upset Verified 11/07/23 22:34 [From Toradol] Stomach morphine AdvReac Upset Verified 11/07/23 22:34 Stomach tramadol AdvReac Upset Verified 11/07/23 22:34 Stomach Social History Smoking Status: Never smoker substance use type: does not use EXAM Physical Exam Const Vital Signs: 11/07/23 22:29 Temperature 97.9 F Temperature Source Temporal Pulse Rate 109 H Respiratory Rate 15 Blood Pressure 134/91 H Blood Pressure Mean 105 Pulse Ox 96 Oxygen Delivery Method Room Air [facility] MDM Narrative Medical decision making narrative: HISTORY OF PRESENT ILLNESS: 38-year-old female presents concern for abscess. States she was seen yesterday for similar symptoms and is currently in antibiotics. Denies any fever, denies any diaphoresis, denies any diffuse weakness. REVIEW OF SYSTEMS: Pertinent positives: Pain, redness in left posterior thigh Pertinent negatives: Fever, loss of consciousness PHYSICAL EXAM: Nursing triage notes reviewed, Vital signs reviewed Constitutional: please see mdm Extremities: No edema Skin: Approximately 10 x 10 cm area of erythema, no crepitus bullae fluctuance or induration. MEDICAL DECISION MAKING: Chief Complaint: Abscess External records reviewed: Reviewed ED note from yesterday. Reviewed incision and drainage procedure note. Factors affecting care: Type 2 diabetes MDM Narrative: Patient was hemodynamically stable. Exam without evidence of necrotizing fasciitis. Bedside ultrasound showed no evidence of obvious fluid collection. Given patient's second visit I did broaden her spectrum of antibiotics and added doxycycline. Give strict return precautions and follow-up instructions. The patient and/or family, caregivers express understanding. The patient and/or family, caregivers agrees with the plan. Shared decision making: I will have a discussion with the patient and or visitors regarding risk/benefits of further testing or admission. They will be made aware of of the risk/benefits inherent in this decision they will be given the opportunity to voice understanding. Total critical care time today provided was at least 0 minutes. This excludes separately billable procedures. Critical care time (if documented) is secondary to the patient having high probability of clinically significant/life threatening deterioration in the patient's condition which required my urgent intervention. Impression: 1. Left thigh cellulitis 2. History of type 2 diabetes Dispo: Discharge home This note was generated with [employer] dictation software. It may contain incorrect words, spelling, and punctuation that were not noted in review of the chart prior to signing. Discharge Plan Triage Chief Complaint: Abscess ED Provider: Yosvany Clark Dx/Rx/DC Orders Clinical Impression: Cellulitis Instructions: ED Cellulitis Prescriptions: New doxycycline hyclate 100 mg capsule 100 mg PO BID Qty: 20 0RF No Action furosemide 40 MG tablet 40 mg PO DAILY Ozempic 0.25 mg or 0.5 mg(2 mg/1.5 mL) pen injector 0.25 mg SUBCUT QWEEK Patient Comments: inject 1 (ONE) (one) Solution Pen-injector EVERY week cephalexin 500 mg capsule 500 mg PO Q6H Qty: 40 0RF gabapentin 800 mg tablet 1,600 mg PO QHS Primary Care Provider: Care Physician,No Primary Activity Restrictions/Additional Instructions: Thank you for trusting us with your care today! Your presentation is consistent with likely cellulitis. There is no evidence of abscess noted on your bedside ultrasound. Please take Tylenol (2 pills, 650 mg), ibuprofen (2 pills, 400 mg) every 6 hours as needed for pain and fever control. Please continue taking already prescribed Keflex. Please start taking newly prescribed doxycycline to provide coverage for MRSA. Please return to the emergency department if your symptoms change or worsen. Specifically develop vomiting, if you feel weak, if you cannot tolerate antibiotics by mouth, if you become sweaty or if redness and pain rapidly progresses up or down your leg over a matter of 3 to 6 hours. If you develop blisters to your skin. Please follow with your primary care physician for further outpatient evaluation and management. Disposition Disposition: Home, Self Care
[2023-11-07] MEDS: Doxycycline 100 MG CAPSULE PO (23:10)
[2023-11-07] MEDS: Oxycodone/Apap 5/325 Tablet PO (23:10)
[2023-11-07 23:11] VITALS: BP 113/68; PULSE 91; RESP 20; TEMP 36.1; O2SAT 93
== END 2023-11-07 23:13 | disposition home or self-care (01) ==
PROVIDERS: Emergency Provider Emergency Medicine; Visit Provider Emergency Medicine
DX: L03.116 Cellulitis of left lower limb (principal); E11.9 Type 2 diabetes mellitus without complications; Z79.899 Other long term (current) drug therapy; Z86.711 Personal history of pulmonary embolism
CPT/HCPCS: 99283

== ENCOUNTER 2024-02-18 14:35 | Emergency (ER) | payer MEDICAID, SELFPAY ==
[2024-02-18 14:38] VITALS: BP 150/104; PULSE 86; RESP 18; TEMP 36.2; O2SAT 98; BMI 55.5
--- NOTE | 2024-02-18 15:08 | EKG12_ITS ---
Test Reason : PALP Blood Pressure : / mmHG Vent. Rate : 088 BPM Atrial Rate : 088 BPM P-R Int : 170 ms QRS Dur : 086 ms QT Int : 358 ms P-R-T Axes : -09 -03 019 degrees QTc Int : 433 ms Normal sinus rhythm Minimal voltage criteria for LVH, may be normal variant ( R in aVL ) Poor R wave progression Abnormal ECG Confirmed by Wade Bowens ([id number]), visual effects editor GIAN ALICEA ([id number]) on 02/22/2024 8:58:03 AM Referred By: BRYANT/AIDEN Confirmed By:Wade Bowens
--- NOTE | 2024-02-18 15:09 | EX.ED.DYSGE1 ---
HPI History of Present Illness Chief Complaint: Palpitations Informant: patient Narrative Narrative: 39-year-old female presenting to the emergency room with episodes of heart racing. Patient states that ever since she took her first shot of Trulicity she has been experiencing episodes where her heart is racing. She does not know regular rate that is racing. She denies any syncope. She states that episodes last up to 5 minutes. They come 4-5 times per day. She took her first dose of Trulicity yesterday about 26 hours ago. She states that she has not had any other medication changes. The medication change was due to insurance reasons. Patient denies any known thyroid issues but notes that she is very fatigued. She called her doctor's office and was advised to come to emergency for evaluation. She states she is not on any blood pressure medicines however she does take furosemide for swelling. [facility] Medical History Pain, dental History of pulmonary embolism Diabetes Home Medications ?Medication ?Instructions ?Recorded ?Last Taken ?Type furosemide 40 mg tablet 40 mg PO DAILY 09/17/20 Unknown History gabapentin 800 mg tablet 1,600 mg PO QHS 11/07/23 Unknown History dulaglutide 0.75 mg/0.5 mL 0.75 mg subcut QWEEK 02/18/24 Unknown History subcutaneous pen injector (Trulicity) lorazepam 2 mg tablet (Ativan) 2 mg PO DAILY 02/18/24 Unknown History Allergy/AdvReac Type Severity Reaction Status Date / Time sulfamethoxazole (From Allergy Hives Verified 02/18/24 14:38 Bactrim) trimethoprim (From Bactrim) Allergy Hives Verified 02/18/24 14:38 ketorolac tromethamine (From AdvReac Upset Verified 02/18/24 14:38 Toradol) Stomach morphine AdvReac Upset Verified 02/18/24 14:38 Stomach tramadol AdvReac Upset Verified 02/18/24 14:38 Stomach Family History no significant family his Social History Smoking Status: Never smoker substance use type: does not use ROS ROS ED ROS Narrative Generalized fatigue Constitutional Constitutional ED: Denies chills, fever(s) or weight loss Eyes Eyes: Denies change in vision or diplopia ENT ENT ED: Denies ear pain, rhinorrhea or sore throat Cardiovascular Cardiovascular: Reports racing heartbeat; Denies chest pain or orthopnea Respiratory/Chest Respiratory/Chest: Denies cough, dyspnea or orthopnea Gastrointestinal Gastrointestinal: Denies abdominal pain, diarrhea, nausea or vomiting Genitourinary Genitourinary ED: Denies dysuria, hematuria or urinary frequency Musculoskeletal Musculoskeletal: Denies arthralgias or myalgias Integumentary Denies abscess or rash Neurologic Neurologic: Denies headache(s) or weakness Psychiatric Psychiatric: Denies anxiety, depression, suicidal ideation or suicidal thoughts Endocrine Endocrinology: Denies polydipsia, polyphagia or polyuria Allergic/Immunologic Allergic/Immunologic ED: Denies mouth swelling, tongue swelling or urticaria EXAM Physical Exam Const Vital Signs: 02/18/24 14:38 02/18/24 14:49 Temperature 97.2 F L Temperature Source Temporal Pulse Rate 86 Respiratory Rate 18 Respiratory Effort Normal Blood Pressure 150/104 H Blood Pressure Mean 119 Pulse Ox 98 Oxygen Delivery Method Room Air Positive well nourished, well developed and obese General Appearance ED: well developed Nutritional Appearance: obese HEENT Reports normocephalic, head/scalp atraumatic and moist mucous membranes Eyes PERRL and EOMs intact bilaterally Neck no lymphadenopathy, supple and no JVD Resp normal respiratory effort and clear to auscultation bilaterally Cardio regular rate, regular rhythm and no murmurs GI normal to inspection, nondistended, normoactive bowel sounds and non-tender Palpation: soft Back/Spine no CVA tenderness and normal ROM Extremity normal to inspection General Extremety ED: Negative for edema General Extremity: Negative for edema Neuro oriented x3 and CN's II-XII intact bilaterally Sensorium / Orientation: alert Motor Exam: strength 5/5 throughout Psych mental status grossly normal Mood & Affect: Negative for depressed or tearful Skin no rashes or lesions noted and no wounds MDM MDM MDM Narrative Medical decision making narrative: Differential diagnosis includes but not limited to anemia electrolyte abnormalities dehydration hypothyroidism cardiac dysrhythmias EKG is a normal sinus rhythm with a ventricular rate of 88 bpm. I do not appreciate any prolonged QT or preexcitation. Hemoglobin 13.8 white count of 8.1 platelet count of 255 sodium potassium magnesium within normal limits TSH is normal. Creatinine 0.68 with a BUN of 11 and a glucose of 167. Patient's remained in normal sinus rhythm. Patient is requesting to have the evening off of work to rest. Patient will follow-up primary care if symptoms persist return if worsening. History & Record Review Discussion w/independent historian: Patient Lab Data Attestation: I reviewed the patient's lab results. Labs: Laboratory Results - last 24 hr 02/18/24 14:45 WBC 8.1 RBC 4.80 Hgb 13.8 Hct 42.1 MCV 87.7 MCH 28.8 MCHC 32.8 RDW Std Deviation 39.8 RDW Coeff of Nirmala 12.3 Plt Count 255 MPV 11.7 Immature Gran % (Auto) 0.600 Neut % (Auto) 74.5 H Lymph % (Auto) 18.4 L [place] % (Auto) 4.8 Eos % (Auto) 1.0 Baso % (Auto) 0.7 Absolute Neuts (auto) 6.1 Absolute Lymphs (auto) 1.50 Nucleated RBC % 0 Sodium 137 Potassium 4.1 Chloride 105 Carbon Dioxide 25.0 Anion Gap 7 BUN 11 Creatinine 0.68 Estim Creat Clear Calc 151.74 Est GFR (MDRD) Af Amer 123 Est GFR (MDRD) Non-Af 102 BUN/Creatinine Ratio 16.2 Glucose 167 H Calcium 9.2 Magnesium 2.0 TSH 1.570 EKG Initial EKG: Attestation: I personally reviewed and interpreted this EKG as follows: Comments: Normal sinus rhythm ventricular rate of 88 bpm Discharge Plan Triage Chief Complaint: Palpitations ED Provider: Rocky Barrera Dx/Rx/DC Orders Clinical Impression: Heart palpitations, Controlled type 2 diabetes mellitus with hyperglycemia Instructions: ED Palpitations Prescriptions: No Action furosemide 40 MG tablet 40 mg PO DAILY gabapentin 800 mg tablet 1,600 mg PO QHS Trulicity 0.75 mg/0.5 mL pen injector 0.75 mg subcut QWEEK lorazepam [Ativan] 2 mg tablet 2 mg PO DAILY Primary Care Provider: Silvana Vick NP Referrals: Silvana Vick NP, GAME DESIGNER/CREATIVE DIRECTOR-C [Primary Care Provider] - 1 Week if not improving Print Language: Kinyarwanda Disposition Disposition: Home, Self Care
[2024-02-18 15:29] LABS: Absolute Neutrophil Count 6.1 X10^3/uL (2.0-7.7); Basophil# 0.06 X10^3/uL; Basophil% 0.7 % (0-1); Eosinophil# 0.08 X10^3/uL; Hematocrit 42.1 % (37-47); Hemoglobin 13.8 g/dL (12.0-15.0); Lymphocyte % 18.4 % (19-41); Mean Corp Hgb Conc 32.8 g/dL (32-36); Mean Corpuscular Hgb 28.8 pg (27.0-32.0); Mean Corpuscular Volume 87.7 fL (81-99); Mean Platelet Vol. 11.7 fl (6.2-12.0); Monocyte# 0.39 X10^3/uL; Monocyte% 4.8 % (0-10); NRBC Flagged by Analyzer 0 % (0-5); Neutrophil # 6.06 X10^3/uL (2.7-7.7); Neutrophil % 74.5 % (47-70); Platelet Count 255 K/mm3 (150-450); RBC Distribution Width CV 12.3 % (11.6-14.6); RBC Distribution Width SD 39.8 fl (35.1-43.9); White Blood Count 8.1 K/mm3 (4.4-11.0)
[2024-02-18 15:55] LABS: Anion Gap 7 (5-15); BUN 11 mg/dL (7-18); BUN/Creat Ratio 16.2 RATIO (10-20); Calcium,Total 9.2 mg/dL (8.5-10.1); Chloride 105 mmol/L (98-107); Creatinine, Serum 0.68 mg/dL (0.55-1.02); EST Glomerular Filtration Rate 102 mL/min (>60); Est Glom Filt Rate - Afr Amer 123 mL/min (>60); Estimated Creatinine Clearance 151.74 ml/min; Glucose 167 mg/dL (74-106); Potassium 4.1 mmol/L (3.5-5.1); Sodium Level 137 mmol/L (136-145)
[2024-02-18 16:33] VITALS: BP 119/80; PULSE 96; RESP 18; TEMP 36.6; O2SAT 99
== END 2024-02-18 16:39 | disposition home or self-care (01) ==
PROVIDERS: Emergency Provider Emergency Medicine; PCP Nurse Practitioner Primary Care; Visit Provider Emergency Medicine
DX: R00.2 Palpitations (principal); E11.65 Type 2 diabetes mellitus with hyperglycemia; Z86.711 Personal history of pulmonary embolism
CPT/HCPCS: 80048; 83735; 84443; 85025; 93005; 99284

== ENCOUNTER 2024-02-20 06:22 | Emergency (ER) | payer MEDICAID, SELFPAY ==
[2024-02-20 06:23] VITALS: BP 144/92; PULSE 87; RESP 18; TEMP 36.8; O2SAT 97; BMI 55.5
--- NOTE | 2024-02-20 06:49 | EDS_ITS ---
HPI History of Present Illness Chief Complaint: Allergic Reaction Informant: patient Onset/Context/Timing Onset: Days (2) Context: Gradual Onset Timing: Continuous Quality: Swelling, burning Location: Upper lip and right cheek Worsened by: Nothing Relieved by: Tylenol Narrative Narrative: Patient presents with swelling to her upper lip and right cheek that has been getting worse over the past 2 days. Patient states it is gradually getting worse. Patient states it is constant. Patient denies any difficulty breathing or difficulty swallowing. Patient states she did start Trulicity 2 to 3 days ago. Patient denies any other hives. Patient denies any visual changes. Patient states nothing makes it better and nothing makes it worse. Patient states she has been taking Tylenol which helps with the pain. [facility] Medical History Pain, dental History of pulmonary embolism Diabetes Home Medications ?Medication ?Instructions ?Recorded ?Last Taken ?Type furosemide 40 mg tablet 40 mg PO DAILY 09/17/20 Unknown History gabapentin 800 mg tablet 1,600 mg PO QHS 11/07/23 Unknown History dulaglutide 0.75 mg/0.5 mL 0.75 mg subcut QWEEK 02/18/24 Unknown History subcutaneous pen injector (Trulicity) lorazepam 2 mg tablet (Ativan) 2 mg PO DAILY 02/18/24 Unknown History penicillin V potassium 500 mg 500 mg PO 4X/DAY #40 tabs 02/20/24 Unknown Rx tablet Allergy/AdvReac Type Severity Reaction Status Date / Time sulfamethoxazole (From Allergy Hives Verified 02/20/24 06:27 Bactrim) trimethoprim (From Bactrim) Allergy Hives Verified 02/20/24 06:27 ketorolac tromethamine (From AdvReac Upset Verified 02/20/24 06:27 Toradol) Stomach morphine AdvReac Upset Verified 02/20/24 06:27 Stomach tramadol AdvReac Upset Verified 02/20/24 06:27 Stomach Family History no significant family his Social History (Updated 02/20/24 @ 06:[address] Jose Dexter DO) Smoking Status: Never smoker Smokeless tobacco user: chewing tobacco substance use type: does not use ROS ROS ED Constitutional Constitutional ED: Denies chills or fever(s) Eyes Eyes: Denies blurry vision or change in vision ENT ENT ED: Denies rhinorrhea or sore throat Cardiovascular Cardiovascular: Denies chest pain or palpitations Respiratory/Chest Respiratory/Chest: Reports cough; Denies dyspnea Gastrointestinal Gastrointestinal: Denies nausea or vomiting Genitourinary Genitourinary ED: Denies dysuria or hematuria Musculoskeletal Musculoskeletal: Denies back pain or neck pain Integumentary Denies abscess or rash Neurologic Neurologic: Denies headache(s) or weakness Allergic/Immunologic Allergic/Immunologic ED: Denies mouth swelling or urticaria EXAM Physical Exam Const Vital Signs: 02/20/24 06:23 Temperature 98.2 F Temperature Source Oral Pulse Rate 87 Respiratory Rate 18 Blood Pressure 144/92 H Blood Pressure Mean 109 Pulse Ox 97 Oxygen Delivery Method Room Air Positive well nourished and well developed General Appearance ED: well developed and NAD HEENT Reports moist mucous membranes HEENT Narrative: There are dental caries noted over the upper incisors. There is some mild gingival edema. There is minimal tenderness with percussion of these teeth. There is no fluctuance. There is no evidence of any abscess. There is edema and tenderness over the upper lip and right cheek. There is some mild induration of the upper lip and right cheek. Neck supple and no JVD Neuro oriented x3, CN's II-XII intact bilaterally and no sensory deficits noted Sensorium / Orientation: alert Motor Exam: strength 5/5 throughout Psych mental status grossly normal MDM MDM MDM Narrative Medical decision making narrative: Patient was advised that this is more likely to be an infectious process from her dental caries. I do not feel this is an allergic or anaphylactic reaction. Patient was given a dose of Pen-Vee K here. Patient was given a prescription for Pen-Vee K. Patient was instructed to follow-up with her dentist in 5 to 7 days. Patient was instructed to follow-up with her primary care physician in 5 to 7 days. Patient was instructed to return if worse in any way. Patient understood and was agreeable with the plan. All questions were answered. Discharge Plan Triage Chief Complaint: Allergic Reaction ED Provider: Jose Dexter Dx/Rx/DC Orders Clinical Impression: Infected dental caries, Pain, dental Instructions: ED Dental Pain, ED Dental Cavity Prescriptions: New penicillin V potassium 500 mg tablet 500 mg PO 4X/DAY Qty: 40 0RF No Action furosemide 40 MG tablet 40 mg PO DAILY gabapentin 800 mg tablet 1,600 mg PO QHS Trulicity 0.75 mg/0.5 mL pen injector 0.75 mg subcut QWEEK lorazepam [Ativan] 2 mg tablet 2 mg PO DAILY Primary Care Provider: Silvana Vick NP Referrals: Silvana Vick NP, [facility] [Primary Care Provider] - 5-7 Days Dentist,Your [STAFF PHYSICIAN] - 5-7 Days Print Language: Icelandic Disposition Disposition: Home, Self Care
[2024-02-20 08:06] VITALS: BP 142/90; PULSE 89; RESP 18; TEMP 36.8; O2SAT 97
== END 2024-02-20 08:07 | disposition home or self-care (01) ==
LOC: ED 07:03
PROVIDERS: Emergency Provider Emergency Medicine; PCP Nurse Practitioner Primary Care; Visit Provider Emergency Medicine
DX: E11.638 Type 2 diabetes mellitus with other oral complications (principal); Z79.85 Long-term (current) use of injectable non-insulin antidiabetic drugs; F17.220 Nicotine dependence, chewing tobacco, uncomplicated; K08.89 Other specified disorders of teeth and supporting structures
CPT/HCPCS: 99282

== ENCOUNTER 2024-02-22 09:21 | Emergency (ER) | payer MEDICAID, SELFPAY ==
[2024-02-22 09:22] VITALS: BP 177/107; BP 179/105; PULSE 78; PULSE 82; RESP 14; RESP 18; TEMP 37.2; O2SAT 100; O2SAT 98
[2024-02-22 09:25] VITALS: BMI 53.1
--- NOTE | 2024-02-22 09:39 | EX.ED.DYSGE1 ---
HPI History of Present Illness Chief Complaint: Wound Informant: patient Narrative Narrative: Presents to ED for reevaluation drainage from inside the mouth. Was seen a couple days ago for dental infection had facial swelling has been taking penicillin 4 times a day today started draining. Yesterday feeling weak. No fevers and chills. She is concerned of blood infection. She is a diabetic glucose 160s this morning. She was given a dental list for which she needs to make a follow-up. [facility] Medical History Pain, dental History of pulmonary embolism Diabetes Home Medications ?Medication ?Instructions ?Recorded ?Last Taken ?Type furosemide 40 mg tablet 40 mg PO DAILY 09/17/20 Unknown History gabapentin 800 mg tablet 1,600 mg PO QHS 11/07/23 Unknown History dulaglutide 0.75 mg/0.5 mL 0.75 mg subcut QWEEK 02/18/24 Unknown History subcutaneous pen injector (Trulicity) lorazepam 2 mg tablet (Ativan) 2 mg PO DAILY 02/18/24 Unknown History penicillin V potassium 500 mg 500 mg PO 4X/DAY #40 tabs 02/20/24 Unknown Rx tablet Allergy/AdvReac Type Severity Reaction Status Date / Time sulfamethoxazole (From Allergy Hives Verified 02/22/24 09:22 Bactrim) trimethoprim (From Bactrim) Allergy Hives Verified 02/22/24 09:22 ketorolac tromethamine (From AdvReac Upset Verified 02/22/24 09:22 Toradol) Stomach morphine AdvReac Upset Verified 02/22/24 09:22 Stomach tramadol AdvReac Upset Verified 02/22/24 09:22 Stomach Social History Smoking Status: Never smoker Smokeless tobacco user: chewing tobacco substance use type: does not use ROS ROS ED Constitutional Constitutional ED: Denies chills, fever(s) or sweats Eyes Eyes: Denies change in vision ENT ENT ED: Reports other Details: Dental drainage ; Denies dysphagia or sore throat Cardiovascular Cardiovascular: Denies chest pain, leg edema, palpitations or racing heartbeat Respiratory/Chest Respiratory/Chest: Denies cough, dyspnea or dyspnea on exertion Gastrointestinal Gastrointestinal: Denies abdominal pain, diarrhea, nausea or vomiting Genitourinary Genitourinary ED: Denies dysuria, hematuria or urinary frequency Musculoskeletal Musculoskeletal: Denies back pain, extremity pain or neck pain Integumentary Denies rash or wounds Neurologic Neurologic: Denies headache(s), paresthesias or weakness EXAM Physical Exam Const Vital Signs: 02/22/24 09:22 02/22/24 09:22 Temperature 99 F Temperature Source Temporal Pulse Rate 82 78 Respiratory Rate 14 18 Blood Pressure 177/107 H 179/105 H Blood Pressure Mean 130 129 Pulse Ox 100 98 Oxygen Delivery Method Room Air Room Air Positive well nourished and well developed General Appearance ED: well developed and NAD HEENT Reports moist mucous membranes HEENT Narrative: Dental decay of left upper incisor there is mild swelling of the gumline in the upper right incisor area. There is no active drainage. Minimal swelling of the upper lip. No sublingual edema. Airway patent. normocephalic and atraumatic Eyes EOMs intact bilaterally and conjunctivae normal General Eye ED: Yes normal appearance of both eyes Neck no lymphadenopathy and supple General: Negative for tenderness Chest Wall Chest: Negative for tenderness Resp normal respiratory effort and normal air movement Effort and Inspection: symmetric chest movement; Negative for respiratory distress Cardio regular rate, regular rhythm and no murmurs Peripheral Pulses: pulses 2+ throughout GI normal to inspection, nondistended, normoactive bowel sounds and non-tender Palpation: Negative for guarding or rebound tenderness present Back/Spine no CVA tenderness and no thoracic nor lumbar tenderness Extremity normal to inspection General Extremety ED: Negative for edema or tenderness General Extremity: Negative for edema Neuro oriented x3 and no sensory deficits noted Sensorium / Orientation: awake and alert Skin no rashes or lesions noted and no wounds MDM MDM MDM Narrative Medical decision making narrative: Interventions / MDM: Differential diagnosis: Dental infection, dental abscess Diagnosis considered but do not suspect: N/A My EKG interpretation: N/A Imaging independently reviewed and interpreted by myself: N/A External documents reviewed: N/A Test considered but not ordered:N/A ED course: Patient afebrile and nontoxic. She reports improving swelling and drainage. Likely abscess with spontaneous drainage. She is having improving symptoms. Discussed with patient symptoms are improving with antibiotics and would not change antibiotics today. She reported concerns for blood infection, discussed no clinical symptoms suggesting this. However offered blood culture to be sent to the lab, she declines at this time. Reassurance was discussed. She will finish antibiotics. She was given dental list again to call for follow-up for definitive treatment for her dental caries. All questions were answered. Re-evaluation: stable Disposition discussed with patient/family/significant other: Patient and friend Case discussed with consulting clinician: N/A This note was generated with [employer] dictation software. It may contain incorrect words, spelling, and punctuation that were not noted in checking the note before signing. Discharge Plan Triage Chief Complaint: Wound ED Provider: Woodrow Briones Dx/Rx/DC Orders Clinical Impression: Abscess, dental, Dental caries Instructions: ED Dental Cavity, ED Dental Abscess Prescriptions: No Action furosemide 40 MG tablet 40 mg PO DAILY gabapentin 800 mg tablet 1,600 mg PO QHS Trulicity 0.75 mg/0.5 mL pen injector 0.75 mg subcut QWEEK lorazepam [Ativan] 2 mg tablet 2 mg PO DAILY penicillin V potassium 500 mg tablet 500 mg PO 4X/DAY Qty: 40 0RF Primary Care Provider: Silvana Vick NP Referrals: Silvana Vick NP, RN [facility] [Primary Care Provider] - Activity Restrictions/Additional Instructions: You likely had dental abscess now spontaneously draining. Her swelling is improving with antibiotics since your last seen. finish antibiotic as prescribed. Make sure you follow-up with dentist for definitive treatment as symptoms can return. Print Language: Luxembourgish Disposition Disposition: Home, Self Care
== END 2024-02-22 10:23 | disposition home or self-care (01) ==
LOC: ED 09:51
PROVIDERS: Emergency Provider Emergency Medicine; PCP Nurse Practitioner Primary Care; Visit Provider Emergency Medicine
DX: K04.7 Periapical abscess without sinus (principal); E11.638 Type 2 diabetes mellitus with other oral complications; Z79.85 Long-term (current) use of injectable non-insulin antidiabetic drugs; F17.220 Nicotine dependence, chewing tobacco, uncomplicated; K02.9 Dental caries, unspecified
CPT/HCPCS: 99282

== ENCOUNTER 2024-06-24 10:03 | Emergency (ER) | payer MEDICAID, SELFPAY ==
[2024-06-24 10:03] VITALS: BP 168/96; PULSE 105; RESP 18; O2SAT 97
[2024-06-24 10:04] VITALS: BP 230/129; PULSE 100; RESP 22; TEMP 36.6; O2SAT 100
--- NOTE | 2024-06-24 10:13 | ED.VIS.BACK ---
HPI History of Present Illness Chief Complaint: Back Informant: patient Onset/Context/Timing Onset: Days (-3) Timing: Continuous Quality: Burning Location: Lumbar and Right Leg Worsened by: improves with Ambulation Relieved by: Nothing Associated Symptoms Associated Symptoms: Numbness, Tingling and Radiation to Right Leg; Negative for Radiation to Left Leg, Fever, Abdominal Pain, Dysuria, Unable to Ambulate, Unable to Transfer, Urinary Retention, Urinary Incontinence, Constipation or Fecal Incontinence Narrative Narrative: Patient presents with back pain that has been getting worse over the past 2 to 3 days. Patient denies any trauma or injury. Patient states it is gradually getting worse. Patient states it is worse with ambulation. Patient states nothing seems to help with it. Patient states the pain radiates to her right thigh. Patient mitts to some numbness and tingling. Patient denies any weakness. Patient states the pain also radiates into her right lower abdomen. Patient denies any dysuria, frequency, or hematuria. Patient denies any urinary or stool incontinence. Patient denies any saddle anesthesia. Patient describes her pain as burning. [facility] Medical History Pain, dental History of pulmonary embolism Diabetes Home Medications ?Medication ?Instructions ?Recorded ?Last Taken ?Type furosemide 40 mg tablet 40 mg PO DAILY 09/17/20 Unknown History gabapentin 800 mg tablet 1,600 mg PO QHS 11/07/23 Unknown History dulaglutide 0.75 mg/0.5 mL 0.75 mg subcut QWEEK 02/18/24 Unknown History subcutaneous pen injector (Trulicity) lorazepam 2 mg tablet (Ativan) 2 mg PO DAILY 02/18/24 Unknown History penicillin V potassium 500 mg 500 mg PO 4X/DAY #40 tabs 02/20/24 Unknown Rx tablet cyclobenzaprine 10 mg tablet 10 mg PO QHS PRN PRN Muscle Spasm 06/24/24 Unknown Rx #10 TABLETS hydrocodone-acetaminophen 5-325mg 1 tab PO Q6H PRN PRN Pain 3 days 06/24/24 Unknown Rx 5mg-325mg #10 TABLETS Allergy/AdvReac Type Severity Reaction Status Date / Time sulfamethoxazole (From Allergy Hives Verified 06/24/24 10:04 Bactrim) trimethoprim (From Bactrim) Allergy Hives Verified 06/24/24 10:04 ketorolac tromethamine (From AdvReac Upset Verified 06/24/24 10:04 Toradol) Stomach morphine AdvReac Upset Verified 06/24/24 10:04 Stomach tramadol AdvReac Upset Verified 06/24/24 10:04 Stomach Social History Smoking Status: Never smoker Smokeless tobacco user: chewing tobacco substance use type: does not use ROS ROS ED Constitutional Constitutional ED: Denies chills or fever(s) Eyes Eyes: Denies blurry vision or change in vision ENT ENT ED: Denies rhinorrhea or sore throat Cardiovascular Cardiovascular: Denies chest pain or palpitations Respiratory/Chest Respiratory/Chest: Denies cough or dyspnea Gastrointestinal Gastrointestinal: Denies nausea or vomiting Genitourinary Genitourinary ED: Denies dysuria or hematuria Musculoskeletal Musculoskeletal: Reports back pain; Denies neck pain Integumentary Denies abscess or rash Neurologic Neurologic: Reports headache(s); Denies weakness Allergic/Immunologic Allergic/Immunologic ED: Denies mouth swelling or urticaria EXAM Physical Exam Const Vital Signs: 06/24/24 10:03 06/24/24 10:04 06/24/24 11:49 Temperature 98 F Temperature Source Temporal Pulse Rate 105 H 100 Respiratory Rate 18 22 H Blood Pressure 168/96 H 230/129 H 145/89 H Blood Pressure Mean 120 162 107 Pulse Ox 97 100 Oxygen Delivery Method Room Air Positive well nourished and well developed General Appearance ED: well developed and NAD HEENT Reports moist mucous membranes Neck supple and no JVD Back/Spine Back/Spine Narrative: There is tenderness over the right lumbar paraspinal muscles. There is mild midline tenderness. Range of motion was limited in all motions of the lumbar spine secondary to pain. Strength is 5/5 bilateral in the lower extremities. There are no sensory deficits noted. Deep tendon reflexes are 2/4 bilaterally in the lower extremities. Straight leg raises were negative bilaterally. Lumbar Spine / Lower Back: ROM limited and straight leg raise negative bilaterally Extremity normal to inspection General Extremety ED: Negative for edema or tenderness General Extremity: Negative for edema Neuro oriented x3 and no sensory deficits noted Sensorium / Orientation: alert Motor Exam: strength 5/5 throughout Deep Tendon Reflexes: Rt Patellar (L4): 2+, Lt Patellar (L4): 2+, Rt Ankle (S1): 2+ and Lt Ankle (S1): 2+ Deep Tendon Reflexes Back: Rt Patellar (L4): 2+, Lt Patellar (L4): 2+, Rt Ankle (S1): 2+ and Lt Ankle (S1): 2+ Psych mental status grossly normal MDM MDM MDM Narrative Medical decision making narrative: Differential diagnosis includes lumbosacral strain, compression fracture, spondylolisthesis, and degenerative arthritis. X-rays of the lumbar spine will be obtained to assess for compression fracture, spondylolisthesis, and degenerative arthritis. Radiography Diagnostic Testing: Clinical Impression(s) from Imaging Studies Lumbar Spine X-Ray 06/24/24 10:55 IMPRESSION: No acute abnormality. Mild spondylosis as described. Electronically Signed: Lucio Price MD at 11:39 EST , X-rays of the lumbar spine were obtained. There are 2 views. On my independent interpretation, there is no acute fracture. There is some degenerative changes noted. There is a slight grade 1 spondylolisthesis of L4 on L5. Radiologist also interpreted the x-rays and agrees. Treatment and Re-Evaluation Narrative: Patient was given a dose of oxycodone here. Patient was also given an injection of Norflex. Patient states her pain was starting to improve. Patient's repeat blood pressure improved to 145/89. Patient was advised of her findings. Patient was instructed to use moist heat and ice. Patient was instructed to do stretching exercises. Patient was instructed to follow-up with her primary care physician in 5 to 7 days. Patient was instructed to return if worse in any way. Patient understood and was agreeable with the plan. All questions were answered. Discharge Plan Triage Chief Complaint: Back ED Provider: Jose Dexter Dx/Rx/DC Orders Clinical Impression: Acute lumbosacral myofascial strain, Body mass index (BMI) of 60.0 to 69.9 in adult Instructions: ED Back Sprain/Strain Prescriptions: New hydrocodone-acetaminophen 5-325 mg tablet 1 tab PO Q6H PRN PRN (Reason: Pain) 3 Days Qty: 10 0RF cyclobenzaprine 10 mg tablet 10 mg PO QHS PRN PRN (Reason: Muscle Spasm) Qty: 10 0RF No Action furosemide 40 MG tablet 40 mg PO DAILY gabapentin 800 mg tablet 1,600 mg PO QHS Trulicity 0.75 mg/0.5 mL pen injector 0.75 mg subcut QWEEK lorazepam [Ativan] 2 mg tablet 2 mg PO DAILY penicillin V potassium 500 mg tablet 500 mg PO 4X/DAY Qty: 40 0RF Primary Care Provider: Silvana Vick NP Referrals: Silvana Vick NP, [facility] [facility] [facility] [Primary Care Provider] - 3-5 Days Print Language: German Disposition Disposition: Home, Self Care
[2024-06-24 10:41] VITALS: BMI 60.1
[2024-06-24] MEDS: Orphenadrine 60 MG/2 ML Ampul IM (10:49)
[2024-06-24] MEDS: oxyCODONE 5 MG Tablet PO (10:49)
--- NOTE | 2024-06-24 10:55 | RAD_ITS ---
EXAM: XR LUMBOSACRAL SPINE, 2 OR 3 VIEWS CLINICAL INDICATION: Injury/Pain TECHNIQUE: Frontal and lateral views of the lumbar spine and sacrum. COMPARISON: No relevant prior studies available. FINDINGS: VERTEBRAE: Posterior osteophytosis at the L2-3 level. No acute fracture. Minimal anterior listhesis of L4 on L5 likely related to underlying facet arthropathy. DISC SPACES: Mild disc space narrowing at L4-5. RAD/Lumbar Spine 2 or 3 Views IMPRESSION: No acute abnormality. Mild spondylosis as described. Electronically Signed: Lucio Price MD at 11:39 EST ,
[2024-06-24 11:49] VITALS: BP 145/89
[2024-06-24 12:07] VITALS: BP 149/89; PULSE 78; RESP 16; TEMP 37.1; O2SAT 99
== END 2024-06-24 12:09 | disposition home or self-care (01) ==
PROVIDERS: Emergency Provider Emergency Medicine; PCP Nurse Practitioner Primary Care; Visit Provider Emergency Medicine
DX: S39.012A Strain of muscle, fascia and tendon of lower back, initial encounter (principal); E11.9 Type 2 diabetes mellitus without complications; M43.16 Spondylolisthesis, lumbar region; X58.XXXA Exposure to other specified factors, initial encounter; F17.220 Nicotine dependence, chewing tobacco, uncomplicated; Z88.2 Allergy status to sulfonamides; Z88.1 Allergy status to other antibiotic agents; Z79.85 Long-term (current) use of injectable non-insulin antidiabetic drugs; Z86.711 Personal history of pulmonary embolism
CPT/HCPCS: 72100; 96372; 99282

== ENCOUNTER 2024-09-10 11:15 | Emergency (ER) | payer MEDICAID, SELFPAY ==
[2024-09-10 11:16] VITALS: BP 147/111; PULSE 99; RESP 17; TEMP 36.8; O2SAT 98; BMI 59.3
[2024-09-10 11:18] VITALS: BP 147/111; PULSE 99; RESP 17; TEMP 36.8; O2SAT 98
[2024-09-10] MEDS: 0.9% Normal Saline (1000mL) 1,000 ML 999 ML IV (11:47)
--- NOTE | 2024-09-10 11:49 | EDS_ITS ---
HPI History of Present Illness Chief Complaint: Weakness Narrative Narrative: Patient is a 39-year-old female with a past medical history of diabetes, PE who presented to the emergency department with a chief complaint of weakness not feeling well and concern for elevated blood glucose. Patient states that recently she started Trulicity and noted that she developed a fungal rash in her groin region. The patient's significant other at bedside states that she has been fighting with doctors for 4 days now. They advised her to discontinue her Trulicity and they state that ever since they did this her blood glucose was running high and she has become weak and not feeling well. They called back the office and they advised her to go to the emergency department to be evaluated. Patient denies any recent sick contacts. [facility] Medical History Pain, dental History of pulmonary embolism Diabetes Home Medications ?Medication ?Instructions ?Recorded ?Last Taken ?Type furosemide 40 mg tablet 40 mg PO DAILY 09/17/20 Unkn own History gabapentin 800 mg tablet 1,600 mg PO QHS 11/07/23 Unk nown History dulaglutide 0.75 mg/0.5 mL 0.75 mg subcut QWEEK Unknown History subcutaneous pen injector (Trulicity) lorazepam 2 mg tablet (Ativan) 2 mg PO DAILY 02/18/24 Unknown History penicillin V potassium 500 mg 500 mg PO 4X/DAY #40 tab s 02/20/24 Unknown Rx tablet cyclobenzaprine 10 mg tablet 10 mg PO QHS PRN PRN Musc le Spasm 06/24/24 Unknown Rx #10 TABLETS hydrocodone-acetaminophen 5-325mg 1 tab PO Q6H PRN PRN Pain 3 days 06/24/24 Unknown Rx 5mg-325mg #10 TABLETS nystatin 100,000 unit/gram topical 1 applic topical BI D #60 grams 09/10/24 Unknown Rx powder Allergy/AdvReac Type Severity Reaction Status Date / Time sulfamethoxazole (From Allergy Hives Verified 09/10/24 11:18 Bactrim) trimethoprim (From Bactrim) Allergy Hives Verified 09/10/24 11:18 ketorolac tromethamine (From AdvReac Upset Verified 09/10/24 11:18 Toradol) Stomach morphine AdvReac Upset Verified 09/10/24 11:18 Stomach tramadol AdvReac Upset Verified 09/10/24 11:18 Stomach Social History Smoking Status: Never smoker Smokeless tobacco user: chewing tobacco substance use type: does not use ROS ROS ED ROS Narrative Constitutional: Complains of whole body aches and chills Cardiovascular: Denies chest pain or palpitations Respiratory: Denies coughing wheezing shortness of breath Abdomen: Denies abdominal pain nausea vomit diarrhea : Complains of rash as noted above denies any painful urination or hematuria Neurological: Complains of generalized weakness denies numbness or tingling Musculoskeletal: Denies back pain EXAM Physical Exam Narrative Exam Narrative: General: Patient was lying in bed rest comfortably did not appear to be in acute distress Head: Atraumatic, normocephalic Eyes: PERRL bilaterally, EOMI bilateral, no conjunctival injection noted Neck: Soft, supple, trachea midline Cardiovascular: Regular rate and rhythm no murmurs gallops rubs noted Respiratory: Clear to auscultation bilaterally no rales rhonchi or wheezes noted Abdomen: Soft, nondistended, nontender to palpation Genitourinary: No concern for Papo's gangrene patient does have fungal infection noted in her groin region. Extremities: +5/5 strength noted in the bilateral upper and lower extremities, radial pulses +2/4 in the bilateral extremities, no pedal edema on exam Neurological: Patient following commands knew that she was at [facility] year is 2024 Skin: Warm, dry, intact Const Vital Signs: 09/10/24 11:16 09/10/24 11:18 09/10/24 11:45 Temperature 98.2 F 98.2 F Temperature Source Temporal Temporal Pulse Rate 99 99 Respiratory Rate 17 17 Respiratory Effort Normal Non-Labored Respiratory Pattern Normal Blood Pressure 147/111 H 147/111 H Blood Pressure Mean 123 123 Pulse Ox 98 98 Oxygen Delivery Method Room Air Room Air 09/10/24 12:22 09/10/24 13:00 09/10/24 14:00 Temperature Temperature Source Pulse Rate 97 99 98 Respiratory Rate 14 14 14 Respiratory Effort Respiratory Pattern Blood Pressure 137/83 H 131/79 H 130/74 H Blood Pressure Mean 101 96 92 Pulse Ox 95 94 94 Oxygen Delivery Method Room Air Room Air MDM MDM MDM Narrative Medical decision making narrative: Patient is a 39-year-old female who presents to the emergency department with a chief complaint of generalized weakness and concern for hyperglycemia. On the differential diagnose includes but not limited to hyperglycemia, DKA, HHS, UTI. Once workup is obtained reviewed she will be reevaluated. Patient be given IV fluids. Patient CBC reviewed showed no evidence leukocytosis white blood count normal at 7.3, hemoglobin 13.7, plate count was noted be 222. Patient's venous blood gas showed pH 7.35, sodium normal 137, potassium normal at 4, anion gap 12, creatinine normal at 0.56. Patient's lactic acid was noted be 2, AST and ALT were 19 and 17 respectively. Patient's lipase was noted to be 27 beta- hydroxybutyrate normal at 0.2. Patient urinalysis showed no evidence of infection no ketones. At this point time patient ambulated well here in the emergency department and she will be sent home with instructions to follow-up with primary care physician. Will send nystatin powder to the pharmacy. She is encouraged return for worsening symptoms or concerns. Her significant other bedside is also agreed this plan all question concerns answered and she is discharged home in stable condition. Lab Data Labs: Laboratory Results - last 24 hr 09/10/24 09/10/24 11:49 12:00 WBC 7.3 RBC 5.01 Hgb 13.7 Hct 43.0 MCV 85.8 MCH 27.3 MCHC 31.9 L RDW Std Deviation 41.2 RDW Coeff of Nirmala 13.3 Plt Count 222 MPV 10.9 Immature Gran % (Auto) 2.000 H Neut % (Auto) 72.4 H Lymph % (Auto) 18.1 L [place] % (Auto) 5.2 Eos % (Auto) 1.6 Baso % (Auto) 0.7 Absolute Neuts (auto) 5.3 Absolute Lymphs (auto) 1.33 Nucleated RBC % 0 Sodium 137 Potassium 4.0 Chloride 100 Carbon Dioxide 24.9 Anion Gap 12 BUN 12 Creatinine 0.56 L Estim Creat Clear Calc 192.47 Est GFR (MDRD) Non-Af 118 BUN/Creatinine Ratio 21.9 H Glucose 207 H Lactic Acid 2.0 Calcium 9.2 Total Bilirubin 0.34 AST 19 ALT 17 Alkaline Phosphatase 98 Total Protein 7.3 Albumin 4.2 Globulin 3.2 Albumin/Globulin Ratio 1.3 Lipase 27 b-Hydroxybutyric mmol/L 0.2 Urine Color Yellow Urine Clarity Sl. Cloudy Urine pH 6.0 Ur Specific [place] 1.010 Urine Protein Negative Urine Glucose (UA) 1000 H Urine Ketones Negative Urine Occult Blood 25 H Urine Nitrite Negative Urine Bilirubin Negative Urine Urobilinogen Normal Ur Leukocyte Esterase Negative Urine RBC 0-5 SEEN Urine WBC 0 SEEN Ur Squamous Epith Cells 0-5 SEEN Urine Bacteria 0 SEEN Urine Mucus 0 SEEN ABG Data ABG results: ABG 09/10/24 12:00 Specimen Type SHANE Sample Site Not entered VBG pH 7.35 VBG pO2 44 H VBG HCO3 27 H VBG Total CO2 29 VBG O2 Sat (Calc) 77 H VBG Base Excess 2 POC Mix VBG pCO2 Pt Tmp 49.3 O2 Delivery Device Room Air Discharge Plan Triage Chief Complaint: Weakness ED Provider: Александр Oquendo Dx/Rx/DC Orders Clinical Impression: Controlled type 2 diabetes mellitus with hyperglycemia, Fungal infection of the groin Prescriptions: New nystatin 100,000 unit/gram powder 1 applic topical BID Qty: 60 0RF No Action furosemide 40 MG tablet 40 mg PO DAILY gabapentin 800 mg tablet 1,600 mg PO QHS Trulicity 0.75 mg/0.5 mL pen injector 0.75 mg subcut QWEEK lorazepam [Ativan] 2 mg tablet 2 mg PO DAILY penicillin V potassium 500 mg tablet 500 mg PO 4X/DAY Qty: 40 0RF hydrocodone-acetaminophen 5-325 mg tablet 1 tab PO Q6H PRN PRN (Reason: Pain) 3 Days Qty: 10 0RF cyclobenzaprine 10 mg tablet 10 mg PO QHS PRN PRN (Reason: Muscle Spasm) Qty: 10 0RF Primary Care Provider: Silvana Vick NP Referrals: Silvana Vick NP, [employer] [Primary Care Provider] - Activity Restrictions/Additional Instructions: Follow-up your primary care physician outpatient setting. Return with worsening symptoms or any other concerns. Use nystatin powder as we discussed. Print Language: Norwegian Disposition Disposition: Home, Self Care
[2024-09-10 11:58] LABS: Absolute Lymphocyte Count 1.33 X10^3/uL (0.83-4.51); Absolute Neutrophil Count 5.3 X10^3/uL (2.0-7.7); Basophil# 0.05 X10^3/uL; Basophil% 0.7 % (0-1); Eosinophil# 0.12 X10^3/uL; Eosinophils% 1.6 % (0-5); Hemoglobin 13.7 g/dL (12.0-15.0); Lymphocyte # 1.33 X10^3/ul (0.83-4.51); Lymphocyte % 18.1 % (19-41); Mean Corp Hgb Conc 31.9 g/dL (32-36); Mean Corpuscular Hgb 27.3 pg (27.0-32.0); Mean Corpuscular Volume 85.8 fL (81-99); Mean Platelet Vol. 10.9 fl (6.2-12.0); Monocyte# 0.38 X10^3/uL; Monocyte% 5.2 % (0-10); NRBC Flagged by Analyzer 0 % (0-5); Neutrophil % 72.4 % (47-70); Platelet Count 222 K/mm3 (150-450); RBC Distribution Width CV 13.3 % (11.6-14.6); RBC Distribution Width SD 41.2 fl (35.1-43.9); Red Blood Count 5.01 M/mm3 (4.2-5.4); White Blood Count 7.3 K/mm3 (4.4-11.0)
[2024-09-10 12:03] LABS: Blood Gas Specimen Type VEN; O2 Delivery Device Room Air; SITE Not entered; VBG BASE EXCESS 2 mmol/L (-1.0-3.5); VBG Bicarbonate 27 mmol/L (22-26); VBG PO2 44 mmHg (25-40); VBG SO2 77 % (50-70); VBG TCO2 29 mmol/L (23-33); VBG pCO2 49.3 mmHg (41-51); VBG pH 7.35 (7.32-7.42)
[2024-09-10 12:08] LABS: Bacteria 0 SEEN /hpf (None Seen); Mucous, Urine 0 SEEN /hpf (<or=2+); White Blood Cells 0 SEEN /hpf (0-5)
[2024-09-10 12:15] LABS: Color, Urine Yellow (Yellow); Glucose, Dipstick 1000 mg/dl (Normal); Ketone-Dipstick Negative (Negative); Leukocyte Esterase-Dipstick Negative /ul (Negative); Nitrite-Dipstick Negative (Negative); Occult Blood-Urine 25 /ul (Negative); Protein-Dipstick Negative (Negative); Urine Bilirubin Dipstick Negative (Negative); Urine Clarity Sl. Cloudy (Clear); Urine Urobilinogen Normal (Normal)
[2024-09-10 12:18] LABS: ALB/GLOB Ratio 1.3 RATIO (0.9-2.4); AST(SGOT) 19 U/L (<=31); Alanine Aminotransfer ALT/SGPT 17 U/L (<=34); Albumin, Serum 4.2 g/dL (3.5-5.0); Alkaline Phosphatase 98 U/L (35-104); Anion Gap 12 (5-15); BETA-HYDROXYBUTYRATE 0.2 mmol/L (0.0-0.3); BUN 12 mg/dL (4-19); BUN/Creat Ratio 21.9 RATIO (10-20); Calcium,Total 9.2 mg/dL (7.6-11.0); Carbon Dioxide 24.9 mmol/L (21.0-32.0); Chloride 100 mmol/L (98-108); Creatinine, Serum 0.56 mg/dL (0.70-1.20); EST Glomerular Filtration Rate 118 (>60); Estimated Creatinine Clearance 192.47 ml/min (50-250); Globulin 3.2 g/dL (2.2-4.2); Glucose 207 mg/dL (70-99); Lipase 27 U/L (13-75); Protein, Total 7.3 g/dL (5.9-8.4); Sodium Level 137 mmol/L (133-145); Total Bilirubin 0.34 mg/dL (0.00-1.30)
[2024-09-10 12:21] LABS: Red Blood Cells-Urine 0-5 SEEN /hpf (0-5); Squamous Epithelial Cells - UA 0-5 SEEN /hpf (5-10)
[2024-09-10 12:22] VITALS: BP 137/83; PULSE 97; RESP 14; O2SAT 95
[2024-09-10 13:00] VITALS: BP 131/79; PULSE 99; RESP 14; O2SAT 94
[2024-09-10 14:00] VITALS: BP 130/74; PULSE 98; RESP 14; O2SAT 94
[2024-09-10 14:20] VITALS: BP 141/79; PULSE 83; RESP 14; TEMP 36.6; O2SAT 97
== END 2024-09-10 14:28 | disposition home or self-care (01) ==
PROVIDERS: Emergency Provider Emergency Medicine; PCP Nurse Practitioner Primary Care; Visit Provider Emergency Medicine
DX: E11.65 Type 2 diabetes mellitus with hyperglycemia (principal); B35.6 Tinea cruris; F17.220 Nicotine dependence, chewing tobacco, uncomplicated; Z88.1 Allergy status to other antibiotic agents; Z88.2 Allergy status to sulfonamides; Z86.711 Personal history of pulmonary embolism; Z79.85 Long-term (current) use of injectable non-insulin antidiabetic drugs; Z79.899 Other long term (current) drug therapy
CPT/HCPCS: 80053; 81001; 82010; 82803; 83605; 83690; 85025; 87631; 96360; 96361; 99283; A4216

== ENCOUNTER 2024-10-20 13:29 | Observation (INO) | payer MEDICAID, SELFPAY ==
[2024-10-20] VITALS (8 sets, daily range): BP systolic 149–173; BP diastolic 86–115; PULSE 86–104; RESP 18–34; TEMP 36.5–36.8; O2SAT 91–95; BMI 66.8; BMI 65.2
--- NOTE | 2024-10-20 13:53 | EKG12_ITS ---
Test Reason : Blood Pressure : */* mmHG Vent. Rate : 96 BPM Atrial Rate : 96 BPM P-R Int : 188 ms QRS Dur : 86 ms QT Int : 342 ms P-R-T Axes : 33 21 61 degrees QTcB Int : 432 ms Normal sinus rhythm Normal ECG Confirmed by Wade Bowens ([id number]), film and video editor GIAN ALICEA ([id number]) on 10/21/2024 12:44:51 PM Referred By: EZEQUIEL Confirmed By: Wade Bowens
--- NOTE | 2024-10-20 14:20 | RAD_ITS ---
PROCEDURE: CHEST PA AND LATERAL 10/20/2024 REASON FOR EXAM: SHORTNESS OF BREATH TECHNIQUE: Frontal and lateral views of the chest. COMPARISON: None FINDINGS: Heart: Hypoinflation accentuates the cardiomediastinal silhouette. Mediastinum: No bulky contour deformity. Lungs: No focal consolidation or pleural effusion. RAD/Chest PA and Lateral IMPRESSION: NO ACUTE FINDINGS. Reading Location: [facility]
[2024-10-20] MEDS: Acetaminophen 325 MG Tablet 650 MG PO ×2 (14:22→21:21)
[2024-10-20 14:24] LABS: Blood Gas Specimen Type VEN; O2 Delivery Device Not entered; SITE Not entered; VBG BASE EXCESS 8 mmol/L (-1.0-3.5); VBG Bicarbonate 33 mmol/L (22-26); VBG PO2 37 mmHg (25-40); VBG SO2 68 % (50-70); VBG TCO2 35 mmol/L (23-33); VBG pCO2 54.4 mmHg (41-51); VBG pH 7.39 (7.32-7.42)
[2024-10-20 14:27] LABS: Absolute Lymphocyte Count 1.31 X10^3/uL (0.83-4.51); Absolute Neutrophil Count 5.4 X10^3/uL (2.0-7.7); Basophil# 0.06 X10^3/uL; Basophil% 0.8 % (0-1); Eosinophil# 0.17 X10^3/uL; Eosinophils% 2.3 % (0-5); Hematocrit 40.2 % (37-47); Hemoglobin 12.7 g/dL (12.0-15.0); Lymphocyte # 1.31 X10^3/ul (0.83-4.51); Lymphocyte % 17.7 % (19-41); Mean Corp Hgb Conc 31.6 g/dL (32-36); Mean Corpuscular Hgb 27.6 pg (27.0-32.0); Mean Corpuscular Volume 87.4 fL (81-99); Mean Platelet Vol. 11.3 fl (6.2-12.0); Monocyte# 0.38 X10^3/uL; Monocyte% 5.1 % (0-10); NRBC Flagged by Analyzer 0 % (0-5); Neutrophil # 5.36 X10^3/uL (2.7-7.7); Neutrophil % 72.6 % (47-70); Platelet Count 239 K/mm3 (150-450); RBC Distribution Width CV 13.5 % (11.6-14.6); RBC Distribution Width SD 42.5 fl (35.1-43.9); White Blood Count 7.4 K/mm3 (4.4-11.0)
[2024-10-20 14:38] LABS: D-Dimer Quantitative (DVT/PE) 0.38 FEU/ug/m (0.27-0.49)
--- NOTE | 2024-10-20 14:48 | ED.VIS.DYS ---
HPI History of Present Illness Chief Complaint: Shortness of Breath Detail of Chief Complaint: Shortness of breath that started 1 month ago after she was started on glime Onset/Context/Timing Onset: Days (Since long distance trip to [place]) and Month(s) (Since she was placed on new medication) Context: sudden Timing: Continuous and Waxes and wanes Quality: Positive for Dyspnea on exertion and Wheezing (Per significant other); Negative for Orthopnea or PND Current Severity: Mild Maximum Severity: Moderate Worsened by: Exertion Relieved by: Nothing Associated Symptoms cough; Negative for rhinorrhea, post nasal drip, ear pain, fever, sore throat, subjective, chills or sweats Chest Pain: Positive for None Narrative Narrative: Patient is a 39-year-old woman. She has a BMI of 66.9. Since she was prescribed glimepiride she has had shortness of breath. She was prescribed this 1 month ago. Her shortness of breath got worse after a long distance trip to [place]. This is also associated with nausea and vomiting. She denies fever, chills night sweats. She has some mild nasal congestion. She denies sore throat. Denies change in voice. She does have remote history of PE. She complains of bilateral anterior leg pain. She denies paresthesia, anesthesia or motor weakness. Significant other is noted that she wheezes when she falls asleep. She has never been assessed for obstructive sleep apnea. She does snore. She does fall asleep easily after eating and does not feel she had a restful sleep when she awakes in the morning. PE Risk Factors: Positive for Prior DVT or PE and Recent travel; Negative for Cancer, OCP + Smoking + > 35, Recent immobilization or Recent surgery Prior similar symptoms: Yes (Bronchitis, pneumonia, PE) Recent Illness/Hospitalization: No [facility] Medical History Pain, dental History of pulmonary embolism Diabetes Home Medications ?Medication ?Instructions ?Recorded ?Last Taken ?Type furosemide 40 mg tablet 40 mg PO DAILY 09/17/20 Unknown History gabapentin 800 mg tablet 1,600 mg PO QHS 11/07/23 Unknown History dulaglutide 0.75 mg/0.5 mL 0.75 mg subcut QWEEK 02/18/24 Unknown History subcutaneous pen injector (Trulicity) lorazepam 2 mg tablet (Ativan) 2 mg PO DAILY 02/18/24 Unknown History penicillin V potassium 500 mg 500 mg PO 4X/DAY #40 tabs 02/20/24 Unknown Rx tablet cyclobenzaprine 10 mg tablet 10 mg PO QHS PRN PRN Muscle Spasm 06/24/24 Unknown Rx #10 TABLETS hydrocodone-acetaminophen 5-325mg 1 tab PO Q6H PRN PRN Pain 3 days 06/24/24 Unknown Rx 5mg-325mg #10 TABLETS nystatin 100,000 unit/gram topical 1 applic topical BID #60 grams 09/10/24 Unknown Rx powder Allergy/AdvReac Type Severity Reaction Status Date / Time sulfamethoxazole (From Allergy Hives Verified 10/20/24 13:32 Bactrim) trimethoprim (From Bactrim) Allergy Hives Verified 10/20/24 13:32 ketorolac tromethamine (From AdvReac Upset Verified 10/20/24 13:32 Toradol) Stomach morphine AdvReac Upset Verified 10/20/24 13:32 Stomach tramadol AdvReac Upset Verified 10/20/24 13:32 Stomach Social History Smoking Status: Never smoker Smokeless tobacco user: chewing tobacco substance use type: does not use ROS ROS ED Constitutional Constitutional ED: Reports other Details: Endorses weight gain. ; Denies chills, fever(s), sweats or weight loss Eyes Eyes: Denies blurry vision, change in vision or diplopia ENT ENT ED: Denies ear pain, rhinorrhea or sore throat Cardiovascular Cardiovascular: Denies chest pain, orthopnea, palpitations or paroxysmal nocturnal dyspnea Respiratory/Chest Respiratory/Chest: Reports dyspnea and dyspnea on exertion; Denies cough, orthopnea or paroxysmal nocturnal dyspnea Gastrointestinal Gastrointestinal: Denies abdominal pain, diarrhea, nausea or vomiting Genitourinary Genitourinary ED: Denies dysuria, hematuria or urinary frequency Musculoskeletal Musculoskeletal: Denies arthralgias or myalgias Integumentary Denies abscess or rash Neurologic Neurologic: Denies headache(s) or paresthesias Psychiatric Psychiatric: Denies anxiety or depression Endocrine Endocrinology: Denies cold intolerance or heat intolerance Hematologic/Lymphatic Hematologic/Lymphatic: Reports easy bruising; Denies easy bleeding EXAM Physical Exam Const Vital Signs: 10/20/24 13:32 10/20/24 13:35 10/20/24 13:40 Temperature 97.7 F L 97.7 F L Temperature Source Oral Oral Pulse Rate 104 H 104 H Respiratory Rate 20 H 20 H Respiratory Effort Short of Breath Blood Pressure 168/115 H 168/115 H Blood Pressure Mean 132 132 Pulse Ox 94 94 Oxygen Delivery Method Room Air Room Air Room Air Positive well nourished and well developed Constitutional Narrative: BMI 66.9. General Appearance ED: well developed HEENT Reports moist mucous membranes HEENT Narrative: Head is atraumatic normocephalic. Ears normal. Nares patent. There is no discharge. Posterior pharynx out erythema or exudate. Uvula midline. No deviation protrusion. Eyes PERRL and EOMs intact bilaterally General Eye ED: Negative for pale conjunctiva or scleral icterus Neck no lymphadenopathy, supple, no meningeal signs and no JVD Neck Narrative: Trachea is midline. There is no dysphonia. There is no stridor. Resp normal respiratory effort and clear to auscultation bilaterally Cardio regular rhythm, S1 normal heart sound, S2 normal heart sound and no murmurs Rate: tachycardic GI non-tender, non-distended and no masses GI Narrative: There is a bruise noted left lower quadrant. Back/Spine no CVA tenderness Extremity Extremity Narrative: Anterior leg tenderness no tenderness on the distribution deep venous system. There is no palpable cords. There is no leg vein distention, there is no asymmetry or discoloration. Patient has numerous tattoos on her extremities. There is no evidence patient. General Extremety ED: Yes edema General Extremity: edema Neuro oriented x3 and CN's II-XII intact bilaterally [place] Coma Scale: document GCS findings Spontaneous Obeys Commands Oriented 15 Sensorium / Orientation: alert Motor Exam: strength 5/5 throughout Psych Mood & Affect: depressed Skin no wounds and skin turgor normal Lesions: no lesions Rashes: no rashes MDM MDM MDM Narrative Medical decision making narrative: This may be an adverse reaction to the medicine. Need to consider pulmonary embolus, infectious cause. She may have pulmonary hypertension due to undiagnosed obstructive sleep apnea. She will need an outpatient sleep apnea test. Since she cannot be cleared by Wells criteria or PERC D-dimer was obtained to assess for PE. CBC to assess H&H and white count. BMP to assess renal function. History & Record Review Additional record(s) reviewed:: Prior ED visit (September 10, 2024 for hyperglycemia and an type II diabetic. February 2024 for dental abscess November 2023 for cellulitis. Also abscess of extremity.) and Prior labs Lab Data Attestation: I reviewed the patient's lab results. Lab results narrative: CBC is unremarkable. D-dimer is normal. Basic metabolic panel is remarked for glucose of 267 with a normal CO2 anion gap. Renal function is normal. Troponin is elevated 162. Patient's not had a prior troponin dating back to 2013. She may have atypical presentations because she is diabetic. Labs: Laboratory Results - last 24 hr 10/20/24 14:00 WBC 7.4 RBC 4.60 Hgb 12.7 Hct 40.2 MCV 87.4 MCH 27.6 MCHC 31.6 L RDW Std Deviation 42.5 RDW Coeff of Nirmala 13.5 Plt Count 239 MPV 11.3 Immature Gran % (Auto) 1.500 H Neut % (Auto) 72.6 H Lymph % (Auto) 17.7 L [place] % (Auto) 5.1 Eos % (Auto) 2.3 Baso % (Auto) 0.8 Absolute Neuts (auto) 5.4 Absolute Lymphs (auto) 1.31 Nucleated RBC % 0 D-Dimer Quant (PE/DVT) 0.38 Sodium 138 Potassium 4.4 Chloride 102 Carbon Dioxide 25.5 Anion Gap 11 BUN 10 Creatinine 0.55 L Estim Creat Clear Calc 212.32 Est GFR (MDRD) Non-Af 118 BUN/Creatinine Ratio 18.3 Glucose 267 H Calcium 9.4 Troponin T High Sens 162 H* ABG Data ABG results: ABG 10/20/24 14:20 Specimen Type SHANE Sample Site Not entered VBG pH 7.39 VBG pO2 37 VBG HCO3 33 H VBG Total CO2 35 H VBG O2 Sat (Calc) 68 VBG Base Excess 8 H POC Mix VBG pCO2 Pt Tmp 54.4 H O2 Delivery Device Not entered Radiography Chest X-Ray - ED: 2 View and Read by ED Physician (Independent reviewed interpreted by me. Port/suboptimal due to mild rotation poor inspiratory volume. There is no infiltrate, effusion, pneumothorax or cephalization. There may be borderline cardiomegaly. Osseous structures are unremarkable.) Diagnostic Testing: Clinical Impression(s) from Imaging Studies Chest X-Ray 10/20/24 14:20 IMPRESSION: NO ACUTE FINDINGS. Reading Location[facility] Rhythm Strip Rhythm Strip: Sinus Tach Rate: 103 Ectopy: None EKG Initial EKG: Attestation: I personally reviewed and interpreted this EKG as follows: Interpretation: Sinus Rhythm (Rate is 96. EKG is normal. OH interval 280 ms. Cures duration 86 ms. QT duration 342 ms. [place] is normal.) Management Discussion w/another healthcare provider: Hospitalist (Case was discussed with Dr. Tariq. Patient will be anticoagulant with heparin since Dr. Bowens is public information relations manager for cardiology. She will contact him.) Treatment and Re-Evaluation :: Will treat with aspirin. Patient also was anticoagulated with heparin. Critical Care Time Critical Care Time: Yes Critical care time (excluding procedures): 30-74 minutes (31), Including time spent: (History, physical, documentation, review of prior records, interpretation laboratory results and images), Discussing w/Patient &/or Family/Specialty Manufacturing Supervisor (Spoke to patient and significant other/ who was made aware of results and need for admission), Discussing w/Consultants and Arranging Admission or Transfer Discharge Plan Dx/Rx/DC Orders Clinical Impression: Non-ST elevated myocardial infarction (non-STEMI), Type 2 diabetes mellitus with hyperglycemia, Elevated blood-pressure reading without diagnosis of hypertension, Neuropathy Disposition Disposition: Acute Care [facility]
[2024-10-20 15:00] LABS: Anion Gap 11 (5-15); BUN 10 mg/dL (4-19); BUN/Creat Ratio 18.3 RATIO (10-20); Calcium,Total 9.4 mg/dL (7.6-11.0); Carbon Dioxide 25.5 mmol/L (21.0-32.0); Chloride 102 mmol/L (98-108); Creatinine, Serum 0.55 mg/dL (0.70-1.20); EST Glomerular Filtration Rate 118 (>60); Estimated Creatinine Clearance 212.32 ml/min (50-250); Glucose 267 mg/dL (70-99); Potassium 4.4 mmol/L (3.3-5.1); Sodium Level 138 mmol/L (133-145)
[2024-10-20 15:20] LABS: Troponin T High Sensitivity 162 ng/L (<=14)
--- NOTE | 2024-10-20 15:33 | PCM.HP.STD ---
HPI - General General Date of Admission: 10/20/24 Date of Service: 10/20/24 Chief Complaint: Exertional dyspnea, worsening. HPI Narrative The patient is a 39 y/o F w/ PMHx: Former EtOH abuse, Chew tobacco use (heavy->rare currently), Anxiety, Morbid obesity, Hx VTE (DVT, PE), Diabetes mellitus type II with chronic neuropathy, HTN who presents to the [facility] ED on 10/20/24 with history of persistent dyspnea worse with exertion starting approximately 1 month prior worsening over the last several days, waxing and waning with occasional wheezing and a nonproductive cough reported that she also was recently prescribed glyburide and since she started that she has had shortness of breath in addition to occasional bouts of nausea as well as emesis but not severe and last noted this Thursday prior per discussion with patient and her spouse, however given the worsening dyspnea prompted ED evaluation. Workup in the ED included T97.7, heart rate 104, BP 168/115, respiratory rate 20, 94% on room air with most recent repeat vitals heart rate 98, BP 155/86, respiratory rate 20, 95% on room air, CBC with WBC 7.4, hemoglobin 12.7, platelet 239 with increased immature granulocytes, D-dimer 0.38, VBG with bicarb 33, total CO2 35, BMP with BUN/creatinine 10/0.55, GFR 118, glucose 267, initial troponin 162, chest x-ray with no acute cardiopulmonary findings, EKG with sinus rhythm with no acute evidence of ischemia. In the ED patient ministered Tylenol 650 mg p.o. x 1, FS ASA administered and started heparin drip. [facility] Medical History (Updated 10/20/24 @ 16:[address] Marnie Tariq MD) History of alcohol abuse Anxiety Chewing tobacco use Neuropathy Morbid obesity HTN (hypertension) Diabetes mellitus, type 2 History of pulmonary embolism Home Medications ?Medication ?Instructions ?Recorded ?Last Taken ?Type furosemide 40 mg tablet 40 mg PO DAILY 09/17/20 Unknown History gabapentin 800 mg tablet 1,600 mg PO QHS 11/07/23 Unknown History dulaglutide 0.75 mg/0.5 mL 0.75 mg subcut QWEEK 02/18/24 Unknown History subcutaneous pen injector (Trulicity) lorazepam 2 mg tablet (Ativan) 2 mg PO DAILY 08/15/24 Unknown History penicillin V potassium 500 mg 500 mg PO 4X/DAY #40 tabs 02/20/24 Unknown Rx tablet cyclobenzaprine 10 mg tablet 10 mg PO QHS PRN PRN Muscle Spasm 06/24/24 Unknown Rx #10 TABLETS hydrocodone-acetaminophen 5-325mg 1 tab PO Q6H PRN PRN Pain 3 days 06/24/24 Unknown Rx 5mg-325mg #10 TABLETS nystatin 100,000 unit/gram topical 1 applic topical BID #60 grams 09/10/24 Unknown Rx powder Allergy/AdvReac Type Severity Reaction Status Date / Time sulfamethoxazole (From Allergy Hives Verified 10/20/24 13:32 Bactrim) trimethoprim (From Bactrim) Allergy Hives Verified 10/20/24 13:32 ketorolac tromethamine (From AdvReac Upset Verified 10/20/24 13:32 Toradol) Stomach morphine AdvReac Upset Verified 10/20/24 13:32 Stomach tramadol AdvReac Upset Verified 10/20/24 13:32 Stomach Family History (Updated 10/20/24 @ 15:[address] Marnie Tariq MD) Mother Diabetes Thyroid disorder Father Alcoholic cirrhosis Alcoholism Surgical History (Updated 10/20/24 @ 16:[address] Marnie Tariq MD) S/P wisdom tooth extraction Social History (Updated 10/20/24 @ 16:[address] Marnie Tariq MD) household members: spouse Smoking Status: Never smoker Smokeless tobacco user: chewing tobacco how long ago did patient quit smoking: Prior heavy chew tobacco, markedly decreased and rare now. alcohol intake: former details: History alcoholism, sober since 03/15/2024. substance use type: does not use ROS ROS Narrative Admission Review of Systems: CONSTITUTIONAL: No weight loss, fever, chills, weakness or fatigue. HEENT: + Mild congestion. Eyes: No visual loss, blurred vision, double vision or yellow sclerae. Ears, Nose, Throat: No hearing loss, sneezing, runny nose or sore throat. SKIN: No rash or itching, lesions, wounds. CARDIOVASCULAR: + Chronic edema. No chest pain, chest pressure or chest discomfort, palpitations, orthopnea, syncopal events. RESPIRATORY: + Dyspnea, worse with exertion, cough without any sputum production, occasional wheezing. No hemoptysis. GASTROINTESTINAL: No anorexia, nausea, vomiting or diarrhea, abdominal pain, melena, BRBPR. GENITOURINARY: No dysuria, frequency, urgency or retention. NEUROLOGICAL: No headache, dizziness, syncope, paralysis, ataxia, numbness or tingling in the extremities, focal weakness, change in bowel or bladder control, seizure. MUSCULOSKELETAL: No muscle, back pain, joint pain or stiffness. HEMATOLOGIC: No anemia, bleeding or bruising. LYMPHATICS: No enlarged nodes. No history of splenectomy. PSYCHIATRIC: + History of anxiety. ENDOCRINOLOGIC: No reports of sweating, cold or heat intolerance. No polyuria or polydipsia. ALLERGIES: No history of asthma, hives, eczema or rhinitis. Vital Signs Vital Signs Vital Signs: 10/20/24 13:32 10/20/24 13:35 10/20/24 13:40 Temperature 97.7 F L 97.7 F L Temperature Source Oral Oral Pulse Rate 104 H 104 H Respiratory Rate 20 H 20 H Respiratory Effort Short of Breath Blood Pressure 168/115 H 168/115 H Blood Pressure Mean 132 132 Pulse Ox 94 94 Oxygen Delivery Method Room Air Room Air Room Air 10/20/24 15:25 10/20/24 15:25 Temperature 97.7 F L Temperature Source Pulse Rate 98 98 Respiratory Rate 34 H Respiratory Effort Blood Pressure 155/86 H 155/86 H Blood Pressure Mean 109 109 Pulse Ox 95 95 Oxygen Delivery Method Room Air Weight Weight: 377 lb 6.4 oz Body Mass Index (BMI) 66.8 Physical Exam Narrative Physical Examination: General: Awake, alert, oriented x 3 and cooperative, laying in the ED bed, fatigued, significant onset anxiety with discussions about clinical status and plan of care. Skin: Normal color, normal turgor, no icterus, no cyanosis except occasional stage ecchymoses, intertrigo. HEENT: AT/NC, EOMI, PERRLA, MMM, unable to determine carotid bruits or JVD given very thickened neck Lungs: Diminished, distant breath sounds likely secondary to habitus, greater bases, mildly increased respiratory rate but no distress, no rales, ronchi or wheezing. Heart: Mildly tachycardic with regular rhythm; no gallop, rub audible. Abdomen: Soft, morbidly obese, NTTP, distant BS, difficult to discern distention and HSM given habitus. Extremities: No cyanosis, no clubbing, pedal to distal toney edema which she reports is chronic. Neurological: Patient awake, alert, oriented as noted, cognitive function intact; pupils equally reactive to light and accommodation, cranial nerves grossly normal, moving all 4 extremities, no focal deficits, strength moderately globally decreased secondary to acute presentation complaints Psychiatric: Affect appears anxious, tearful with discussions about her clinical status and plan of care, does have underlying severe anxiety per discussion with patient and spouse. Results Lab / Micro Data 10/20/24 14:00 10/20/24 14:00 Labs: Laboratory Results - last 24 hr 10/20/24 14:00: WBC 7.4, RBC 4.60, Hgb 12.7, Hct 40.2, MCV 87.4, MCH 27.6, MCHC 31.6 L, RDW Std Deviation 42.5, RDW Coeff of Nirmala 13.5, Plt Count 239, MPV 11.3, Immature Gran % (Auto) 1.500 H, Neut % (Auto) 72.6 H, Lymph % (Auto) 17.7 L, [place] % (Auto) 5.1, Eos % (Auto) 2.3, Baso % (Auto) 0.8, Absolute Neuts (auto) 5.4, Absolute Lymphs (auto) 1.31, Nucleated RBC % 0, D-Dimer Quant (PE/DVT) 0.38, Sodium 138, Potassium 4.4, Chloride 102, Carbon Dioxide 25.5, Anion Gap 11, BUN 10, Creatinine 0.55 L, Estim Creat Clear Calc 212.32, Est GFR (MDRD) Non-Af 118, BUN/Creatinine Ratio 18.3, Glucose 267 H, Calcium 9.4, Troponin T High Sens 162 H* ABG Data ABG results: ABG 10/20/24 14:20 Specimen Type SHANE Sample Site Not entered VBG pH 7.39 VBG pO2 37 VBG HCO3 33 H VBG Total CO2 35 H VBG O2 Sat (Calc) 68 VBG Base Excess 8 H POC Mix VBG pCO2 Pt Tmp 54.4 H O2 Delivery Device Not entered Rhythm Strip Rhythm Strip: Sinus Tach Rate: 103 Ectopy: None Imaging Radiology Impression Chest X-Ray 10/20/24 14:20 IMPRESSION: NO ACUTE FINDINGS. Reading [facility] Assessment & Plan Assessment/Plan (1) Non-ST elevated myocardial infarction (non-STEMI): PLAN: Plan The patient is a 39 y/o F w/ PMHx: Former EtOH abuse, Chew tobacco use (heavy->rare currently), Anxiety, Morbid obesity, Hx VTE (DVT, PE), Diabetes mellitus type II with chronic neuropathy, HTN who presents to the [facility] ED on 10/20/24 with history of persistent dyspnea worse with exertion starting approximately 1 month prior worsening over the last several days, waxing and waning with occasional wheezing and a nonproductive cough reported that she also was recently prescribed glyburide and since she started that she has had shortness of breath in addition to occasional bouts of nausea as well as emesis but not severe and last noted this Thursday prior per discussion with patient and her spouse, however given the worsening dyspnea prompted ED evaluation. #1. Exertional dyspnea/Anginal equivalent with elevated troponin concerning for acute NSTEMI, potentially type I but uncertain: EKG in ED w/ sinus rhythm with no acute evidence of ischemia, CXR w/ no acute cardiopulmonary finding. Trop elevated, 162, repeat delta pending. Will admit to PCU, maintain on a monitored bed, continue serial cardiac enzymes and EKGs. Obtain magnesium level upon admission. Continue heparin drip. Continue medical management w/ adding asa, adding low-dose BB, adding statin w/ AM FLP. ECHO requested. Cardiology consulted. #2. Hypertension: Continue home regimen including Lasix, given current presentation we will additionally add beta-derek therapy, but will defer to his cardiology discretion for alternate agents PRN hydralazine. #3. Diabetes mellitus type II with chronic neuropathy: Hold oral home regimen, hemoglobin A1c requested, ADA diet until n.p.o. status, accu checks w/ ISS, continue home gabapentin regimen. #4. Anxiety: Will continue patient home Ativan regimen although would benefit from alternate agent, potentially SSRI as initial treatment. Following discussions about her current status in the ED patient was extremely anxious, will administer Ativan 0.5 mg p.o. x 1 now. Clarifying home dose. Encourage continued outpatient follow-up as previously arranged. #5. History of VTE: Patient with history of previous DVT, PE, not currently chronically anticoagulated, D-dimer normal range of note. #6. Chew Tobacco Abuse: Patient notes previously heavy, now rarely using, encouraged cessation, inpatient consultation per RT, NR if desired. #7. Morbid Obesity: Weight loss and lifestyle changes encouraged, nutrition consulted. #8. Potential underlying undiagnosed sleep apnea: High risk, will maintain on trending pulse ox overnight. #9. Former alcohol abuse: Sober since 03/15/2024, encourage continued sober status. #10. DVT prophylaxis: Heparin drip. #11. CODE STATUS: Full code. Charges/Coding Visit Charges Inpatient E&M: 58386 Init Hosp L3
[2024-10-20] MEDS: Aspirin 81 MG TAB.CHEW 324 MG PO (15:56)
[2024-10-20] MEDS: Heparin Injection (Vial) 5,000 UNIT/ML VIAL 4000 UNIT IV (15:57)
[2024-10-20] MEDS: HEPARIN/D5w 25,000 UNITS 25,000 UNITS/250 ML IV.SOLN. 10 UNITS CONT INF (15:59)
[2024-10-20] MEDS: LORazepam 0.5 MG Tablet PO (16:05)
[2024-10-20 16:09] LABS: Prothrombin Time (Protime)PT. 13.2 SECONDS (11.7-14.9)
[2024-10-20 16:10] LABS: Partial Thromboplast Time 26.1 Seconds (24.1-36.2)
[2024-10-20 16:13] LABS: Magnesium 1.7 mg/dL (1.5-2.2)
--- NOTE | 2024-10-20 16:35 | EKG12_ITS ---
Test Reason : Blood Pressure : */* mmHG Vent. Rate : 97 BPM Atrial Rate : 97 BPM P-R Int : 190 ms QRS Dur : 88 ms QT Int : 342 ms P-R-T Axes : 31 8 58 degrees QTcB Int : 434 ms Normal sinus rhythm Normal ECG When compared with ECG of 20-Oct-2024 14:08, MANUAL COMPARISON REQUIRED DATA IS UNCONFIRMED Confirmed by Wade Bowens ([id number]), index editor ISSA GENAO ([id number]) on 10/24/2024 8:46:48 AM Referred By: KYREE Confirmed By: Wade Bowens
--- NOTE | 2024-10-20 16:35 | ECHOCS_ITS ---
Reason For Study Reason For Study: NSTEMI Procedure This was a 2D Doppler, Color Flow transthoracic echocardiogram. The study was technically difficult. Contrast injection was performed. Exam performed portable in patient room. Left Ventricle Normal LV size. Mild concentric left ventricular hypertrophy. The left ventricular ejection fraction is 55 %. No regional wall motion abnormalities noted. Right Ventricle Normal RV size. Normal systolic function. Atria Normal left atrium. Normal right atrium. Mitral Valve Normal mitral valve. Tricuspid Valve Normal tricuspid valve. Aortic Valve Trisinus/trileaflet aortic valve. Pulmonic Valve The pulmonic valve is not well visualized. Great Vessels Normal aortic root. The pulmonary artery is normal size. Inferior vena cava collapse with respiration. Pericardium/Pleural No pericardial effusion. Medication Diluted definity 3ml given slow IV push to enhance endocardial definition. MMode/2D Measurements & Calculations LVIDd: 4.8 cm IVSd: 1.2 cm Ao root diam: 3.2 cm LVIDs: 3.3 cm LVPWd: 1.3 cm LA dimension: 3.6 cm FS: 31.2 % LAV(MOD-bp): 61.6 ml LVAd ap4: 41.1 cm2 SV(MOD-sp4): 80.1 ml LAV(MOD-bp) Indexed: 24.4 ml/m2 LVLd ap4: 9.0 cm SI(MOD-sp4): 31.7 ml/m2 LAV(MOD-sp2): 55.5 ml EDV(MOD-sp4): 152.5 ml LAV(MOD-sp4): 60.0 ml EDV(sp4-el): 158.4 ml LVAs ap4: 27.2 cm2 LVLs ap4: 8.4 cm ESV(MOD-sp4): 72.5 ml ESV(sp4-el): 74.8 ml EF(MOD-sp4): 52.5 % EF(sp4-el): 52.8 % SV(4-): 83.6 ml LA A4 area: 21.7 cm2 Time Measurements MV dec time: 0.26 sec Doppler Measurements & Calculations MV E max janes: 119.7 cm/sec Lat Peak E' Janes: 10.4 cm/sec Med Peak E' Janes: 8.4 cm/sec MV A max janes: 93.7 cm/sec E/E' lat: 11.5 E/E' med: 14.3 MV E/A: 1.3 MV V2 max: 144.2 cm/sec MV P1/2t max janes: 146.5 cm/sec Ao V2 max: 128.7 cm/sec MV max P.3 mmHg MV P1/2t: 64.8 msec Ao max P.6 mmHg MV V2 mean: 80.5 cm/sec MV mean P.1 mmHg MV dec slope: 662.4 cm/sec2 MV V2 VTI: 34.6 cm MVA(P1/2t): 3.4 cm2 LV V1 max: 99.2 cm/sec LV V1 max P.9 mmHg ECHO/Echo Complete W/ Contrast Interpretation Summary Normal LV size. No regional wall motion abnormalities noted. Mild concentric left ventricular hypertrophy. The left ventricular ejection fraction is 55 %. Contrast injection was performed. Ordering Physician: Marnie Tariq Performed By: Bennett Cbaello RCS
[2024-10-20 16:50] LABS: Troponin T High Sens 2 HR 10 ng/L (<=14)
--- NOTE | 2024-10-20 17:01 | PCM.CONS.C ---
Assessment & Plan Assessment/Plan (1) Elevated troponin: PLAN: Patient's initial troponin was 162-second 2-hour delta troponin was down to 10. This raises the question of the spuriously value for the first troponin. The patient's ECG shows no evidence of ischemia. Her symptoms have been ongoing and episodic for a month. This is primarily dyspnea on exertion she denies any chest pain syncope or near syncope. She has had a viral infection in the last 2 weeks. For that reason I would recommend we obtain a 2D echocardiogram to evaluate her LV function and rule out structural heart disease as the etiology of her dyspnea on exertion. (2) Type 2 diabetes mellitus with hyperglycemia: QUALIFIERS: Diabetes mellitus extermination supervisor insulin use: without mcfp use Qualified Code(s): E11.65 - Type 2 diabetes mellitus with hyperglycemia PLAN: Diabetes to be managed by the primary service. (3) HTN (hypertension): QUALIFIERS: Hypertension type: primary hypertension Qualified Code(s): I10 - Essential (primary) hypertension PLAN: Patient is on low-dose lisinopril for blood pressure management. Her blood pressures been elevated but she is very anxious and nervous about her overall admission. This should be monitored and after results of the echocardiogram recommendations for appropriate antihypertensive therapy will be made. (4) Dyspnea on exertion: PLAN: Patient's dyspnea on exertion is most probably multifactorial. She is morbidly obese with a weight of 360 pounds. She has a history of pulmonary emboli with a negative D-dimer on this admission. She does not have any significant lower extremity edema or pain in her calves. She does complain of some paresthesia type pains. She is diabetic. A 2D echocardiogram be done to rule out structural heart disease and or LV dysfunction as an etiology of this dyspnea. I will also give us an idea hopefully of her pulmonary pressures. Given her size it may be difficult to get a good evaluation. PLAN: Plan 1. Will check the third set of troponins. 2. 2D echocardiogram be done tomorrow morning. 3. Further recommendations will be forthcoming once the blood work and echocardiogram results are available. HPI Consult Data Date of Consult: 10/20/24 HPI Narrative Reason for Consultation: Eleveated Troponin HPI Narrative: JAELYN TRUONG, is a 39 F who presents with approximately 1 month history of progressive dyspnea on exertion. The patient weighs 340-360 pounds. However she does report that she was able to go up the stairs in her house with minimal shortness of breath over the until over the past months she now has to stop when going up stairs due to dyspnea. The patient the patient is type II diabetic on oral agents. She does not know her last hemoglobin A1c. The patient utilizes tobacco routinely and heavily. She also has a history of hypertension she has a history of remote DVTs with pulmonary embolus 2 years ago. She has been off oral anticoagulation in the last 18 months. She also has a history of anxiety. Patient's EKG shows normal sinus rhythm and is within normal limits. Her initial troponin was 162 the 2-hour delta troponin was 10. Her D-dimer was normal by report. The patient now resting comfortably in recumbent position in bed on room air oxygenating well in no respiratory distress. [facility] Medical History (Updated 10/20/24 @ 17:[address] Wade Bowens MD) History of alcohol abuse Anxiety Chewing tobacco use Neuropathy Morbid obesity HTN (hypertension) Diabetes mellitus, type 2 History of pulmonary embolism Home Medications ?Medication ?Instructions ?Recorded ?Last Taken ?Type furosemide 40 mg tablet 40 mg PO DAILY FLUID RETENTION 09/17/20 10/19/24 History cyclobenzaprine 10 mg tablet 10 mg PO QHS PRN Muscle Spasm 10/20/24 10/19/24 History gabapentin 400 mg capsule 400 mg PO 4X/DAY PAIN 10/20/24 10/19/24 History glimepiride 2 mg tablet 2 mg PO DAILY diabetes 10/20/24 10/19/24 History lisinopril 5 mg tablet 5 mg PO DAILY HBP 10/20/24 10/19/24 History lorazepam 1 mg tablet 1 mg PO TID ANXIETY 10/20/24 Unknown History nystatin 100,000 unit/gram topical 1 applic topical BID PRN skin 10/20/24 Unknown History powder irritation Allergy/AdvReac Type Severity Reaction Status Date / Time sulfamethoxazole (From Allergy Hives Verified 10/20/24 13:32 Bactrim) trimethoprim (From Bactrim) Allergy Hives Verified 10/20/24 13:32 ketorolac tromethamine (From AdvReac Upset Verified 10/20/24 13:32 Toradol) Stomach morphine AdvReac Upset Verified 10/20/24 13:32 Stomach tramadol AdvReac Upset Verified 10/20/24 13:32 Stomach Family History Mother Diabetes Thyroid disorder Father Alcoholic cirrhosis Alcoholism Surgical History S/P wisdom tooth extraction Social History household members: spouse Smoking Status: Never smoker Smokeless tobacco user: chewing tobacco how long ago did patient quit smoking: Prior heavy chew tobacco, markedly decreased and rare now. alcohol intake: former details: History alcoholism, sober since 03/15/2024. substance use type: does not use ROS Constitutional Constitutional: Reports as per HPI Eyes Eyes: Reports systems reviewed and no addt'l complaints, except as documented ENT HEENT: Reports systems reviewed and no addt'l complaints, except as documented Cardiovascular Cardiovascular: Reports as per HPI Respiratory/Chest Respiratory/Chest: Reports as per HPI Gastrointestinal Gastrointestinal: Reports systems reviewed and no addt'l complaints, except as documented Genitourinary Genitourinary: Reports systems reviewed and no addt'l complaints, except as documented Musculoskeletal Musculoskeletal: Reports systems reviewed and no addt'l complaints, except as documented Integumentary Integumentary: Reports systems reviewed and no addt'l complaints, except as documented Neurologic Neurologic: Reports systems reviewed and no addt'l complaints, except as documented Psychiatric Psychiatric: Reports systems reviewed and no addt'l complaints, except as documented Endocrine Endocrinology: Reports as per HPI Hematologic/Lymphatic Hematologic/Lymphatic: Reports as per HPI Allergic/Immunologic Allergic/Immunologic: Reports systems reviewed and no addt'l complaints, except as documented Physical Exam Narrative Morbidly obese white female resting comfortably in recumbent position. Const alert and oriented x3 HEENT normocephalic Eyes EOMs intact bilaterally Neck no carotid bruits Neck Narrative: Very thick neck. Chest Chest Narrative: Marked increased AP diameter. Resp normal respiratory effort and clear to auscultation bilaterally Cardio regular rate, regular rhythm, S1 normal heart sound, S2 normal heart sound, no murmurs, no rub and no gallops Cardio Narrative: Very distant heart tones GI GI Narrative: Morbidly obese Extremity General Extremity: edema bilateral lower extremity Details: trace Neuro Neuro Narrative: Alert and oriented x 3 Psych mental status grossly normal Risk Stratification Risk Stratification Applicable: Yes Age >/= 65: No >/= 3 CAD Risk Factors (HTN, HLD, DM, family hx of CAD, or current smoker): Yes Aspirin Use in the Past 7 Days: No Severe Angina (>/= episodes in 24 hours): No EKG ST Changes >/= 0.5mm: No Positive Cardiac Marker: Yes MIGUEL Risk Stratification Score: 2 MIGUEL % Risk: 8% Risk Charges/Coding Visit Charges Inpatient E&M: 93295 Init Hosp L3 Objective Data Vital Signs: Vital Signs Temp Pulse Resp BP Pulse Ox O2 Del Method 97.7 F L 100 20 H 173/108 H 95 Room Air 10/20/24 16:45 10/20/24 16:45 10/20/24 16:45 10/20/24 16:45 10/20/24 16:45 10/20/24 16:45 Oxygen Delivery Method Room Air Weight: 377 lb 6.4 oz Body Mass Index (BMI) 66.8 Lab / Micro Data Attestation: I reviewed the patient's lab results. 10/20/24 14:00 10/20/24 14:00 Labs: Laboratory Results - last 24 hr 10/20/24 14:00: WBC 7.4, RBC 4.60, Hgb 12.7, Hct 40.2, MCV 87.4, MCH 27.6, MCHC 31.6 L, RDW Std Deviation 42.5, RDW Coeff of Nirmala 13.5, Plt Count 239, MPV 11.3, Immature Gran % (Auto) 1.500 H, Neut % (Auto) 72.6 H, Lymph % (Auto) 17.7 L, [place] % (Auto) 5.1, Eos % (Auto) 2.3, Baso % (Auto) 0.8, Absolute Neuts (auto) 5.4, Absolute Lymphs (auto) 1.31, Nucleated RBC % 0, D-Dimer Quant (PE/DVT) 0.38, Sodium 138, Potassium 4.4, Chloride 102, Carbon Dioxide 25.5, Anion Gap 11, BUN 10, Creatinine 0.55 L, Estim Creat Clear Calc 212.32, Est GFR (MDRD) Non-Af 118, BUN/Creatinine Ratio 18.3, Glucose 267 H, Calcium 9.4, Magnesium 1.7, Troponin T High Sens 162 H* 10/20/24 15:45: PT 13.2, INR 1.0, APTT 26.1 10/20/24 16:05: Troponin T Hi Sens 2 Hr 10 ABG Data ABG results: ABG 10/20/24 14:20 Specimen Type SHANE Sample Site Not entered VBG pH 7.39 VBG pO2 37 VBG HCO3 33 H VBG Total CO2 35 H VBG O2 Sat (Calc) 68 VBG Base Excess 8 H POC Mix VBG pCO2 Pt Tmp 54.4 H O2 Delivery Device Not entered Rhythm Strip Rhythm Strip: Sinus Tach Rate: 103 Ectopy: None Cardiology Labs/Tests 10/20/24 14:00: WBC 7.4, RBC 4.60, Hgb 12.7, Hct 40.2, MCV 87.4, MCH 27.6, MCHC 31.6 L, Plt Count 239, MPV 11.3, Immature Gran % (Auto) 1.500 H, Neut % (Auto) 72.6 H, Lymph % (Auto) 17.7 L, [place] % (Auto) 5.1, Eos % (Auto) 2.3, Baso % (Auto) 0.8, Absolute Neuts (auto) 5.4, Nucleated RBC % 0, D-Dimer Quant (PE/DVT) 0.38, Sodium 138, Potassium 4.4, Chloride 102, Carbon Dioxide 25.5, Anion Gap 11, BUN 10, Creatinine 0.55 L, Est GFR (MDRD) Non-Af 118, BUN/Creatinine Ratio 18.3, Glucose 267 H, Calcium 9.4, Magnesium 1.7 10/20/24 14:20: VBG pH 7.39, VBG pO2 37, VBG HCO3 33 H, VBG O2 Sat (Calc) 68, VBG Base Excess 8 H 10/20/24 15:45: PT 13.2, INR 1.0, APTT 26.1 Rhythm: EKG: ECHO: Stress Test: Cardiac Cath: PCI: CT Surgery: Holter monitor: EPS: PPM: CXR: Chest CT Scan: Radiography Diagnostic Testing: Radiology Impression Chest X-Ray 10/20/24 14:20 IMPRESSION: NO ACUTE FINDINGS. Reading [facility]
[2024-10-20] MEDS: HEPARIN/D5w 25,000 UNITS 25,000 UNITS/250 ML IV.SOLN. 12 UNITS CONT INF (17:35)
[2024-10-20] MEDS: Insulin Lispro 100 UNIT/ML INSULN.PEN SC ×2 (17:57→22:03)
[2024-10-20 17:58] LABS: Bedside Glucose 220 mg/dL (74-106)
[2024-10-20] MEDS: Gabapentin 400 MG Capsule PO ×2 (17:58→21:18)
[2024-10-20] MEDS: Famotidine 20 MG Tablet PO ×2 (17:58→21:18)
[2024-10-20 18:14] LABS: Troponin T High Sens 4 HR 8 ng/L (<=14)
[2024-10-20] MEDS: Metoprolol Tartrate 25 MG Tablet 12.5 MG PO (21:18)
[2024-10-20] MEDS: Atorvastatin Calcium 80 MG Tablet PO (21:18)
[2024-10-20] MEDS: LORazepam 1 MG Tablet PO (21:20)
[2024-10-20] MEDS: Nystatin Powder 15gm Bottle 1 APPLIC TOPICAL (21:21)
[2024-10-20 22:23] LABS: Bedside Glucose 208 mg/dL (74-106)
[2024-10-20] MEDS: 0.9% Normal Saline (1000mL) 1,000 ML 100 ML IV (23:24)
[2024-10-21] VITALS (7 sets, daily range): BP systolic 136–155; BP diastolic 88–103; PULSE 77–95; RESP 17–20; TEMP 36.4–36.5; O2SAT 94–98; BMI 66.6
[2024-10-21 00:12] LABS: Partial Thromboplast Time 35.5 Seconds (24.1-36.2)
[2024-10-21] MEDS: Heparin Injection (Vial) 5,000 UNIT/ML VIAL IV ×2 (01:06→07:04)
[2024-10-21] MEDS: Acetaminophen 325 MG Tablet 650 MG PO (06:29)
[2024-10-21] MEDS: LORazepam 1 MG Tablet PO ×2 (06:29→14:30)
[2024-10-21] MEDS: Insulin Lispro 100 UNIT/ML INSULN.PEN SC ×2 (06:29→12:02)
[2024-10-21 06:41] LABS: Absolute Lymphocyte Count 1.41 X10^3/uL (0.83-4.51); Absolute Neutrophil Count 4.3 X10^3/uL (2.0-7.7); Basophil# 0.05 X10^3/uL; Basophil% 0.8 % (0-1); Eosinophil# 0.19 X10^3/uL; Eosinophils% 2.9 % (0-5); Hematocrit 38.8 % (37-47); Hemoglobin 12.1 g/dL (12.0-15.0); Lymphocyte # 1.41 X10^3/ul (0.83-4.51); Lymphocyte % 21.7 % (19-41); Mean Corp Hgb Conc 31.2 g/dL (32-36); Mean Corpuscular Hgb 27.5 pg (27.0-32.0); Mean Corpuscular Volume 88.2 fL (81-99); Monocyte# 0.42 X10^3/uL; Monocyte% 6.5 % (0-10); NRBC Flagged by Analyzer 0 % (0-5); Neutrophil # 4.34 X10^3/uL (2.7-7.7); Neutrophil % 66.6 % (47-70); Platelet Count 220 K/mm3 (150-450); RBC Distribution Width CV 13.5 % (11.6-14.6); RBC Distribution Width SD 43.6 fl (35.1-43.9); White Blood Count 6.5 K/mm3 (4.4-11.0)
[2024-10-21 06:52] LABS: Partial Thromboplast Time 40.3 Seconds (24.1-36.2)
[2024-10-21 07:01] LABS: Bedside Glucose 182 mg/dL (74-106)
[2024-10-21 07:13] LABS: Hemoglobin A1c 8.2 % (<=5.6)
[2024-10-21 07:15] LABS: ALB/GLOB Ratio 1.4 RATIO (0.9-2.4); AST(SGOT) 15 U/L (<=31); Alanine Aminotransfer ALT/SGPT 15 U/L (<=34); Albumin, Serum 3.7 g/dL (3.5-5.0); Alkaline Phosphatase 84 U/L (35-104); Anion Gap 10 (5-15); BUN 9 mg/dL (4-19); BUN/Creat Ratio 18.6 RATIO (10-20); Calcium,Total 8.9 mg/dL (7.6-11.0); Chloride 102 mmol/L (98-108); Cholesterol 195 mg/dL (<=200); Creatinine, Serum 0.46 mg/dL (0.70-1.20); EST Glomerular Filtration Rate 123 (>60); Estimated Creatinine Clearance 253.26 ml/min (50-250); Globulin 2.7 g/dL (2.2-4.2); Glucose 192 mg/dL (70-99); High Density Lipoprotein 46 mg/dL; Low Density Lipoprotein Calc. 102 mg/dL; Potassium 4.6 mmol/L (3.3-5.1); Protein, Total 6.4 g/dL (5.9-8.4); Sodium Level 137 mmol/L (133-145); Total Bilirubin 0.29 mg/dL (0.00-1.30); Triglycerides 235 mg/dL; Very Low Density Lipoprotein 47 mg/dL (5-40); cholesterol:hdl ratio screen 4.25
--- NOTE | 2024-10-21 08:54 | PN.CARD_ITS ---
Subjective Subjective Patient is sleeping soundly in her come position in bed. I woke her she has no complaints this morning. Patient is not had chest discomfort her presenting complaint was increasing dyspnea on exertion. The initial troponin of 167 appears to have been a spuriously value. Her 2-hour troponin was 10 and her 4-hour troponin was 8. This is not consistent with an ischemic etiology of her symptoms. However, an echocardiogram is ordered and will be evaluated for possible structural heart disease as a possible explanation of her dyspnea on exertion. Objective Data Vital Signs: Vital Signs Temp Pulse Resp BP Pulse Ox O2 Del Method O2 Flow Rate 97.7 F L 91 19 H 155/88 H 97 Nasal Cannula 4 10/21/24 03:49 10/21/24 03:49 10/21/24 03:49 10/21/24 03:49 10/21/24 03:49 10/21/24 08:04 10/21/24 08:04 FiO2 21 10/20/24 23:27 Oxygen Flow Rate (L/min) 4 Oxygen Delivery Method Nasal Cannula Weight: 376 lb 1.738 oz Body Mass Index (BMI) 66.6 Intake & Output: Intake and Output for Last 24 Hours 10/19/24 10/20/24 10/21/24 23:59 23:59 23:59 Intake Total 59.5 / 59.5 174.53 / 174.53 Balance 59.5 / 59.5 174.53 / 174.53 Lab / Micro Data Attestation: I reviewed the patient's lab results. 10/21/24 06:27 10/21/24 06:27 Labs: Laboratory Results - last 24 hr 10/20/24 14:00: WBC 7.4, RBC 4.60, Hgb 12.7, Hct 40.2, MCV 87.4, MCH 27.6, MCHC 31.6 L, RDW Std Deviation 42.5, RDW Coeff of Nirmala 13.5, Plt Count 239, MPV 11.3, Immature Gran % (Auto) 1.500 H, Neut % (Auto) 72.6 H, Lymph % (Auto) 17.7 L, Pendleton % (Auto) 5.1, Eos % (Auto) 2.3, Baso % (Auto) 0.8, Absolute Neuts (auto) 5.4, Absolute Lymphs (auto) 1.31, Nucleated RBC % 0, D-Dimer Quant (PE/DVT) 0.38, Sodium 138, Potassium 4.4, Chloride 102, Carbon Dioxide 25.5, Anion Gap 11, BUN 10, Creatinine 0.55 L, Estim Creat Clear Calc 212.32, Est GFR (MDRD) Non-Af 118, BUN/Creatinine Ratio 18.3, Glucose 267 H, Calcium 9.4, Magnesium 1.7, Troponin T High Sens 162 H* 10/20/24 15:45: PT 13.2, INR 1.0, APTT 26.1 10/20/24 16:05: Troponin T Hi Sens 2 Hr 10 10/20/24 17:15: Troponin T Hi Sens 4Hr 8 10/20/24 17:40: POC Glucose 220 H 10/20/24 22:01: POC Glucose 208 H 10/20/24 23:40: APTT 35.5 10/21/24 06:27: WBC 6.5, RBC 4.40, Hgb 12.1, Hct 38.8, MCV 88.2, MCH 27.5, MCHC 31.2 L, RDW Std Deviation 43.6, RDW Coeff of Nirmala 13.5, Plt Count 220, MPV 11.0, Immature Gran % (Auto) 1.500 H, Neut % (Auto) 66.6, Lymph % (Auto) 21.7, Pendleton % (Auto) 6.5, Eos % (Auto) 2.9, Baso % (Auto) 0.8, Absolute Neuts (auto) 4.3, Absolute Lymphs (auto) 1.41, Nucleated RBC % 0, APTT 40.3 H, Sodium 137, Potassium 4.6, Chloride 102, Carbon Dioxide 25.0, Anion Gap 10, BUN 9, C reatinine 0.46 L, Estim Creat Clear Calc 253.26 H, Est GFR (MDRD) Non-Af 123, BUN/Creatinine Ratio 18.6, Glucose 192 H, Hemoglobin A1c 8.2 H, Calcium 8.9, Total Bilirubin 0.29, AST 15, ALT 15, Alkaline Phosphatase 84, Total Protein 6.4, Albumin 3.7, Globulin 2.7, Albumin/Globulin Ratio 1.4, Triglycerides 235 H, Cholesterol 195, LDL Cholesterol, Calc 102, VLDL Cholesterol 47 H, HDL Cholesterol 46, Cholesterol/HDL Ratio 4.25, POC Glucose 182 H ABG Data ABG results: ABG 10/20/24 14:20 Specimen Type SHANE Sample Site Not entered VBG pH 7.39 VBG pO2 37 VBG HCO3 33 H VBG Total CO2 35 H VBG O2 Sat (Calc) 68 VBG Base Excess 8 H POC Mix VBG pCO2 Pt Tmp 54.4 H O2 Delivery Device Not entered Rhythm Strip Rhythm Strip: Sinus Rhythm Rate: 90 Ectopy: None Cardiology Labs/Tests 10/20/24 14:00: WBC 7.4, RBC 4.60, Hgb 12.7, Hct 40.2, MCV 87.4, MCH 27.6, MCHC 31.6 L, Plt Count 239, MPV 11.3, Immature Gran % (Auto) 1.500 H, Neut % (Auto) 72.6 H, Lymph % (Auto) 17.7 L, Pendleton % (Auto) 5.1, Eos % (Auto) 2.3, Baso % (Auto) 0.8, Absolute Neuts (auto) 5.4, Nucleated RBC % 0, D-Dimer Quant (PE/DVT) 0.38, Sodium 138, Potassium 4.4, Chloride 102, Carbon Dioxide 25.5, Anion Gap 11, BUN 10, Creatinine 0.55 L, Est GFR (MDRD) Non-Af 118, BUN/Creatinine Ratio 18.3, Glucose 267 H, Calcium 9.4, Magnesium 1.7 10/20/24 14:20: VBG pH 7.39, VBG pO2 37, VBG HCO3 33 H, VBG O2 Sat (Calc) 68, V BG Base Excess 8 H 10/20/24 15:45: PT 13.2, INR 1.0, APTT 26.1 10/20/24 23:40: APTT 35.5 10/21/24 06:27: WBC 6.5, RBC 4.40, Hgb 12.1, Hct 38.8, MCV 88.2, MCH 27.5, MCHC 31.2 L, Plt Count 220, MPV 11.0, Immature Gran % (Auto) 1.500 H, Neut % (Auto) 66.6, Lymph % (Auto) 21.7, Pendleton % (Auto) 6.5, Eos % (Auto) 2.9, Baso % (Auto) 0.8, Absolute Neuts (auto) 4.3, Nucleated RBC % 0, APTT 40.3 H, Sodium 137, Potassium 4.6, Chloride 102, Carbon Dioxide 25.0, Anion Gap 10, BUN 9, C reatinine 0.46 L, Est GFR (MDRD) Non-Af 123, BUN/Creatinine Ratio 18.6, Glucose 192 H, Hemoglobin A1c 8.2 H, Calcium 8.9, Total Bilirubin 0.29, Triglycerides 235 H, Cholesterol 195, VLDL Cholesterol 47 H, HDL Cholesterol 46, Cholesterol/HDL Ratio 4.25 Rhythm: EKG: ECHO: Stress Test: Cardiac Cath: PCI: CT Surgery: Holter monitor: EPS: PPM: CXR: Chest CT Scan: Radiography Diagnostic Testing: Radiology Impression Chest X-Ray 10/20/24 14:20 IMPRESSION: NO ACUTE FINDINGS. Reading Location: [facility] Physical Exam Const alert and oriented x3 HEENT normocephalic Eyes EOMs intact bilaterally Neck Neck Narrative: Thick neck Chest Chest Narrative: Increased AP diameter due to body habitus Resp normal respiratory effort Cardio regular rate and regular rhythm GI GI Narrative: Morbid obesity Neuro Neuro Narrative: Alert and oriented x 3 Psych mental status grossly normal Assessment & Plan Assessment/Plan (1) Dyspnea on exertion: PLAN: Patient's dyspnea on exertion is probably multifactorial. We do need to rule out structural heart issues. An echocardiogram is pending at this time. Further recommendations will be forthcoming once the results of the echo are available. (2) Elevated troponin: PLAN: Patient's initial elevated troponin appears to be in a spuriously value. Her EKG shows no ischemic changes and her 2nd and 3rd troponins were 10 and 8 respectively. PLAN: Plan 1. Recommendations to follow results of the echocardiogram. 2. From a cardiovascular standpoint no further ischemic evaluation is indicated at this time. 3. Potentially the patient could be discharged from home from a cardiovascular standpoint pending the results of the echocardiogram. Charges/Coding Visit Charges Inpatient E&M: 09552 Subs Hosp L2
[2024-10-21] MEDS: Aspirin E.C. 81 MG Tablet PO (09:15)
[2024-10-21] MEDS: Furosemide 40 MG Tablet PO (09:15)
[2024-10-21] MEDS: Famotidine 20 MG Tablet PO (09:16)
[2024-10-21] MEDS: Gabapentin 400 MG Capsule PO ×2 (09:16→14:29)
[2024-10-21] MEDS: Metoprolol Tartrate 25 MG Tablet 12.5 MG PO (09:16)
[2024-10-21] MEDS: Nystatin Powder 15gm Bottle 1 APPLIC TOPICAL (09:16)
[2024-10-21] MEDS: Lisinopril 5 MG Tablet PO (09:17)
--- NOTE | 2024-10-21 10:10 | CASEMGMT ---
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 Original Note: RN?CM?TUBULAR [employer] MACHINE FORMER?CM?to room to meet with patient for initial transition planning/care coordination?assessment.?RN?CM?introduced self and role at [facility].? Pt voices understanding and consents to?assessment?at this time.? Pt sitting on edge of bed in no distress at this time.? Pt is A/O at this time and answers all questions appropriately.?? Care providers, pharmacy, and demographics verified/updated at this time. PCP: Silvana Fitch NP Specialists: denies Preferred Pharmacy: [facility] Insurance: [employer] listed as primary insurance and [employer] as secondary. Pt states she only has [employer] and has never signed up for [employer]. Pt states she started receiving mail notifications that she was active w/[employer], but she is not sure how. She states her called [employer] a few days ago to notify them and they said they would remove pt. RN JAZMÍN placed call to Tay[employer] in registration. Per Tayler, there is currently a fraud issue w/[employer] and someone is signing people up without their knowledge or consent. She states pt is still currently listed as active w/[employer] and this is not able to be removed at this time until [employer] successfully removes her. Pt made aware and advised to contact [facility] if there are any billing issues. Prescription Benefit:?Yes LNOK: [place] Living Arrangements: Lives w/ and 2 roommates in 2-story home w/a basement w/2 steps to enter. Pt's bathroom and bedroom is on the 2nd floor. There is no bathroom on the main floor. 3 steps to enter home. Pt states does okay w/steps to enter home but does have difficulty navigating the stairs to 2nd floor d/t back and knee problems. There is a handrail she uses. assists pt w/bathing and dressing and does most home mgnt tasks and cooking. Transportation:?Pt states drives self and states no transportation concerns at this time.? She states either someone from the [email or web address] that she works for will take her home DME: ?Pt has a functioning glucometer w/sufficient supplies. She denies having other DME. HHC/SNF: No hx. No needs identified. Pt wishes to return home and states has no concerns with going home at time of discharge.?CM?to follow for any further discharge planning/needs.? Pt voices no further concerns/needs at this time.? Advised pt to ask for?CM?if any further questions/concerns/needs arise.? Voices understanding. PLAN:??Home [place] LEALN?RN?CM
[2024-10-21 12:25] LABS: Bedside Glucose 204 mg/dL (74-106)
--- NOTE | 2024-10-21 13:27 | PCM.DC ---
Discharge Instructions Diet Discharge Diet: Low fat / Low cholesterol, 1600 Calorie Control Diet and Carb Control Diet DC O2, CPAP, BIPAP needs Home O2 Discharge instructions: No Dressing / Incision Discharge Activity: Return to Normal Activity Dressing / Incision Call your doctor if you observe: Fever of 101 or Higher, Shortness of breath, Dizziness, Fainting spells, Swelling in the ankles, Chest pain and Increased palpitations (irregular heartbeat) Follow Up Care Test Results: Test results from this visit will be discussed in further detail at your follow-up appointment, if applicable. Discharge Plan Admission Admit Date/Time: 10/20/24 15:37 Attending Provider: Boston Calvert Primary Care Provider: Silvana Vick NP Consulting Providers: Wade Bowens; Marnie Tariq Discharge Orders/Prescriptions Prescriptions: Continued furosemide 40 MG tablet 40 mg PO DAILY gabapentin 400 mg capsule 400 mg PO 4X/DAY glimepiride 2 mg tablet 2 mg PO DAILY lisinopril 5 mg tablet 5 mg PO DAILY cyclobenzaprine 10 mg tablet 10 mg PO QHS PRN (Reason: Muscle Spasm) nystatin 100,000 unit/gram powder 1 applic topical BID PRN (Reason: skin irritation) lorazepam 1 mg tablet 1 mg PO TID Referrals / Follow Up: Silvana Vick NP, [employer] [Primary Care Provider] - Within 1 Week Disposition Disposition (needs filled in before D/C Order can be placed): Home, Self Care
--- NOTE | 2024-10-21 13:43 | PHA.DC.MR.R ---
Pharmacy [place] Med Reconciliation Pharmacy Service has performed discharge medication reconciliation for this patient. The patient's discharge medication list was reviewed for discrepancies and discrepancies were resolved. Medications at Discharge Home Medications furosemide 40 mg tablet 40 mg PO DAILY FLUID RETENTION 09/17/20 cyclobenzaprine 10 mg tablet 10 mg PO QHS PRN Muscle Spasm 10/20/24 gabapentin 400 mg capsule 400 mg PO 4X/DAY PAIN 10/20/24 glimepiride 2 mg tablet 2 mg PO DAILY diabetes 10/20/24 lisinopril 5 mg tablet 5 mg PO DAILY HBP 10/20/24 lorazepam 1 mg tablet 1 mg PO TID ANXIETY 10/20/24 nystatin 100,000 unit/gram topical powder 1 applic topical BID PRN skin irritation 10/20/24
--- NOTE | 2024-10-21 14:49 | DS.PCM_ITS ---
Providers Date of Admission: 10/20/24 Primary Care Physician: EVELINA Tariq Consultations 10/20/24 16:35 Consult: Cardiology Routine Consulting Provider: Wade Bowens Reason for Consult: NSTEMI EMERGENT Consult: No MD Notified: Yes Date Notified: 10/20/24 Time Notified: 15:38 Method of Notification: Text Reason For Visit: NSTEMI Diagnosis Discharge Diagnosis (1) Dyspnea on exertion: Status: Acute Code(s): R06.09 - Other forms of dyspnea (2) Elevated troponin: Status: Acute Code(s): R79.89 - Other specified abnormal findings of blood chemistry Medications at Discharge Home Medications furosemide 40 mg tablet 40 mg PO DAILY FLUID RETENTION 09/17/20 cyclobenzaprine 10 mg tablet 10 mg PO QHS PRN Muscle Spasm 10/20/24 gabapentin 400 mg capsule 400 mg PO 4X/DAY PAIN 10/20/24 glimepiride 2 mg tablet 2 mg PO DAILY diabetes 10/20/24 lisinopril 5 mg tablet 5 mg PO DAILY HBP 10/20/24 lorazepam 1 mg tablet 1 mg PO TID ANXIETY 10/20/24 nystatin 100,000 unit/gram topical powder 1 applic topical BID PRN skin irritation 10/20/24 Hospital Course Operations None Procedures 2-D Echocardiogram Summary of Care Provided Minutes Spent on Discharge: 33 Hospital Course: Per HPI: The patient is a 39 y/o F w/ PMHx: Former EtOH abuse, Chew tobacco use (heavy->rare currently), Anxiety, Morbid obesity, Hx VTE (DVT, PE), Diabetes mellitus type II with chronic neuropathy, HTN who presents to the [facility] ED on 10/20/24 with history of persistent dyspnea worse with exertion starting approximately 1 month prior worsening over the last several days, waxing and waning with occasional wheezing and a nonproductive cough reported that she also was recently prescribed glyburide and since she started that she has had shortness of breath in addition to occasional bouts of nausea as well as emesis but not severe and last noted this Thursday prior per discussion with patient and her spouse, however given the worsening dyspnea prompted ED evaluation. Workup in the ED included T97.7, heart rate 104, BP 168/115, respiratory rate 20, 94% on room air with most recent repeat vitals heart rate 98, BP 155/86, respiratory rate 20, 95% on room air, CBC with WBC 7.4, hemoglobin 12.7, platelet 239 with increased immature granulocytes, D-dimer 0.38, VBG with bicarb 33, total CO2 35, BMP with BUN/creatinine 10/0.55, GFR 118, glucose 267, initial troponin 162, chest x-ray with no acute cardiopulmonary findings, EKG with sinus rhythm with no acute evidence of ischemia. In the ED patient ministered Tylenol 650 mg p.o. x 1, FS ASA administered and started heparin drip. Hospital Course: 1. Exertional dyspnea with an elevated troponin of no significance/essential HTN/morbid obesity/type 2 diabetes?39-year-old female presents to the hospital with persistent dyspnea and worsening dyspnea on exertion. She is 5 foot 3, 376 pounds so her morbid obesity is is likely playing a major role however when she came in there was elevated troponin close there was concern for ACS with an anginal equivalent however her next troponin was 10 in the next 1 after that was even lower and therefore it was felt that the initial elevated troponin was spurious. There is significant concern also for sleep apnea as she does not wear CPAP and has never been tested. Echocardiogram showed an EF of 55% in both the right and left ventricle were normal. There was some concern of potential viral induced cardiomyopathy as she had recently had the upper respiratory infection a few weeks ago. I do recommend lifestyle modifications for weight loss and discussed with her the need to follow-up with her PCP to obtain a referral for a sleep study as an outpatient. I discussed with her the plan for discharge today she expressed understanding there is amenable to going home with a go home today. All of her home medications were continued on discharge where appropriate without changes to dosage. Physical Exam Narrative General: Alert, Oriented x3, Cooperative, No apparent distress, morbidly obese HEENT: Atraumatic, PERRLA, EOMI, Normocephalic Oral: Moist Mucosa Neck: Supple, No JVD Lungs: Diminished, Normal air movement, No rhonchi, No wheeze, No rales Cardiovascular: Regular rate, Regular Rhythm, Normal S1, Normal S2, No murmurs, hindered by body habitus Abdomen: Soft, Non Tender, Non-Distended, No Hepato-splenomegaly Extremities: No edema, Capillary Refill Less than 3 Seconds Skin: No rashes, No breakdown Musculoskeletal: No Tenderness to Palpation of Joints or Extremities Neurological: No focal neurological deficits, Motor Exam 5/5 strength throughout, Sensory exam intact to light touch and pain Psych/Mental Status: Normal Affect, Appropriate Weight / BMI Weight Weight: 376 lb 1.738 oz Body Mass Index (BMI) 66.6 ABG / Lab / Microbiology Data 10/21/24 06:27 10/21/24 06:27 Laboratory: Laboratory Results - last 24 hr 10/20/24 14:00: Sodium 138, Potassium 4.4, Chloride 102, Carbon Dioxide 25.5, Anion Gap 11, BUN 10, Creatinine 0.55 L, Estim Creat Clear Calc 212.32, Est GFR (MDRD) Non-Af 118, BUN/Creatinine Ratio 18.3, Glucose 267 H, Calcium 9.4, Magnesium 1.7, Troponin T High Sens 162 H* 10/20/24 15:45: PT 13.2, INR 1.0, APTT 26.1 10/20/24 16:05: Troponin T Hi Sens 2 Hr 10 10/20/24 17:15: Troponin T Hi Sens 4Hr 8 10/20/24 17:40: POC Glucose 220 H 10/20/24 22:01: POC Glucose 208 H 10/20/24 23:40: APTT 35.5 10/21/24 06:27: WBC 6.5, RBC 4.40, Hgb 12.1, Hct 38.8, MCV 88.2, MCH 27.5, MCHC 31.2 L, RDW Std Deviation 43.6, RDW Coeff of Nirmala 13.5, Plt Count 220, MPV 11.0, Immature Gran % (Auto) 1.500 H, Neut % (Auto) 66.6, Lymph % (Auto) 21.7, Ballard % (Auto) 6.5, Eos % (Auto) 2.9, Baso % (Auto) 0.8, Absolute Neuts (auto) 4.3, Absolute Lymphs (auto) 1.41, Nucleated RBC % 0, APTT 40.3 H, Sodium 137, Potassium 4.6, Chloride 102, Carbon Dioxide 25.0, Anion Gap 10, BUN 9, C reatinine 0.46 L, Estim Creat Clear Calc 253.26 H, Est GFR (MDRD) Non-Af 123, BUN/Creatinine Ratio 18.6, Glucose 192 H, Hemoglobin A1c 8.2 H, Calcium 8.9, Total Bilirubin 0.29, AST 15, ALT 15, Alkaline Phosphatase 84, Total Protein 6.4, Albumin 3.7, Globulin 2.7, Albumin/Globulin Ratio 1.4, Triglycerides 235 H, Cholesterol 195, LDL Cholesterol, Calc 102, VLDL Cholesterol 47 H, HDL Cholesterol 46, Cholesterol/HDL Ratio 4.25, POC Glucose 182 H 10/21/24 12:01: POC Glucose 204 H Radiography Diagnostic Testing: Radiology Impression Echocardiogram 10/20/24 16:35 Interpretation Summary Normal LV size. No regional wall motion abnormalities noted. Mild concentric left ventricular hypertrophy. The left ventricular ejection fraction is 55 %. Contrast injection was performed. Ordering Physician: Marnie Tariq Performed By: Bennett Cabello RCS D/C Instructions Discharge Diet: Low fat / Low cholesterol, 1600 Calorie Control Diet and Carb Control Diet Call your doctor if you observe: Fever of 101 or Higher, Shortness of breath, Dizziness, Fainting spells, Swelling in the ankles, Chest pain and Increased palpitations (irregular heartbeat) DC O2, CPAP, BIPAP Needs Home O2 Discharge instructions: No Meaningful Use Info Meaningful Use Meaningful Use Diagnoses (Choose all that apply): None applicable Ischemic Stroke Statin Dosing Therapy Reference: STATIN DOSE THERAPY REFERENCE: * Patients > 75 years receive moderate or high dose statin therapy. * Patients 75 years or YOUNGER should receive HIGH intensity statin dose unless contraindicated. You will be required to document reason for non-treatment if statin daily dose does not meet guidelines. HIGH DOSE STATIN THERAPY DAILY Atorvastatin > than or = to 40 mg Rosuvastatin > than or = to 20 mg Amlodipine + Atorvastatin > than or = to 2.5/40 mg Ezetimibe + Simvastatin 10/80 mg Simvastatin 80mg Discharge Plan Admission Admit Date/Time: 10/20/24 15:37 Attending Provider: Boston Calvert Primary Care Provider: GerrylogSilvana powell NP Consulting Providers: Wade Bowens; Marnie Tariq Discharge Orders/Prescriptions Prescriptions: Continued furosemide 40 MG tablet 40 mg PO DAILY gabapentin 400 mg capsule 400 mg PO 4X/DAY glimepiride 2 mg tablet 2 mg PO DAILY lisinopril 5 mg tablet 5 mg PO DAILY cyclobenzaprine 10 mg tablet 10 mg PO QHS PRN (Reason: Muscle Spasm) nystatin 100,000 unit/gram powder 1 applic topical BID PRN (Reason: skin irritation) lorazepam 1 mg tablet 1 mg PO TID Referrals / Follow Up: Silvana Vick NP, AUDIT SPEC-C [Primary Care Provider] - Within 1 Week Disposition Disposition (needs filled in before D/C Order can be placed): Home, Self Care Charges/Coding Visit Charges Inpatient E&M: 69299 Disch Hosp >30min
== END 2024-10-21 14:58 | disposition home or self-care (01) ==
LOC: ED 15:27 → PCU 10-21 07:10
PROVIDERS: Admitting Provider Family Medicine; Emergency Provider Emergency Medicine; PCP Nurse Practitioner Primary Care; Visit Provider Family Medicine
DX: R06.09 Other forms of dyspnea (principal); F10.21 Alcohol dependence, in remission; Z68.44 Body mass index [BMI] 60.0-69.9, adult; E66.01 Morbid (severe) obesity due to excess calories; E11.65 Type 2 diabetes mellitus with hyperglycemia; E11.40 Type 2 diabetes mellitus with diabetic neuropathy, unspecified; R79.89 Other specified abnormal findings of blood chemistry; F41.9 Anxiety disorder, unspecified; R11.2 Nausea with vomiting, unspecified; I10 Essential (primary) hypertension; R09.81 Nasal congestion; F17.220 Nicotine dependence, chewing tobacco, uncomplicated; Z79.84 Long term (current) use of oral hypoglycemic drugs; Z79.85 Long-term (current) use of injectable non-insulin antidiabetic drugs; Z86.711 Personal history of pulmonary embolism; Z86.718 Personal history of other venous thrombosis and embolism
CPT/HCPCS: 36415; 71046; 80048; 80053; 80061; 82803; 82962; 83036; 83735; 84484; 85025; 85379; 85610; 85730; 93005; 93306; 94762; 96361; 96365; 96366; 96376; 97802; 99221; 99285; Q9957; A4216; C8929; G0378

== ENCOUNTER → 2024-12-28 | Outpatient (CLI) | payer MEDICAID, SELFPAY | END | disposition home or self-care (01) | LOC: SL 19:53 | PROVIDERS: PCP Nurse Practitioner Primary Care; Referring Provider Nurse Practitioner Family; Visit Provider Nurse Practitioner Family | DX: G47.33 Obstructive sleep apnea (adult) (pediatric) (principal) | CPT/HCPCS: 95811 ==

== ENCOUNTER → 2025-01-18 | Outpatient (CLI) | payer MEDICAID, SELFPAY | END | disposition home or self-care (01) | LOC: SL 17:32 | PROVIDERS: PCP Nurse Practitioner Primary Care; Referring Provider Nurse Practitioner Family; Visit Provider Nurse Practitioner Family | DX: Z46.89 Encounter for fitting and adjustment of other specified devices (principal) ==

== ENCOUNTER → 2025-01-26 | Outpatient (CLI) | payer MEDICAID, SELFPAY | END | disposition home or self-care (01) | LOC: SL 13:31 | PROVIDERS: PCP Nurse Practitioner Primary Care; Visit Provider Nurse Practitioner Primary Care | DX: Z00.00 Encounter for general adult medical examination without abnormal findings (principal) ==